=== PATIENT | female | born 1950 | race Caucasian/White ===

== ENCOUNTER 2022-10-27 16:28 | Inpatient (IN) | payer MEDICARE, MEDICAID, SELFPAY ==
[2022-10-27] VITALS (37 sets, daily range): BP systolic 78–135; BP diastolic 29–88; PULSE 53–163; RESP 13–22; TEMP 36–36.7; O2SAT 90–100; BMI 47.1; BMI 45.7
--- NOTE | ~2022-10-27 | CT_ITS ---
EXAMINATION: CT abdomen pelvis w con DATE: 10/27/2022 17:48 INDICATION: Generalized abdominal pain. TECHNIQUE: Computed tomography (CT) of the abdomen and pelvis was performed with 100 mL Omnipaque 350 intravenous contrast. Automated exposure control and iterative reconstruction technique were employe d. The dose-length product was 1770.87 mGy-cm. COMPARISON: None. FINDINGS: The visualized portions of the lung bases demonstrate mild atelectasis. There are small ple ural effusions. Cardiomegaly is noted. No pericardial effusion. There are coronary artery calcificati ons. The liver demonstrates focal steatosis adjacent to the falciform ligament. The gallbladder, sple en, pancreas, and right adrenal gland are normal. There is a 14 mm mass in left adrenal gland measuri ng soft tissue attenuation. There are cysts in the liver kidneys measuring up to 15 mm on the right. The bladder is distended. There are calcified fibroids in the uterus. Stool distends the rectosigmoid . There is wall thickening of the rectum with adjacent fat stranding, consistent with stercoral colit is. The appendix is normal. Aortic atherosclerosis is noted. There are no pathologically enlarged lym ph nodes. There is no free intraperitoneal fluid. There is moderate lumbar spondylosis. There are roselyn dging endplate osteophytes at multiple levels in the spine, consistent with diffuse idiopathic skelet al hyperostosis (DISH). IMPRESSION: 1. Stercoral colitis. 2. Small pleural effusions. 3. 14 mm left adrenal mass. In the absence of known malignancy, this finding is likely an adenoma. Reviewed, dictated and finalized at location E.
--- NOTE | ~2022-10-27 | XR_ITS ---
EXAMINATION: XR chest 1V portable INDICATION: Chest pain TECHNIQUE: Portable AP chest at 1658 hours COMPARISON: None available FINDINGS: There is elevation of the right hemidiaphragm. A mild diffuse interstitial pattern is prese nt. The heart size is normal for technique. No pleural effusion or pneumothorax. IMPRESSION: 1. Probable mild pulmonary edema. Reviewed, dictated and finalized at location L.
--- NOTE | ~2022-10-27 | CT_ITS ---
EXAMINATION: CT soft tissue neck wo con DATE: 11/03/2022 14:12 INDICATION: Right-sided sialadenitis. TECHNIQUE: Computed tomography (CT) of the neck was performed without intravenous contrast. Automated exposure control and iterative reconstruction technique were employed. The dose-length product was 7 03.48 mGy-cm. COMPARISON: None FINDINGS: There is mild dependent atelectasis. There are small pleural effusions. Right parotid gland is enlarged with surrounding fat stranding, consistent with parotiditis. No sialolith. There are no pathologically enlarged lymph nodes. 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 There is mild mucosal thickening in sphenoid sinus. There is moderate cervical spondylosis. IMPRESSION: 1. Right-sided parotiditis. No sialolith. Reviewed, dictated and finalized at location A.
--- NOTE | 2022-10-27 16:35 | ECG_ITS ---
Measurements Intervals [place] Rate: 149 P: IN: 0 QRS: 10 QRSD: 86 T: 49 QT: 301 QTc: 475 Interpretive Statements ATRIAL FIBRILLATION WITH RAPID VENTRICULAR RESPONSE LOW QRS VOLTAGE IN PRECORDIAL LEADS BORDERLINE ST-T WAVE ABNORMALITY- DIFFUSE LEADS BASELINE ARTIFACT- I, II, AVR ABNORMAL ECG NO PREVIOUS ECG AVAILABLE FOR COMPARISON Electronically Signed On 10-27-2022 20:20:09 CDT by Dale Yeager D.O.
[2022-10-27] MEDS: dilTIAZem 100 MG/100 ML 100 MG/100 ML BAG IV CONT (16:52)
[2022-10-27] MEDS: dilTIAZem HCl INJ 25 MG/5 ML VIAL 20 MG IV PUSH (16:52)
[2022-10-27] MEDS: SODIUM CHLORIDE 0.9% IV 1,000 ML 999 ML IV CONT ×2 (16:53→17:18)
[2022-10-27 17:06] LABS: Basophils Absolute Auto 0.1 K/mm3 (0.0-0.1); Basophils Percent Auto 0.5 % (0.2-1.2); Eosinophils Absolute Auto 0.8 K/mm3 (0-0.3); Eosinophils Percent Auto 7.6 % (0-4.4); Hematocrit 38.8 % (37.0-47.0); Hemoglobin 12.5 g/dL (12.0-15.0); Immature Granulocyte Absolute 0.06 K/mm3 (0.00-0.031); Immature Granulocyte Percent A 0.6 % (0-0.5); Lymphocytes Absolute Auto 3.98 K/mm3 (0.9-3.2); Lymphocytes Percent Auto 38.6 % (18.3-44.2); Mean Corpuscular HGB Conc 32.2 g/dl (32-36); Mean Corpuscular Hemoglobin 28.5 pg (26-34); Mean Corpuscular Volume 88.6 fl (80-100); Mean Platelet Volume 9.1 fl (7.4-10.4); Monocytes Absolute Auto 0.7 K/mm3 (0.1-0.6); Monocytes Percent Auto 7.2 % (2.6-8.5); Neutrophils Absolute Auto 4.7 K/mm3 (1.3-6.7); Neutrophils Percent Auto 45.5 % (45.5-73.1); Platelet Count Result 328 k/mm3 (150-375); Red Blood Count 4.38 M/mm3 (4.2-5.4); Red Cell Distribution Width 18.2 % (11.5-14.5); White Blood Count 10.3 K/mm3 (4.5-10.0)
[2022-10-27] MEDS: ASPIRIN 81 MG CHEWABLE TABLET 324 MG PO (17:10)
[2022-10-27 17:14] LABS: INR 1.2; Partial Thromboplastin Time 33.5 SECONDS (22.3-36.8); Prothrombin Time 15.3 Seconds (11.1-14.7)
[2022-10-27 17:17] LABS: Alanine Aminotransferase 23 U/L (6-35); Albumin Level 3.1 g/dL (3.5-5.1); Alkaline Phosphatase 106 U/L (38-126); Anion Gap 2 mmol/L (8-16); Aspartate Amino Transferase 24 U/L (14-36); Bilirubin,Total 0.4 mg/dL (0.2-1.3); Blood Urea Nitrogen 10 mg/dL (7-17); Calcium 9.1 mg/dL (8.4-10.2); Carbon Dioxide 32 mmol/L (22-30); Chloride 102 mmol/L (98-107); Estimated Glomerular Filt Rate > 60; Glucose 135 mg/dL (65-110); Lipase 50 U/L (23-300); Potassium 3.6 mmol/L (3.4-5.0); Sodium 136 mmol/L (137-145)
[2022-10-27 17:19] LABS: Magnesium 1.7 mg/dL (1.6-2.3)
[2022-10-27 17:28] LABS: Troponin I < 0.012 ng/mL (0.000-0.034)
[2022-10-27] MEDS: MAGNESIUM SULF 2 GM/WATER 50ML 2 GM/50 ML BAG IVPB (18:09)
[2022-10-27] MEDS: MORPHINE SULFATE (*CRX) 4 MG/ML INJ IV PUSH (18:09)
--- NOTE | 2022-10-27 18:13 | ED.ARRPALP ---
HPI - Arrhythmia/Palpitations General Chief Complaint: Arrhythmia/Palpitations Stated Complaint: a fib RVR Time Seen by Provider: 10/27/22 16:35 History of Present Illness HPI narrative: This is a 72-year-old female with past history of A-fib on Eliquis, brought in by EMS for palpitations and abdominal pain. The patient states she was in her usual state of health, when she developed a galloping sensation in the chest with intermittent abdominal pain. She denies any known sick contacts or changes in her medications or health. She has no other complaints at this time. Related Data Allergies Allergy/AdvReac Type Severity Reaction Status Date / Time Latex, Natural Rubber AdvReac Unknown Verified 10/27/22 16:55 Review of Systems Review of Systems: CONSTITUTIONAL: Denies fever, chills, or sweats. CARDIOVASCULAR: Palpitations denies chest pain, or edema. RESPIRATORY: Denies cough or dyspnea. GASTROINTESTINAL: Abdominal pain denies nausea, vomiting, or diarrhea. GENITOURINARY: Denies dysuria or hematuria. SKIN: Denies rash or itching. MUSCULOSKELETAL: Denies back pain, joint pain, or myalgia. NEUROLOGIC: Denies headache, numbness, dizziness, or weakness. PSYCHIATRIC: Denies anxiety or depression. Exam Narrative: GENERAL: Well-developed, well-nourished, in moderate distress HEAD: Normocephalic, atraumatic. EYES: PERRLA and EOMI. ENT: Nares clear, no rhinorrhea or epistaxis. Mucous membranes moist. Oropharynx without tonsillar hypertrophy exudate or other lesions. NECK: Supple. No adenopathy or masses. No JVD CHEST: Clear to auscultation. No respiratory distress. No wheezes rales or rhonchi HEART: Irregularly irregular rhythm. No murmur heard. Normal peripheral pulses. ABDOMEN: Soft, mild tenderness to palpation in the periumbilical region without rebound or guarding, nondistended, normal active bowel sounds. EXTREMITIES: Normal range of motion. 2+ bilateral lower extremity edema. SKIN: Warm, dry, no rash. NEURO: No focal deficits. Alert and oriented x3. PSYCH: Normal mood and affect. Course Course Emergency Course: 16:52 - Blood pressure improved with IV bolus ongoing. The patient was given 20 mg of diltiazem IV push with brief improvement of heart rate to the low 100s. Diltiazem drip started. 16:58 - Bedside evaluation of the patient's chest x-ray is not concerning for pneumothorax or focal consolidation. 17:51 - My review of the patient's CT abdomen is concerning for significantly enlarged bladder. Will place a Sullivan catheter. Blood pressure improved to the mid 100s systolic. Heart rate improved to the 130s with diltiazem drip at 10 mg/h. 18:45 - 2.3 L of urine were drained from the patient with Sullivan catheter placement. The patient states her abdominal pain is improved, however her heart rate remains in the 110s to 130s. Pressures remain in the mid to high 90s systolic. I discussed the patient with hospitalist COLE Pruett. We agreed to switch the patient to IV amiodarone and admit to IMU. UA pending. Vital Signs Vital signs: Vital Signs Temperature 98.0 F 10/27/22 16:27 Pulse Rate 153 H 10/27/22 16:27 Respiratory Rate 18 10/27/22 16:27 Pulse Oximetry 97 10/27/22 16:27 Oxygen Delivery Nasal Cannula 10/27/22 16:27 Oxygen Flow Rate 2 10/27/22 16:27 Temperature 98.0 F 10/27/22 16:27 Pulse Rate 132 H 10/27/22 18:10 Respiratory Rate 18 10/27/22 16:27 Blood Pressure 105/62 10/27/22 18:10 Pulse Oximetry 97 10/27/22 16:27 Oxygen Delivery Nasal Cannula 10/27/22 16:27 Oxygen Flow Rate 2 10/27/22 16:27 MDM - Arrhythmia/Palpitations MDM Narrative Medical decision making narrative: Plan: Labs, imaging, rate control, EKG, troponin, IV fluids, reassess Differential Diagnosis Differential diagnosis: Likely artial fibrillation, artial flutter, supraventricular tachycardia and other (Metabolic abnormality, UTI, and terminal hemorrhage, pneumothorax, other) Lab Data 10/17
[2022-10-27] MEDS: METOPROLOL TARTRATE INJ 5 MG/5 ML VIAL IV PUSH (18:47)
[2022-10-27 18:51] LABS: Appearance Urine Clear (Clear); Bilirubin Urine Negative (Negative); Blood Urine Negative (Negative); Color Urine Yellow (Yellow); Glucose Urine UA Negative (Negative); Ketones Urine Negative (Negative); Leukocyte Esterase Ur Negative LEU/UL (Negative); Nitrate Urine Negative (Negative); Protein Urine Negative (Negative); Specific Grav Ur 1.022 (1.001-1.035); Urobilinogen Urine 0.2 mg/dL (<2.0)
[2022-10-27 19:06] LABS: Amphetamine Screen Urine Negative (Negative); Barbiturate Screen Urine Negative (Negative); Benzodiazepines Screen Urine Negative (Negative); Cannabinoid Screen Urine Negative (Negative); Cocaine Screen Urine Negative (Negative); Methadone Screen Urine Negative (Negative); Opiate Screen Urine Positive (Negative); Phencyclidine Screen Urine Negative (Negative)
[2022-10-27] MEDS: AMIODARONE 150 MG/D5W 100 ML 150 MG/100 ML BAG 600 MG IV CONT (19:19)
[2022-10-27 19:23] LABS: Add Urine Microscopic? NO
--- NOTE | 2022-10-27 19:24 | PC.NURSE ---
Orders to change from Diltiazem to Amiodarone due to HR not decreasing.
[2022-10-27] MEDS: AMIODARONE 360 MG/D5W 200 ML 360 MG/200 ML BAG 33.33 MG IV CONT (19:35)
[2022-10-27 20:32] LABS: Troponin I < 0.012 ng/mL (0.000-0.034)
[2022-10-27] MEDS: CALCIUM GLUCONATE 1,000 MG/10 ML VIAL 1000 MG IV PUSH (20:39)
[2022-10-27 20:56] LABS: Glucose Point of Care 155 mg/dl (65-105)
--- NOTE | 2022-10-27 21:54 | ADMGEN ---
This patient, Lauren Lambert, was admitted to IMU Room 204-01. Patient/family oriented to hospital policies and general routines including ID bracelet, bed and alarms, visiting hours, pain management, procedures, bathroom and other care routines, personal items, smoking policy, room service/diet, and visiting hours. Information on how to activate the Rapid Response Team has been discussed. Patient/Family are encouraged to report perceived risks to care and to ask questions if they do not understand what they are told or what they should do.
[2022-10-27 23:13] LABS: Troponin I < 0.012 ng/mL (0.000-0.034)
--- NOTE | 2022-10-27 23:20 | PM.IMHP ---
H&P: HPI History of Present Illness Date/Time: 10/27/22 20:30 Chief Complaint: Racing heart. Narrative: This is a very pleasant 72-year-old female with history of atrial fibrillation status post cardiac ablation, coronary artery disease, congestive heart failure, hypertension, chronic respiratory failure on 2 L nasal cannula, and obstructive sleep apnea who presented to the emergency department via EMS from [facility] for evaluation of racing heart. The patient provides the following history. She usually goes to [facility] and in fact she was just discharged from [facility] yesterday afternoon after being admitted with urosepsis. She was previously living at a different nursing facility in [place], [place] but was discharged she [place]. In any event she reports that she felt okay when she got up this morning and around lunchtime she developed sensations of racing heart ?like my heart was galloping.? She has felt this before when she had issues with atrial fibrillation and she requested to go to the hospital. In fact she requested to go to [facility] as she sees a technical consultant affiliated with [facility] however her blood pressures were running soft and her heart rate was in the 130s and she was diverted to [place] ED. She indeed was found to be in atrial fibrillation with rapid ventricular response and she was given a dose of IV of diltiazem without much improvement. Her blood pressures have been in the 80s to 90s systolic since that time and she has since been started on an amiodarone drip after receiving a small bolus of IV fluid. She complains of feeling a bit dehydrated and reports a significant dry mouth. She was unable to produce a urine sample on arrival and a bladder scan showed that she was retaining than 1000 mL of urine. Sullivan catheter was inserted she has no other complaints at this time and denies syncope, near syncope, fever, chills, sweats, chest pain, vomiting, diarrhea, and dysuria. Review of Systems Review of Systems: Twelve systems were reviewed and are negative except for as per HPI. [facility] Past Medical History Medical History (Updated 10/27/22 @ 23:32 by Yelitza Buckley PA-C) Arthritis Atrial fibrillation Status post cardiac ablation. Chronic respiratory failure with hypoxia, on home oxygen therapy Coronary artery disease Deep venous thrombosis Diastolic congestive heart failure Hypertension Obstructive sleep apnea on CPAP Surgical History Surgical History (Updated 10/27/22 @ 23:24 by Yelitza Buckley PA-C) History of cardiac radiofrequency ablation History of tonsillectomy Family History Family History Father Malignant neoplasm of prostate Acute myocardial infarction Mother Uterine cancer Acute myocardial infarction Sibling Uterine cancer Social History Social History (Updated 10/27/22 @ 23:29 by Yelitza Buckley PA-C) Social History: Code status: Modified code, medications only. No CPR intubation. Okay with noninvasive ventilation. Smoking status: Never smoker Alcohol intake: never Substance use: never Lack of Transportation: No Lack of Food: Never True Current Housing: I Have Housing Concerned About Future Housing: No Difficulty Paying Gas/Electric Bills: No Difficulty Paying for Meds: No Currently Unemployed: No Education: Master's Degree or Higher Difficulty w/ Childcare or Family Care: No Additional living arrangements comments: [facility]. No children. 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 Spiritual care concerns: No Meds Home Medications and Allergies Home Medications Medication Instructions Recorded Confirmed Type acetaminophen 650 mg tablet 650 mg PO Q6H PRN Pain 10/27/22 10/27/22 History apixaban 5 mg tablet (Eliquis) 5 mg PO BID
[2022-10-27] MEDS: ACETAMINOPHEN 325 MG TABLET 650 MG PO (23:52)
[2022-10-27] MEDS: ONDANSETRON INJ 4 MG/2 ML VIAL IV PUSH (23:54)
[2022-10-27] MEDS: BISACODYL 10 MG SUPPOSITORY RECTAL (23:54)
[2022-10-28] VITALS (27 sets, daily range): BP systolic 96–138; BP diastolic 56–88; PULSE 80–144; RESP 19–22; TEMP 36.1–36.9; O2SAT 94–100; BMI 45.7
[2022-10-28] MEDS: CYCLOBENZAPRINE HCL 10 MG TABLET PO ×4 (00:01→18:46)
[2022-10-28] MEDS: polyethylene glycoL 3350 17 GM POWD.PACK PO (00:01)
[2022-10-28] MEDS: AMIODARONE 360 MG/D5W 200 ML 360 MG/200 ML BAG 16.67 MG IV CONT ×3 (01:00→23:24)
[2022-10-28 05:11] LABS: Basophils Absolute Auto 0.1 K/mm3 (0.0-0.1); Basophils Percent Auto 0.6 % (0.2-1.2); Eosinophils Absolute Auto 0.7 K/mm3 (0-0.3); Eosinophils Percent Auto 8.5 % (0-4.4); Hematocrit 36.7 % (37.0-47.0); Hemoglobin 11.6 g/dL (12.0-15.0); Immature Granulocyte Absolute 0.07 K/mm3 (0.00-0.031); Immature Granulocyte Percent A 0.8 % (0-0.5); Lymphocytes Absolute Auto 2.65 K/mm3 (0.9-3.2); Mean Corpuscular HGB Conc 31.6 g/dl (32-36); Mean Corpuscular Hemoglobin 28.3 pg (26-34); Mean Corpuscular Volume 89.5 fl (80-100); Mean Platelet Volume 9.1 fl (7.4-10.4); Monocytes Absolute Auto 0.8 K/mm3 (0.1-0.6); Monocytes Percent Auto 9.2 % (2.6-8.5); Neutrophils Absolute Auto 4.3 K/mm3 (1.3-6.7); Neutrophils Percent Auto 49.9 % (45.5-73.1); Platelet Count Result 312 k/mm3 (150-375); Red Cell Distribution Width 18.1 % (11.5-14.5); White Blood Count 8.6 K/mm3 (4.5-10.0)
[2022-10-28 05:28] LABS: Alanine Aminotransferase 21 U/L (6-35); Albumin Level 2.6 g/dL (3.5-5.1); Alkaline Phosphatase 80 U/L (38-126); Anion Gap 1 mmol/L (8-16); Aspartate Amino Transferase 19 U/L (14-36); Bilirubin,Total 0.3 mg/dL (0.2-1.3); Blood Urea Nitrogen 8 mg/dL (7-17); Calcium 8.6 mg/dL (8.4-10.2); Carbon Dioxide 32 mmol/L (22-30); Chloride 100 mmol/L (98-107); Estimated CRCL calculation 199 ml/min; Estimated Glomerular Filt Rate > 60; Glucose 141 mg/dL (65-110); Magnesium 1.7 mg/dL (1.6-2.3); Potassium 3.9 mmol/L (3.4-5.0); Sodium 133 mmol/L (137-145)
[2022-10-28 06:42] LABS: Free T4 Free Thyroxine Reflex 1.31 ng/dL (0.78-2.19)
[2022-10-28 07:34] LABS: Total Triiodothyronine (T3) 1.31 NG/ML (0.97-1.69)
[2022-10-28] MEDS: ATORVASTATIN 40 MG TABLET PO (08:52)
[2022-10-28] MEDS: CLOPIDOGREL BISULFATE 75 MG TABLET PO (08:52)
[2022-10-28] MEDS: MICONAZOLE NITRATE 2% CREAM 30 GM TUBE 1 APPLIC TOPICAL ×2 (08:52→18:46)
[2022-10-28] MEDS: FUROSEMIDE 40 MG TABLET PO (08:52)
[2022-10-28] MEDS: APIXABAN 5 MG TABLET PO ×2 (08:52→20:22)
[2022-10-28] MEDS: FAMOTIDINE 20 MG TABLET PO ×2 (08:52→18:46)
--- NOTE | 2022-10-28 09:33 | PM.CNCAR ---
Assessment and Plan Assessment and plan (1) Atrial fibrillation with rapid ventricular response: Code(s): I48.91 - Unspecified atrial fibrillation Status: Acute Assessment and Plan: Patient with a history of AFib, now with probably persistent AFib and difficult to control heart rate. Failed diltiazem and now on amiodarone. --give another bolus of amiodarone 150 mg over 10 minutes --continue amiodarone drip --start metoprolol 25 mg q.8 hours --continue Eliquis --try to find recent echo, or order echo. (2) Coronary artery disease: Code(s): I25.10 - Atherosclerotic heart disease of [place] coronary artery without angina pectoris Status: Acute Assessment and Plan: History of CAD, mi in the past, some chest hurting yesterday but negative troponins no ischemic changes. --continue Eliquis, clopidogrel, atorvastatin (3) Diastolic congestive heart failure: Code(s): I50.30 - Unspecified diastolic (congestive) heart failure Status: Acute Assessment and Plan: History of chronic diastolic heart failure. Does have some edema and questionable pulmonary vascular congestion consistent with mild volume overload. --continue furosemide 40 mg daily (4) Chronic respiratory failure with hypoxia, on home oxygen therapy: Code(s): J96.11 - Chronic respiratory failure with hypoxia; Z99.81 - Dependence on supplemental oxygen Status: Acute Assessment and Plan: Continue home O2 (5) Hypertension: Code(s): I10 - Essential (primary) hypertension Status: Acute Assessment and Plan: Running somewhat soft today --continue to hold the losartan in favor of anti rhythmic therapy (6) Obstructive sleep apnea on CPAP: Code(s): G47.33 - Obstructive sleep apnea (adult) (pediatric) Status: Acute Assessment and Plan: Finds CPAP helpful, continue same. 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 She has a history of paroxysmal AFib, hypertension, hyperlipidemia, CAD, BRINDA on CPAP, and diastolic CHF. The patient was hospitalized at [facility] 10/15/2022 to 10/24/2022 for acute cystitis. She had problems with AFib RVR during that hospital stay, treated with amiodarone, and was discharged taking metoprolol 50 mg b.i.d. and Eliquis.. However, her admitting meds here show diltiazem 30 mg q.6 hours and no beta-nolvia. (Discharge medications also include atorvastatin, Symbicort, clopidogrel, from mod a Rudy, furosemide 40 mg q.d., losartan 25 mg q.d., nitroglycerin and some PRNs. ) She lives at [facility]. Her usual radiology transporter is from [place], Dr. Davis. Patient reports she has had several cardioversions and ablation but does not know if she has persistent or paroxysmal atrial fibrillation. She felt her heart galloping yesterday as well as some soreness of her chest and was brought to our emergency room with AFib RVR. She was initially started on Cardizem but continued to have a rapid heart rate so switched to amiodarone. Heart rate still runs in the 140s. TSH 7.6. To Homans negative x3 10/27/2022 EKG at 2:36 p.m.: Atrial fibrillation rapid ventricular response rate 149, nonspecific ST changes CT reviewed, small pleural effusions, stercol Colitis. Check chest x-ray: Probable mild pulmonary edema. Personally reviewed, difficult study. Review of Systems Constitutional: Constitutional: Denies fever(s) Eyes: Eyes: Reports no additional eye complaints ENT: Denies epistaxis Cardiovascular: Cardiovascular: Reports chest pain (Chest felt sore yesterday), Denies pedal edema, Denies lightheadedness, Repor
[2022-10-28] MEDS: AMIODARONE 150 MG/D5W 100 ML 150 MG/100 ML BAG 600 MG IV CONT ×2 (10:18→18:46)
[2022-10-28] MEDS: AMIODARONE 360 MG/D5W 200 ML 360 MG/200 ML BAG 33.33 MG IV CONT ×2 (11:05→18:47)
--- NOTE | 2022-10-28 15:50 | WPDPN ---
Progress Note: A&P Assessment and Plan (1) Atrial fibrillation with rapid ventricular response: Code(s): I48.91 - Unspecified atrial fibrillation Status: Acute (2) Acute urinary retention: Code(s): R33.8 - Other retention of urine Status: Acute (3) Stercoral colitis: Code(s): K52.89 - Other specified noninfective gastroenteritis and colitis Status: Acute (4) Diastolic congestive heart failure: Code(s): I50.30 - Unspecified diastolic (congestive) heart failure Status: Acute (5) Chronic respiratory failure with hypoxia, on home oxygen therapy: Code(s): J96.11 - Chronic respiratory failure with hypoxia; Z99.81 - Dependence on supplemental oxygen Status: Acute (6) Hypertension: Code(s): I10 - Essential (primary) hypertension Status: Acute (7) Obstructive sleep apnea on CPAP: Code(s): G47.33 - Obstructive sleep apnea (adult) (pediatric) Status: Acute Plan The patient presented to the emergency department for evaluation of racing heart as per HPI. Labs, imaging, EKG, and all reports were personally reviewed. She was found to be in atrial fibrillation with rapid ventricular response and there was no significant improvement with IV Cardizem bolus and fact her blood pressures dropped a bit. She is now on an amiodarone drip with some improvement in her rate. She had a cardiac ablation done 6.5 years ago for atrial fibrillation and she has not had issues until now. Continue apixaban for stroke prophylaxis. Cardiology has been consulted and their input is appreciated. CPAP will be provided for the patient to use while hospitalized; she states compliance at home. She is at her baseline oxygen requirement at this time. Blood pressures were soft earlier this evening and have responded to fluids. Her mouth is quite dry though will encourage oral intake and hold further IV fluids as she has some mild edema on her chest x-ray and of her lower legs. Records requested from her civil drafter for review of most recent echocardiogram. She was retaining over 2 L of urine and she currently has a Sullivan catheter in place. She will need to follow-up with Urology as an outpatient. CT of the abdomen and pelvis shows evidence of stercoral colitis and she has been started on scheduled MiraLax. Dulcolax suppository also ordered. Antihypertensives are on hold given softer blood pressures. The rest of her home medications will be reviewed and resumed as appropriate. 10/28/2022 interval history: Patient with history of PAF presented with A. Fib RVR, was started on Diltiazem drip however she remained in RVR and seen by civil drafter, started patient to amiodarone drip and added metoprolol 25mg PO q8, will monitor, patient normally goes to other facility no records are available, patient stats she had cardioversion in the past and went back into A.Fib. will obtain records and further recommendation to follow. Subjective Date/time seen: 10/28/22 15:50 Interval history: Racing heart. HPI-Narrative: This is a very pleasant 72-year-old female with history of atrial fibrillation status post cardiac ablation, coronary artery disease, congestive heart failure, hypertension, chronic respiratory failure on 2 L nasal cannula, and obstructive sleep apnea who presented to the emergency department via EMS from [facility] for evaluation of racing heart. The patient provides the following history. She usually goes to [facility] and in fact she was just discharged from [facility] yesterday afternoon after being admitted with urosepsis. She was previously living at a different nursing facility in [place], [place] but was discharged she [place]. In any event she reports that she felt okay when she got up this morning and around lunchtime she developed sensations of racing heart ?like my heart was galloping.? She has felt this before when she had issues with atrial fibrillat
[2022-10-28] MEDS: METOPROLOL TARTRATE 25 MG TABLET PO ×2 (15:52→20:22)
[2022-10-28] MEDS: ACETAMINOPHEN 325 MG TABLET 650 MG PO ×2 (16:02→23:48)
[2022-10-29] VITALS (29 sets, daily range): BP systolic 104–158; BP diastolic 58–91; PULSE 111–143; RESP 12–20; TEMP 36.4–37.7; O2SAT 94–99
[2022-10-29] MEDS: METOPROLOL TARTRATE 25 MG TABLET PO (05:33)
[2022-10-29] MEDS: ACETAMINOPHEN 325 MG TABLET 650 MG PO ×3 (09:40→23:39)
[2022-10-29] MEDS: polyethylene glycoL 3350 17 GM POWD.PACK PO (09:40)
[2022-10-29] MEDS: FAMOTIDINE 20 MG TABLET PO ×2 (09:41→17:30)
[2022-10-29] MEDS: ATORVASTATIN 40 MG TABLET PO (09:41)
[2022-10-29] MEDS: APIXABAN 5 MG TABLET PO ×2 (09:41→20:54)
[2022-10-29] MEDS: MICONAZOLE NITRATE 2% CREAM 30 GM TUBE 1 APPLIC TOPICAL ×2 (09:41→17:29)
[2022-10-29] MEDS: CLOPIDOGREL BISULFATE 75 MG TABLET PO (09:41)
[2022-10-29] MEDS: FUROSEMIDE 40 MG TABLET PO (09:41)
[2022-10-29] MEDS: CYCLOBENZAPRINE HCL 10 MG TABLET PO ×3 (09:41→17:30)
--- NOTE | 2022-10-29 10:08 | PCPTNOTE ---
Attempted PT evaluation, but pt's HR in the 120's. Per Dr. Pruitt, hold therapy until HR is better controlled. RN aware. Will follow.
--- NOTE | 2022-10-29 11:26 | PCOTNOTE ---
Pt's currently has HR in the 120's. PT spoke with, Dr. Pruitt, who requested hold therapy until HR is better controlled. RN aware. Will follow.
[2022-10-29] MEDS: AMIODARONE 360 MG/D5W 200 ML 360 MG/200 ML BAG 16.67 MG IV CONT (12:39)
[2022-10-29] MEDS: METOPROLOL TARTRATE 12.5 MG TABLET 37.5 MG PO ×2 (13:39→20:54)
--- NOTE | 2022-10-29 14:30 | PM.PNCARD ---
Progress Note: A&P Assessment and Plan (1) Atrial fibrillation with rapid ventricular response: Code(s): I48.91 - Unspecified atrial fibrillation Status: Acute Assessment and Plan: Patient with a history of AFib, now with probably persistent AFib and difficult to control heart rate. Failed diltiazem and now on amiodarone. --continue amiodarone drip --increase metoprolol to 37.5 mg q.8 hours --continue Eliquis --Will check echo when heart rate is better controlled (2) Coronary artery disease: Code(s): I25.10 - Atherosclerotic heart disease of [place] coronary artery without angina pectoris Status: Acute Assessment and Plan: History of CAD, mi in the past, some chest hurting yesterday but negative troponins no ischemic changes. --continue Eliquis, clopidogrel, atorvastatin (3) Diastolic congestive heart failure: Code(s): I50.30 - Unspecified diastolic (congestive) heart failure Status: Acute Assessment and Plan: History of chronic diastolic heart failure. Does have some edema and questionable pulmonary vascular congestion consistent with mild volume overload. --continue furosemide 40 mg daily (4) Chronic respiratory failure with hypoxia, on home oxygen therapy: Code(s): J96.11 - Chronic respiratory failure with hypoxia; Z99.81 - Dependence on supplemental oxygen Status: Acute Assessment and Plan: Continue home O2 (5) Hypertension: Code(s): I10 - Essential (primary) hypertension Status: Acute Assessment and Plan: Running somewhat soft today --continue to hold the losartan in favor of anti rhythmic therapy (6) Obstructive sleep apnea on CPAP: Code(s): G47.33 - Obstructive sleep apnea (adult) (pediatric) Status: Acute Assessment and Plan: Finds CPAP helpful, continue same. Subjective Date/time seen: 10/29/22 14:30 Cardiology follow up for atrial fibrillation Interval history: Feels about the same today. Heart rate remains elevated on amiodarone, but she is asymptomatic. Review of Systems Constitutional: Constitutional: Denies fever(s) Eyes: Eyes: Reports no additional eye complaints ENT: Denies epistaxis Cardiovascular: Cardiovascular: Reports chest pain (Chest felt sore yesterday), Denies pedal edema, Denies lightheadedness, Reports palpitations and Denies dyspnea Respiratory: Respiratory: Denies chest congestion and Denies dyspnea Gastrointestinal: Gastrointestinal: Denies abdominal pain, Denies hematochezia and Reports constipation Genitourinary: Genitourinary: Denies dysuria Musculoskeletal: Musculoskeletal: Reports no additional musculoskeletal complaints, Reports back pain and Reports arthralgias Integumentary/Breasts: Skin/Breast: Reports system reviewed and no additional complaints, except as docu Neurologic: Reports system reviewed and no additional complaints, except as documented, Denies behavioral changes and Denies confusion Psychiatric: Psychiatric: Denies behavioral changes and Denies confusion Endocrine: Endocrine: Reports palpitations Exam Const: General: cooperative, healthy appearing and comfortable; No confusion Orientation/consciousness: oriented to person, patient oriented x3 (Oriented to Wednesday, October, Hospital, situation) and No confusion HENMT: Mouth: Yes moist mucous membranes Other: Hard of hearing Eyes: General: appearance normal, both eyes and all related structures EOM: EOMs intact bilaterally Neck: Neck: supple and no JVD Thyroid: thyroid normal Carotids: no bruits Resp: Effort & Inspection: normal respiratory effort Auscultation: clear to auscultation bilaterally Cardio: Rate: regular rate and tachycardic Rhythm: regular rhythm and abnormal rhythm irregularly irregular Heart sounds: no murmurs GI: Inspection: normal to inspection Skin: General skin exam: normal color and no rashes or lesions noted Neuro: General: oriente
[2022-10-29] MEDS: METOPROLOL TARTRATE INJ 5 MG/5 ML VIAL IV PUSH ×2 (14:35→15:50)
--- NOTE | 2022-10-29 16:39 | WPDPN ---
Progress Note: A&P Assessment and Plan (1) Atrial fibrillation with rapid ventricular response: Code(s): I48.91 - Unspecified atrial fibrillation Status: Acute (2) Acute urinary retention: Code(s): R33.8 - Other retention of urine Status: Acute (3) Stercoral colitis: Code(s): K52.89 - Other specified noninfective gastroenteritis and colitis Status: Acute (4) Diastolic congestive heart failure: Code(s): I50.30 - Unspecified diastolic (congestive) heart failure Status: Acute (5) Chronic respiratory failure with hypoxia, on home oxygen therapy: Code(s): J96.11 - Chronic respiratory failure with hypoxia; Z99.81 - Dependence on supplemental oxygen Status: Acute (6) Hypertension: Code(s): I10 - Essential (primary) hypertension Status: Acute (7) Obstructive sleep apnea on CPAP: Code(s): G47.33 - Obstructive sleep apnea (adult) (pediatric) Status: Acute Plan The patient presented to the emergency department for evaluation of racing heart as per HPI. Labs, imaging, EKG, and all reports were personally reviewed. She was found to be in atrial fibrillation with rapid ventricular response and there was no significant improvement with IV Cardizem bolus and fact her blood pressures dropped a bit. She is now on an amiodarone drip with some improvement in her rate. She had a cardiac ablation done 6.5 years ago for atrial fibrillation and she has not had issues until now. Continue apixaban for stroke prophylaxis. Cardiology has been consulted and their input is appreciated. CPAP will be provided for the patient to use while hospitalized; she states compliance at home. She is at her baseline oxygen requirement at this time. Blood pressures were soft earlier this evening and have responded to fluids. Her mouth is quite dry though will encourage oral intake and hold further IV fluids as she has some mild edema on her chest x-ray and of her lower legs. Records requested from her pearl glue drier for review of most recent echocardiogram. She was retaining over 2 L of urine and she currently has a Sullivan catheter in place. She will need to follow-up with Urology as an outpatient. CT of the abdomen and pelvis shows evidence of stercoral colitis and she has been started on scheduled MiraLax. Dulcolax suppository also ordered. Antihypertensives are on hold given softer blood pressures. The rest of her home medications will be reviewed and resumed as appropriate. 10/29/2022 interval history: Patient with history of PAF presented with A. Fib RVR, was started on Diltiazem drip however she remained in RVR and seen by pearl glue drier, started patient to amiodarone drip and added metoprolol 25mg PO q8, patient rate is still elevated pearl glue drier today increase metoprolol to 37.5 po q8 will continue amiodorane drip, will monitor, patient normally goes to other facility no records are available, patient stats she had cardioversion in the past and went back into A.Fib. will obtain records and further recommendation to follow. Subjective Date/time seen: 10/29/22 16:39 Interval history: The patient presented to the emergency department for evaluation of racing heart as per HPI. Labs, imaging, EKG, and all reports were personally reviewed. She was found to be in atrial fibrillation with rapid ventricular response and there was no significant improvement with IV Cardizem bolus and fact her blood pressures dropped a bit. She is now on an amiodarone drip with some improvement in her rate. She had a cardiac ablation done 6.5 years ago for atrial fibrillation and she has not had issues until now. Continue apixaban for stroke prophylaxis. Cardiology has been consulted and their input is appreciated. CPAP will be provided for the patient to use while hospitalized; she states compliance at home. She is at her baseline oxygen requirement at this time. Blood pressures were soft earlier this evening and have respond
--- NOTE | 2022-10-29 17:13 | PC.NURSE ---
HR 130s-140s despite prn metoprolol. Dr. Dubose made aware. New orders noted to stop Amiodarone gtt. Give Cardizem 10 mg IVP now. Start continuous Cardizem gtt at 5 mg 30 minutes afterwards if blood pressure will tolerate. If BP drops call back for further orders.
[2022-10-29] MEDS: dilTIAZem HCl INJ 25 MG/5 ML VIAL 10 MG IV PUSH (17:38)
[2022-10-29] MEDS: dilTIAZem 100 MG/100 ML 100 MG/100 ML BAG IV CONT (18:21)
[2022-10-30] VITALS (27 sets, daily range): BP systolic 92–118; BP diastolic 44–68; PULSE 120–127; RESP 15–22; TEMP 35.9–37.1; O2SAT 95–100
[2022-10-30] MEDS: METOPROLOL TARTRATE 12.5 MG TABLET 37.5 MG PO ×3 (06:09→20:12)
[2022-10-30] MEDS: ACETAMINOPHEN 325 MG TABLET 650 MG PO ×3 (06:09→20:12)
--- NOTE | 2022-10-30 08:32 | PCOTNOTE ---
Pt. continues to have HR 120 BPM <. Pt. not medically appropriate at this time.
[2022-10-30] MEDS: MICONAZOLE NITRATE 2% CREAM 30 GM TUBE 1 APPLIC TOPICAL ×2 (09:05→18:07)
[2022-10-30] MEDS: FAMOTIDINE 20 MG TABLET PO ×2 (09:05→18:07)
[2022-10-30] MEDS: FUROSEMIDE 40 MG TABLET PO (09:05)
[2022-10-30] MEDS: polyethylene glycoL 3350 17 GM POWD.PACK PO (09:05)
[2022-10-30] MEDS: CYCLOBENZAPRINE HCL 10 MG TABLET PO ×3 (09:06→18:07)
[2022-10-30] MEDS: ATORVASTATIN 40 MG TABLET PO (09:06)
[2022-10-30] MEDS: APIXABAN 5 MG TABLET PO ×2 (09:06→20:12)
[2022-10-30] MEDS: CLOPIDOGREL BISULFATE 75 MG TABLET PO (09:06)
--- NOTE | 2022-10-30 09:35 | PCPTNOTE ---
Pt's HR remains in the 120's at rest. Spoke with hospitalist who agreed to hold therapy until pt's HR is better controlled. Will Follow.
[2022-10-30] MEDS: dilTIAZem 100 MG/100 ML 100 MG/100 ML BAG 10 MG IV CONT ×2 (10:50→20:11)
[2022-10-30] MEDS: DOCUSATE SODIUM 100 MG CAPSULE PO (13:06)
--- NOTE | 2022-10-30 15:22 | WPDPN ---
Progress Note: A&P Assessment and Plan (1) Atrial fibrillation with rapid ventricular response: Code(s): I48.91 - Unspecified atrial fibrillation Status: Acute (2) Acute urinary retention: Code(s): R33.8 - Other retention of urine Status: Acute (3) Stercoral colitis: Code(s): K52.89 - Other specified noninfective gastroenteritis and colitis Status: Acute (4) Diastolic congestive heart failure: Code(s): I50.30 - Unspecified diastolic (congestive) heart failure Status: Acute (5) Chronic respiratory failure with hypoxia, on home oxygen therapy: Code(s): J96.11 - Chronic respiratory failure with hypoxia; Z99.81 - Dependence on supplemental oxygen Status: Acute (6) Hypertension: Code(s): I10 - Essential (primary) hypertension Status: Acute (7) Obstructive sleep apnea on CPAP: Code(s): G47.33 - Obstructive sleep apnea (adult) (pediatric) Status: Acute Plan The patient presented to the emergency department for evaluation of racing heart as per HPI. Labs, imaging, EKG, and all reports were personally reviewed. She was found to be in atrial fibrillation with rapid ventricular response and there was no significant improvement with IV Cardizem bolus and fact her blood pressures dropped a bit. She is now on an amiodarone drip with some improvement in her rate. She had a cardiac ablation done 6.5 years ago for atrial fibrillation and she has not had issues until now. Continue apixaban for stroke prophylaxis. Cardiology has been consulted and their input is appreciated. CPAP will be provided for the patient to use while hospitalized; she states compliance at home. She is at her baseline oxygen requirement at this time. Blood pressures were soft earlier this evening and have responded to fluids. Her mouth is quite dry though will encourage oral intake and hold further IV fluids as she has some mild edema on her chest x-ray and of her lower legs. Records requested from her water softener servicer for review of most recent echocardiogram. She was retaining over 2 L of urine and she currently has a Sullivan catheter in place. She will need to follow-up with Urology as an outpatient. CT of the abdomen and pelvis shows evidence of stercoral colitis and she has been started on scheduled MiraLax. Dulcolax suppository also ordered. Antihypertensives are on hold given softer blood pressures. The rest of her home medications will be reviewed and resumed as appropriate. 10/30/2022 interval history: Patient with history of PAF presented with A. Fib RVR, was started on Diltiazem drip however she remained in RVR and seen by water softener servicer, started patient to amiodarone drip and added metoprolol 25mg PO q8, patient rate is still elevated water softener servicer today increase metoprolol to 37.5 po q8 will continue amiodorane drip, patient HR is trending down, will monitor, patient normally goes to other facility no records are available, patient stats she had cardioversion in the past and went back into A.Fib. will obtain records and further recommendation to follow. Subjective Date/time seen: 10/30/22 15:22 Interval history: The patient presented to the emergency department for evaluation of racing heart as per HPI. Labs, imaging, EKG, and all reports were personally reviewed. She was found to be in atrial fibrillation with rapid ventricular response and there was no significant improvement with IV Cardizem bolus and fact her blood pressures dropped a bit. She is now on an amiodarone drip with some improvement in her rate. She had a cardiac ablation done 6.5 years ago for atrial fibrillation and she has not had issues until now. Continue apixaban for stroke prophylaxis. Cardiology has been consulted and their input is appreciated. CPAP will be provided for the patient to use while hospitalized; she states compliance at home. She is at her baseline oxygen requirement at this time. Blood pressures were soft earlier
[2022-10-30] MEDS: DIGOXIN INJ 250 MCG/ML 2 ML AMP (*BKC) 125 MCG IV PUSH (15:27)
--- NOTE | 2022-10-30 16:09 | ECG_ITS ---
Measurements Intervals [place] Rate: 126 P: [place]: 0 QRS: 11 QRSD: 90 T: -1 QT: 391 QTc: 567 Interpretive Statements ATRIAL FLUTTER/TACHYCARDIA WITH RAPID VENTRICULAR RESPONSE DELAYED PRECORDIAL R/S TRANSITION LOW QRS VOLTAGE IN PRECORDIAL LEADS BORDERLINE T WAVE ABNORMALITY- DIFFUSE LEADS BASELINE ARTIFACT- I, III, AVL ABNORMAL ECG COMPARED TO ECG 10/27/2022 16:36:13 ATRIAL FLUTTER NOW PRESENT Electronically Signed On 10-30-2022 16:33:11 CDT by Dale Yeager D.O.
--- NOTE | 2022-10-30 16:42 | PM.PNCARD ---
Progress Note: A&P Assessment and Plan (1) Atrial fibrillation with rapid ventricular response: Code(s): I48.91 - Unspecified atrial fibrillation Status: Acute Assessment and Plan: Patient with a history of AFib, now with probably persistent AFib and difficult to control heart rate. Failed diltiazem, shifted to amiodarone with no improvement, now back on diltiazem gtt. Difficult management. --continue diltiazem drip at 10mg/hr. Monitor BP closely --Continue metoprolol to 37.5 mg q.8 hours --Metoprolol 5mg IV push q1h p.r.n. --Give one dose of digoxin 125mcg IV now and observe response. --Mildly hypotensive on diltiazem and metoprolol, but since she is nonambulatory may be able to increase one of these agents as her mild hypotension has not caused any symptoms. Otherwise, could consider an anti-arrhythmic aside from amiodarone (has CAD so not a candidate for flecainide). --continue Eliquis --Will check echo (2) Coronary artery disease: Code(s): I25.10 - Atherosclerotic heart disease of [place] coronary artery without angina pectoris Status: Acute Assessment and Plan: History of CAD, mi in the past, some chest hurting yesterday but negative troponins no ischemic changes. --continue Eliquis, clopidogrel, atorvastatin (3) Diastolic congestive heart failure: Code(s): I50.30 - Unspecified diastolic (congestive) heart failure Status: Acute Assessment and Plan: History of chronic diastolic heart failure. Does have some edema and questionable pulmonary vascular congestion consistent with mild volume overload. --continue furosemide 40 mg daily (4) Chronic respiratory failure with hypoxia, on home oxygen therapy: Code(s): J96.11 - Chronic respiratory failure with hypoxia; Z99.81 - Dependence on supplemental oxygen Status: Acute Assessment and Plan: Continue home O2 (5) Hypertension: Code(s): I10 - Essential (primary) hypertension Status: Acute Assessment and Plan: Running somewhat soft today --continue to hold the losartan in favor of anti rhythmic therapy (6) Obstructive sleep apnea on CPAP: Code(s): G47.33 - Obstructive sleep apnea (adult) (pediatric) Status: Acute Assessment and Plan: Finds CPAP helpful, continue same. Subjective Date/time seen: 10/30/22 16:42 Interval history: Feels about the same today. Heart rate remains elevated on amiodarone, but she is asymptomatic. 10/30/2022: Amiodarone was discontinued last night and she was shifted to IV diltiazem. Heart rate remains elevated but she is asymptomatic. Review of Systems Constitutional: Constitutional: Denies fever(s) Eyes: Eyes: Reports no additional eye complaints ENT: Denies epistaxis Cardiovascular: Cardiovascular: Reports chest pain (Chest felt sore yesterday), Denies pedal edema, Denies lightheadedness, Reports palpitations and Denies dyspnea Respiratory: Respiratory: Denies chest congestion and Denies dyspnea Gastrointestinal: Gastrointestinal: Denies abdominal pain, Denies hematochezia and Reports constipation Genitourinary: Genitourinary: Denies dysuria Musculoskeletal: Musculoskeletal: Reports no additional musculoskeletal complaints, Reports back pain and Reports arthralgias Integumentary/Breasts: Skin/Breast: Reports system reviewed and no additional complaints, except as docu Neurologic: Reports system reviewed and no additional complaints, except as documented, Denies behavioral changes and Denies confusion Psychiatric: Psychiatric: Denies behavioral changes and Denies confusion Endocrine: Endocrine: Reports palpitations Exam Const: General: cooperative, healthy appearing and comfortable; No confusion Orientation/consciousness: oriented to person, patient oriented x3 (Oriented to Wednesday, October, Hospital, situation) and No confusion HENMT: Mouth: Yes moist mucous membranes Other: Hard of hearing
[2022-10-31] VITALS (24 sets, daily range): BP systolic 90–115; BP diastolic 42–63; PULSE 122–129; RESP 14–22; TEMP 35.8–36.8; O2SAT 95–99
--- NOTE | 2022-10-31 | ECHO_ITS ---
Patient Info Name: Lauren Lambert Age: 72 years : 1950 Gender: Female Ht: 68 in Wt: 294 lbs BSA: 2.60 m2 HR: 100 bpm BP: 111 / 63 mmHg Heart Rhythm: Atrial Flutter Technical Quality: Fair Exam Date: 10/31/2022 7:53 AM Exam Location: [facility] Pulmonary Exam Room: [facility] Patient Status: Inpatient Admit Date: 10/28/2022 Staff Ordering Physician: Jess Willson Forepart [place]: Corinne Hill RDCS Attending Provider: Ori Flores MD Referring Physician: Anamika ACUÑA; Exam Type: CA echo dop color flow w con Study Info Indications - CAD ATRIAL FIB Complete two-dimensional, color flow and Doppler transthoracic echocardiogram is performed with contrast to opacify the left ventricle and to improve the deliniation of the left ventricle endocardial borders. Contrast/Agitated Saline Contrast/Ag. Saline: Definity Amount: 2.00 ml Administered By: Corinne Hill [facility] Existing IV Access: Yes IV Access Condition: patent with no signs of infiltration Summary 1. Technically challenging exam because of obesity/definity contrast injected to improve exam. 2. Normal left ventricular size and systolic function. 3. Small amount of tricuspid valve insufficiency. 4. Mildly sclerotic but not stenotic aortic valve. 5. Atrial flutter with rapid ventricular response. Left Ventricle Left ventricular chamber dimension is normal. Left ventricular systolic function is normal, estimated at 60-65%. The left ventricular diastolic function is indeterminate. Right Ventricle Right ventricular chamber dimension is normal. Left Atria Left atrial chamber dimension is mildly enlarged. Right Atria Right atrial chamber dimension is normal. Aortic Valve The aortic valve is trileaflet. There is mild aortic valve sclerosis. Pulmonic Valve The pulmonic valve is not well visualized. Mitral Valve The mitral valve has normal leaflets. Tricuspid Valve The tricuspid valve leaflets are normal. There is mild tricuspid valve regurgitation. Pericardium/Pleural The pericardium appears normal. Aorta The aortic root size at the sinus of Valsalva is normal. Left Ventricular Outflow Tract Name Value Normal LVOT 2D LVOT Diameter 2.12 cm LVOT Doppler LVOT Peak Gradient 5 mmHg LVOT Mean Gradient 3 mmHg LVOT VTI 19.32 cm LVOT VTI/AV VTI Ratio 0.79 LVOT Stroke Volume 68.42 ml LVOT CO 18.76 l/min LVOT CI 7.22 L/min/m2 Pulmonic Valve Name Value Normal RVOT Doppler RVOT Peak Gradient 2 mmHg PV Doppler PV Peak Gradient 2 mmHg Mitral Valve
[2022-10-31] MEDS: METOPROLOL TARTRATE 12.5 MG TABLET 25 MG PO (06:21)
[2022-10-31] MEDS: ACETAMINOPHEN 325 MG TABLET 650 MG PO ×2 (06:22→18:02)
[2022-10-31] MEDS: METOPROLOL TARTRATE 12.5 MG TABLET PO (06:22)
[2022-10-31] MEDS: dilTIAZem 100 MG/100 ML 100 MG/100 ML BAG 10 MG IV CONT (06:23)
[2022-10-31] MEDS: PERFLUTREN LIPID MICROSPHERES 1.5 ML VIAL DILUTED TO 10 ML TOTAL VOLUME IV PUSH (08:16)
--- NOTE | 2022-10-31 08:28 | PM.PNCARD ---
Progress Note: A&P Assessment and Plan (1) Atrial flutter: Code(s): I48.92 - Unspecified atrial flutter Status: Acute Plan 72-year-old woman with persistent atrial flutter we are try to establish some better heart rate control which is difficult as it many times is with underlying atrial flutter. She has previously received care from her established council member for these atrial arrhythmias and probably would have been more appropriately taken to that Hospital for higher level of care of this situation. In any event it does not appear that intravenous diltiazem is having any perceptible affect on the heart rate [place] to stop that today. I will advance her metoprolol dosage to 100 mg daily of long-acting metoprolol and start her regular dose of digoxin. Anticipate heart rate control to be suboptimal in this situation. Depending on her clinical response she may ultimately require AV node ablation and pacing for rate control if rhythm control is not an option. Obviously her established council member would be in a better position to provide this treatment which is of course not available at this hospital Miguel Angel Phillips MD [facility] Subjective Date/time seen: Date of service: 10/31/22 08:28 Interval history: Follow-up visit in this 72-year-old patient with: Persistent atrial flutter with rapid ventricular response with which she is really not very symptomatic. [facility] and evaluation rather than to her established footwear sales coordinator to I believe is an council member. In any event rate control is being pursued. This is been challenging because of the underlying atrial flutter. Systemic anticoagulation with apixaban is also being provided. Patient is wearing a CPAP mask this morning is responsive but does not wish to say much. Intravenous diltiazem is running at 10 mg and p.o. metoprolol also being given patient received 1 dose of digoxin yesterday. Exam Const: Other: Morbidly obese nonambulatory white female with CPAP device in place otherwise appears to be in no distress HENMT: Mouth: Yes moist mucous membranes Eyes: Sclera: sclerae normal Neck: Neck: supple Other: Impossible to assess JVD given her body habitus Resp: Effort & Inspection: normal respiratory effort Other: Some large airway rhonchi are noted Cardio: Rate: regular rate and tachycardic GI: GI Palp: Yes Soft to palpation Auscultation: normal bowel sounds Urinary Catheter: Urinary Catheter: patent and draining Skin: General skin exam: normal color Neuro: Other: Responsive to verbal stimuli Extrem: Other: No significant edema good distal pulses Objective Data Vital Signs Vital Signs: Vital Signs - 24 hr 10/30/22 08:37 10/30/22 10:26 10/30/22 10:50 Temperature 36.9 C Pulse Rate 122 H 125 H 123 H Respiratory Rate 22 H Blood Pressure 116/55 L Pulse Oximetry 95 Oxygen Delivery Oxygen Flow Rate 10/30/22 12:56 10/30/22 13:07 10/30/22 15:27 Temperature 36.2 C L Pulse Rate 125 H 126 H 126 H Respiratory Rate 20 Blood Pressure 93/57 L Pulse Oximetry 97 Oxygen Delivery Oxygen Flow Rate 10/30/22 10:00 10/30/22 12:00 10/30/22 14:00 Temperature Pulse Rate 125 H 123 H 127 H Respiratory Rate Blood Pressure Pulse Oximetry Oxygen Delivery Oxygen Flow Rate 10/30/22 12:00 10/30/22 16:39 10/30/22 16:00 Temperature 35.9 C L Pulse Rate 127 H 127 H Respiratory Rate 20 Blood Pressure 98/53 L Pulse Oximetry 97 100 Oxygen Delivery Room Air Oxygen Flow Rate 10/30/22 18:00 10/30/22 16:00 10/30/22 19:41 Temperature 37.1 C Pulse Rate 127 H 126 H Respiratory Rate 22 H Blood Pressure 118/68 Pulse Oximetry 95 97 Oxygen Delivery Room Air Oxygen Flow Rate 10/30/22 20:11 10/30/22 20:34 10/30/22 20:36 Temperature Pulse Rate 124 H 127 H
[2022-10-31] MEDS: ATORVASTATIN 40 MG TABLET PO (09:08)
[2022-10-31] MEDS: FAMOTIDINE 20 MG TABLET PO ×2 (09:08→18:02)
[2022-10-31] MEDS: FUROSEMIDE 40 MG TABLET PO (09:09)
[2022-10-31] MEDS: DOCUSATE SODIUM 100 MG CAPSULE PO ×2 (09:09→20:35)
[2022-10-31] MEDS: MICONAZOLE NITRATE 2% CREAM 30 GM TUBE 1 APPLIC TOPICAL ×2 (09:09→18:02)
[2022-10-31] MEDS: CLOPIDOGREL BISULFATE 75 MG TABLET PO (09:09)
[2022-10-31] MEDS: CYCLOBENZAPRINE HCL 10 MG TABLET PO ×3 (09:09→18:02)
[2022-10-31] MEDS: APIXABAN 5 MG TABLET PO ×2 (09:09→20:35)
[2022-10-31] MEDS: DIGOXIN 250 MCG TABLET PO (09:09)
--- NOTE | 2022-10-31 09:58 | PM.IMPN ---
Progress Note: A&P Assessment and Plan (1) Atrial fibrillation with rapid ventricular response: Code(s): I48.91 - Unspecified atrial fibrillation Status: Acute (2) Acute urinary retention: Code(s): R33.8 - Other retention of urine Status: Acute (3) Stercoral colitis: Code(s): K52.89 - Other specified noninfective gastroenteritis and colitis Status: Acute (4) Diastolic congestive heart failure: Code(s): I50.30 - Unspecified diastolic (congestive) heart failure Status: Acute (5) Chronic respiratory failure with hypoxia, on home oxygen therapy: Code(s): J96.11 - Chronic respiratory failure with hypoxia; Z99.81 - Dependence on supplemental oxygen Status: Acute (6) Hypertension: Code(s): I10 - Essential (primary) hypertension Status: Acute (7) Obstructive sleep apnea on CPAP: Code(s): G47.33 - Obstructive sleep apnea (adult) (pediatric) Status: Acute Plan The patient presented to the emergency department for evaluation of racing heart as per HPI. Labs, imaging, EKG, and all reports were personally reviewed. She was found to be in atrial fibrillation with rapid ventricular response and there was no significant improvement with IV Cardizem bolus and fact her blood pressures dropped a bit. She is now on an amiodarone drip with some improvement in her rate. She had a cardiac ablation done 6.5 years ago for atrial fibrillation and she has not had issues until now. Continue apixaban for stroke prophylaxis. Cardiology has been consulted and their input is appreciated. CPAP will be provided for the patient to use while hospitalized; she states compliance at home. She is at her baseline oxygen requirement at this time. Blood pressures were soft earlier this evening and have responded to fluids. Her mouth is quite dry though will encourage oral intake and hold further IV fluids as she has some mild edema on her chest x-ray and of her lower legs. Records requested from her tug hand for review of most recent echocardiogram. She was retaining over 2 L of urine and she currently has a Sullivan catheter in place. She will need to follow-up with Urology as an outpatient. CT of the abdomen and pelvis shows evidence of stercoral colitis and she has been started on scheduled MiraLax. Dulcolax suppository also ordered. Antihypertensives are on hold given softer blood pressures. The rest of her home medications will be reviewed and resumed as appropriate. 10/30/2022 interval history: Patient with history of PAF presented with A. Fib RVR, was started on Diltiazem drip however she remained in RVR and seen by tug hand, started patient to amiodarone drip and added metoprolol 25mg PO q8, patient rate is still elevated tug hand today increase metoprolol to 37.5 po q8 will continue amiodorane drip, patient HR is trending down, will monitor, patient normally goes to other facility no records are available, patient stats she had cardioversion in the past and went back into A.Fib. will obtain records and further recommendation to follow. 10/31/2022: Patient with history of PAF presented with AFib with RVR. Started on diltiazem drip remain on RVR and hence been stopped. Switched to amiodarone with no improvement no back on diltiazem drip. Metoprolol and digoxin given. Echo pending history of cardioversion and cardiac ablation in the past. Follows with physician liaison elsewhere. CT abdomen pelvis showed evidence of stercoral colitis and was started on scheduled MiraLax and Dulcolax suppository. TSH 7.6 with normal free T3-T4. On apixaban anticoagulation. Chest x-ray with probable mild pulmonary edema. Chronic respiratory failure with hypoxia on home oxygen 2 L via nasal cannula hypertension obstructive sleep apnea on CPAP/congestive heart failure/coronary artery disease/Intermediate Resident. Borderline blood pressure. Was recently admitted at [facility] with UTI an
--- NOTE | 2022-10-31 10:05 | PCPTNOTE ---
The patient treatment was not able to be completed on 10/31/22 due to HR in 120's. Per Md Richard Dickson, hold on therapy until heart rate is better controlled. Will plan to reattempt evaluation at a later time.
--- NOTE | 2022-10-31 10:05 | PCOTNOTE ---
Attempted occupational therapy evaluation. Spoke with hospitalist and stated to hold until HR is better controlled.
[2022-10-31] MEDS: METOPROLOL SUCCINATE EXT REL 100 MG TABCR PO (12:25)
[2022-10-31] MEDS: METOPROLOL TARTRATE INJ 5 MG/5 ML VIAL IV PUSH (18:02)
[2022-11-01] VITALS (18 sets, daily range): BP systolic 102–120; BP diastolic 51–73; PULSE 71–129; RESP 14–24; TEMP 36.1–36.7; O2SAT 95–98
[2022-11-01] MEDS: ACETAMINOPHEN 325 MG TABLET 650 MG PO ×2 (04:05→16:53)
--- NOTE | 2022-11-01 08:27 | ECG_ITS ---
Measurements Intervals [place] Rate: 127 P: [place]: 0 QRS: 20 QRSD: 83 T: 22 QT: 294 QTc: 427 Interpretive Statements ATRIAL FLUTTER/TACHYCARDIA WITH RAPID VENTRICULAR RESPONSE DELAYED PRECORDIAL R/S TRANSITION LOW QRS VOLTAGE IN PRECORDIAL LEADS BORDERLINE T WAVE ABNORMALITY- ANT/INF LEADS BASELINE ARTIFACT- II, III, AVF, V1-V2 ABNORMAL ECG COMPARED TO ECG 10/30/2022 16:27:35 NO SIGNIFICANT CHANGES Electronically Signed On 11-01-2022 16:18:11 CDT by Dale Yeager D.O.
[2022-11-01 08:31] LABS: Basophils Absolute Auto 0.1 K/mm3 (0.0-0.1); Basophils Percent Auto 0.6 % (0.2-1.2); Eosinophils Absolute Auto 0.9 K/mm3 (0-0.3); Eosinophils Percent Auto 10.6 % (0-4.4); Hemoglobin 11.3 g/dL (12.0-15.0); Immature Granulocyte Absolute 0.06 K/mm3 (0.00-0.031); Immature Granulocyte Percent A 0.7 % (0-0.5); Lymphocytes Absolute Auto 2.87 K/mm3 (0.9-3.2); Lymphocytes Percent Auto 32.4 % (18.3-44.2); Mean Corpuscular HGB Conc 32.3 g/dl (32-36); Mean Corpuscular Hemoglobin 28.8 pg (26-34); Mean Corpuscular Volume 89.3 fl (80-100); Mean Platelet Volume 8.7 fl (7.4-10.4); Monocytes Absolute Auto 0.8 K/mm3 (0.1-0.6); Neutrophils Absolute Auto 4.1 K/mm3 (1.3-6.7); Neutrophils Percent Auto 46.7 % (45.5-73.1); Platelet Count Result 305 k/mm3 (150-375); Red Blood Count 3.92 M/mm3 (4.2-5.4); Red Cell Distribution Width 17.8 % (11.5-14.5); White Blood Count 8.9 K/mm3 (4.5-10.0)
--- NOTE | 2022-11-01 08:35 | PCPTNOTE ---
Pt heart rate remains elevated. Will check back as able to initiate therapy evaluation
--- NOTE | 2022-11-01 08:40 | PCOTNOTE ---
Per chart review, patient's HR is still elevated and not appropriate at this time. Will continue to follow.
[2022-11-01 08:45] LABS: Alanine Aminotransferase 19 U/L (6-35); Albumin Level 2.7 g/dL (3.5-5.1); Alkaline Phosphatase 91 U/L (38-126); Anion Gap 1 mmol/L (8-16); Aspartate Amino Transferase 18 U/L (14-36); Bilirubin,Total 0.4 mg/dL (0.2-1.3); Blood Urea Nitrogen 7 mg/dL (7-17); Calcium 8.7 mg/dL (8.4-10.2); Carbon Dioxide 34 mmol/L (22-30); Chloride 100 mmol/L (98-107); Estimated CRCL calculation 154 ml/min; Estimated Glomerular Filt Rate > 60; Glucose 106 mg/dL (65-110); Magnesium 1.7 mg/dL (1.6-2.3); Potassium 3.5 mmol/L (3.4-5.0); Sodium 135 mmol/L (137-145)
--- NOTE | 2022-11-01 09:06 | PM.PNCARD ---
Progress Note: A&P Assessment and Plan (1) Atrial flutter: Code(s): I48.92 - Unspecified atrial flutter Status: Acute Plan 72-year-old woman with: History of problematic atrial arrhythmias currently in persistent atrial flutter which has responded poorly to medical therapy. Amiodarone and diltiazem intravenously had no real effect on her arrhythmia. I will continue to uptitrate her metoprolol and continue apixaban for anticoagulation. If her heart rate/rhythm do not improve we may be forced to perform cardioversion during this hospitalization and then afterwards she should follow-up with her machine rebuilder as she may require AV junction ablation if sinus rhythm cannot be maintained. Miguel Angel Phillips MD [facility] Subjective Date/time seen: Date of service: 11/01/22 09:06 Interval history: Follow-up visit in this 72-year-old patient with: Persistent atrial flutter with rapid ventricular response with which she is really not very symptomatic. She was sent here from the [place] [facility] where she resides for treatment and evaluation rather than to her established inventory control supervisor to I believe is an machine rebuilder. In any event rate control is being pursued. This is been challenging because of the underlying atrial flutter. Systemic anticoagulation with apixaban is also being provided. Patient is wearing a CPAP mask this morning is responsive but does not wish to say much. Intravenous diltiazem is running at 10 mg and p.o. metoprolol also being given patient received 1 dose of digoxin yesterday. Date of service 11/01/2022: Patient is hemodynamically stable and does not offer any specific cardiac complaints she still is in persistent atrial flutter with heart rate on range of about 120 most of the time. Not hypotensive. Patient is asking if we are planning to perform a cardioversion during this hospitalization. We did discuss this in some detail. Exam Const: General: cooperative, healthy appearing and comfortable; No confusion Orientation/consciousness: oriented to person, patient oriented x3 (Oriented to Wednesday, October, Hospital, situation) and No confusion Other: Morbidly obese nonambulatory white female with CPAP device in place otherwise appears to be in no distress HENMT: Mouth: Yes moist mucous membranes Other: Hard of hearing Eyes: General: appearance normal, both eyes and all related structures Sclera: sclerae normal EOM: EOMs intact bilaterally Neck: Neck: supple and no JVD Thyroid: thyroid normal Carotids: no bruits Other: Impossible to assess JVD given her body habitus Resp: Effort & Inspection: normal respiratory effort Auscultation: clear to auscultation bilaterally Other: Some large airway rhonchi are noted Cardio: Rate: regular rate and tachycardic Rhythm: regular rhythm and abnormal rhythm irregularly irregular Heart sounds: no murmurs GI: Inspection: normal to inspection Auscultation: normal bowel sounds Urinary Catheter: Urinary Catheter: patent and draining Skin: General skin exam: normal color and no rashes or lesions noted Neuro: General: oriented to person, patient oriented x3 (Oriented to Wednesday, October, Hospital, situation) and No confusion Other: Responsive to verbal stimuli Extrem: Right lower extremity: edema Left lower extremity: edema Other: No significant edema good distal pulses Psych: Appearance: grossly normal Mental Status: mental status grossly normal Objective Data Vital Signs Vital Signs: Vital Signs - 24 hr 10/31/22 09:09 10/31/22 10:00 10/31/22 12:00 Temperature Pulse Rate 124 H 127 H 127 H Respiratory Rate Blood Pressure Pulse Oximetry Oxygen Delivery Oxygen Flow Rate 10/31/22 12:00 10/31/22 12:37 10/31/22 16:36 Temperature 35.8 C L 35.9 C L Pulse Rate 127 H 126 H Respiratory Rate 20 20 Blood Pressure 91/57 L 90/56 L Pulse Oximetry 98 95 Oxygen Delivery Room Air Oxy
[2022-11-01] MEDS: APIXABAN 5 MG TABLET PO ×2 (09:46→21:12)
[2022-11-01] MEDS: ATORVASTATIN 40 MG TABLET PO (09:46)
[2022-11-01] MEDS: METOPROLOL SUCCINATE EXT REL 100 MG TABCR 200 MG PO (09:47)
[2022-11-01] MEDS: FAMOTIDINE 20 MG TABLET PO ×2 (09:49→16:53)
[2022-11-01] MEDS: FUROSEMIDE 40 MG TABLET PO (09:49)
[2022-11-01] MEDS: CLOPIDOGREL BISULFATE 75 MG TABLET PO (09:49)
[2022-11-01] MEDS: DOCUSATE SODIUM 100 MG CAPSULE PO ×2 (09:49→21:12)
[2022-11-01] MEDS: DIGOXIN 250 MCG TABLET PO (09:49)
[2022-11-01] MEDS: CYCLOBENZAPRINE HCL 10 MG TABLET PO ×3 (09:49→16:53)
--- NOTE | 2022-11-01 12:09 | PM.IMPN ---
Progress Note: A&P Assessment and Plan (1) Atrial fibrillation with rapid ventricular response: Code(s): I48.91 - Unspecified atrial fibrillation Status: Acute (2) Acute urinary retention: Code(s): R33.8 - Other retention of urine Status: Acute (3) Stercoral colitis: Code(s): K52.89 - Other specified noninfective gastroenteritis and colitis Status: Acute (4) Diastolic congestive heart failure: Code(s): I50.30 - Unspecified diastolic (congestive) heart failure Status: Acute (5) Chronic respiratory failure with hypoxia, on home oxygen therapy: Code(s): J96.11 - Chronic respiratory failure with hypoxia; Z99.81 - Dependence on supplemental oxygen Status: Acute (6) Hypertension: Code(s): I10 - Essential (primary) hypertension Status: Acute (7) Obstructive sleep apnea on CPAP: Code(s): G47.33 - Obstructive sleep apnea (adult) (pediatric) Status: Acute Plan The patient presented to the emergency department for evaluation of racing heart as per HPI. Labs, imaging, EKG, and all reports were personally reviewed. She was found to be in atrial fibrillation with rapid ventricular response and there was no significant improvement with IV Cardizem bolus and fact her blood pressures dropped a bit. She is now on an amiodarone drip with some improvement in her rate. She had a cardiac ablation done 6.5 years ago for atrial fibrillation and she has not had issues until now. Continue apixaban for stroke prophylaxis. Cardiology has been consulted and their input is appreciated. CPAP will be provided for the patient to use while hospitalized; she states compliance at home. She is at her baseline oxygen requirement at this time. Blood pressures were soft earlier this evening and have responded to fluids. Her mouth is quite dry though will encourage oral intake and hold further IV fluids as she has some mild edema on her chest x-ray and of her lower legs. Records requested from her grease maker head for review of most recent echocardiogram. She was retaining over 2 L of urine and she currently has a Sullivan catheter in place. She will need to follow-up with Urology as an outpatient. CT of the abdomen and pelvis shows evidence of stercoral colitis and she has been started on scheduled MiraLax. Dulcolax suppository also ordered. Antihypertensives are on hold given softer blood pressures. The rest of her home medications will be reviewed and resumed as appropriate. 10/30/2022 interval history: Patient with history of PAF presented with A. Fib RVR, was started on Diltiazem drip however she remained in RVR and seen by grease maker head, started patient to amiodarone drip and added metoprolol 25mg PO q8, patient rate is still elevated grease maker head today increase metoprolol to 37.5 po q8 will continue amiodorane drip, patient HR is trending down, will monitor, patient normally goes to other facility no records are available, patient stats she had cardioversion in the past and went back into A.Fib. will obtain records and further recommendation to follow. 10/31/2022: Patient with history of PAF presented with AFib with RVR. Started on diltiazem drip remain on RVR and hence been stopped. Switched to amiodarone with no improvement no back on diltiazem drip. Metoprolol and digoxin given. Echo pending history of cardioversion and cardiac ablation in the past. Follows with block chopper hand elsewhere. CT abdomen pelvis showed evidence of stercoral colitis and was started on scheduled MiraLax and Dulcolax suppository. TSH 7.6 with normal free T3-T4. On apixaban anticoagulation. Chest x-ray with probable mild pulmonary edema. Chronic respiratory failure with hypoxia on home oxygen 2 L via nasal cannula hypertension obstructive sleep apnea on CPAP/congestive heart failure/coronary artery disease/Usp Resident. Borderline blood pressure. Was recently admitted at [facility] with UTI an
[2022-11-01] MEDS: MICONAZOLE NITRATE 2% CREAM 30 GM TUBE 1 APPLIC TOPICAL ×2 (12:10→16:53)
[2022-11-02] VITALS (23 sets, daily range): BP systolic 91–110; BP diastolic 43–67; PULSE 69–126; RESP 15–20; TEMP 36.2–37.1; O2SAT 93–100
--- NOTE | 2022-11-02 | ECG_ITS ---
Measurements Intervals [place] Rate: 69 P: -9 ME: 236 QRS: 11 QRSD: 88 T: 10 QT: 394 QTc: 423 Interpretive Statements SINUS RHYTHM WITH FIRST DEGREE AV BLOCK LOW QRS VOLTAGE IN PRECORDIAL LEADS BORDERLINE T WAVE ABNORMALITY- ANTERIOR LEADS BASELINE ARTIFACT- V1-V2 BORDERLINE ECG COMPARED TO ECG 11/02/2022 11:33:11 SINUS RHYTHM NOW PRESENT FIRST DEGREE AV BLOCK NOW PRESENT Electronically Signed On 11-02-2022 11:55:44 CDT by Dale Yeager D.O.
--- NOTE | 2022-11-02 | ECG_ITS ---
Measurements Intervals [place] Rate: 124 P: CT: 0 QRS: 16 QRSD: 89 T: 21 QT: 281 QTc: 404 Interpretive Statements ATRIAL FLUTTER/TACHYCARDIA WITH RAPID VENTRICULAR RESPONSE DELAYED PRECORDIAL R/S TRANSITION LOW QRS VOLTAGE IN PRECORDIAL LEADS BORDERLINE T WAVE ABNORMALITY- ANT/INF LEADS BASELINE ARTIFACT- I, II, III, V1-V2 ABNORMAL ECG COMPARED TO ECG 11/01/2022 09:43:33 NO SIGNIFICANT CHANGES Electronically Signed On 11-02-2022 11:56:33 CDT by Dale Yeager D.O.
[2022-11-02 04:55] LABS: Basophils Absolute Auto 0.1 K/mm3 (0.0-0.1); Basophils Percent Auto 0.6 % (0.2-1.2); Eosinophils Percent Auto 11.8 % (0-4.4); Hematocrit 35.3 % (37.0-47.0); Hemoglobin 11.2 g/dL (12.0-15.0); Immature Granulocyte Absolute 0.07 K/mm3 (0.00-0.031); Immature Granulocyte Percent A 0.8 % (0-0.5); Lymphocytes Absolute Auto 2.96 K/mm3 (0.9-3.2); Lymphocytes Percent Auto 35.2 % (18.3-44.2); Mean Corpuscular HGB Conc 31.7 g/dl (32-36); Mean Corpuscular Hemoglobin 28.2 pg (26-34); Mean Corpuscular Volume 88.9 fl (80-100); Monocytes Absolute Auto 0.8 K/mm3 (0.1-0.6); Monocytes Percent Auto 9.8 % (2.6-8.5); Neutrophils Absolute Auto 3.5 K/mm3 (1.3-6.7); Neutrophils Percent Auto 41.8 % (45.5-73.1); Platelet Count Result 334 k/mm3 (150-375); Red Blood Count 3.97 M/mm3 (4.2-5.4); Red Cell Distribution Width 17.7 % (11.5-14.5); White Blood Count 8.4 K/mm3 (4.5-10.0)
[2022-11-02 05:08] LABS: Alanine Aminotransferase 18 U/L (6-35); Albumin Level 2.7 g/dL (3.5-5.1); Alkaline Phosphatase 88 U/L (38-126); Anion Gap 4 mmol/L (8-16); Aspartate Amino Transferase 18 U/L (14-36); Bilirubin,Total 0.4 mg/dL (0.2-1.3); Blood Urea Nitrogen 8 mg/dL (7-17); Calcium 8.6 mg/dL (8.4-10.2); Carbon Dioxide 32 mmol/L (22-30); Chloride 101 mmol/L (98-107); Estimated CRCL calculation 154 ml/min; Estimated Glomerular Filt Rate > 60; Glucose 116 mg/dL (65-110); Magnesium 1.8 mg/dL (1.6-2.3); Potassium 3.6 mmol/L (3.4-5.0); Sodium 137 mmol/L (137-145)
--- NOTE | 2022-11-02 08:45 | PCOTNOTE ---
Per MD, pt's HR still high so will continue to hold on therapy at this time. Will continue to follow pt for appropriateness.
[2022-11-02] MEDS: DIGOXIN 250 MCG TABLET PO (09:06)
[2022-11-02] MEDS: FUROSEMIDE 40 MG TABLET PO (09:06)
[2022-11-02] MEDS: DOCUSATE SODIUM 100 MG CAPSULE PO ×2 (09:06→19:25)
[2022-11-02] MEDS: APIXABAN 5 MG TABLET PO ×2 (09:06→19:25)
[2022-11-02] MEDS: CYCLOBENZAPRINE HCL 10 MG TABLET PO ×2 (09:07→17:37)
[2022-11-02] MEDS: METOPROLOL SUCCINATE EXT REL 100 MG TABCR 200 MG PO (09:07)
[2022-11-02] MEDS: FAMOTIDINE 20 MG TABLET PO ×2 (09:07→17:37)
[2022-11-02] MEDS: MICONAZOLE NITRATE 2% CREAM 30 GM TUBE 1 APPLIC TOPICAL ×2 (09:07→17:37)
[2022-11-02] MEDS: CLOPIDOGREL BISULFATE 75 MG TABLET PO (09:07)
[2022-11-02] MEDS: ATORVASTATIN 40 MG TABLET PO (09:07)
--- NOTE | 2022-11-02 09:12 | PCPTNOTE ---
Spoke with hospitalist, Dr. Ramos, who wants the pt to be held today for therapy due to high HR. Will follow.
[2022-11-02] MEDS: ACETAMINOPHEN 325 MG TABLET 650 MG PO ×2 (10:08→19:25)
--- NOTE | 2022-11-02 11:39 | WPDMODSED ---
Moderate Sedation Note-Pt Data Patient Data Diagnosis: Atrial flutter Present Complaint: atrial flutter Procedure to be performed/Plan: electrical cardioversion Moderate sedation Allergies Allergy/AdvReac Type Severity Reaction Status Date / Time Latex, Natural Rubber AdvReac Unknown Verified 10/27/22 16:55 Home Medications Medication Instructions Recorded Confirmed Type acetaminophen 650 mg tablet 650 mg PO Q6H PRN Pain 10/27/22 10/27/22 History apixaban 5 mg tablet (Eliquis) 5 mg PO BID 10/27/22 10/27/22 History atorvastatin 40 mg tablet 40 mg PO DAILY 10/27/22 10/27/22 History bisacodyl 5 mg tablet,delayed 5 mg PO HS PRN Constipation 10/27/22 10/27/22 History release clopidogrel 75 mg tablet 75 mg PO DAILY 10/27/22 10/27/22 History cyclobenzaprine 10 mg tablet 10 mg PO TID 10/27/22 10/27/22 History diltiazem HCl 30 mg tablet 30 mg PO Q6H 10/27/22 10/27/22 History famotidine 20 mg tablet 20 mg PO BID 10/27/22 10/27/22 History furosemide 40 mg tablet 40 mg PO DAILY 10/27/22 10/27/22 History losartan 25 mg tablet 25 mg PO DAILY 10/27/22 10/27/22 History miconazole nitrate 2 % topical 1 applic topical BID 10/27/22 10/27/22 History cream nitroglycerin 0.4 mg sublingual 0.4 mg sublingual Q5M 10/27/22 10/27/22 History tablet prochlorperazine maleate 5 mg 5 mg PO Q6H PRN Nausea 10/27/22 10/27/22 History tablet Current Medications: Active Medications Acetaminophen (Acetaminophen 325 Mg Tablet) 650 mg PO Q6H PRN PRN Reason: Mild Pain (1-3) or Fever Last Admin: 11/02/22 10:08 Dose: 650 mg Apixaban (Apixaban 5 Mg Tablet) 5 mg PO Q12HR [facility] Last Admin: 11/02/22 09:06 Dose: 5 mg Atorvastatin Calcium (Atorvastatin 40 Mg Tablet) 40 mg PO DAILY DANIELLE Last Admin: 11/02/22 09:07 Dose: 40 mg Clopidogrel Bisulfate (Clopidogrel Bisulfate 75 Mg Tablet) 75 mg PO DAILY [facility] Last Admin: 11/02/22 09:07 Dose: 75 mg Cyclobenzaprine HCl (Cyclobenzaprine Hcl 10 Mg Tablet) 10 mg PO TID [facility] Last Admin: 11/02/22 09:07 Dose: 10 mg Digoxin (Digoxin 250 Mcg Tablet) 250 mcg PO QAM [facility] Last Admin: 11/02/22 09:06 Dose: 250 mcg Docusate Sodium (Docusate Sodium 100 Mg Capsule) 100 mg PO Q12H [facility] Last Admin: 11/02/22 09:06 Dose: 100 mg Famotidine (Famotidine 20 Mg Tablet) 20 mg PO BID [facility] Last Admin: 11/02/22 09:07 Dose: 20 mg Furosemide (Furosemide 40 Mg Tablet) 40 mg PO DAILY [facility] Last Admin: 11/02/22 09:06 Dose: 40 mg Metoprolol Succinate (Metoprolol Succinate Ext Rel 100 Mg Tabcr) 200 mg PO QAM [facility] Last Admin: 11/02/22 09:07 Dose: 200 mg Metoprolol Tartrate (Metoprolol Tartrate Inj 5 Mg/5 Ml Vial) 5 mg IV PUSH Q1H PRN PRN Reason: for HR > 120 Last Admin: 10/31/22 18:02 Dose: 5 mg Miconazole Nitrate (Miconazole Nitrate 2% Cream 30 Gm Tube) 1 applic TOPICAL BID [facility] Last Admin: 11/02/22 09:07 Dose: 1 applic Ondansetron HCl (Ondansetron Inj 4 Mg/2 Ml Vial) 4 mg IV PUSH Q6H PRN PRN Reason: Nausea And Vomiting Last Admin: 10/27/22 23:54 Dose: 4 mg Polyethylene Glycol (Polyethylene Glycol 3350 17 Gm Powd.Pack) [facility] [place] Last Admin: 11/02/22 09:07 Dose: Not Given Sedation/Anesthesia: No previous sedation/anesthesia problems (including family history). [facility] Past Medical History Medical History Arthritis Atrial fibrillation Status post cardiac ablation. Chronic respiratory failure with hypoxia, on home oxygen therapy Coronary artery disease Deep venous thrombosis Diastolic congestive heart failure Hypertension Myocardial infarction Patient reports history of LA, no stents Obstructive sleep apnea on CPAP Surgical History Surgical History History of cardiac radiofrequency ablation History of tonsillectomy Family History Family History Father Malignant neoplasm of prostate A
--- NOTE | 2022-11-02 11:53 | WPDCARDVER ---
Cardioversion Cardioversion Date of procedure: 11/02/22 Procedure: 1. Electrical cardioversion 2. Moderate sedation Pre-op diagnosis: atrial flutter Post-op diagnosis: Same Indications: atrial flutter Description of procedure: after discussing the risks, benefits alternatives of the procedure patient agreeable via verbal and written informed consent. Risks discussed included shocking into more problematic heart rhythm, adverse reaction to anesthesia, skin irritation or burn, stroke. After establishing continuous telemetry monitoring, serial blood pressure assessments and pulse oxygenation, time-out was taken and procedure was started Procedure start time 11:46 a.m. Procedure stop time 11:52 a.m. Medications: A total of 2 mg of Versed and 25 mcg of fentanyl Patient was monitored and medications were administered by Ginny Butcher Complications: None Blood loss: None Sedation: as above Findings: after adequate sedation, 150 joules of synchronized biphasic energy was used to restore sinus rhythm from atrial flutter Conclusion: 1. Successful islam of sinus rhythm from atrial flutter using 150 joules of biphasic synchronized energy 2. Moderate sedation
--- NOTE | 2022-11-02 11:55 | PCNFU ---
Nutrition Follow-Up Complete: Inadequate oral intake related to loss of appetite, as evidenced by poor intakes and report of weight loss Goal:Improve PO intake to 50% meals and supplements Maintain weight during admission Pt current nutrition is NPO for cardiology test today. Nutrition recommendation: resume diet and supplements post procedure Last recorded weight is 133.2 kg - stable. Bowel Motility: +BM 10/30 Labs Reviewed: Hgb:11.2, HCT:35.3, Alb:2.7, Cr:0.4, Glu:116 Meds Noted: eliquis, lasix, zofran Skin: no skin issues noted Additional Notes: Pt is currently NPO for a procedure but was on a heart healthy diet with 75% intake and meeting nutrition goal. Recommend to resume diet and Ensure compact BID post procedure. Monitoring intakes, weights, labs, plan of care, supplement tolerance Follow up in 5 days
--- NOTE | 2022-11-02 15:24 | PM.IMPN ---
Progress Note: A&P Assessment and Plan (1) Atrial fibrillation with rapid ventricular response: Code(s): I48.91 - Unspecified atrial fibrillation Status: Acute (2) Acute urinary retention: Code(s): R33.8 - Other retention of urine Status: Acute (3) Stercoral colitis: Code(s): K52.89 - Other specified noninfective gastroenteritis and colitis Status: Acute (4) Diastolic congestive heart failure: Code(s): I50.30 - Unspecified diastolic (congestive) heart failure Status: Acute (5) Chronic respiratory failure with hypoxia, on home oxygen therapy: Code(s): J96.11 - Chronic respiratory failure with hypoxia; Z99.81 - Dependence on supplemental oxygen Status: Acute (6) Hypertension: Code(s): I10 - Essential (primary) hypertension Status: Acute (7) Obstructive sleep apnea on CPAP: Code(s): G47.33 - Obstructive sleep apnea (adult) (pediatric) Status: Acute Plan The patient presented to the emergency department for evaluation of racing heart as per HPI. Labs, imaging, EKG, and all reports were personally reviewed. She was found to be in atrial fibrillation with rapid ventricular response and there was no significant improvement with IV Cardizem bolus and fact her blood pressures dropped a bit. She is now on an amiodarone drip with some improvement in her rate. She had a cardiac ablation done 6.5 years ago for atrial fibrillation and she has not had issues until now. Continue apixaban for stroke prophylaxis. Cardiology has been consulted and their input is appreciated. CPAP will be provided for the patient to use while hospitalized; she states compliance at home. She is at her baseline oxygen requirement at this time. Blood pressures were soft earlier this evening and have responded to fluids. Her mouth is quite dry though will encourage oral intake and hold further IV fluids as she has some mild edema on her chest x-ray and of her lower legs. Records requested from her sulfur chloride operator for review of most recent echocardiogram. She was retaining over 2 L of urine and she currently has a Sullivan catheter in place. She will need to follow-up with Urology as an outpatient. CT of the abdomen and pelvis shows evidence of stercoral colitis and she has been started on scheduled MiraLax. Dulcolax suppository also ordered. Antihypertensives are on hold given softer blood pressures. The rest of her home medications will be reviewed and resumed as appropriate. 10/30/2022 interval history: Patient with history of PAF presented with A. Fib RVR, was started on Diltiazem drip however she remained in RVR and seen by sulfur chloride operator, started patient to amiodarone drip and added metoprolol 25mg PO q8, patient rate is still elevated sulfur chloride operator today increase metoprolol to 37.5 po q8 will continue amiodorane drip, patient HR is trending down, will monitor, patient normally goes to other facility no records are available, patient stats she had cardioversion in the past and went back into A.Fib. will obtain records and further recommendation to follow. 10/31/2022: Patient with history of PAF presented with AFib with RVR. Started on diltiazem drip remain on RVR and hence been stopped. Switched to amiodarone with no improvement no back on diltiazem drip. Metoprolol and digoxin given. Echo pending history of cardioversion and cardiac ablation in the past. Follows with doormaker elsewhere. CT abdomen pelvis showed evidence of stercoral colitis and was started on scheduled MiraLax and Dulcolax suppository. TSH 7.6 with normal free T3-T4. On apixaban anticoagulation. Chest x-ray with probable mild pulmonary edema. Chronic respiratory failure with hypoxia on home oxygen 2 L via nasal cannula hypertension obstructive sleep apnea on CPAP/congestive heart failure/coronary artery disease/Assisted Resident. Borderline blood pressure. Was recently admitted at [facility] with UTI an
[2022-11-03] VITALS (14 sets, daily range): BP systolic 98–141; BP diastolic 49–80; PULSE 69–75; RESP 14–20; TEMP 36.4–37; O2SAT 96–100; BMI 10.0
[2022-11-03] MEDS: ACETAMINOPHEN 325 MG TABLET 650 MG PO ×3 (02:20→20:39)
[2022-11-03 05:16] LABS: Basophils Absolute Auto 0.1 K/mm3 (0.0-0.1); Basophils Percent Auto 0.7 % (0.2-1.2); Eosinophils Absolute Auto 0.8 K/mm3 (0-0.3); Eosinophils Percent Auto 9.5 % (0-4.4); Hematocrit 35.8 % (37.0-47.0); Hemoglobin 11.4 g/dL (12.0-15.0); Immature Granulocyte Absolute 0.09 K/mm3 (0.00-0.031); Lymphocytes Absolute Auto 2.41 K/mm3 (0.9-3.2); Lymphocytes Percent Auto 27.6 % (18.3-44.2); Mean Corpuscular HGB Conc 31.8 g/dl (32-36); Mean Corpuscular Hemoglobin 28.8 pg (26-34); Mean Corpuscular Volume 90.4 fl (80-100); Mean Platelet Volume 8.9 fl (7.4-10.4); Monocytes Absolute Auto 0.8 K/mm3 (0.1-0.6); Monocytes Percent Auto 9.2 % (2.6-8.5); Neutrophils Absolute Auto 4.5 K/mm3 (1.3-6.7); Platelet Count Result 335 k/mm3 (150-375); Red Blood Count 3.96 M/mm3 (4.2-5.4); Red Cell Distribution Width 17.8 % (11.5-14.5); White Blood Count 8.7 K/mm3 (4.5-10.0)
[2022-11-03 05:27] LABS: Alanine Aminotransferase 18 U/L (6-35); Albumin Level 2.9 g/dL (3.5-5.1); Alkaline Phosphatase 95 U/L (38-126); Anion Gap 1 mmol/L (8-16); Aspartate Amino Transferase 22 U/L (14-36); Bilirubin,Total 0.5 mg/dL (0.2-1.3); Blood Urea Nitrogen 11 mg/dL (7-17); Calcium 8.8 mg/dL (8.4-10.2); Carbon Dioxide 34 mmol/L (22-30); Chloride 100 mmol/L (98-107); Estimated CRCL calculation 154 ml/min; Estimated Glomerular Filt Rate > 60; Glucose 107 mg/dL (65-110); Magnesium 1.8 mg/dL (1.6-2.3); Potassium 3.5 mmol/L (3.4-5.0); Sodium 135 mmol/L (137-145)
[2022-11-03] MEDS: DOCUSATE SODIUM 100 MG CAPSULE PO ×2 (09:19→20:42)
[2022-11-03] MEDS: CYCLOBENZAPRINE HCL 10 MG TABLET PO ×3 (09:19→16:36)
[2022-11-03] MEDS: ATORVASTATIN 40 MG TABLET PO (09:19)
[2022-11-03] MEDS: DIGOXIN 250 MCG TABLET PO (09:19)
[2022-11-03] MEDS: METOPROLOL SUCCINATE EXT REL 100 MG TABCR 200 MG PO (09:19)
[2022-11-03] MEDS: polyethylene glycoL 3350 17 GM POWD.PACK PO (09:19)
[2022-11-03] MEDS: CLOPIDOGREL BISULFATE 75 MG TABLET PO (09:20)
[2022-11-03] MEDS: APIXABAN 5 MG TABLET PO ×2 (09:20→20:42)
[2022-11-03] MEDS: FAMOTIDINE 20 MG TABLET PO ×2 (09:20→16:36)
[2022-11-03] MEDS: FUROSEMIDE 40 MG TABLET PO (09:20)
[2022-11-03] MEDS: MICONAZOLE NITRATE 2% CREAM 30 GM TUBE 1 APPLIC TOPICAL (09:21)
--- NOTE | 2022-11-03 13:26 | PM.IMPN ---
Progress Note: A&P Assessment and Plan (1) Atrial fibrillation with rapid ventricular response: Code(s): I48.91 - Unspecified atrial fibrillation Status: Acute (2) Acute urinary retention: Code(s): R33.8 - Other retention of urine Status: Acute (3) Stercoral colitis: Code(s): K52.89 - Other specified noninfective gastroenteritis and colitis Status: Acute (4) Diastolic congestive heart failure: Code(s): I50.30 - Unspecified diastolic (congestive) heart failure Status: Acute (5) Chronic respiratory failure with hypoxia, on home oxygen therapy: Code(s): J96.11 - Chronic respiratory failure with hypoxia; Z99.81 - Dependence on supplemental oxygen Status: Acute (6) Hypertension: Code(s): I10 - Essential (primary) hypertension Status: Acute (7) Obstructive sleep apnea on CPAP: Code(s): G47.33 - Obstructive sleep apnea (adult) (pediatric) Status: Acute Plan The patient presented to the emergency department for evaluation of racing heart as per HPI. Labs, imaging, EKG, and all reports were personally reviewed. She was found to be in atrial fibrillation with rapid ventricular response and there was no significant improvement with IV Cardizem bolus and fact her blood pressures dropped a bit. She is now on an amiodarone drip with some improvement in her rate. She had a cardiac ablation done 6.5 years ago for atrial fibrillation and she has not had issues until now. Continue apixaban for stroke prophylaxis. Cardiology has been consulted and their input is appreciated. CPAP will be provided for the patient to use while hospitalized; she states compliance at home. She is at her baseline oxygen requirement at this time. Blood pressures were soft earlier this evening and have responded to fluids. Her mouth is quite dry though will encourage oral intake and hold further IV fluids as she has some mild edema on her chest x-ray and of her lower legs. Records requested from her filler shredding machine loader for review of most recent echocardiogram. She was retaining over 2 L of urine and she currently has a Sullivan catheter in place. She will need to follow-up with Urology as an outpatient. CT of the abdomen and pelvis shows evidence of stercoral colitis and she has been started on scheduled MiraLax. Dulcolax suppository also ordered. Antihypertensives are on hold given softer blood pressures. The rest of her home medications will be reviewed and resumed as appropriate. 10/30/2022 interval history: Patient with history of PAF presented with A. Fib RVR, was started on Diltiazem drip however she remained in RVR and seen by filler shredding machine loader, started patient to amiodarone drip and added metoprolol 25mg PO q8, patient rate is still elevated filler shredding machine loader today increase metoprolol to 37.5 po q8 will continue amiodorane drip, patient HR is trending down, will monitor, patient normally goes to other facility no records are available, patient stats she had cardioversion in the past and went back into A.Fib. will obtain records and further recommendation to follow. 10/31/2022: Patient with history of PAF presented with AFib with RVR. Started on diltiazem drip remain on RVR and hence been stopped. Switched to amiodarone with no improvement no back on diltiazem drip. Metoprolol and digoxin given. Echo pending history of cardioversion and cardiac ablation in the past. Follows with grease man elsewhere. CT abdomen pelvis showed evidence of stercoral colitis and was started on scheduled MiraLax and Dulcolax suppository. TSH 7.6 with normal free T3-T4. On apixaban anticoagulation. Chest x-ray with probable mild pulmonary edema. Chronic respiratory failure with hypoxia on home oxygen 2 L via nasal cannula hypertension obstructive sleep apnea on CPAP/congestive heart failure/coronary artery disease/Care Home Resident. Borderline blood pressure. Was recently admitted at [facility] with UTI an
[2022-11-03] MEDS: AMPICILLIN SULB 1.5 GM/NS 50ML 1.5 GM/50 ML VIAL IVPB ×3 (14:26→23:23)
[2022-11-03] MEDS: POTASSIUM CHLORIDE 20 MEQ ER TABLET 40 MEQ PO (14:29)
[2022-11-03] MEDS: FUROSEMIDE INJ 40 MG/4 ML VIAL IV PUSH (14:29)
--- NOTE | 2022-11-03 17:26 | PC.NURSE ---
This patient, Lauren Lambert, was transferred to [facility] on 11/03/22 at 1728. Personal belongings sent with patient. Report given to Nurse on 2 med . Appropriate documentation sent with patient.
[2022-11-04] VITALS (12 sets, daily range): BP systolic 102–131; BP diastolic 63–70; PULSE 55–63; RESP 16–18; TEMP 36.1–36.9; O2SAT 94–100
[2022-11-04 05:17] LABS: Basophils Absolute Auto 0.1 K/mm3 (0.0-0.1); Basophils Percent Auto 0.6 % (0.2-1.2); Eosinophils Absolute Auto 0.8 K/mm3 (0-0.3); Eosinophils Percent Auto 6.7 % (0-4.4); Hematocrit 36.7 % (37.0-47.0); Hemoglobin 11.6 g/dL (12.0-15.0); Immature Granulocyte Absolute 0.08 K/mm3 (0.00-0.031); Immature Granulocyte Percent A 0.7 % (0-0.5); Lymphocytes Absolute Auto 2.85 K/mm3 (0.9-3.2); Lymphocytes Percent Auto 23.9 % (18.3-44.2); Mean Corpuscular HGB Conc 31.6 g/dl (32-36); Mean Corpuscular Hemoglobin 28.9 pg (26-34); Mean Corpuscular Volume 91.3 fl (80-100); Mean Platelet Volume 9.3 fl (7.4-10.4); Monocytes Absolute Auto 1.3 K/mm3 (0.1-0.6); Monocytes Percent Auto 10.5 % (2.6-8.5); Neutrophils Absolute Auto 6.9 K/mm3 (1.3-6.7); Neutrophils Percent Auto 57.6 % (45.5-73.1); Platelet Count Result 376 k/mm3 (150-375); Red Blood Count 4.02 M/mm3 (4.2-5.4); Red Cell Distribution Width 17.7 % (11.5-14.5); White Blood Count 11.9 K/mm3 (4.5-10.0)
[2022-11-04] MEDS: AMPICILLIN SULB 1.5 GM/NS 50ML 1.5 GM/50 ML VIAL IVPB ×4 (05:38→23:49)
[2022-11-04 05:43] LABS: Alanine Aminotransferase 20 U/L (6-35); Alkaline Phosphatase 103 U/L (38-126); Anion Gap 2 mmol/L (8-16); Aspartate Amino Transferase 24 U/L (14-36); Bilirubin,Total 0.4 mg/dL (0.2-1.3); Blood Urea Nitrogen 6 mg/dL (7-17); Calcium 8.5 mg/dL (8.4-10.2); Carbon Dioxide 34 mmol/L (22-30); Chloride 98 mmol/L (98-107); Estimated CRCL calculation 154 ml/min; Estimated Glomerular Filt Rate > 60; Glucose 129 mg/dL (65-110); Magnesium 1.6 mg/dL (1.6-2.3); Potassium 3.5 mmol/L (3.4-5.0); Sodium 134 mmol/L (137-145)
[2022-11-04] MEDS: ACETAMINOPHEN 325 MG TABLET 650 MG PO ×2 (08:33→22:09)
[2022-11-04] MEDS: DOCUSATE SODIUM 100 MG CAPSULE PO ×2 (08:35→22:10)
[2022-11-04] MEDS: CLOPIDOGREL BISULFATE 75 MG TABLET PO (08:36)
[2022-11-04] MEDS: CYCLOBENZAPRINE HCL 10 MG TABLET PO ×3 (08:36→17:10)
[2022-11-04] MEDS: FAMOTIDINE 20 MG TABLET PO ×2 (08:36→17:10)
[2022-11-04] MEDS: APIXABAN 5 MG TABLET PO ×2 (08:36→22:10)
[2022-11-04] MEDS: ATORVASTATIN 40 MG TABLET PO (08:37)
[2022-11-04] MEDS: METOPROLOL SUCCINATE EXT REL 100 MG TABCR 200 MG PO (08:41)
[2022-11-04] MEDS: FUROSEMIDE INJ 40 MG/4 ML VIAL IV PUSH (08:42)
[2022-11-04] MEDS: polyethylene glycoL 3350 17 GM POWD.PACK PO (08:43)
[2022-11-04] MEDS: MICONAZOLE NITRATE 2% CREAM 30 GM TUBE 1 APPLIC TOPICAL ×2 (08:44→17:10)
--- NOTE | 2022-11-04 11:08 | PM.PNCARD ---
Progress Note: A&P Assessment and Plan (1) Atrial flutter: Code(s): I48.92 - Unspecified atrial flutter Status: Acute Assessment and Plan: Status post cardioversion. Remains in sinus rhythm but will has low voltage P waves on telemetry. Will check an EKG to confirm sinus rhythm junctional rhythm. Continue Eliquis for anticoagulation. Will reduce her long-acting metoprolol 100 mg p.o. daily (2) Coronary artery disease: Code(s): I25.10 - Atherosclerotic heart disease of [place] coronary artery without angina pectoris Status: Acute Assessment and Plan: Continue statin, anti-platelet medication, beta-nolvia (3) Diastolic congestive heart failure: Code(s): I50.30 - Unspecified diastolic (congestive) heart failure Status: Acute Assessment and Plan: Agree with diuresis. Legs are edematous and progressively worsening. Subjective Date/time seen: 11/04/22 11:08 Interval history: Follow-up visit in this 72-year-old patient with: Persistent atrial flutter with rapid ventricular response with which she is really not very symptomatic. 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 In any event rate control is being pursued. This is been challenging because of the underlying atrial flutter. Systemic anticoagulation with apixaban is also being provided. Patient is wearing a CPAP mask this morning is responsive but does not wish to say much. Intravenous diltiazem is running at 10 mg and p.o. metoprolol also being given patient received 1 dose of digoxin yesterday. Date of service 11/01/2022: Patient is hemodynamically stable and does not offer any specific cardiac complaints she still is in persistent atrial flutter with heart rate on range of about 120 most of the time. Not hypotensive. Patient is asking if we are planning to perform a cardioversion during this hospitalization. We did discuss this in some detail. Date of service 11/04/2022: She did undergo cardioversion on Wednesday complication. She remains in sinus rhythm. She has swelling chest pain or shortness of breath Review of Systems Constitutional: Constitutional: Denies fever(s) Eyes: Eyes: Reports no additional eye complaints ENT: Denies epistaxis Cardiovascular: Cardiovascular: Reports chest pain (Chest felt sore yesterday), Denies pedal edema, Denies lightheadedness, Reports palpitations and Denies dyspnea Respiratory: Respiratory: Denies chest congestion and Denies dyspnea Gastrointestinal: Gastrointestinal: Denies abdominal pain, Denies hematochezia and Reports constipation Genitourinary: Genitourinary: Denies dysuria Musculoskeletal: Musculoskeletal: Reports no additional musculoskeletal complaints, Reports back pain and Reports arthralgias Integumentary/Breasts: Skin/Breast: Reports system reviewed and no additional complaints, except as docu Neurologic: Reports system reviewed and no additional complaints, except as documented, Denies behavioral changes and Denies confusion Psychiatric: Psychiatric: Denies behavioral changes and Denies confusion Endocrine: Endocrine: Reports palpitations Exam Const: General: cooperative, healthy appearing and comfortable; No confusion Orientation/consciousness: oriented to person, patient oriented x3 (Oriented to Wednesday, October, Hospital, situation) and No confusion Other: Morbidly obese nonambulatory white female with CPAP device in place otherwise appears to be in no distress HENMT: Mouth: Yes moist mucous membranes Other: Hard of hearing Eyes: General: appearance normal, both eyes and all related structures Sclera: sclerae normal EOM: EOMs intact bilaterally Neck: Neck: supple and no JVD Thyroid: thyroid normal Carotids: no bruits Other: Impossible to assess JVD given her body habitus Resp: [employer] Inspection
--- NOTE | 2022-11-04 11:12 | ECG_ITS ---
Measurements Intervals [place] Rate: 55 P: [place]: 0 QRS: 13 QRSD: 105 T: 10 QT: 427 QTc: 409 Interpretive Statements JUNCTIONAL RHYTHM LOW QRS VOLTAGE IN PRECORDIAL LEADS BORDERLINE ST-T WAVE ABNORMALITY- INFERIOR LEADS ABNORMAL ECG COMPARED TO ECG 11/02/2022 11:54:56 JUNCTIONAL RHYTHM NO PRESENT Electronically Signed On 11-04-2022 14:47:07 CDT by Dale Yeager D.O.
--- NOTE | 2022-11-04 13:13 | PM.IMPN ---
Progress Note: A&P Assessment and Plan (1) Atrial fibrillation with rapid ventricular response: Code(s): I48.91 - Unspecified atrial fibrillation Status: Acute Assessment and Plan: Patient presented to ED for evaluation of recent heart rate was found to be in AFib RVR. Patient initially started on IV Cardizem although this did not correct patient's heart rate and she was transitioned to IV amiodarone. The amiodarone did not work and she was then transitioned back to IV Cardizem. Patient with history of cardiac ablation 6 and half years ago for AFib. Patient on Eliquis for chronic AFib. Cardiology consulted. Metoprolol 100 mg PO daily Digoxin 250 mcg q.a.m. initiated Patient continued to struggle with rate control and underwent cardioversion on 11/02/2022. (2) Acute urinary retention: Code(s): R33.8 - Other retention of urine Status: Acute Assessment and Plan: She was retaining over 2 L of urine and she currently has a Sullivan catheter in place. She will need to follow-up with Urology as an outpatient. (3) Sialadenitis: Code(s): K11.20 - Sialoadenitis, unspecified Status: Acute Assessment and Plan: She also has what seems to be right sialoadenitis. Unasyn Initiated. Check CT soft tissue revealed for parotitis. ENT consulted (4) Stercoral colitis: Code(s): K52.89 - Other specified noninfective gastroenteritis and colitis Status: Acute Assessment and Plan: CT of the abdomen and pelvis shows evidence of stercoral colitis and she has been started on scheduled MiraLax. Dulcolax suppository also ordered. UA negative for acute infection. (5) Diastolic congestive heart failure: Code(s): I50.30 - Unspecified diastolic (congestive) heart failure Status: Acute Assessment and Plan: Patient with echocardiogram performed on 10/31/2022 revealing EF of 60 65%, indeterminate diastolic dysfunction. Continue furosemide daily. (6) Chronic respiratory failure with hypoxia, on home oxygen therapy: Code(s): J96.11 - Chronic respiratory failure with hypoxia; Z99.81 - Dependence on supplemental oxygen Status: Acute Assessment and Plan: patient was requiring 2 L nasal cannula but has been weaned down to room air. (7) Hypertension: Code(s): I10 - Essential (primary) hypertension Status: Acute Assessment and Plan: Monitor pressures. (8) Obstructive sleep apnea on CPAP: Code(s): G47.33 - Obstructive sleep apnea (adult) (pediatric) Status: Acute Assessment and Plan: CPAP provided. Subjective Date/time seen: 11/04/22 13:13 Interval history: Patient resting in bed upon in the room. She states that she is very tired today. She does state that the right side of her face since significant amount of pain. ENT consulted on this. There than that patient is feeling fairly well. She denies any chest pain shortness a breath. She denies any heart palpitations. I do notice that she has some lower extremity swelling which he says is chronic and she is on diuretics for this. Cardiology continuing to follow and appreciate their recommendations. Exam Narrative: GENERAL: Comfortable, no acute distress HENMT: moist mucous membranes; no abscess, redness or trismus in oral cavity EYES: EOM intact b/l NECK: right parotid gland edema. No skin erythema noted. Tender to palpation. RESPIRATORY: clear to auscultation CARDIO: RRR GI: soft, nontender, bowel sounds present SKIN: no rashes EXTREMITIES: 3+ edema, no redness or tenderness Objective Data Vital Signs Vital Signs: Vital Signs - 24 hr 11/03/22 14:00 11/03/22 16:00 11/03/22 16:00 Temperature 98 F Pulse Rate 71 74 Respiratory Rate 20 Blood Pressure 107/49 L Pulse Oximetry 96 98 Oxygen Delivery Room Air 11/03/22 16:00 11/03/22 16:35 11/03/22 20:24 Te
[2022-11-04] MEDS: DIGOXIN 250 MCG TABLET PO (13:15)
--- NOTE | 2022-11-04 13:36 | PCCCNOTE ---
On 11/04/22, the student, [Joelle Cleveland], provided care and completed [facility] documentation on this patient. I have reviewed the student's documentation and agree with the findings.
--- NOTE | 2022-11-04 18:02 | WPDCN ---
Assessment and Plan Assessment and plan (1) Parotid swelling: Code(s): R60.9 - Edema, unspecified Status: Acute Assessment and Plan: Would recommend nursing milk the gland every several hours warm compress patient can not put pressure on it herself. Increased hydration. Sour candies and citrus fruits help as well. Recommend anti MRSA IV antibiotics while inpatient. Those resided nursing homes and open recently hospitalized have a much higher chance of having MRSA as the infectious organism. Can trend a white count as well. Imaging personally reviewed no evidence of abscess, no acute surgical intervention. HPI Data of Consult Date/Time: 11/04/22 18:02 Requesting Physician: Ori Flores MD Primary Care Provider: Remy Chappell MD Consult Narrative Narrative: Lauren Lambert is a 72 year old female right-sided parotitis white count elevated Review of Systems Review of Systems: All systems reviewed & are unremarkable except as noted in HPI and below PMFSH Past Medical History Medical History Arthritis Atrial fibrillation Status post cardiac ablation. Chronic respiratory failure with hypoxia, on home oxygen therapy Coronary artery disease Deep venous thrombosis Diastolic congestive heart failure Hypertension Myocardial infarction Patient reports history of PA, no stents Obstructive sleep apnea on CPAP Surgical History Surgical History History of cardiac radiofrequency ablation History of tonsillectomy Family History Family History Father Malignant neoplasm of prostate Acute myocardial infarction Mother Uterine cancer Acute myocardial infarction Sibling Uterine cancer Social History Social History Social History: Patient reports she has a master's degree in psychiatric nursing. Code status: Modified code, medications only. No CPR intubation. Okay with noninvasive ventilation. Smoking status: Never smoker Alcohol intake: never Substance use: never Lack of Transportation: No Lack of Food: Never True Current Housing: I Have Housing Concerned About Future Housing: No Difficulty Paying Gas/Electric Bills: No Difficulty Paying for Meds: No Currently Unemployed: No Education: Master's Degree or Higher Difficulty w/ Childcare or Family Care: No Additional living arrangements comments: [facility]. No children. 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 Spiritual care concerns: No Meds Home Medications and Allergies Home Medications Medication Instructions Recorded Confirmed Type acetaminophen 650 mg tablet 650 mg PO Q6H PRN Pain 10/27/22 10/27/22 History apixaban 5 mg tablet (Eliquis) 5 mg PO BID 10/27/22 10/27/22 History atorvastatin 40 mg tablet 40 mg PO DAILY 10/27/22 10/27/22 History bisacodyl 5 mg tablet,delayed 5 mg PO HS PRN Constipation 10/27/22 10/27/22 History release clopidogrel 75 mg tablet 75 mg PO DAILY 10/27/22 10/27/22 History cyclobenzaprine 10 mg tablet 10 mg PO TID 10/27/22 10/27/22 History diltiazem HCl 30 mg tablet 30 mg PO Q6H 10/27/22 10/27/22 History famotidine 20 mg tablet 20 mg PO BID 10/27/22 10/27/22 History furosemide 40 mg tablet 40 mg PO DAILY 10/27/22 10/27/22 History losartan 25 mg tablet 25 mg PO DAILY 10/27/22 10/27/22 History miconazole nitrate 2 % topical 1 applic topical BID 10/27/22 10/27/22 History cream nitroglycerin 0.4 mg sublingual 0.4 mg sublingual Q5M 10/27/22 10/27/22 History tablet prochlorperazine maleate 5 mg 5 mg PO Q6H PRN Nausea 10/27/22 10/27/22 History tablet Allergies Allergy/AdvReac Type Severity Reaction Status Date / Time Latex, Natural Rubber AdvReac Unknown Verified 10/27
[2022-11-05] VITALS (12 sets, daily range): BP systolic 93–129; BP diastolic 41–55; PULSE 57–68; RESP 16–17; TEMP 36.7–37.3; O2SAT 95–99
[2022-11-05] MEDS: ACETAMINOPHEN 325 MG TABLET 650 MG PO ×3 (05:11→20:06)
[2022-11-05] MEDS: AMPICILLIN SULB 1.5 GM/NS 50ML 1.5 GM/50 ML VIAL IVPB ×2 (05:13→15:50)
[2022-11-05 05:36] LABS: Basophils Absolute Auto 0.1 K/mm3 (0.0-0.1); Basophils Percent Auto 0.8 % (0.2-1.2); Eosinophils Absolute Auto 0.7 K/mm3 (0-0.3); Eosinophils Percent Auto 8.4 % (0-4.4); Hematocrit 34.4 % (37.0-47.0); Hemoglobin 10.8 g/dL (12.0-15.0); Immature Granulocyte Percent A 1.2 % (0-0.5); Lymphocytes Absolute Auto 3.24 K/mm3 (0.9-3.2); Mean Corpuscular HGB Conc 31.4 g/dl (32-36); Mean Corpuscular Hemoglobin 28.6 pg (26-34); Mean Corpuscular Volume 91.2 fl (80-100); Monocytes Percent Auto 11.6 % (2.6-8.5); Neutrophils Absolute Auto 3.4 K/mm3 (1.3-6.7); Platelet Count Result 382 k/mm3 (150-375); Red Blood Count 3.77 M/mm3 (4.2-5.4); Red Cell Distribution Width 17.6 % (11.5-14.5); White Blood Count 8.5 K/mm3 (4.5-10.0)
[2022-11-05 05:50] LABS: Alanine Aminotransferase 15 U/L (6-35); Albumin Level 2.6 g/dL (3.5-5.1); Alkaline Phosphatase 89 U/L (38-126); Anion Gap 1 mmol/L (8-16); Aspartate Amino Transferase 19 U/L (14-36); Bilirubin,Total 0.5 mg/dL (0.2-1.3); Blood Urea Nitrogen 7 mg/dL (7-17); Calcium 8.5 mg/dL (8.4-10.2); Carbon Dioxide 35 mmol/L (22-30); Chloride 100 mmol/L (98-107); Estimated CRCL calculation 195 ml/min; Estimated Glomerular Filt Rate > 60; Glucose 101 mg/dL (65-110); Magnesium 1.7 mg/dL (1.6-2.3); Potassium 3.4 mmol/L (3.4-5.0); Sodium 136 mmol/L (137-145)
--- NOTE | 2022-11-05 08:48 | PM.PNCARD ---
Progress Note: A&P Assessment and Plan (1) Atrial flutter: Code(s): I48.92 - Unspecified atrial flutter Status: Acute Assessment and Plan: Status post cardioversion. Remains in sinus rhythm but will has low voltage P waves on telemetry. Continue Eliquis for anticoagulation. Continue low-dose metoprolol. EKG yesterday did confirm junctional rhythm. Will repeat an EKG today. She is also hypokalemic and will give her 40 mEq p.o. potassium x1 (2) Coronary artery disease: Code(s): I25.10 - Atherosclerotic heart disease of [place] coronary artery without angina pectoris Status: Acute Assessment and Plan: Continue statin, anti-platelet medication, beta-nolvia (3) Diastolic congestive heart failure: Code(s): I50.30 - Unspecified diastolic (congestive) heart failure Status: Acute Assessment and Plan: Agree with diuresis. Legs are edematous and progressively worsening. Subjective Date/time seen: 11/05/22 08:48 Interval history: Follow-up visit in this 72-year-old patient with: Persistent atrial flutter with rapid ventricular response with which she is really not very symptomatic. 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 In any event rate control is being pursued. This is been challenging because of the underlying atrial flutter. Systemic anticoagulation with apixaban is also being provided. Patient is wearing a CPAP mask this morning is responsive but does not wish to say much. Intravenous diltiazem is running at 10 mg and p.o. metoprolol also being given patient received 1 dose of digoxin yesterday. Date of service 11/01/2022: Patient is hemodynamically stable and does not offer any specific cardiac complaints she still is in persistent atrial flutter with heart rate on range of about 120 most of the time. Not hypotensive. Patient is asking if we are planning to perform a cardioversion during this hospitalization. We did discuss this in some detail. Date of service 11/04/2022: She did undergo cardioversion on Wednesday complication. She remains in sinus rhythm. She has swelling. No chest pain or shortness of breath Date of service 11/05/2022: Junctional rhythm noted yesterday. Metoprolol was reduced. Sinus rhythm at present. Resting comfortably but does have swelling. No chest pain or shortness of breath Review of Systems Constitutional: Constitutional: Denies fever(s) Eyes: Eyes: Reports no additional eye complaints ENT: Denies epistaxis Cardiovascular: Cardiovascular: Reports chest pain (Chest felt sore yesterday), Denies pedal edema, Denies lightheadedness, Reports palpitations and Denies dyspnea Respiratory: Respiratory: Denies chest congestion and Denies dyspnea Gastrointestinal: Gastrointestinal: Denies abdominal pain, Denies hematochezia and Reports constipation Genitourinary: Genitourinary: Denies dysuria Musculoskeletal: Musculoskeletal: Reports no additional musculoskeletal complaints, Reports back pain and Reports arthralgias Integumentary/Breasts: Skin/Breast: Reports system reviewed and no additional complaints, except as docu Neurologic: Reports system reviewed and no additional complaints, except as documented, Denies behavioral changes and Denies confusion Psychiatric: Psychiatric: Denies behavioral changes and Denies confusion Endocrine: Endocrine: Reports palpitations Exam Const: General: cooperative, healthy appearing and comfortable; No confusion Orientation/consciousness: oriented to person, patient oriented x3 (Oriented to Wednesday, October, Hospital, situation) and No confusion Other: Morbidly obese nonambulatory white female with CPAP device in place otherwise appears to be in no distress HENMT: Mouth: Yes moist mucous membranes Other: Hard of hearing Eyes: General: appearance normal, [place]
--- NOTE | 2022-11-05 08:51 | ECG_ITS ---
Measurements Intervals [place] Rate: 64 P: 14 ME: 251 QRS: 10 QRSD: 110 T: 22 QT: 418 QTc: 432 Interpretive Statements SINUS RHYTHM WITH FIRST DEGREE AV BLOCK LOW QRS VOLTAGE IN PRECORDIAL LEADS BORDERLINE T WAVE ABNORMALITY- ANT/INF LEADS BASELINE WANDER- I, II BORDERLINE ECG COMPARED TO ECG 11/04/2022 12:55:08 SINUS RHYTHM NOW PRESENT FIRST DEGREE AV BLOCK NOW PRESENT Electronically Signed On 11-05-2022 12:01:38 CDT by Dale Yeager D.O.
[2022-11-05] MEDS: POTASSIUM CHLORIDE 20 MEQ ER TABLET 40 MEQ PO (09:28)
[2022-11-05] MEDS: DIGOXIN 250 MCG TABLET PO (09:29)
[2022-11-05] MEDS: METOPROLOL SUCCINATE EXT REL 100 MG TABCR PO (09:29)
[2022-11-05] MEDS: ATORVASTATIN 40 MG TABLET PO (09:29)
[2022-11-05] MEDS: FAMOTIDINE 20 MG TABLET PO ×2 (09:29→17:54)
[2022-11-05] MEDS: DOCUSATE SODIUM 100 MG CAPSULE PO ×2 (09:29→20:06)
[2022-11-05] MEDS: CLOPIDOGREL BISULFATE 75 MG TABLET PO (09:30)
[2022-11-05] MEDS: FUROSEMIDE INJ 40 MG/4 ML VIAL IV PUSH ×2 (09:30→17:54)
[2022-11-05] MEDS: CYCLOBENZAPRINE HCL 10 MG TABLET PO ×3 (09:30→17:54)
[2022-11-05] MEDS: APIXABAN 5 MG TABLET PO ×2 (09:30→20:06)
[2022-11-05] MEDS: polyethylene glycoL 3350 17 GM POWD.PACK PO (09:31)
[2022-11-05] MEDS: MICONAZOLE NITRATE 2% CREAM 30 GM TUBE 1 APPLIC TOPICAL ×2 (09:35→17:55)
--- NOTE | 2022-11-05 14:28 | PM.IMPN ---
Progress Note: A&P Assessment and Plan (1) Atrial fibrillation with rapid ventricular response: Code(s): I48.91 - Unspecified atrial fibrillation Status: Acute Assessment and Plan: Patient presented to ED for evaluation of recent heart rate was found to be in AFib RVR. Patient initially started on IV Cardizem although this did not correct patient's heart rate and she was transitioned to IV amiodarone. The amiodarone did not work and she was then transitioned back to IV Cardizem. Patient with history of cardiac ablation 6 and half years ago for AFib. Patient on Eliquis for chronic AFib. Cardiology consulted. Metoprolol 100 mg PO daily Digoxin 250 mcg q.a.m. initiated Patient continued to struggle with rate control and underwent cardioversion on 11/02/2022. post cardioversion she remains in sinus rhythm but has low-voltage P-waves on telemetry. Serial EKGs daily (2) Acute urinary retention: Code(s): R33.8 - Other retention of urine Status: Acute Assessment and Plan: She was retaining over 2 L of urine and she currently has a Sullivan catheter in place. She will need to follow-up with Urology as an outpatient. (3) Sialadenitis: Code(s): K11.20 - Sialoadenitis, unspecified Status: Acute Assessment and Plan: She also has what seems to be right sialoadenitis. Unasyn Initiated. Check CT soft tissue revealed for parotitis. ENT consulted warm compresses and parotid gland massage recommended Hard sour candies recommended to stimulate salivary gland. (4) Stercoral colitis: Code(s): K52.89 - Other specified noninfective gastroenteritis and colitis Status: Acute Assessment and Plan: CT of the abdomen and pelvis shows evidence of stercoral colitis and she has been started on scheduled MiraLax. Dulcolax suppository also ordered. UA negative for acute infection. (5) Diastolic congestive heart failure: Code(s): I50.30 - Unspecified diastolic (congestive) heart failure Status: Acute Assessment and Plan: Patient with echocardiogram performed on 10/31/2022 revealing EF of 60 65%, indeterminate diastolic dysfunction. Continue furosemide daily. (6) Chronic respiratory failure with hypoxia, on home oxygen therapy: Code(s): J96.11 - Chronic respiratory failure with hypoxia; Z99.81 - Dependence on supplemental oxygen Status: Acute Assessment and Plan: patient was requiring 2 L nasal cannula but has been weaned down to room air. (7) Hypertension: Code(s): I10 - Essential (primary) hypertension Status: Acute Assessment and Plan: Monitor pressures. (8) Obstructive sleep apnea on CPAP: Code(s): G47.33 - Obstructive sleep apnea (adult) (pediatric) Status: Acute Assessment and Plan: CPAP provided. Subjective Date/time seen: 11/05/22 14:28 Interval history: Patient resting in bed comfortably. She states that her right side jaw pain is mildly improved. She is able the eat drink with minimal difficulty. Discussed with her the course of treatment for this and she verbalized understanding. She stated that last night she did feel like her heart was galloping but no longer feels this any longer. Patient has worsening lower extremity edema and Lasix was increased. Unsure if this lower extremity edema is chronic or not due to the patient not knowing. I suspect that is chronic. She will likely be able to discharge tomorrow if Cardiology is also okay with discharge. Review of Systems Review of Systems: All systems reviewed & are unremarkable except as noted in HPI and below Exam Narrative: GENERAL: Comfortable, no acute distress HENMT: moist mucous membranes; no abscess, redness or trismus in oral cavity EYES: EOM intact b/l NECK: right parotid gland edema. No skin erythema noted. Tender to palpation. RESPIRATORY:
[2022-11-06] VITALS (9 sets, daily range): BP systolic 110; BP diastolic 64; PULSE 61–68; RESP 10–20; TEMP 37.1; O2SAT 96–99
[2022-11-06] MEDS: AMPICILLIN SULB 1.5 GM/NS 50ML 1.5 GM/50 ML VIAL IVPB (00:35)
[2022-11-06 07:46] LABS: Alanine Aminotransferase 17 U/L (6-35); Albumin Level 2.8 g/dL (3.5-5.1); Alkaline Phosphatase 96 U/L (38-126); Anion Gap 5 mmol/L (8-16); Aspartate Amino Transferase 22 U/L (14-36); Bilirubin,Total 0.3 mg/dL (0.2-1.3); Blood Urea Nitrogen 6 mg/dL (7-17); Calcium 8.6 mg/dL (8.4-10.2); Carbon Dioxide 33 mmol/L (22-30); Chloride 98 mmol/L (98-107); Estimated CRCL calculation 153 ml/min; Estimated Glomerular Filt Rate > 60; Glucose 105 mg/dL (65-110); Potassium 3.4 mmol/L (3.4-5.0); Sodium 136 mmol/L (137-145)
[2022-11-06 09:39] LABS: Basophils Absolute Auto 0.1 K/mm3 (0.0-0.1); Eosinophils Absolute Auto 0.8 K/mm3 (0-0.3); Eosinophils Percent Auto 10.3 % (0-4.4); Hemoglobin 11.9 g/dL (12.0-15.0); Immature Granulocyte Absolute 0.11 K/mm3 (0.00-0.031); Immature Granulocyte Percent A 1.5 % (0-0.5); Lymphocytes Absolute Auto 2.48 K/mm3 (0.9-3.2); Lymphocytes Percent Auto 33.7 % (18.3-44.2); Mean Corpuscular HGB Conc 31.3 g/dl (32-36); Mean Corpuscular Hemoglobin 28.5 pg (26-34); Mean Corpuscular Volume 91.1 fl (80-100); Mean Platelet Volume 8.9 fl (7.4-10.4); Monocytes Absolute Auto 0.8 K/mm3 (0.1-0.6); Monocytes Percent Auto 11.4 % (2.6-8.5); Neutrophils Absolute Auto 3.1 K/mm3 (1.3-6.7); Neutrophils Percent Auto 42.1 % (45.5-73.1); Platelet Count Result 426 k/mm3 (150-375); Red Blood Count 4.17 M/mm3 (4.2-5.4); Red Cell Distribution Width 17.5 % (11.5-14.5); White Blood Count 7.4 K/mm3 (4.5-10.0)
[2022-11-06] MEDS: CLOPIDOGREL BISULFATE 75 MG TABLET PO (09:50)
[2022-11-06] MEDS: APIXABAN 5 MG TABLET PO (09:50)
[2022-11-06] MEDS: ATORVASTATIN 40 MG TABLET PO (09:50)
[2022-11-06] MEDS: CYCLOBENZAPRINE HCL 10 MG TABLET PO ×2 (09:50→14:11)
[2022-11-06] MEDS: DIGOXIN 250 MCG TABLET PO (09:50)
[2022-11-06] MEDS: DOCUSATE SODIUM 100 MG CAPSULE PO (09:52)
[2022-11-06] MEDS: FUROSEMIDE INJ 40 MG/4 ML VIAL IV PUSH (09:53)
[2022-11-06] MEDS: FAMOTIDINE 20 MG TABLET PO (09:53)
[2022-11-06] MEDS: METOPROLOL SUCCINATE EXT REL 100 MG TABCR PO (09:53)
[2022-11-06] MEDS: polyethylene glycoL 3350 17 GM POWD.PACK PO (09:53)
[2022-11-06] MEDS: MICONAZOLE NITRATE 2% CREAM 30 GM TUBE 1 APPLIC TOPICAL (09:54)
--- NOTE | 2022-11-06 11:46 | PM.DS ---
DS: Admitting Diagnosis Discharge Date 11/06/22 Admitting Diagnosis A Fib RVR DS: Discharge Diagnosis Discharge Diagnosis (1) Atrial fibrillation with rapid ventricular response: Code(s): I48.91 - Unspecified atrial fibrillation Status: Acute Assessment and Plan: Patient presented to ED for evaluation of recent heart rate was found to be in AFib RVR. Patient initially started on IV Cardizem although this did not correct patient's heart rate and she was transitioned to IV amiodarone. The amiodarone did not work and she was then transitioned back to IV Cardizem. Patient with history of cardiac ablation 6 and half years ago for AFib. Patient on Eliquis for chronic AFib. Cardiology consulted. Metoprolol 100 mg PO daily Digoxin 250 mcg q.a.m. initiated Patient continued to struggle with rate control and underwent cardioversion on 11/02/2022. post cardioversion she remains in sinus rhythm but has low-voltage P-waves on telemetry. Serial EKGs daily follow-up with cardiology as an outpatient (2) Acute urinary retention: Code(s): R33.8 - Other retention of urine Status: Acute Assessment and Plan: She was retaining over 2 L of urine and she currently has a Sullivan catheter in place. She will need to follow-up with Urology as an outpatient. (3) Sialadenitis: Code(s): K11.20 - Sialoadenitis, unspecified Status: Acute Assessment and Plan: She also has what seems to be right sialoadenitis. Unasyn Initiated. Check CT soft tissue revealed for parotitis. ENT consulted warm compresses and parotid gland massage recommended Hard sour candies recommended to stimulate salivary gland. (4) Stercoral colitis: Code(s): K52.89 - Other specified noninfective gastroenteritis and colitis Status: Acute Assessment and Plan: CT of the abdomen and pelvis shows evidence of stercoral colitis and she has been started on scheduled MiraLax. Dulcolax suppository also ordered. UA negative for acute infection. (5) Diastolic congestive heart failure: Code(s): I50.30 - Unspecified diastolic (congestive) heart failure Status: Acute Assessment and Plan: Patient with echocardiogram performed on 10/31/2022 revealing EF of 60 65%, indeterminate diastolic dysfunction. Continue furosemide daily. (6) Chronic respiratory failure with hypoxia, on home oxygen therapy: Code(s): J96.11 - Chronic respiratory failure with hypoxia; Z99.81 - Dependence on supplemental oxygen Status: Acute Assessment and Plan: patient was requiring 2 L nasal cannula but has been weaned down to room air. (7) Hypertension: Code(s): I10 - Essential (primary) hypertension Status: Acute Assessment and Plan: Monitor pressures. (8) Obstructive sleep apnea on CPAP: Code(s): G47.33 - Obstructive sleep apnea (adult) (pediatric) Status: Acute Assessment and Plan: CPAP provided. DS: Summary Hospital Course Hospital Course: 72-year-old female with a past medical history of AFib status post cardiac ablation In 2017, CAD, CHF, hypertension, chronic respiratory failure on 2 L nasal cannula and obstructive sleep apnea [facility] of a racing heart. She was found to have AFib RVR With underlying a flutter. cardiology consulted. She was recently started on a Cardizem drip although this did not correct patient's heart rate and she was then transition to IV amiodarone. She was on IV amiodarone for couple days and this did not help correct her tachycardia and she was eventually transitioned back to IV Cardizem. It was difficulty controlling patient's rate due to her underlying a flutter. After several days of unsuccessful therapy cardiology decided to proceed with cardioversion on 11/02/2022. Patient's diltiazem and losa
[2022-11-06 13:46] LABS: SARS-CoV-2 RNA PCR Negative (Negative)
== END 2022-11-06 16:36 | DRG 309 ==
LOC: ANHED 19:52 → ANHIMU 21:11 → ANH2MED 11-03 17:58
PROVIDERS: Internal Medicine; Internal Medicine Cardiovascular Disease; Physician Assistant; Admitting Provider Internal Medicine; Emergency Provider Preventive Medicine Aerospace Medicine; PCP Hospitalist; Visit Provider Internal Medicine Critical Care Medicine
PROC: 5A2204Z Restoration of Cardiac Rhythm, Single (ICD-10-PCS; principal; 2022-11-02 11:30)
DX: I48.19 Other persistent atrial fibrillation (principal); I50.32 Chronic diastolic (congestive) heart failure; J96.11 Chronic respiratory failure with hypoxia; I48.92 Unspecified atrial flutter; G47.33 Obstructive sleep apnea (adult) (pediatric); I25.2 Old myocardial infarction; I11.0 Hypertensive heart disease with heart failure; I25.10 Atherosclerotic heart disease of native coronary artery without angina pectoris; K11.20 Sialoadenitis, unspecified; K52.89 Other specified noninfective gastroenteritis and colitis; R33.8 Other retention of urine; Z20.822 Contact with and (suspected) exposure to COVID-19; Z79.01 Long term (current) use of anticoagulants; Z99.81 Dependence on supplemental oxygen; Z86.718 Personal history of other venous thrombosis and embolism
CPT/HCPCS: 36415; 70490; 71045; 74177; 80048; 80053; 80076; 80307; 81003; 82948; 83690; 83735; 84439; 84443; 84480; 84484; 85025; 85610; 85730; 87635; 92960; 93005; 96361; 96365; 96366; 96368; 96375; 96376; 97161; 97165; 99285; A9270; C8929; G0378; J0282; J0295; J0612; J1160; J1940; J2250; J2270; J2405; J3010; J3370; J3475; J7030; J7040; Q9957; Q9967

== ENCOUNTER 2022-11-08 17:20 | Inpatient (IN) | payer MEDICARE, MEDICAID, SELFPAY ==
[2022-11-08] VITALS (14 sets, daily range): BP systolic 92–141; BP diastolic 48–73; PULSE 78–145; RESP 12–23; TEMP 36.7–36.8; O2SAT 94–99; BMI 42.3
--- NOTE | ~2022-11-08 | CT_ITS ---
EXAMINATION: CT foot RT wo con DATE: 11/16/2022 08:29 INDICATION: Right foot swelling and pain TECHNIQUE: High resolution computed tomography (CT) of the right foot was performed without intraveno us contrast. Additional sagittal and coronal reconstructions were performed. Automated exposure contr ol and iterative reconstruction technique were employed. The dose-length product was 544.93 mGy-cm. COMPARISON: None FINDINGS: Bone alignment is normal. No displaced fractures identified. There is marked diffuse osteopenia which decreases sensitivity and specificity for nondisplaced fractures. Mild polyarticular osteoarthritis in the mid and forefoot. There is marked fatty atrophy of the intrinsic musculature of the foot. There is prominent soft tissue swelling with subcutaneous edema overlying the dorsum of the foot. Th e stranding appears to relatively spare the deeper fat surrounding the bones. IMPRESSION: 1. Prominent soft tissue swelling with subcutaneous skin over the dorsum of the foot. No definitive u nderlying fracture although sensitivity and specificity for nondisplaced fracture are significantly d ecreased by the marked diffuse osteopenia. If there is continued clinical concern for occult fracture would consider MRI for further evaluation. 2. Mild polyarticular osteoarthritis in the mid and forefoot. 3. Diffuse fatty atrophy of the intrinsic musculature of the foot. Reviewed, dictated and finalized at location B. IMPRESSION: 1. Prominent soft tissue swelling with subcutaneous skin over the dorsum of the foot. No definitive underlying fracture although sensitivity and specificity f or nondisplaced fracture are significantly decreased by the marked diffuse oste openia. If there is continued clinical concern for occult fracture would consid er MRI for further evaluation. 2. Mild polyarticular osteoarthritis in the mid and forefoot. 3. Diffuse fatty atrophy of the intrinsic musculature of the foot.
--- NOTE | ~2022-11-08 | XR_ITS ---
XR chest 1V portable DATE: 11/08/2022 18:02 INDICATION: Atrial fibrillation with rapid ventricular response TECHNIQUE: Portable AP chest on 11/08/2022 at 1752 hours COMPARISON: 10/27/2022 portable AP chest FINDINGS: Borderline heart size. Left lower lobe and right basilar infiltrate or atelectasis are suggested. There is pulmonary vascular redistribution which may indicate pulmonary venous hypertension. There is minimal if any pleural effusion. No pneumothorax. Mild bilateral apical capping. Degenerative spurring and dextroscoliosis of the thoracic spine. Osteopenia. IMPRESSION: Limited portable study suggesting mild infiltrate or atelectasis in the lower lung zones, left greater than right Cardiomegaly, pulmonary vascular redistribution which may indicate mild congestive change Reviewed, dictated and finalized at location A. IMPRESSION: Limited portable study suggesting mild infiltrate or atelectasis in the lower lung zones, left greater than right Cardiomegaly, pulmonary vascular redistribution which may indicate mild congest ai change
--- NOTE | 2022-11-08 17:27 | ECG_ITS ---
Measurements Intervals [place] Rate: 135 P: TX: 0 QRS: 3 QRSD: 90 T: 37 QT: 254 QTc: 382 Interpretive Statements ATRIAL FIBRILLATION WITH RAPID VENTRICULAR RESPONSE NONSPECIFIC ST & T-WAVE ABNORMALITY- DIFFUSE LEADS ABNORMAL ECG COMPARED TO ECG 11/05/2022 11:03:43 ATRIAL FIBRILLATION NOW PRESENT ST-T WAVE ABNORMALITY NOW PRESENT Electronically Signed On 11-09-2022 7:45:52 CDT by Dale Yeager D.O.
[2022-11-08] MEDS: SODIUM CHLORIDE 0.9% IV 1,000 ML 999 ML IV CONT (17:37)
--- NOTE | 2022-11-08 17:38 | ED.GENADULT ---
HPI - General Adult General Chief complaint: Arrhythmia/Palpitations Stated complaint: abnormal VS Time Seen by Provider: 11/08/22 17:27 History of Present Illness HPI narrative: 72-year-old female presented emergency department for evaluation of A-fib with RVR. Patient had a recent hospital admission during which she was having issues getting her A-fib with RVR control. Patient was cardioverted and discharged back to her care facility. Today at her shelter patient once again developed A-fib with RVR. Upon arrival to the ED patient had a heart rate in the 150s and was mildly hypotensive. Related Data Home Medications Medication Instructions Recorded Confirmed acetaminophen 650 mg tablet 650 mg PO Q6H PRN Pain 10/27/22 10/27/22 apixaban 5 mg tablet (Eliquis) 5 mg PO BID 10/27/22 10/27/22 atorvastatin 40 mg tablet 40 mg PO DAILY 10/27/22 10/27/22 bisacodyl 5 mg tablet,delayed 5 mg PO HS PRN Constipation 10/27/22 10/27/22 release clopidogrel 75 mg tablet 75 mg PO DAILY 10/27/22 10/27/22 cyclobenzaprine 10 mg tablet 10 mg PO TID 10/27/22 10/27/22 famotidine 20 mg tablet 20 mg PO BID 10/27/22 10/27/22 furosemide 40 mg tablet 40 mg PO DAILY 10/27/22 10/27/22 miconazole nitrate 2 % topical 1 applic topical BID 10/27/22 10/27/22 cream Allergies Allergy/AdvReac Type Severity Reaction Status Date / Time Latex, Natural Rubber AdvReac Unknown Verified 11/08/22 17:39 Review of Systems Review of Systems: All systems reviewed & are unremarkable except as noted in HPI and below PMFSH Past Medical History Medical History Arthritis Atrial fibrillation Status post cardiac ablation. Chronic respiratory failure with hypoxia, on home oxygen therapy Coronary artery disease Deep venous thrombosis Diastolic congestive heart failure Hypertension Myocardial infarction Patient reports history of [place], no stents Obstructive sleep apnea on CPAP Surgical History Surgical History History of cardiac radiofrequency ablation History of tonsillectomy Family History Family History Father Malignant neoplasm of prostate Acute myocardial infarction Mother Uterine cancer Acute myocardial infarction Sibling Uterine cancer Social History Social History Social History: Patient reports she has a master's degree in psychiatric nursing. Code status: Modified code, medications only. No CPR intubation. Okay with noninvasive ventilation. Smoking status: Never smoker Alcohol intake: never Substance use: never Lack of Transportation: No Lack of Food: Never True Current Housing: I Have Housing Concerned About Future Housing: No Difficulty Paying Gas/Electric Bills: No Difficulty Paying for Meds: No Currently Unemployed: No Education: Master's Degree or Higher Difficulty w/ Childcare or Family Care: No Additional living arrangements comments: [facility]. No children. 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 Spiritual care concerns: No Exam Narrative: APPEARANCE: Well-appearing HEAD: normocephalic, atraumatic. EYES: PERRLA/EOMI, conjunctivae clear. NOSE: Normal no drainage NECK: Supple. No adenopathy, no masses. RESPIRATORY: Airway patent, respirations nonlabored. Clear to auscultation bilaterally, no rales, rhonchi, wheezing. CARDIOVASCULAR: A-fib with RVR ABDOMINAL: Soft, nontender, nondistended, normal bowel sounds MUSCULOSKELETAL: Lower extremity edema NEURO: Alert. Cranial nerves II through XII intact. Good gait. Good coordination SKIN: Warm, dry. Normal Color Course Course Emergency Course: 72-year-old female presented the ED for evaluation of A-fib RVR. Patient was treated with IV fluids and also
[2022-11-08 17:41] LABS: Basophils Absolute Auto 0.1 K/mm3 (0.0-0.1); Basophils Percent Auto 0.6 % (0.2-1.2); Eosinophils Absolute Auto 0.6 K/mm3 (0-0.3); Eosinophils Percent Auto 6.4 % (0-4.4); Immature Granulocyte Absolute 0.15 K/mm3 (0.00-0.031); Immature Granulocyte Percent A 1.5 % (0-0.5); Lymphocytes Absolute Auto 3.94 K/mm3 (0.9-3.2); Lymphocytes Percent Auto 39.3 % (18.3-44.2); Mean Corpuscular HGB Conc 32.6 g/dl (32-36); Mean Corpuscular Hemoglobin 28.9 pg (26-34); Mean Corpuscular Volume 88.8 fl (80-100); Monocytes Percent Auto 9.7 % (2.6-8.5); Neutrophils Absolute Auto 4.3 K/mm3 (1.3-6.7); Neutrophils Percent Auto 42.5 % (45.5-73.1); Platelet Count Result 572 k/mm3 (150-375); Red Blood Count 4.84 M/mm3 (4.2-5.4)
[2022-11-08] MEDS: METOPROLOL TARTRATE INJ 5 MG/5 ML VIAL IV PUSH (17:50)
[2022-11-08 17:51] LABS: Appearance Urine Cloudy (Clear); Bacteria Urine 4+ /hpf; Bilirubin Urine Negative (Negative); Blood Urine 3+ (Negative); Color Urine Yellow (Yellow); Glucose Urine UA Negative (Negative); Ketones Urine Negative (Negative); Leukocyte Esterase Ur 3+ LEU/UL (Negative); Nitrate Urine Negative (Negative); Non Pathogenic Casts 0-2; Protein Urine 1+ mg/dL (Negative); RBC Urine >100 /hpf (0-2); Specific Grav Ur 1.006 (1.001-1.035); Squamous Epithelial Cell Urine Occasional /hpf (Few); WBC Urine 51-100 /hpf; pH Urine 7.5 (5.0-9.0)
[2022-11-08 17:53] LABS: INR 1.5; Prothrombin Time 19.1 Seconds (11.1-14.7)
[2022-11-08 17:54] LABS: Partial Thromboplastin Time 38.2 SECONDS (22.3-36.8)
[2022-11-08 17:56] LABS: Add Urine Microscopic? YES
--- NOTE | 2022-11-08 18:12 | ECG_ITS ---
Measurements Intervals [place] Rate: 76 P: -8 VT: 240 QRS: 7 QRSD: 94 T: 49 QT: 357 QTc: 403 Interpretive Statements SINUS RHYTHM WITH FIRST DEGREE AV BLOCK BORDERLINE ST-T WAVE ABNORMALITY- DIFFUSE LEADS BORDERLINE ECG COMPARED TO ECG 11/08/2022 18:19:36 NO SIGNIFICANT CHANGES Electronically Signed On 11-08-2022 21:19:29 CDT by Dale Yeager D.O.
[2022-11-08 18:22] LABS: Alanine Aminotransferase 16 U/L (6-35); Albumin Level 2.8 g/dL (3.5-5.1); Alkaline Phosphatase 114 U/L (38-126); Anion Gap 0 mmol/L (8-16); Aspartate Amino Transferase 24 U/L (14-36); Bilirubin,Total 0.4 mg/dL (0.2-1.3); Blood Urea Nitrogen 6 mg/dL (7-17); Calcium 8.1 mg/dL (8.4-10.2); Carbon Dioxide 35 mmol/L (22-30); Chloride 99 mmol/L (98-107); Estimated CRCL calculation 155 ml/min; Estimated Glomerular Filt Rate > 60; Glucose 116 mg/dL (65-110); Potassium 3.6 mmol/L (3.4-5.0); Sodium 134 mmol/L (137-145)
--- NOTE | 2022-11-08 19:55 | ADMGEN ---
This patient, Lauren Lambert, was admitted to IMU Room 200-01. Patient/family oriented to hospital policies and general routines including ID bracelet, bed and alarms, visiting hours, pain management, procedures, bathroom and other care routines, personal items, smoking policy, room service/diet, and visiting hours. Information on how to activate the Rapid Response Team has been discussed. Patient/Family are encouraged to report perceived risks to care and to ask questions if they do not understand what they are told or what they should do.
--- NOTE | 2022-11-08 19:56 | ECG_ITS ---
Rate NC QRSd QT QTc P QRS T Severity 77 243 92 357 406 0 -2 7 Abnormal ECG SINUS RHYTHM WITH FIRST DEGREE AV BLOCK BORDERLINE R WAVE PROGRESSION, ANTERIOR LEADS BORDERLINE T WAVE ABNORMALITY- ANT/INF LEADS BASELINE WANDER- V4-V6 BORDERLINE ECG Electronically Signed On 11-08-2022 21:18:48 CDT by Dale Yeager D.O. COMPARED TO ECG 11/08/2022 17:28:19 SINUS RHYTHM NOW PRESENT FIRST DEGREE AV BLOCK NOW PRESENT MTDD
--- NOTE | 2022-11-08 20:14 | PM.IMHP ---
H&P: HPI History of Present Illness Date/Time: 11/08/22 20:14 Chief Complaint: Arrhythmia/palpitations Narrative: This is a 72-year-old female patient has extremely difficult AFib to controlled. The patient was just discharged from here on 11/06/2022. During that admission she was on a Cardizem drip and was transitioned to amiodarone and when the amiodarone that work then she was transitioned back to Cardizem. Cardiology saw the patient she was started on digoxin and metoprolol. It was difficult to control her rate and she underwent a cardioversion on 11/02/2022. After cardioversion she was in normal sinus rhythm. However today she came back in with AFib with RVR. The patient was mildly hypotensive when she came to the emergency room. Cardiology has been consulted. Prior to arriving to the IMU the patient cardioverted back to sinus rhythm. Patient was found to have a UTI today. She was started on Rocephin. Urine culture was sent. Chest x-ray was read as the following?Limited portable study suggesting mild infiltrate or atelectasis in the lower lung zones, left greater than right Cardiomegaly, pulmonary vascular redistribution which may indicate mild congestive change? The patient was started on Rocephin, IV fluids and metoprolol in the emergency room. The patient is being admitted to observation in IMU on the date of service 11/08/2022 Review of Systems Review of Systems: All systems reviewed & are unremarkable except as noted in HPI and below Constitutional: Constitutional: Reports as per HPI and Reports no additional constitutional complaints Eyes: Eyes: Reports as per HPI and Reports no additional eye complaints ENT: Reports system reviewed and no additional complaints, except as documented and Reports Normal hearing present Cardiovascular: Cardiovascular: Reports no additional cardiovascular complaints Respiratory: Respiratory: Reports no additional respiratory complaints and Reports no additional respiratory complaints Gastrointestinal: Gastrointestinal: Reports as per HPI and Reports no additional gastrointestinal complaints Musculoskeletal: Musculoskeletal: Reports no additional musculoskeletal complaints Integumentary/Breasts: Skin/Breast: Reports system reviewed and no additional complaints, except as docu and Reports as per HPI Neurologic: Reports system reviewed and no additional complaints, except as documented, Reports as per HPI and Reports Normal hearing present Psychiatric: Psychiatric: Reports no additional psychiatric complaints and Reports as per HPI Endocrine: Endocrine: Reports no additional endocrine complaints Hematologic/Lymphatic: Hematologic/Lymphatic: Reports no additional hematologic/lymphatic complaints Allergic/Immunologic: Allergic/Immunologic: Reports no additional allergic/immunologic complaints [facility] Past Medical History Medical History (Updated 11/08/22 @ 21:50 by Bibiana Garcia NP) Arthritis Atrial fibrillation Status post cardiac ablation. 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 Code status: Modified code, medications only. No CPR intubation. Okay with noninvasive ventilation. Smoking stat
[2022-11-08] MEDS: MELATONIN 5 MG TABLET PO (22:29)
[2022-11-08] MEDS: dilTIAZem HCL 30 MG TABLET PO (22:29)
[2022-11-08] MEDS: METOPROLOL TARTRATE 50 MG TAB PO (22:29)
[2022-11-08] MEDS: APIXABAN 5 MG TABLET PO (22:30)
[2022-11-08] MEDS: CYCLOBENZAPRINE HCL 10 MG TABLET PO (22:30)
[2022-11-09] VITALS (19 sets, daily range): BP systolic 99–144; BP diastolic 57–86; PULSE 51–85; RESP 14–24; TEMP 36–37.1; O2SAT 94–100
[2022-11-09 04:55] LABS: Basophils Absolute Auto 0.1 K/mm3 (0.0-0.1); Basophils Percent Auto 0.8 % (0.2-1.2); Eosinophils Absolute Auto 0.6 K/mm3 (0-0.3); Eosinophils Percent Auto 7.1 % (0-4.4); Hematocrit 38.3 % (37.0-47.0); Hemoglobin 12.2 g/dL (12.0-15.0); Immature Granulocyte Absolute 0.18 K/mm3 (0.00-0.031); Immature Granulocyte Percent A 2.3 % (0-0.5); Lymphocytes Percent Auto 36.3 % (18.3-44.2); Mean Corpuscular HGB Conc 31.9 g/dl (32-36); Mean Corpuscular Hemoglobin 28.6 pg (26-34); Mean Corpuscular Volume 89.9 fl (80-100); Mean Platelet Volume 8.7 fl (7.4-10.4); Monocytes Percent Auto 12.5 % (2.6-8.5); Neutrophils Absolute Auto 3.3 K/mm3 (1.3-6.7); Platelet Count Result 475 k/mm3 (150-375); Red Blood Count 4.26 M/mm3 (4.2-5.4); Red Cell Distribution Width 17.6 % (11.5-14.5)
[2022-11-09 05:01] LABS: Lactic Acid Reflex 1.5 mmol/L (0.7-2.0)
[2022-11-09 05:06] LABS: Alanine Aminotransferase 16 U/L (6-35); Albumin Level 2.7 g/dL (3.5-5.1); Alkaline Phosphatase 96 U/L (38-126); Anion Gap 5 mmol/L (8-16); Aspartate Amino Transferase 24 U/L (14-36); Bilirubin,Total 0.5 mg/dL (0.2-1.3); Blood Urea Nitrogen 7 mg/dL (7-17); Calcium 8.2 mg/dL (8.4-10.2); Carbon Dioxide 32 mmol/L (22-30); Chloride 97 mmol/L (98-107); Estimated CRCL calculation 154 ml/min; Estimated Glomerular Filt Rate > 60; Glucose 114 mg/dL (65-110); Magnesium 1.7 mg/dL (1.6-2.3); Potassium 3.3 mmol/L (3.4-5.0); Sodium 134 mmol/L (137-145)
[2022-11-09 08:14] LABS: Free T4 Free Thyroxine Reflex 1.76 ng/dL (0.78-2.19)
[2022-11-09] MEDS: FUROSEMIDE 40 MG TABLET PO (08:35)
[2022-11-09] MEDS: POTASSIUM CHLORIDE 20 MEQ PACKET (FOR LIQUID) 40 MEQ PO (08:35)
[2022-11-09] MEDS: ATORVASTATIN 40 MG TABLET PO (08:36)
[2022-11-09] MEDS: METOPROLOL TARTRATE 50 MG TAB PO (08:36)
[2022-11-09] MEDS: dilTIAZem HCL 30 MG TABLET PO (08:36)
[2022-11-09] MEDS: CYCLOBENZAPRINE HCL 10 MG TABLET PO ×2 (08:36→17:39)
[2022-11-09] MEDS: FAMOTIDINE 20 MG TABLET PO ×2 (08:36→17:39)
[2022-11-09] MEDS: LOSARTAN POTASSIUM 25 MG TABLET PO (08:36)
[2022-11-09] MEDS: polyethylene glycoL 3350 17 GM POWD.PACK PO (08:36)
[2022-11-09] MEDS: APIXABAN 5 MG TABLET PO ×2 (08:36→17:39)
[2022-11-09] MEDS: DIGOXIN 250 MCG TABLET PO (08:36)
[2022-11-09] MEDS: CLOPIDOGREL BISULFATE 75 MG TABLET PO (08:36)
[2022-11-09] MEDS: ACETAMINOPHEN 325 MG TABLET 650 MG BY MOUTH ×2 (08:37→15:01)
[2022-11-09] MEDS: MICONAZOLE NITRATE 2% CREAM 30 GM TUBE 1 APPLIC TOPICAL ×2 (08:37→17:39)
--- NOTE | 2022-11-09 09:19 | PM.CNCAR ---
Assessment and Plan Assessment and plan (1) Atrial fibrillation with rapid ventricular response: Code(s): I48.91 - Unspecified atrial fibrillation Status: Acute Plan 72-year-old woman with a history of atrial fib and flutter being treated medically with a combination of beta-nolvia diltiazem and digoxin after cardioversion last week. She remains systemically anticoagulated with apixaban. She has had a recurrence of AF within just a couple of days after discharge prompting readmission to this hospital. At this point I would advance her antiarrhythmic therapy to sotalol. I am going to stop the metoprolol, diltiazem and digoxin and replace this with sotalol which will hopefully more effectively maintain sinus rhythm. She needs to remain hospitalized for a couple of days as we initiate this medication. Ideally she would follow up with her sponge buffer who has been managing this but that physician is not available here at [facility]. Miguel Angel Phillips MD [facility] History of Present Illness History of Present Illness Consult date/time: 11/09/22 09:19 Reason For Visit: Paroxysmal A-fib with RVR, UTI Narrative: This is a 72-year-old woman who is known to us from recent hospitalization readmitted to the hospital yesterday with atrial fibrillation with RVR. She lives in a skilled care facility of some sort and was discharged from this hospital just 3 days ago after being hospitalized with atrial flutter. She has a history of atrial arrhythmias and has received care with the Cardiology/electrophysiology at another hospital. She was anticoagulated with apixaban and treated with combination of diltiazem, digoxin and metoprolol. Because atrial flutter persisted she was electrically cardioverted to sinus rhythm last week and was discharged back to her are living facility. She was noted to be back in atrial fib I yesterday and was sent back to the hospital. It looks like spontaneously she is already back in sinus rhythm with first-degree AV block at this time. Upon entering the room to see her she is sleeping flat in bed and upon awakening has no complaints currently. She is not known to have coronary artery disease and her renal function is normal according to her lab data. A echocardiogram done with contrast the last time she was here demonstrated normal appearing left ventricular systolic function and ejection fraction. Review of Systems Constitutional: Constitutional: Reports lethargy Eyes: Eyes: Reports no additional eye complaints ENT: Reports system reviewed and no additional complaints, except as documented Cardiovascular: Cardiovascular: Reports no additional cardiovascular complaints Respiratory: Respiratory: Reports no additional respiratory complaints Gastrointestinal: Gastrointestinal: Reports no additional gastrointestinal complaints Musculoskeletal: Musculoskeletal: Reports no additional musculoskeletal complaints Integumentary/Breasts: Skin/Breast: Reports system reviewed and no additional complaints, except as docu Neurologic: Comments: Arousable and oriented Endocrine: Endocrine: Reports no additional endocrine complaints Hematologic/Lymphatic: Hematologic/Lymphatic: Reports no additional hematologic/lymphatic complaints Allergic/Immunologic: Allergic/Immunologic: Reports no additional allergic/immunologic complaints [facility] Past Medical History Medical History (Updated 11/08/22 @ 21:50 by Bibiana Garcia NP) Arthritis Atrial fibrillation Status post cardiac ablation. Chronic respiratory failure with hypoxia, on home oxygen therapy Coronary artery disease Deep venous thrombosis Diastolic congestive heart failure Hyperlipidemia Hypertension Myocardial infarction Patient reports history of [place], no stents Obstructive sleep apnea on CPAP Surgical History Surgical History History of cardiac radiofrequency ablation Hist
[2022-11-09 09:24] LABS: Total Triiodothyronine (T3) 1.16 NG/ML (0.97-1.69)
--- NOTE | 2022-11-09 13:10 | PM.IMPN ---
Progress Note: A&P Assessment and Plan (1) Atrial fibrillation with rapid ventricular response: Code(s): I48.91 - Unspecified atrial fibrillation Status: Acute Assessment and Plan: The patient was admitted from 10/27-11/06 for racing heart rate and found to have AFib. She was trialed on Amiodarone and diltiazem but ultimately underwent cardioversion. She was discharged on Digoxin, metoprolol and Eliquis. She returns for palpitations and found to be in AFib again. She has since converted to sinus rhythm. TSH 5.9. Cardiology consulted. Digoxin and metoprolol stopped and sotalol started. Continue Eliquis. Monitor on tele and serial EKGs (2) Acute UTI: Code(s): N39.0 - Urinary tract infection, site not specified Status: Acute Assessment and Plan: UA noted and concerning for UTI. BCx pending. UCx pending. Continue with Rocephin (3) Hyperlipidemia: Code(s): E78.5 - Hyperlipidemia, unspecified Status: Acute Assessment and Plan: LFTs okay. Continue with atorvastatin (4) Diastolic congestive heart failure: Code(s): I50.30 - Unspecified diastolic (congestive) heart failure Status: Acute Assessment and Plan: Echo (10/31) showing nml LV size and function with EF 60-65%. Diastolic function indeterminate. Marked LE edema but suspect this is dependent edema. CXR does show mild infiltrates or atelecatasis in the lower lung eli, CMG and possibly pulm vascular redistribution. Check BNP. Continue Lasix. (5) Hypertension: Code(s): I10 - Essential (primary) hypertension Status: Acute Assessment and Plan: Patient's blood pressure was reviewed on 11/09 Blood pressure remains well controlled. Will continue to monitor (6) Obstructive sleep apnea on CPAP: Code(s): G47.33 - Obstructive sleep apnea (adult) (pediatric) Status: Acute Assessment and Plan: Stable. Patient is compliant with NIV. Continue with CPAP as per home settings. Subjective Date/time seen: 11/09/22 13:10 Interval history: 72yo female with AFib, CHF, BRINDA, CAD and HTN here for recurrent AFib. Has a chronic [place]. Patient is sleepy but oriented. She denies SOB or CP. Did have chest pain and nausea on presentation but this has resolved. She has mild cough but this is more chronic. No current nasuea. Exam Narrative: AF 96.8 133/57 65 22 98% ra Gen - NARD lying almost flat in bed with bipap in place. Chest - lungs clear anteriorly and in the flanks, nml RR CV - RRR S1/S2, Tele showing no alarms. Abd - Soft, obese, NT - Sullivan secured draining clear yellow urine. Ext - 2+ pitting pedal edema worse to the right foot. Neuro - sleepy but arouses and is oriented x4. Psych - Nml mood and affect Skin - Warm and dry Objective Data Vital Signs Vital Signs: Vital Signs - 24 hr 11/08/22 17:07 11/08/22 17:50 11/08/22 17:30 Temperature 98.2 F Pulse Rate 145 H 132 H 134 H Respiratory Rate 23 H 22 H Blood Pressure 107/73 92/61 L Pulse Oximetry 95 99 Oxygen Delivery Room Air Fraction of Inspired Oxygen 11/08/22 17:45 11/08/22 18:00 11/08/22 18:15 Temperature Pulse Rate 128 H 117 H 79 Respiratory Rate 21 H 20 22 H Blood Pressure 105/54 L 103/58 L 119/65 Pulse Oximetry 95 94 97 Oxygen Delivery Fraction of Inspired Oxygen 11/08/22 18:30 11/08/22 19:26 11/08/22 20:00 Temperature 98.2 F Pulse Rate 79 78 78 Respiratory Rate 18 17 12 Blood Pressure 92/57 L 106/48 L Pulse Oximetry 97 98 97 Oxygen Delivery Fraction of Inspired Oxygen 11/08/22 20:00 11/08/22 20:00 11/08/22 22:00 Temperature Pulse Rate 78 82 Respiratory Rate Blood Pressure Pulse Oximetry Oxygen Delivery Room Air Fraction of Inspired Oxygen 11/08/22 22:23 11/08/22 22:27 11/08/22 22:29 Temperature 98.1 F Pulse Rate 81 81 81 Respiratory Rate 19 18 Blood Pressure 141/54 H Pulse Oximetry 96 98 Ox
[2022-11-09] MEDS: SOTALOL HCL 80 MG TABLET PO (20:29)
--- NOTE | 2022-11-09 22:30 | ECG_ITS ---
Measurements Intervals [place] Rate: 51 P: 25 MO: 339 QRS: 23 QRSD: 120 T: -7 QT: 477 QTc: 440 Interpretive Statements JUNCTIONAL RHYTHM ST-T WAVE ABNORMALITY IN ANTERIOR LEADS- CONSIDER ISCHEMIA BASELINE ARTIFACT- I, II, AVR, V1 ABNORMAL ECG COMPARED TO ECG 11/08/2022 20:03:23 JUN[address] RHYTHM NOW PRESENT ST-T WAVE ABNORMALITY IS MORE PRONOUNCED Electronically Signed On 11-10-2022 6:43:40 CDT by Dale Yeager D.O.
[2022-11-10] VITALS (17 sets, daily range): BP systolic 102–142; BP diastolic 47–68; PULSE 52–80; RESP 18–22; TEMP 36.2–37; O2SAT 95–100
[2022-11-10] MEDS: ACETAMINOPHEN 325 MG TABLET 650 MG BY MOUTH ×3 (01:54→17:34)
[2022-11-10 04:49] LABS: Basophils Absolute Auto 0.1 K/mm3 (0.0-0.1); Eosinophils Absolute Auto 0.6 K/mm3 (0-0.3); Eosinophils Percent Auto 7.6 % (0-4.4); Hematocrit 39.4 % (37.0-47.0); Immature Granulocyte Absolute 0.21 K/mm3 (0.00-0.031); Immature Granulocyte Percent A 2.7 % (0-0.5); Lymphocytes Percent Auto 39.4 % (18.3-44.2); Mean Corpuscular HGB Conc 30.5 g/dl (32-36); Mean Corpuscular Hemoglobin 27.8 pg (26-34); Mean Corpuscular Volume 91.2 fl (80-100); Mean Platelet Volume 8.6 fl (7.4-10.4); Monocytes Absolute Auto 0.9 K/mm3 (0.1-0.6); Monocytes Percent Auto 11.4 % (2.6-8.5); Neutrophils Percent Auto 37.9 % (45.5-73.1); Platelet Count Result 515 k/mm3 (150-375); Red Blood Count 4.32 M/mm3 (4.2-5.4); Red Cell Distribution Width 17.4 % (11.5-14.5); White Blood Count 7.9 K/mm3 (4.5-10.0)
[2022-11-10 05:00] LABS: Anion Gap 5 mmol/L (8-16); Blood Urea Nitrogen 10 mg/dL (7-17); Calcium 8.7 mg/dL (8.4-10.2); Carbon Dioxide 31 mmol/L (22-30); Chloride 96 mmol/L (98-107); Estimated CRCL calculation 154 ml/min; Estimated Glomerular Filt Rate > 60; Glucose 111 mg/dL (65-110); Magnesium 1.8 mg/dL (1.6-2.3); Phosphorus 4.3 mg/dL (2.5-4.5); Potassium 3.8 mmol/L (3.4-5.0); Sodium 132 mmol/L (137-145)
[2022-11-10 05:07] LABS: NT Pro B Type Natriuretic Pept 1150 pg/mL (19.9-100)
[2022-11-10] MEDS: polyethylene glycoL 3350 17 GM POWD.PACK PO (08:35)
[2022-11-10] MEDS: FAMOTIDINE 20 MG TABLET PO ×2 (08:36→17:35)
[2022-11-10] MEDS: CLOPIDOGREL BISULFATE 75 MG TABLET PO (08:36)
[2022-11-10] MEDS: ATORVASTATIN 40 MG TABLET PO (08:37)
[2022-11-10] MEDS: LOSARTAN POTASSIUM 25 MG TABLET PO (08:37)
[2022-11-10] MEDS: APIXABAN 5 MG TABLET PO ×2 (08:37→17:35)
[2022-11-10] MEDS: CYCLOBENZAPRINE HCL 10 MG TABLET PO ×3 (08:37→17:35)
[2022-11-10] MEDS: MICONAZOLE NITRATE 2% CREAM 30 GM TUBE 1 APPLIC TOPICAL ×2 (08:40→17:36)
[2022-11-10] MEDS: FUROSEMIDE 40 MG TABLET PO (09:33)
--- NOTE | 2022-11-10 09:48 | PM.IMPN ---
Progress Note: A&P Assessment and Plan (1) Atrial fibrillation with rapid ventricular response: Code(s): I48.91 - Unspecified atrial fibrillation Status: Acute Assessment and Plan: The patient was admitted from 10/27-11/06 for racing heart rate and found to have AFib. She was trialed on Amiodarone and diltiazem but ultimately underwent cardioversion. She was discharged on Digoxin, metoprolol and Eliquis. She returns for palpitations and found to be in AFib again. She has since converted to sinus rhythm. TSH 5.9. Cardiology consulted. Digoxin and metoprolol stopped and sotalol started. EKG today showing junctional rhythm with rate of [address]-T wave changes. Continue Eliquis. Sotalol stopped. Monitor on tele. Appreciate Cardiology input. Replace mag and potassium. (2) Acute UTI: Code(s): N39.0 - Urinary tract infection, site not specified Status: Acute Assessment and Plan: UA noted and concerning for UTI. BCx NGTD. UCx pending. Continue with Rocephin (3) Hyperlipidemia: Code(s): E78.5 - Hyperlipidemia, unspecified Status: Acute Assessment and Plan: LFTs okay. Continue with atorvastatin (4) Diastolic congestive heart failure: Code(s): I50.30 - Unspecified diastolic (congestive) heart failure Status: Acute Assessment and Plan: Echo (10/31) showing nml LV size and function with EF 60-65%. Diastolic function indeterminate. Marked LE edema but suspect this is dependent edema. CXR does show mild infiltrates or atelecatasis in the lower lung eli, CMG and possibly pulm vascular redistribution. BNP 1150. Change to IV Lasix. (5) Hypertension: Code(s): I10 - Essential (primary) hypertension Status: Acute Assessment and Plan: Patient's blood pressure was reviewed on 11/10 Blood pressure remains well controlled. Will continue to monitor (6) Obstructive sleep apnea on CPAP: Code(s): G47.33 - Obstructive sleep apnea (adult) (pediatric) Status: Acute Assessment and Plan: Stable. Patient is compliant with NIV. Continue with CPAP as per home settings. Subjective Date/time seen: 11/10/22 09:48 Interval history: 72yo female with AFib, CHF, BRINDA, CAD and HTN here for recurrent AFib. Has a chronic Sullivan. Patient slept well. She tolerated wearing noninvasive ventilation last night. No palpitations. No chest pain. Exam Narrative: AF 97.5 137/68 53 18 96% ra Gen - NARD Chest -decreased breath sounds in the right flank otherwise clear CV - RRR S1/S2, Tele showing no alarms. Short MT interval but loss of P waves around 0432 this morning Abd - Soft, obese, NT - Sullivan secured draining clear yellow urine. Ext - 2+ pitting pedal edema worse to the right foot. Neuro - awake, alert and appropriate. Psych - Nml mood and affect Skin - Warm and dry. purple striae abdomen and chest. bruising noted bilateral forearms. Objective Data Vital Signs Vital Signs: Vital Signs - 24 hr 11/09/22 10:00 11/09/22 12:00 11/09/22 12:00 Temperature Pulse Rate 67 63 Respiratory Rate Blood Pressure Pulse Oximetry Oxygen Delivery Room Air 11/09/22 12:00 11/09/22 16:00 11/09/22 14:00 Temperature 96.8 F L 97.9 F Pulse Rate 65 56 L 56 L Respiratory Rate 22 H 24 H Blood Pressure 133/57 L 103/60 Pulse Oximetry 98 96 Oxygen Delivery 11/09/22 16:00 11/09/22 16:00 11/09/22 17:51 Temperature Pulse Rate 55 L 61 Respiratory Rate Blood Pressure Pulse Oximetry Oxygen Delivery Room Air 11/09/22 20:00 11/09/22 20:29 11/09/22 20:35 Temperature 98.7 F Pulse Rate 57 L 58 L 80 Respiratory Rate 14 19 Blood Pressure 128/61 Pulse Oximetry 94 96 Oxygen Delivery Autopap 11/09/22 20:00 11/09/22 20:00 11/09/22 22:00 Temperature Pulse Rate 58 L 51 L Respiratory Rate Blood Pressure Pulse Oximetry Oxygen Delivery Room Air
--- NOTE | 2022-11-10 11:12 | PM.PNCARD ---
Progress Note: A&P Assessment and Plan (1) Atrial fibrillation with rapid ventricular response: Code(s): I48.91 - Unspecified atrial fibrillation Status: Acute Assessment and Plan: Paroxysmal atrial fibrillation s/p DCCV last week being maintained on a combination of beta-nolvia diltiazem and digoxin. Unfortunately had a recurrence of atrial fibrillation within days of being discharged from the hospital last week. She spontaneously converted back to sinus rhythm yesterday and was placed on sotalol in hopes of maintaining sinus rhythm. She is now in a junctional rhythm with a rate in the 50's. Since she is in a junctional rhythm I am going to stop the sotalol and observe her rhythm on telemetry. If she remains in sinus rhythm tomorrow and is not bradycardic, consider adding dronedarone to her regimen. Subjective Date/time seen: 11/10/22 11:12 Cardiology follow up for atrial fibrillation Interval history: Complaining of fatigue this morning. Denies any chest pain or shortness of breath. Still has lower extremity swelling Review of Systems Constitutional: Constitutional: Reports lethargy Eyes: Eyes: Reports no additional eye complaints ENT: Reports system reviewed and no additional complaints, except as documented Cardiovascular: Cardiovascular: Reports no additional cardiovascular complaints Respiratory: Respiratory: Reports no additional respiratory complaints Gastrointestinal: Gastrointestinal: Reports no additional gastrointestinal complaints Musculoskeletal: Musculoskeletal: Reports no additional musculoskeletal complaints Integumentary/Breasts: Skin/Breast: Reports system reviewed and no additional complaints, except as docu Endocrine: Endocrine: Reports no additional endocrine complaints Hematologic/Lymphatic: Hematologic/Lymphatic: Reports no additional hematologic/lymphatic complaints Allergic/Immunologic: Allergic/Immunologic: Reports no additional allergic/immunologic complaints Exam Const: General: comfortable, no acute distress and obese HENMT: Mouth: Yes moist mucous membranes Eyes: Sclera: sclerae normal Neck: Neck: supple Resp: Effort & Inspection: normal respiratory effort Auscultation: clear to auscultation bilaterally Other: Breath sounds distant but clear Cardio: Rate: regular rate and bradycardic Rhythm: regular rhythm Heart sounds: S1 normal heart sound present, S2 normal heart sound present and no murmurs GI: Auscultation: normal bowel sounds Skin: General skin exam: normal color Neuro: Other: Alert and oriented Extrem: Right lower extremity: edema Left lower extremity: edema Objective Data Vital Signs Vital Signs: Vital Signs - 24 hr 11/09/22 12:00 11/09/22 12:00 11/09/22 12:00 Temperature 36.0 C L Pulse Rate 63 65 Respiratory Rate 22 H Blood Pressure 133/57 L Pulse Oximetry 98 Oxygen Delivery Room Air 11/09/22 16:00 11/09/22 14:00 11/09/22 16:00 Temperature 36.6 C Pulse Rate 56 L 56 L Respiratory Rate 24 H Blood Pressure 103/60 Pulse Oximetry 96 Oxygen Delivery Room Air 11/09/22 16:00 11/09/22 17:51 11/09/22 20:00 Temperature 37.1 C Pulse Rate 55 L 61 57 L Respiratory Rate 14 Blood Pressure 128/61 Pulse Oximetry 94 Oxygen Delivery 11/09/22 20:29 11/09/22 20:35 11/09/22 20:00 Temperature Pulse Rate 58 L 80 Respiratory Rate 19 Blood Pressure Pulse Oximetry 96 Oxygen Delivery Autopap Room Air 11/09/22 20:00 11/09/22 22:00 11/09/22 23:35 Temperature Pulse Rate 58 L 51 L Respiratory Rate Blood Pressure Pulse Oximetry Oxygen Delivery Autopap 11/09/22 23:35 11/10/22 00:00 11/10/22 02:00 Temperature 37.1 C Pulse Rate 53 L 55 L 60 Respiratory Rate 20 Blood Pressure 99/74 L Pulse Oximetry 100 Oxygen Delivery 11/10/22 02:52 11/10/22 04:00 11/10/22 04:00 Temperature 37.0 C Pulse Rate 78 53 L Respiratory Rate 20 2
[2022-11-10] MEDS: MAGNESIUM SULF 2 GM/WATER 50ML 2 GM/50 ML BAG IVPB (12:34)
[2022-11-10] MEDS: POTASSIUM CHLORIDE 20 MEQ ER TABLET 40 MEQ PO (12:34)
[2022-11-10] MEDS: FUROSEMIDE INJ 40 MG/4 ML VIAL IV PUSH (17:35)
[2022-11-10] MEDS: MELATONIN 5 MG TABLET PO (21:56)
[2022-11-11] VITALS (22 sets, daily range): BP systolic 100–149; BP diastolic 51–73; PULSE 79–156; RESP 12–20; TEMP 36.2–36.6; O2SAT 90–99
[2022-11-11 05:06] LABS: Anion Gap 4 mmol/L (8-16); Blood Urea Nitrogen 8 mg/dL (7-17); Calcium 8.5 mg/dL (8.4-10.2); Carbon Dioxide 32 mmol/L (22-30); Chloride 99 mmol/L (98-107); Estimated CRCL calculation 155 ml/min; Estimated Glomerular Filt Rate > 60; Glucose 114 mg/dL (65-110); Magnesium 1.9 mg/dL (1.6-2.3); Potassium 3.7 mmol/L (3.4-5.0); Sodium 135 mmol/L (137-145)
--- NOTE | 2022-11-11 08:35 | ECG_ITS ---
Measurements Intervals [place] Rate: 84 P: 4 NE: 224 QRS: 1 QRSD: 101 T: 2 QT: 413 QTc: 491 Interpretive Statements SINUS RHYTHM WITH FIRST DEGREE AV BLOCK LOW QRS VOLTAGE IN PRECORDIAL LEADS BORDERLINE ST-T WAVE ABNORMALITY- DIFFUSE LEADS BASELINE WANDER- I, V6 BORDERLINE ECG COMPARED TO ECG 11/09/2022 23:08:56 SINUS RHYTHM NOW PRESENT FIRST DEGREE AV BLOCK NOW PRESENT Electronically Signed On 11-11-2022 11:57:22 CDT by Dale Yeager D.O.
[2022-11-11] MEDS: CLOPIDOGREL BISULFATE 75 MG TABLET PO (08:51)
[2022-11-11] MEDS: LOSARTAN POTASSIUM 25 MG TABLET PO (08:51)
[2022-11-11] MEDS: polyethylene glycoL 3350 17 GM POWD.PACK PO (08:51)
[2022-11-11] MEDS: FUROSEMIDE INJ 40 MG/4 ML VIAL IV PUSH ×2 (08:52→16:12)
[2022-11-11] MEDS: FAMOTIDINE 20 MG TABLET PO ×2 (08:52→16:12)
[2022-11-11] MEDS: ATORVASTATIN 40 MG TABLET PO (08:52)
[2022-11-11] MEDS: CYCLOBENZAPRINE HCL 10 MG TABLET PO ×3 (08:52→16:12)
[2022-11-11] MEDS: APIXABAN 5 MG TABLET PO ×2 (08:52→16:12)
[2022-11-11] MEDS: MICONAZOLE NITRATE 2% CREAM 30 GM TUBE 1 APPLIC TOPICAL ×2 (08:52→17:10)
[2022-11-11] MEDS: ACETAMINOPHEN 325 MG TABLET 650 MG BY MOUTH ×3 (08:57→21:28)
--- NOTE | 2022-11-11 09:35 | PM.IMPN ---
Progress Note: A&P Assessment and Plan (1) Atrial fibrillation with rapid ventricular response: Code(s): I48.91 - Unspecified atrial fibrillation Status: Acute Assessment and Plan: The patient was admitted from 10/27-11/06 for racing heart rate and found to have AFib. She was trialed on Amiodarone and diltiazem but ultimately underwent cardioversion. She was discharged on Digoxin, metoprolol and Eliquis. She returns for palpitations and found to be in AFib again. She has since converted to sinus rhythm. TSH 5.9. Cardiology consulted. Digoxin and metoprolol stopped and sotalol started. EKG today showing junctional rhythm with rate of [address]-T wave changes. Continue Eliquis. Sotalol stopped. Monitor on tele. Appreciate Cardiology input. Replace mag and potassium. (2) Acute UTI: Code(s): N39.0 - Urinary tract infection, site not specified Status: Acute Assessment and Plan: UA noted and concerning for UTI. BCx NGTD. UCx pending. Continue with Rocephin (3) Hyperlipidemia: Code(s): E78.5 - Hyperlipidemia, unspecified Status: Acute Assessment and Plan: LFTs okay. Continue with atorvastatin (4) Diastolic congestive heart failure: Code(s): I50.30 - Unspecified diastolic (congestive) heart failure Status: Acute Assessment and Plan: Echo (10/31) showing nml LV size and function with EF 60-65%. Diastolic function indeterminate. Marked LE edema but suspect this is dependent edema. CXR does show mild infiltrates or atelecatasis in the lower lung eli, CMG and possibly pulm vascular redistribution. BNP 1150. Change to IV Lasix. (5) Hypertension: Code(s): I10 - Essential (primary) hypertension Status: Acute Assessment and Plan: Patient's blood pressure was reviewed on 11/11 Blood pressure remains well controlled. Will continue to monitor (6) Obstructive sleep apnea on CPAP: Code(s): G47.33 - Obstructive sleep apnea (adult) (pediatric) Status: Acute Assessment and Plan: Stable. Patient is compliant with NIV. Continue with CPAP as per home settings. Plan DVT prophylaxis with SCDs GI prophylaxis not indicated Code status meds only, DNI/DNR Subjective Date/time seen: 11/11/22 09:35 Interval history: 72yo female with AFib, CHF, BRINDA, CAD and HTN here for recurrent AFib. Has a chronic Sullivan. No overnight events noted. No chest pain or shortness of breath. No nausea, vomiting or diarrhea. No fevers or chills. Positive constipation. No BM. LE edema is slightly worse per the patient. Review of Systems Review of Systems: 12 point review of systems was assessed and was negative except as noted in the HPI Exam Narrative: General: No acute distress, alert and oriented per baseline HEENT: Atraumatic, normocephalic, mucous membranes moist CV: Regular rate and rhythm, S1, S2 Lungs: Clear to auscultation bilaterally, no rales or crackles noted, no wheezes, good air entry Abdomen: Soft, nontender, nondistended Extremities: Normal to inspection, 2+ pitting edema Skin: No rashes noted, no lesions or wounds seen Psych: Euthymic, normal affect Objective Data Vital Signs Vital Signs: Vital Signs - 24 hr 11/10/22 09:50 11/10/22 10:00 11/10/22 12:00 Temperature 97.7 F Pulse Rate 53 L 59 L 62 Respiratory Rate 18 Blood Pressure 120/47 L Pulse Oximetry 97 Oxygen Delivery Fraction of Inspired Oxygen 11/10/22 12:00 11/10/22 14:00 11/10/22 16:00 Temperature 97.4 F L Pulse Rate 64 74 73 Respiratory Rate 18 Blood Pressure 137/49 L Pulse Oximetry 98 Oxygen Delivery Fraction of Inspired Oxygen 11/10/22 16:00 11/10/22 18:00 11/10/22 20:37 Temperature Pulse Rate 73 78 79 Respiratory Rate 22 H Blood Pressure Pulse Oximetry 95 Oxygen Delivery Autopap Fraction of Inspired Oxygen 11/10/22 20:00 11/10/22 2
--- NOTE | 2022-11-11 11:57 | PM.PNCARD ---
Progress Note: A&P Assessment and Plan (1) Atrial fibrillation with rapid ventricular response: Code(s): I48.91 - Unspecified atrial fibrillation Status: Acute Assessment and Plan: Paroxysmal atrial fibrillation s/p DCCV last week being maintained on a combination of beta-nolvia diltiazem and digoxin. Unfortunately had a recurrence of atrial fibrillation within days of being discharged from the hospital last week. She spontaneously converted back to sinus rhythm yesterday and was placed on sotalol in hopes of maintaining sinus rhythm. She then developed a junctional rhythm with heart rates in the 40s and 50s prompting discontinuation of sotalol due to risk of progressive heart block and/or symptomatic bradycardia and worsening toxicity. She is currently in sinus rhythm but without any AV gabriella blocking agents and or antiarrhythmic therapy. Patient will inevitably revert to atrial fibrillation and/or atrial flutter without medical therapy and very likely with admit to medical therapy in any event. She will require electrophysiology evaluation for more definitive management as she has failed multiple medications including diltiazem, metoprolol, amiodarone, digoxin, and unable to tolerate sotalol due to junctional bradycardia. As such, options are quite limited and given history of CAD class 1 C agents are contraindicated. Will cautiously resume metoprolol to monitor telemetry. Monitor electrolytes namely potassium, renal function closely. Continue systemic anticoagulation with Eliquis 5 mg twice daily to reduce embolic stroke risk. Monitor for bleeding. Follow H&H. -Plan at this time will be following: -resume metoprolol tartrate 25 mg twice daily. Continue telemetry to monitor for symptomatic bradycardia and no recurrence of atrial fibrillation/flutter. -if recurrence of AFib and or flutter with RVR most likely the safest option would be amiodarone although this was not seemingly all that effective in the past I would avoid sotalol, digoxin and multiple AV gabriella blocking agents in addition to antiarrhythmic therapy if possible. Concern with regards to symptomatic bradycardia, high-grade AV block requiring pacemaker implantation although things are improved at this time. If any the latter issues occur she clearly will need electrophysiology consultation and management and may require transfer to outside facility to higher level of care. While certainly this should be avoided if possible AV gabriella ablation and permanent pacemaker implantation may be required unable to adequately control heart rate with medical therapy or if she is unable to tolerate effective therapy to prevent symptomatic tachyarrhythmia. -should she revert to AFib/flutter with RVR there really is no role for repeat cardioversion unless she is hemodynamically unstable as she has failed cardioversion recently. This is a very complicated situation with limited options. This was discussed with the patient in detail. Patient verbalized understanding and agreed with plan of care. I spent 41 minutes in the care of this patient at bedside including before and after examination obtained electronic medical record, discussion with patient including examination, discussion with colleagues, chart review, medical decision-making, and documentation. (2) Tachycardia-bradycardia syndrome: Code(s): I49.5 - Sick sinus syndrome Status: Acute Assessment and Plan: As above, patient has demonstrated tachycardia bradycardia due to in ability to tolerate sotalol a as well as AV gbariella blocking agents and antiarrhythmic therapy. While this may be overlap due to the multitude of medications she has received due to her refractory AFib with RVR which has proved very difficult to manage I would not feel comfortable re-attempting sotalol. My plan would be to avoid antiarrhythmic therapy if possible although given her history AV gabriella blocking agents will be inadequate for control. Nasir
[2022-11-11] MEDS: METOPROLOL TARTRATE INJ 5 MG/5 ML VIAL IV PUSH (15:14)
[2022-11-11] MEDS: dilTIAZem 100 MG/100 ML 100 MG/100 ML BAG IV CONT (16:11)
[2022-11-11] MEDS: MELATONIN 5 MG TABLET PO (21:28)
[2022-11-11] MEDS: METOPROLOL TARTRATE 25 MG TABLET PO (21:28)
[2022-11-11] MEDS: dilTIAZem 100 MG/100 ML 100 MG/100 ML BAG 15 MG IV CONT (23:59)
[2022-11-12] VITALS (17 sets, daily range): BP systolic 96–115; BP diastolic 49–75; PULSE 56–135; RESP 14–23; TEMP 36.2–36.4; O2SAT 94–100
[2022-11-12 05:18] LABS: Basophils Absolute Auto 0.1 K/mm3 (0.0-0.1); Basophils Percent Auto 0.8 % (0.2-1.2); Eosinophils Absolute Auto 0.6 K/mm3 (0-0.3); Eosinophils Percent Auto 5.5 % (0-4.4); Hematocrit 40.8 % (37.0-47.0); Hemoglobin 12.7 g/dL (12.0-15.0); Immature Granulocyte Percent A 1.8 % (0-0.5); Lymphocytes Absolute Auto 3.35 K/mm3 (0.9-3.2); Lymphocytes Percent Auto 29.7 % (18.3-44.2); Mean Corpuscular HGB Conc 31.1 g/dl (32-36); Mean Corpuscular Hemoglobin 27.9 pg (26-34); Mean Corpuscular Volume 89.7 fl (80-100); Mean Platelet Volume 8.6 fl (7.4-10.4); Monocytes Absolute Auto 1.3 K/mm3 (0.1-0.6); Monocytes Percent Auto 11.1 % (2.6-8.5); Neutrophils Absolute Auto 5.8 K/mm3 (1.3-6.7); Neutrophils Percent Auto 51.1 % (45.5-73.1); Platelet Count Result 516 k/mm3 (150-375); Red Blood Count 4.55 M/mm3 (4.2-5.4); Red Cell Distribution Width 17.6 % (11.5-14.5); White Blood Count 11.3 K/mm3 (4.5-10.0)
[2022-11-12 05:35] LABS: Alanine Aminotransferase 16 U/L (6-35); Albumin Level 2.7 g/dL (3.5-5.1); Alkaline Phosphatase 107 U/L (38-126); Anion Gap 6 mmol/L (8-16); Aspartate Amino Transferase 24 U/L (14-36); Bilirubin,Total 0.5 mg/dL (0.2-1.3); Blood Urea Nitrogen 6 mg/dL (7-17); Calcium 8.3 mg/dL (8.4-10.2); Carbon Dioxide 29 mmol/L (22-30); Chloride 99 mmol/L (98-107); Estimated CRCL calculation 198 ml/min; Estimated Glomerular Filt Rate > 60; Glucose 104 mg/dL (65-110); Potassium 3.2 mmol/L (3.4-5.0); Sodium 134 mmol/L (137-145)
[2022-11-12] MEDS: dilTIAZem 100 MG/100 ML 100 MG/100 ML BAG 15 MG IV CONT ×2 (07:32→15:03)
--- NOTE | 2022-11-12 08:00 | ECG_ITS ---
Measurements Intervals [place] Rate: 112 P: MO: 0 QRS: 1 QRSD: 101 T: 5 QT: 295 QTc: 404 Interpretive Statements ATRIAL FIBRILLATION WITH RAPID VENTRICULAR RESPONSE DELAYED PRECORDIAL R/S TRANSITION BORDERLINE ST-T WAVE ABNORMALITY- DIFFUSE LEADS ABNORMAL ECG COMPARED TO ECG 11/11/2022 10:06:18 ATRIAL FIBRILLATION NOW PRESENT Electronically Signed On 11-12-2022 12:14:27 CDT by Dale Yeager D.O.
--- NOTE | 2022-11-12 10:29 | PM.PNCARD ---
Progress Note: A&P Assessment and Plan (1) Atrial fibrillation with rapid ventricular response: Code(s): I48.91 - Unspecified atrial fibrillation Status: Acute Assessment and Plan: Paroxysmal atrial fibrillation s/p DCCV last week being maintained on a combination of beta-nolvia diltiazem and digoxin. Unfortunately had a recurrence of atrial fibrillation within days of being discharged from the hospital last week. She spontaneously converted back to sinus rhythm yesterday and was placed on sotalol in hopes of maintaining sinus rhythm. She then developed a junctional rhythm with heart rates in the 40s and 50s prompting discontinuation of sotalol due to risk of progressive heart block and/or symptomatic bradycardia and worsening toxicity. (2) Tachycardia-bradycardia syndrome: Code(s): I49.5 - Sick sinus syndrome Status: Acute Assessment and Plan: As above, patient has demonstrated tachycardia bradycardia due to in ability to tolerate sotalol a as well as AV gabriella blocking agents and antiarrhythmic therapy. (3) Junctional bradycardia: Code(s): R00.1 - Bradycardia, unspecified Status: Acute Assessment and Plan: Resolved thus far on telemetry. Now back in Afib with RVR. Difficult management as she was not responsive to amiodarone during her recent hospitalization and required rate control with diltiazem, metoprolol, and digoxin. She remains not adequately rate controlled on current regimen. Will increase metoprolol to 25mg q 6h and observe her response. If she remains tachycardic tomorrow, will make another attempt to control her rhythm with amiodarone. (4) Diastolic congestive heart failure: Qualifiers: Heart failure chronicity: acute on chronic Qualified Code(s): I50.33 - Acute on chronic diastolic (congestive) heart failure Code(s): I50.30 - Unspecified diastolic (congestive) heart failure Status: Acute Assessment and Plan: Suspect combination of chronic lower extremity edema possible lymphedema in addition to recent exacerbation. Continue IV diuresis. Follow input and output, daily weight, renal function electrolytes closely. Avoid hypokalemia, acute kidney injury and or hypotension. BP stable thus far. Accurate input and output and daily weights. She has a history of preserved LV systolic function. Continue losartan 25 mg daily. (5) Coronary artery disease: Qualifiers: Associated angina: without angina Coronary Disease-Associated Artery/Lesion type: [place] artery [place] vs. transplanted heart: galena heart Qualified Code(s): I25.10 - Atherosclerotic heart disease of [place] coronary artery without angina pectoris Code(s): I25.10 - Atherosclerotic heart disease of [place] coronary artery without angina pectoris Status: Acute Assessment and Plan: Continue clopidogrel 75 mg daily for anti-platelet therapy. Continue atorvastatin 40 mg bedtime. No anginal symptoms at this time. (6) Hypertension: Qualifiers: Hypertension type: primary hypertension Qualified Code(s): I10 - Essential (primary) hypertension Code(s): I10 - Essential (primary) hypertension Status: Acute Assessment and Plan: Somewhat labile overall stable. She had intermittent hypotension within the past 48 hours no acute issues past 24 hours. Continue losartan 25 mg daily. Monitor BP closely (7) Acute UTI: Code(s): N39.0 - Urinary tract infection, site not specified Status: Acute Assessment and Plan: Per hospitalist service. Continue IV ceftriaxone, transition oral antibiotic as appropriate. Removal Sullivan catheter per primary service when appropriate. (8) Obstructive sleep apnea on CPAP: Code(s): G47.33 - Obstructive sleep apnea (adult) (pediatric) Status: Acute Assessment and Plan: Continue CPAP for treatment of BRINDA. This is beneficial with regards to heart failure, hyperte
[2022-11-12] MEDS: POTASSIUM CHLORIDE 20 MEQ ER TABLET 40 MEQ PO (10:30)
[2022-11-12] MEDS: polyethylene glycoL 3350 17 GM POWD.PACK PO (10:30)
[2022-11-12] MEDS: MICONAZOLE NITRATE 2% CREAM 30 GM TUBE 1 APPLIC TOPICAL ×2 (10:31→18:28)
[2022-11-12] MEDS: FUROSEMIDE INJ 40 MG/4 ML VIAL IV PUSH ×2 (10:32→18:28)
[2022-11-12] MEDS: FAMOTIDINE 20 MG TABLET PO ×2 (10:32→18:28)
[2022-11-12] MEDS: CLOPIDOGREL BISULFATE 75 MG TABLET PO (10:32)
[2022-11-12] MEDS: CYCLOBENZAPRINE HCL 10 MG TABLET PO ×3 (10:32→18:28)
[2022-11-12] MEDS: METOPROLOL TARTRATE 25 MG TABLET PO (10:32)
[2022-11-12] MEDS: LOSARTAN POTASSIUM 25 MG TABLET PO (10:32)
[2022-11-12] MEDS: APIXABAN 5 MG TABLET PO ×2 (10:33→18:28)
[2022-11-12] MEDS: ATORVASTATIN 40 MG TABLET PO (10:33)
[2022-11-12] MEDS: ACETAMINOPHEN 325 MG TABLET 650 MG BY MOUTH ×2 (10:35→22:33)
[2022-11-12] MEDS: GENTAMICIN SULFATE INJ 460 MG in DEXTROSE 5% 100 ML 100 MG IVPB (15:03)
--- NOTE | 2022-11-12 16:34 | PM.IMPN ---
Progress Note: A&P Assessment and Plan (1) Atrial fibrillation with rapid ventricular response: Code(s): I48.91 - Unspecified atrial fibrillation Status: Acute Assessment and Plan: The patient was admitted from 10/27-11/06 for racing heart rate and found to have AFib. She was trialed on Amiodarone and diltiazem but ultimately underwent cardioversion. She was discharged on Digoxin, metoprolol and Eliquis. She returns for palpitations and found to be in AFib again. She has since converted to sinus rhythm. TSH 5.9. Cardiology consulted. Digoxin and metoprolol stopped and sotalol started. EKG today showing junctional rhythm with rate of [address]-T wave changes. Continue Eliquis. Sotalol stopped. Monitor on tele. Appreciate Cardiology input. Replace mag and potassium. 11/12: Appreciate cardiology consultation, metoprolol increased, considering adding amiodarone (2) Acute UTI: Code(s): N39.0 - Urinary tract infection, site not specified Status: Acute Assessment and Plan: UA noted and concerning for UTI. BCx NGTD. UCx pending. Continue with Rocephin 11/12: Urine culture came back Klebsiella, will give gentamicin x1 dose (3) Hyperlipidemia: Code(s): E78.5 - Hyperlipidemia, unspecified Status: Acute Assessment and Plan: LFTs okay. Continue with atorvastatin (4) Diastolic congestive heart failure: Qualifiers: Heart failure chronicity: acute on chronic Qualified Code(s): I50.33 - Acute on chronic diastolic (congestive) heart failure Code(s): I50.30 - Unspecified diastolic (congestive) heart failure Status: Acute Assessment and Plan: Echo (10/31) showing nml LV size and function with EF 60-65%. Diastolic function indeterminate. Marked LE edema but suspect this is dependent edema. CXR does show mild infiltrates or atelecatasis in the lower lung eli, CMG and possibly pulm vascular redistribution. BNP 1150. Change to IV Lasix. (5) Hypertension: Qualifiers: Hypertension type: primary hypertension Qualified Code(s): I10 - Essential (primary) hypertension Code(s): I10 - Essential (primary) hypertension Status: Acute Assessment and Plan: Patient's blood pressure was reviewed on 11/12 Blood pressure remains well controlled. Will continue to monitor (6) Obstructive sleep apnea on CPAP: Code(s): G47.33 - Obstructive sleep apnea (adult) (pediatric) Status: Acute Assessment and Plan: Stable. Patient is compliant with NIV. Continue with CPAP as per home settings. Plan DVT prophylaxis with SCDs GI prophylaxis not indicated Code status meds only, DNI/DNR Subjective Date/time seen: 11/12/22 16:34 Interval history: 72yo female with AFib, CHF, BRINDA, CAD and HTN here for recurrent AFib. Has a chronic Sullivan. No overnight events noted. No chest pain or shortness of breath. No nausea, vomiting or diarrhea. No fevers or chills. Patient states her edema is improved from yesterday. She had a bowel movement. Review of Systems Review of Systems: 12 point review of systems was assessed and was negative except as noted in the HPI Exam Narrative: General: No acute distress, alert and oriented per baseline HEENT: Atraumatic, normocephalic, mucous membranes moist CV: Regular rate and rhythm, S1, S2 Lungs: Clear to auscultation bilaterally, no rales or crackles noted, no wheezes, good air entry Abdomen: Soft, nontender, nondistended Extremities: Normal to inspection, 2+ pitting edema Skin: No rashes noted, no lesions or wounds seen Psych: Euthymic, normal affect Objective Data Vital Signs Vital Signs: Vital Signs - 24 hr 11/11/22 17:36 11/11/22 18:00 11/11/22 19:02 Temperature Pulse Rate 153 H 121 H 132 H Respiratory Rate Blood Pressure Pulse Oximetry Oxygen Delivery 11/11/22 20:00 11/11/22 20:30 11/11/22 21:2
[2022-11-12] MEDS: dilTIAZem 100 MG/100 ML 100 MG/100 ML BAG 10 MG IV CONT (17:02)
--- NOTE | 2022-11-12 17:02 | PC.NURSE ---
BP 96/58. Dr. Dubose made aware. New orders noted to decrease diltiazem to 10 mg/hr. Keep systolic BP > 100.
--- NOTE | 2022-11-12 19:12 | PC.NURSE ---
BP 92/60. Dr. Dubose made aware. New orders noted to hold metoprolol if SBP <110.
[2022-11-12] MEDS: MELATONIN 5 MG TABLET PO (22:09)
[2022-11-13] VITALS (23 sets, daily range): BP systolic 101–134; BP diastolic 47–81; PULSE 58–112; RESP 16–24; TEMP 36.1–37.1; O2SAT 94–100
[2022-11-13] MEDS: dilTIAZem 100 MG/100 ML 100 MG/100 ML BAG 10 MG IV CONT ×3 (00:25→21:24)
[2022-11-13 05:37] LABS: Basophils Absolute Auto 0.1 K/mm3 (0.0-0.1); Eosinophils Absolute Auto 0.7 K/mm3 (0-0.3); Eosinophils Percent Auto 7.3 % (0-4.4); Hematocrit 41.7 % (37.0-47.0); Hemoglobin 13.3 g/dL (12.0-15.0); Immature Granulocyte Absolute 0.13 K/mm3 (0.00-0.031); Immature Granulocyte Percent A 1.4 % (0-0.5); Lymphocytes Absolute Auto 3.12 K/mm3 (0.9-3.2); Lymphocytes Percent Auto 33.7 % (18.3-44.2); Mean Corpuscular HGB Conc 31.9 g/dl (32-36); Mean Corpuscular Hemoglobin 28.4 pg (26-34); Mean Corpuscular Volume 89.1 fl (80-100); Mean Platelet Volume 8.4 fl (7.4-10.4); Monocytes Absolute Auto 1.4 K/mm3 (0.1-0.6); Monocytes Percent Auto 14.8 % (2.6-8.5); Neutrophils Absolute Auto 3.9 K/mm3 (1.3-6.7); Neutrophils Percent Auto 41.8 % (45.5-73.1); Platelet Count Result 546 k/mm3 (150-375); Red Blood Count 4.68 M/mm3 (4.2-5.4); Red Cell Distribution Width 17.8 % (11.5-14.5); White Blood Count 9.3 K/mm3 (4.5-10.0)
[2022-11-13 05:52] LABS: Alanine Aminotransferase 17 U/L (6-35); Albumin Level 3.2 g/dL (3.5-5.1); Alkaline Phosphatase 147 U/L (38-126); Anion Gap 7 mmol/L (8-16); Aspartate Amino Transferase 24 U/L (14-36); Bilirubin,Total 0.5 mg/dL (0.2-1.3); Blood Urea Nitrogen 5 mg/dL (7-17); Calcium 8.7 mg/dL (8.4-10.2); Carbon Dioxide 33 mmol/L (22-30); Chloride 95 mmol/L (98-107); Estimated CRCL calculation 154 ml/min; Estimated Glomerular Filt Rate > 60; Glucose 119 mg/dL (65-110); Potassium 2.9 mmol/L (3.4-5.0); Sodium 135 mmol/L (137-145)
[2022-11-13 08:26] LABS: Glucose Point of Care 130 mg/dl (65-105)
--- NOTE | 2022-11-13 09:21 | PM.PNCARD ---
Progress Note: A&P Assessment and Plan (1) Atrial fibrillation with rapid ventricular response: Code(s): I48.91 - Unspecified atrial fibrillation Status: Acute Assessment and Plan: Paroxysmal atrial fibrillation s/p DCCV last week being maintained on a combination of beta-nolvia diltiazem and digoxin. Unfortunately had a recurrence of atrial fibrillation within days of being discharged from the hospital last week. She spontaneously converted back to sinus rhythm yesterday and was placed on sotalol in hopes of maintaining sinus rhythm. She then developed a junctional rhythm with heart rates in the 40s and 50s prompting discontinuation of sotalol due to risk of progressive heart block and/or symptomatic bradycardia and worsening toxicity. This morning, she has once again spontaneously converted to sinus rhythm. Continue diltiazem drip at 10 mg an hour and will continue metoprolol 25 mg q.6 hours with holding parameters. If she remains in sinus rhythm can shift these both to the long acting oral forms tomorrow if BP remains stable. (2) Tachycardia-bradycardia syndrome: Code(s): I49.5 - Sick sinus syndrome Status: Acute Assessment and Plan: As above, patient has demonstrated tachycardia bradycardia due to in ability to tolerate sotalol a as well as AV gabriella blocking agents and antiarrhythmic therapy. (3) Junctional bradycardia: Code(s): R00.1 - Bradycardia, unspecified Status: Acute Assessment and Plan: Resolved thus far on telemetry. Now back in Afib with RVR. Difficult management as she was not responsive to amiodarone during her recent hospitalization and required rate control with diltiazem, metoprolol, and digoxin. She remains not adequately rate controlled on current regimen. Will increase metoprolol to 25mg q 6h and observe her response. If she remains tachycardic tomorrow, will make another attempt to control her rhythm with amiodarone. (4) Diastolic congestive heart failure: Qualifiers: Heart failure chronicity: acute on chronic Qualified Code(s): I50.33 - Acute on chronic diastolic (congestive) heart failure Code(s): I50.30 - Unspecified diastolic (congestive) heart failure Status: Acute Assessment and Plan: Suspect combination of chronic lower extremity edema possible lymphedema in addition to recent exacerbation. Continue IV diuresis. Follow input and output, daily weight, renal function electrolytes closely. Avoid hypokalemia, acute kidney injury and or hypotension. BP stable thus far. Accurate input and output and daily weights. She has a history of preserved LV systolic function. Continue losartan 25 mg daily. (5) Coronary artery disease: Qualifiers: Associated angina: without angina Coronary Disease-Associated Artery/Lesion type: [place] artery [place] vs. transplanted heart: [place]ka heart Qualified Code(s): I25.10 - Atherosclerotic heart disease of [place] coronary artery without angina pectoris Code(s): I25.10 - Atherosclerotic heart disease of [place] coronary artery without angina pectoris Status: Acute Assessment and Plan: Continue clopidogrel 75 mg daily for anti-platelet therapy. Continue atorvastatin 40 mg bedtime. No anginal symptoms at this time. (6) Hypertension: Qualifiers: Hypertension type: primary hypertension Qualified Code(s): I10 - Essential (primary) hypertension Code(s): I10 - Essential (primary) hypertension Status: Acute Assessment and Plan: Somewhat labile overall stable. She had intermittent hypotension within the past 48 hours no acute issues past 24 hours. Continue losartan 25 mg daily. Monitor BP closely (7) Acute UTI: Code(s): N39.0 - Urinary tract infection, site not specified Status: Acute Assessment and Plan: Per hospitalist service. Continue IV ceftriaxone, transition oral antibiotic as appropriate. Removal Fol
[2022-11-13] MEDS: CLOPIDOGREL BISULFATE 75 MG TABLET PO (10:15)
[2022-11-13] MEDS: FUROSEMIDE INJ 40 MG/4 ML VIAL IV PUSH ×2 (10:15→16:06)
[2022-11-13] MEDS: ATORVASTATIN 40 MG TABLET PO (10:15)
[2022-11-13] MEDS: APIXABAN 5 MG TABLET PO ×2 (10:15→16:06)
[2022-11-13] MEDS: ACETAMINOPHEN 325 MG TABLET 650 MG BY MOUTH ×2 (10:15→21:24)
[2022-11-13] MEDS: polyethylene glycoL 3350 17 GM POWD.PACK PO (10:16)
[2022-11-13] MEDS: LOSARTAN POTASSIUM 25 MG TABLET PO (10:16)
[2022-11-13] MEDS: FAMOTIDINE 20 MG TABLET PO ×2 (10:16→16:06)
[2022-11-13] MEDS: CYCLOBENZAPRINE HCL 10 MG TABLET PO ×3 (10:16→16:06)
[2022-11-13] MEDS: MICONAZOLE NITRATE 2% CREAM 30 GM TUBE 1 APPLIC TOPICAL ×2 (10:17→16:06)
[2022-11-13 11:26] LABS: Magnesium 1.7 mg/dL (1.6-2.3)
[2022-11-13] MEDS: METOPROLOL TARTRATE 25 MG TABLET PO ×3 (12:29→23:57)
[2022-11-13] MEDS: POTASSIUM CHLORIDE 20 MEQ PACKET (FOR LIQUID) 80 MEQ PO (12:29)
--- NOTE | 2022-11-13 13:05 | PM.IMPN ---
Progress Note: A&P Assessment and Plan (1) Atrial fibrillation with rapid ventricular response: Code(s): I48.91 - Unspecified atrial fibrillation Status: Acute Assessment and Plan: The patient was admitted from 10/27-11/06 for racing heart rate and found to have AFib. She was trialed on Amiodarone and diltiazem but ultimately underwent cardioversion. She was discharged on Digoxin, metoprolol and Eliquis. She returns for palpitations and found to be in AFib again. She has since converted to sinus rhythm. TSH 5.9. Cardiology consulted. Digoxin and metoprolol stopped and sotalol started. EKG today showing junctional rhythm with rate of [address]-T wave changes. Continue Eliquis. Sotalol stopped. Monitor on tele. Appreciate Cardiology input. Replace mag and potassium. 11/12: Appreciate cardiology consultation, metoprolol increased, considering adding amiodarone 11/13: Defer to cardio for further management, cont diuresis, improving (2) Acute UTI: Code(s): N39.0 - Urinary tract infection, site not specified Status: Acute Assessment and Plan: UA noted and concerning for UTI. BCx NGTD. UCx pending. Continue with Rocephin 11/12: Urine culture came back Klebsiella, will give gentamicin x1 dose (3) Hyperlipidemia: Code(s): E78.5 - Hyperlipidemia, unspecified Status: Acute Assessment and Plan: LFTs okay. Continue with atorvastatin (4) Diastolic congestive heart failure: Qualifiers: Heart failure chronicity: acute on chronic Qualified Code(s): I50.33 - Acute on chronic diastolic (congestive) heart failure Code(s): I50.30 - Unspecified diastolic (congestive) heart failure Status: Acute Assessment and Plan: Echo (10/31) showing nml LV size and function with EF 60-65%. Diastolic function indeterminate. Marked LE edema but suspect this is dependent edema. CXR does show mild infiltrates or atelecatasis in the lower lung eli, CMG and possibly pulm vascular redistribution. BNP 1150. Change to IV Lasix. (5) Hypertension: Qualifiers: Hypertension type: primary hypertension Qualified Code(s): I10 - Essential (primary) hypertension Code(s): I10 - Essential (primary) hypertension Status: Acute Assessment and Plan: Patient's blood pressure was reviewed on 11/13 Blood pressure remains well controlled. Will continue to monitor (6) Obstructive sleep apnea on CPAP: Code(s): G47.33 - Obstructive sleep apnea (adult) (pediatric) Status: Acute Assessment and Plan: Stable. Patient is compliant with NIV. Continue with CPAP as per home settings. Plan DVT prophylaxis with SCDs GI prophylaxis not indicated Code status meds only, DNI/DNR Subjective Date/time seen: 11/13/22 13:05 Interval history: 72yo female with AFib, CHF, BRINDA, CAD and HTN here for recurrent AFib. Has a chronic Sullivan. No overnight events noted. No chest pain or shortness of breath. No nausea, vomiting or diarrhea. No fevers or chills. No complaints, states she feels better than yesterday. Review of Systems Review of Systems: 12 point review of systems was assessed and was negative except as noted in the HPI Exam Narrative: General: No acute distress, alert and oriented per baseline HEENT: Atraumatic, normocephalic, mucous membranes moist CV: Regular rate and rhythm, S1, S2 Lungs: Clear to auscultation bilaterally, no rales or crackles noted, no wheezes, good air entry Abdomen: Soft, nontender, nondistended Extremities: Normal to inspection, edema improving from yesterday, skin wrinkling increased, still with pitting edema bilateral lower extremities, right foot greater than left foot Skin: No rashes noted, no lesions or wounds seen Psych: Euthymic, normal affect Objective Data Vital Signs Vital Signs: Vital Signs - 24 hr 11/12/22 16:00 11/12/22 14:00 11/12/22 16:00
[2022-11-13] MEDS: MAGNESIUM SULF 2 GM/WATER 50ML 2 GM/50 ML BAG IVPB (16:06)
[2022-11-13] MEDS: MELATONIN 5 MG TABLET PO (21:23)
[2022-11-14] VITALS (17 sets, daily range): BP systolic 98–126; BP diastolic 40–72; PULSE 50–64; RESP 15–20; TEMP 36.1–36.6; O2SAT 96–100
[2022-11-14 04:27] LABS: Basophils Absolute Auto 0.1 K/mm3 (0.0-0.1); Basophils Percent Auto 0.7 % (0.2-1.2); Eosinophils Absolute Auto 0.7 K/mm3 (0-0.3); Eosinophils Percent Auto 7.4 % (0-4.4); Hematocrit 37.6 % (37.0-47.0); Hemoglobin 11.9 g/dL (12.0-15.0); Immature Granulocyte Percent A 1.1 % (0-0.5); Lymphocytes Absolute Auto 2.79 K/mm3 (0.9-3.2); Lymphocytes Percent Auto 30.3 % (18.3-44.2); Mean Corpuscular HGB Conc 31.6 g/dl (32-36); Mean Corpuscular Hemoglobin 28.3 pg (26-34); Mean Corpuscular Volume 89.5 fl (80-100); Mean Platelet Volume 8.5 fl (7.4-10.4); Monocytes Absolute Auto 1.2 K/mm3 (0.1-0.6); Monocytes Percent Auto 12.9 % (2.6-8.5); Neutrophils Absolute Auto 4.4 K/mm3 (1.3-6.7); Neutrophils Percent Auto 47.6 % (45.5-73.1); Platelet Count Result 502 k/mm3 (150-375); Red Cell Distribution Width 18.1 % (11.5-14.5); White Blood Count 9.2 K/mm3 (4.5-10.0)
[2022-11-14 04:45] LABS: Alanine Aminotransferase 17 U/L (6-35); Albumin Level 2.9 g/dL (3.5-5.1); Alkaline Phosphatase 134 U/L (38-126); Anion Gap 4 mmol/L (8-16); Aspartate Amino Transferase 22 U/L (14-36); Bilirubin,Total 0.5 mg/dL (0.2-1.3); Blood Urea Nitrogen 6 mg/dL (7-17); Calcium 8.6 mg/dL (8.4-10.2); Carbon Dioxide 32 mmol/L (22-30); Chloride 95 mmol/L (98-107); Estimated CRCL calculation 125 ml/min; Estimated Glomerular Filt Rate > 60; Glucose 106 mg/dL (65-110); Potassium 3.3 mmol/L (3.4-5.0); Sodium 131 mmol/L (137-145)
--- NOTE | 2022-11-14 07:47 | PM.PNCARD ---
Progress Note: A&P Assessment and Plan (1) Atrial flutter: Code(s): I48.92 - Unspecified atrial flutter Status: Acute Plan Challenging case of paroxysmal atrial flutter in combination with bradycardia/junctional rhythm necessitating the plan to discontinue specific antiarrhythmic therapy and currently using metoprolol and diltiazem for rate/rhythm control. IV diltiazem was will be stopped this morning and switch to oral diltiazem at a slightly higher dose than her admission dosage. She undoubtedly will have recurrences of her atrial flutter without specific or more aggressive antiarrhythmic therapy. She does have follow-up stab was with her nursing home manager elsewhere who should be involved in more definitive management of this then we can provide here at [facility]. Options would include either atrial flutter ablation or AV node ablation and pacemaker implantation. Obviously these services are not available here. Miguel Angel Phillips MD [facility] Subjective Date/time seen: Date of service: 11/14/22 07:47 Interval history: Follow-up for tachycardia bradycardia syndrome, atrial fibrillation, junctional rhythm Date of service 11/11/2022: Patient feels tired she states. Denies chest pain or shortness of breath. She notes some discomfort in her lower extremity due to swelling. She states she had 10-15 seconds of a gallop sensation in her chest this morning otherwise has been feeling fairly well in this regard. No new issues overnight. She states her mouth feels quite dry. Date of service 11/12/2022: In atrial fibrillation with RVR, rates typically in the 110-120 range. Swelling persists. No chest pain. Date of service 11/13/2022: Has some issues with hypotension last night. Therefore, her diltiazem was decreased to 10 mg an hour and her metoprolol was held. Surprisingly, this morning she is back in sinus rhythm and her blood pressure has normalized. Her main complaint is fatigue. Date of service 11/14/2022: Patient comfortable in bed with CPAP in place no cardiovascular complaints still maintaining sinus rhythm as of this morning. Exam Const: General: comfortable, no acute distress and obese Nutritional Appearance: obese Other: Morbidly obese white female no distress lying upright in bed hard of hearing, speaking full sentences breathing comfortably. HENMT: Mouth: Yes moist mucous membranes and Yes dry mucous membranes Eyes: Sclera: sclerae normal Neck: Neck: supple Other: Very difficult to comment on JVD, carotid impulses are normal Resp: Effort & Inspection: normal respiratory effort Auscultation: clear to auscultation bilaterally Other: Breath sounds distant but clear Cardio: Rate: regular rate and bradycardic Rhythm: regular rhythm Heart sounds: S1 normal heart sound present, S2 normal heart sound present and no murmurs Other: PMI not palpable first and second heart sounds normal no gallop no murmur GI: Auscultation: normal bowel sounds Other: Morbidly obese, soft, nontender, nondistended Skin: General skin exam: normal color Other: Warm and dry Neuro: Other: Alert and oriented Extrem: Right lower extremity: edema Left lower extremity: edema Other: 2 to 3+ bilateral pitting lower extremity edema right greater than left Psych: Other: Mood calm and appropriate Objective Data Vital Signs Vital Signs: Vital Signs - 24 hr 11/13/22 08:00 11/13/22 08:00 11/13/22 10:00 Temperature 36.5 C Pulse Rate 78 84 74 Respiratory Rate 24 H Blood Pressure 133/61 Pulse Oximetry 98 Oxygen Delivery 11/13/22 08:00 11/13/22 12:00 11/13/22 10:25 Temperature 37.1 C Pulse Rate 84 84 Respiratory Rate 18 Blood Pressure 127/58 L 127/58 L Pulse Oximetry 98 96 Oxygen Delivery Room Air 11/13/22 12:28 11/13/22 12:29 11/13/22 12:00 Temperature Pulse Rate 84 84 84 Respiratory Rate Blood Pressure 127/
[2022-11-14] MEDS: CYCLOBENZAPRINE HCL 10 MG TABLET PO ×3 (09:55→18:11)
[2022-11-14] MEDS: dilTIAZem HCL CD 180 MG CAP.24HR PO (09:55)
[2022-11-14] MEDS: ATORVASTATIN 40 MG TABLET PO (09:55)
[2022-11-14] MEDS: METOPROLOL SUCCINATE EXT REL 50 MG TABCR PO ×2 (09:55→21:06)
[2022-11-14] MEDS: CLOPIDOGREL BISULFATE 75 MG TABLET PO (09:55)
[2022-11-14] MEDS: APIXABAN 5 MG TABLET PO ×2 (09:55→18:10)
[2022-11-14] MEDS: FUROSEMIDE INJ 40 MG/4 ML VIAL IV PUSH ×2 (09:55→18:11)
[2022-11-14] MEDS: FAMOTIDINE 20 MG TABLET PO ×2 (09:55→18:11)
[2022-11-14] MEDS: LOSARTAN POTASSIUM 25 MG TABLET PO (09:55)
[2022-11-14] MEDS: MICONAZOLE NITRATE 2% CREAM 30 GM TUBE 1 APPLIC TOPICAL ×2 (09:56→18:10)
[2022-11-14] MEDS: ACETAMINOPHEN 325 MG TABLET 650 MG BY MOUTH (10:01)
--- NOTE | 2022-11-14 11:57 | PM.IMPN ---
Progress Note: A&P Assessment and Plan (1) Atrial fibrillation with rapid ventricular response: Code(s): I48.91 - Unspecified atrial fibrillation Status: Acute Assessment and Plan: The patient was admitted from 10/27-11/06 for racing heart rate and found to have AFib. She was trialed on Amiodarone and diltiazem but ultimately underwent cardioversion. She was discharged on Digoxin, metoprolol and Eliquis. She returns for palpitations and found to be in AFib again. She has since converted to sinus rhythm. TSH 5.9. Cardiology consulted. Digoxin and metoprolol stopped and sotalol started. EKG today showing junctional rhythm with rate of [address]-T wave changes. Continue Eliquis. Sotalol stopped. Monitor on tele. Appreciate Cardiology input. Replace mag and potassium. 11/12: Appreciate cardiology consultation, metoprolol increased, considering adding amiodarone 11/13: Defer to cardio for further management, cont diuresis, improving 11/14: Appreciate Cardiology management of diuresis and rate control (2) Acute UTI: Code(s): N39.0 - Urinary tract infection, site not specified Status: Acute Assessment and Plan: UA noted and concerning for UTI. BCx NGTD. UCx pending. Continue with Rocephin 11/12: Urine culture came back Klebsiella, will give gentamicin x1 dose (3) Hyperlipidemia: Code(s): E78.5 - Hyperlipidemia, unspecified Status: Acute Assessment and Plan: LFTs okay. Continue with atorvastatin (4) Diastolic congestive heart failure: Qualifiers: Heart failure chronicity: acute on chronic Qualified Code(s): I50.33 - Acute on chronic diastolic (congestive) heart failure Code(s): I50.30 - Unspecified diastolic (congestive) heart failure Status: Acute Assessment and Plan: Echo (10/31) showing nml LV size and function with EF 60-65%. Diastolic function indeterminate. Marked LE edema but suspect this is dependent edema. CXR does show mild infiltrates or atelecatasis in the lower lung eli, CMG and possibly pulm vascular redistribution. BNP 1150. Change to IV Lasix. see above (5) Hypertension: Qualifiers: Hypertension type: primary hypertension Qualified Code(s): I10 - Essential (primary) hypertension Code(s): I10 - Essential (primary) hypertension Status: Acute Assessment and Plan: Patient's blood pressure was reviewed on 11/14 Blood pressure remains well controlled. Will continue to monitor (6) Obstructive sleep apnea on CPAP: Code(s): G47.33 - Obstructive sleep apnea (adult) (pediatric) Status: Acute Assessment and Plan: Stable. Patient is compliant with NIV. Continue with CPAP as per home settings. Plan DVT prophylaxis with SCDs GI prophylaxis not indicated Code status meds only, DNI/DNR Subjective Date/time seen: 11/14/22 11:57 Interval history: 72yo female with AFib, CHF, BRINDA, CAD and HTN here for recurrent AFib. Has a chronic Sullivan. No overnight events noted. No chest pain or shortness of breath. No nausea, vomiting or diarrhea. No fevers or chills. Feels about the same as yesterday. No complaints. Review of Systems Review of Systems: 12 point review of systems was assessed and was negative except as noted in the HPI Exam Narrative: General: No acute distress, alert and oriented per baseline HEENT: Atraumatic, normocephalic, mucous membranes moist CV: Regular rate and rhythm, S1, S2 Lungs: Clear to auscultation bilaterally, no rales or crackles noted, no wheezes, good air entry Abdomen: Soft, nontender, nondistended Extremities: Normal to inspection, edema continues to improve Skin: No rashes noted, no lesions or wounds seen Psych: Euthymic, normal affect Objective Data Vital Signs Vital Signs: Vital Signs - 24 hr 11/13/22 12:00 11/13/22 12:28 11/13/22 12:29 Temperature 98.7 F Pulse Rate 84 84 84
--- NOTE | 2022-11-14 16:19 | PC.NURSE ---
This patient, Lauren Lambert, was transferred to [facility] on 11/14/22 at 1620. Personal belongings sent with patient. Report given to Aysha BAUM. Appropriate documentation sent with patient.
[2022-11-14] MEDS: MELATONIN 5 MG TABLET PO (21:06)
[2022-11-15] VITALS (11 sets, daily range): BP systolic 92–118; BP diastolic 46–64; PULSE 50–74; RESP 17–18; TEMP 36.2–36.6; O2SAT 97–98
[2022-11-15] MEDS: ACETAMINOPHEN 325 MG TABLET 650 MG BY MOUTH (04:21)
[2022-11-15 05:59] LABS: Basophils Absolute Auto 0.1 K/mm3 (0.0-0.1); Basophils Percent Auto 0.7 % (0.2-1.2); Eosinophils Absolute Auto 0.7 K/mm3 (0-0.3); Eosinophils Percent Auto 6.6 % (0-4.4); Hematocrit 37.4 % (37.0-47.0); Hemoglobin 11.9 g/dL (12.0-15.0); Immature Granulocyte Absolute 0.11 K/mm3 (0.00-0.031); Immature Granulocyte Percent A 1.1 % (0-0.5); Lymphocytes Absolute Auto 3.26 K/mm3 (0.9-3.2); Lymphocytes Percent Auto 32.4 % (18.3-44.2); Mean Corpuscular HGB Conc 31.8 g/dl (32-36); Mean Corpuscular Hemoglobin 28.2 pg (26-34); Mean Corpuscular Volume 88.6 fl (80-100); Mean Platelet Volume 8.3 fl (7.4-10.4); Monocytes Absolute Auto 1.3 K/mm3 (0.1-0.6); Monocytes Percent Auto 12.5 % (2.6-8.5); Neutrophils Absolute Auto 4.7 K/mm3 (1.3-6.7); Neutrophils Percent Auto 46.7 % (45.5-73.1); Platelet Count Result 467 k/mm3 (150-375); Red Blood Count 4.22 M/mm3 (4.2-5.4); Red Cell Distribution Width 17.9 % (11.5-14.5); White Blood Count 10.1 K/mm3 (4.5-10.0)
[2022-11-15 06:09] LABS: Alanine Aminotransferase 17 U/L (6-35); Albumin Level 2.7 g/dL (3.5-5.1); Alkaline Phosphatase 144 U/L (38-126); Anion Gap 4 mmol/L (8-16); Aspartate Amino Transferase 22 U/L (14-36); Bilirubin,Total 0.5 mg/dL (0.2-1.3); Blood Urea Nitrogen 8 mg/dL (7-17); Calcium 8.4 mg/dL (8.4-10.2); Carbon Dioxide 31 mmol/L (22-30); Chloride 97 mmol/L (98-107); Estimated CRCL calculation 126 ml/min; Estimated Glomerular Filt Rate > 60; Glucose 122 mg/dL (65-110); Sodium 132 mmol/L (137-145)
[2022-11-15] MEDS: FAMOTIDINE 20 MG TABLET PO ×2 (08:57→17:25)
[2022-11-15] MEDS: polyethylene glycoL 3350 17 GM POWD.PACK PO (08:57)
[2022-11-15] MEDS: METOPROLOL SUCCINATE EXT REL 50 MG TABCR PO ×2 (08:58→21:20)
[2022-11-15] MEDS: dilTIAZem HCL CD 180 MG CAP.24HR PO (08:59)
[2022-11-15] MEDS: FUROSEMIDE INJ 40 MG/4 ML VIAL IV PUSH ×3 (08:59→17:25)
[2022-11-15] MEDS: CLOPIDOGREL BISULFATE 75 MG TABLET PO (08:59)
[2022-11-15] MEDS: MICONAZOLE NITRATE 2% CREAM 30 GM TUBE 1 APPLIC TOPICAL ×2 (08:59→17:27)
[2022-11-15] MEDS: LOSARTAN POTASSIUM 25 MG TABLET PO (08:59)
[2022-11-15] MEDS: APIXABAN 5 MG TABLET PO ×2 (08:59→17:26)
[2022-11-15] MEDS: CYCLOBENZAPRINE HCL 10 MG TABLET PO ×3 (08:59→17:26)
[2022-11-15] MEDS: ATORVASTATIN 40 MG TABLET PO (08:59)
--- NOTE | 2022-11-15 09:22 | PM.PNCARD ---
Progress Note: A&P Assessment and Plan (1) Tachycardia-bradycardia syndrome: Code(s): I49.5 - Sick sinus syndrome Status: Acute (2) Atrial flutter: Code(s): I48.92 - Unspecified atrial flutter Status: Acute Plan Patient has had problematic atrial tachyarrhythmias primarily atrial flutter with RVR. She is currently stable on regimen of diltiazem and metoprolol and is in sinus rhythm/sinus bradycardia. It has been challenging to treat this as she had a poor response to sotalol developing a symptomatic junctional bradycardia. For now we will not adjust her medications. She really should be followed up at short interval by her established hearing aid repairer where they have electrophysiology Services for more definitive/aggressive management of this. She would potentially be a candidate for atrial flutter ablation alternatively AV junction ablation and a pacemaker would be an option as well. As I mentioned in my previous notes these services are not available here. Miguel Angel Phillips MD [facility] Subjective Date/time seen: Date of service: 11/15/22 09:22 Interval history: Follow-up for tachycardia bradycardia syndrome, atrial fibrillation, junctional rhythm Date of service 11/11/2022: Patient feels tired she states. Denies chest pain or shortness of breath. She notes some discomfort in her lower extremity due to swelling. She states she had 10-15 seconds of a gallop sensation in her chest this morning otherwise has been feeling fairly well in this regard. No new issues overnight. She states her mouth feels quite dry. Date of service 11/12/2022: In atrial fibrillation with RVR, rates typically in the 110-120 range. Swelling persists. No chest pain. Date of service 11/13/2022: Has some issues with hypotension last night. Therefore, her diltiazem was decreased to 10 mg an hour and her metoprolol was held. Surprisingly, this morning she is back in sinus rhythm and her blood pressure has normalized. Her main complaint is fatigue. Date of service 11/14/2022: Patient comfortable in bed with CPAP in place no cardiovascular complaints still maintaining sinus rhythm as of this morning. Date of service 11/15/2022: Patient is comfortable has been moved up to 3rd floor. Telemetry still shows sinus rhythm/sinus bradycardia heart rate generally in the mid 50s. No problematic hypotension on current regimen. Exam Const: General: comfortable, no acute distress and obese Nutritional Appearance: obese Other: Morbidly obese white female no distress lying upright in bed hard of hearing, speaking full sentences breathing comfortably. HENMT: Mouth: Yes moist mucous membranes and Yes dry mucous membranes Eyes: Sclera: sclerae normal Neck: Neck: supple Other: Very difficult to comment on JVD, carotid impulses are normal Resp: Effort & Inspection: normal respiratory effort Auscultation: clear to auscultation bilaterally Other: Breath sounds distant but clear Cardio: Rate: regular rate and bradycardic Rhythm: regular rhythm Heart sounds: S1 normal heart sound present, S2 normal heart sound present and no murmurs Other: PMI not palpable first and second heart sounds normal no gallop no murmur GI: Auscultation: normal bowel sounds Other: Morbidly obese, soft, nontender, nondistended Skin: General skin exam: normal color Other: Warm and dry Neuro: Other: Alert and oriented Extrem: Right lower extremity: edema Left lower extremity: edema Other: 2 to 3+ bilateral pitting lower extremity edema right greater than left Psych: Other: Mood calm and appropriate Objective Data Vital Signs Vital Signs: Vital Signs - 24 hr 11/14/22 09:55 11/14/22 12:00 11/14/22 12:00 Temperature 36.4 C L Pulse Rate 52 L 53 L Respiratory Rate 18 Blood Pressure 101/40 L Pulse Oximetry 96 Oxygen Delivery Room Air 11/14/22 10:00 11/14/22 12:00 11/14/22
--- NOTE | 2022-11-15 10:43 | PM.IMPN ---
Progress Note: A&P Assessment and Plan (1) Atrial fibrillation with rapid ventricular response: Code(s): I48.91 - Unspecified atrial fibrillation Status: Acute Assessment and Plan: The patient was admitted from 10/27-11/06 for racing heart rate and found to have AFib. She was trialed on Amiodarone and diltiazem but ultimately underwent cardioversion. She was discharged on Digoxin, metoprolol and Eliquis. She returns for palpitations and found to be in AFib again. She has since converted to sinus rhythm. TSH 5.9. Cardiology consulted. Digoxin and metoprolol stopped and sotalol started. EKG today showing junctional rhythm with rate of [address]-T wave changes. Continue Eliquis. Sotalol stopped. Monitor on tele. Appreciate Cardiology input. Replace mag and potassium. 11/12: Appreciate cardiology consultation, metoprolol increased, considering adding amiodarone 11/13: Defer to cardio for further management, cont diuresis, improving 11/14: Appreciate Cardiology management of diuresis and rate control 11/15: Potassium replaced to keep >4, check mag, cont IV lasix, increase to TID today, anticipate converting to po tomorrow (2) Acute UTI: Code(s): N39.0 - Urinary tract infection, site not specified Status: Acute Assessment and Plan: UA noted and concerning for UTI. BCx NGTD. UCx pending. Continue with Rocephin 11/12: Urine culture came back Klebsiella, will give gentamicin x1 dose (3) Hyperlipidemia: Code(s): E78.5 - Hyperlipidemia, unspecified Status: Acute Assessment and Plan: LFTs okay. Continue with atorvastatin (4) Diastolic congestive heart failure: Qualifiers: Heart failure chronicity: acute on chronic Qualified Code(s): I50.33 - Acute on chronic diastolic (congestive) heart failure Code(s): I50.30 - Unspecified diastolic (congestive) heart failure Status: Acute Assessment and Plan: Echo (10/31) showing nml LV size and function with EF 60-65%. Diastolic function indeterminate. Marked LE edema but suspect this is dependent edema. CXR does show mild infiltrates or atelecatasis in the lower lung eli, CMG and possibly pulm vascular redistribution. BNP 1150. see above (5) Hypertension: Qualifiers: Hypertension type: primary hypertension Qualified Code(s): I10 - Essential (primary) hypertension Code(s): I10 - Essential (primary) hypertension Status: Acute Assessment and Plan: Patient's blood pressure was reviewed on 11/15 Blood pressure remains well controlled. Will continue to monitor (6) Obstructive sleep apnea on CPAP: Code(s): G47.33 - Obstructive sleep apnea (adult) (pediatric) Status: Acute Assessment and Plan: Stable. Patient is compliant with NIV. Continue with CPAP as per home settings. (7) Swelling of right foot: Code(s): M79.89 - Other specified soft tissue disorders Status: Acute Assessment and Plan: unsure of etiology, check CT right foot 11/15 Plan DVT prophylaxis with eliquis GI prophylaxis not indicated Code status meds only, DNI/DNR Subjective Date/time seen: 11/15/22 10:43 Interval history: 72yo female with AFib, CHF, BRINDA, CAD and HTN here for recurrent AFib. Has a chronic Sullivan. No overnight events noted. No chest pain or shortness of breath. No nausea, vomiting or diarrhea. No fevers or chills. Swelling cont to improve. Refusing sukhdeep hose due to pain. Review of Systems Review of Systems: 12 point review of systems was assessed and was negative except as noted in the HPI Exam Narrative: General: No acute distress, alert and oriented per baseline HEENT: Atraumatic, normocephalic, mucous membranes moist CV: Regular rate and rhythm, S1, S2 Lungs: Clear to auscultation bilaterally, no rales or crackles noted, no wheezes, good air entry Abdomen: Soft, nontender, nondistended Extremitie
[2022-11-15] MEDS: POTASSIUM CHLORIDE 20 MEQ ER TABLET 80 MEQ PO (11:51)
[2022-11-15 16:05] LABS: Magnesium 1.8 mg/dL (1.6-2.3)
[2022-11-15] MEDS: MELATONIN 5 MG TABLET PO (21:20)
[2022-11-16] VITALS (15 sets, daily range): BP systolic 98–118; BP diastolic 48–64; PULSE 46–72; RESP 13–18; TEMP 36.3–36.9; O2SAT 95–100
[2022-11-16 07:31] LABS: Basophils Absolute Auto 0.1 K/mm3 (0.0-0.1); Basophils Percent Auto 0.9 % (0.2-1.2); Eosinophils Absolute Auto 0.7 K/mm3 (0-0.3); Eosinophils Percent Auto 7.2 % (0-4.4); Hematocrit 40.5 % (37.0-47.0); Hemoglobin 12.7 g/dL (12.0-15.0); Immature Granulocyte Absolute 0.09 K/mm3 (0.00-0.031); Lymphocytes Absolute Auto 3.29 K/mm3 (0.9-3.2); Lymphocytes Percent Auto 35.5 % (18.3-44.2); Mean Corpuscular HGB Conc 31.4 g/dl (32-36); Mean Corpuscular Hemoglobin 28.3 pg (26-34); Mean Corpuscular Volume 90.2 fl (80-100); Mean Platelet Volume 8.4 fl (7.4-10.4); Monocytes Absolute Auto 1.3 K/mm3 (0.1-0.6); Monocytes Percent Auto 13.5 % (2.6-8.5); Neutrophils Absolute Auto 3.9 K/mm3 (1.3-6.7); Neutrophils Percent Auto 41.9 % (45.5-73.1); Platelet Count Result 445 k/mm3 (150-375); Red Blood Count 4.49 M/mm3 (4.2-5.4); White Blood Count 9.3 K/mm3 (4.5-10.0)
[2022-11-16 07:36] LABS: Alanine Aminotransferase 18 U/L (6-35); Alkaline Phosphatase 143 U/L (38-126); Anion Gap 4 mmol/L (8-16); Aspartate Amino Transferase 23 U/L (14-36); Bilirubin,Total 0.5 mg/dL (0.2-1.3); Blood Urea Nitrogen 8 mg/dL (7-17); Calcium 8.6 mg/dL (8.4-10.2); Carbon Dioxide 32 mmol/L (22-30); Chloride 97 mmol/L (98-107); Estimated CRCL calculation 153 ml/min; Estimated Glomerular Filt Rate > 60; Glucose 119 mg/dL (65-110); Magnesium 1.8 mg/dL (1.6-2.3); Potassium 3.4 mmol/L (3.4-5.0); Sodium 133 mmol/L (137-145)
[2022-11-16] MEDS: LOSARTAN POTASSIUM 25 MG TABLET PO (09:38)
[2022-11-16] MEDS: METOPROLOL SUCCINATE EXT REL 50 MG TABCR PO ×2 (09:38→20:56)
[2022-11-16] MEDS: dilTIAZem HCL CD 180 MG CAP.24HR PO (09:38)
[2022-11-16] MEDS: FAMOTIDINE 20 MG TABLET PO ×2 (09:38→18:23)
[2022-11-16] MEDS: CLOPIDOGREL BISULFATE 75 MG TABLET PO (09:39)
[2022-11-16] MEDS: polyethylene glycoL 3350 17 GM POWD.PACK PO (09:39)
[2022-11-16] MEDS: MICONAZOLE NITRATE 2% CREAM 30 GM TUBE 1 APPLIC TOPICAL ×2 (09:39→18:23)
[2022-11-16] MEDS: CYCLOBENZAPRINE HCL 10 MG TABLET PO ×3 (09:39→18:23)
[2022-11-16] MEDS: APIXABAN 5 MG TABLET PO ×2 (09:39→18:23)
[2022-11-16] MEDS: ATORVASTATIN 40 MG TABLET PO (09:39)
--- NOTE | 2022-11-16 10:06 | PM.IMPN ---
Progress Note: A&P Assessment and Plan (1) Atrial fibrillation with rapid ventricular response: Code(s): I48.91 - Unspecified atrial fibrillation Status: Acute Assessment and Plan: The patient was admitted from 10/27-11/06 for racing heart rate and found to have AFib. She was trialed on Amiodarone and diltiazem but ultimately underwent cardioversion. She was discharged on Digoxin, metoprolol and Eliquis. She returns for palpitations and found to be in AFib again. She has since converted to sinus rhythm. TSH 5.9. Cardiology consulted. Digoxin and metoprolol stopped and sotalol started. EKG today showing junctional rhythm with rate of [address]-T wave changes. Continue Eliquis. Sotalol stopped. Monitor on tele. Appreciate Cardiology input. Replace mag and potassium. 11/12: Appreciate cardiology consultation, metoprolol increased, considering adding amiodarone 11/13: Defer to cardio for further management, cont diuresis, improving 11/14: Appreciate Cardiology management of diuresis and rate control 11/15: Potassium replaced to keep >4, check mag, cont IV lasix, increase to TID today, anticipate converting to po tomorrow 11/16: responded well to increased lasix dose, will cont one more day, potassium and mag wnl, replete to keep K>4 and Mg>2 (2) Acute UTI: Code(s): N39.0 - Urinary tract infection, site not specified Status: Acute Assessment and Plan: UA noted and concerning for UTI. BCx NGTD. UCx pending. Continue with Rocephin 11/12: Urine culture came back Klebsiella CRE, will give gentamicin x1 dose (3) Hyperlipidemia: Code(s): E78.5 - Hyperlipidemia, unspecified Status: Acute Assessment and Plan: LFTs okay. Continue with atorvastatin (4) Diastolic congestive heart failure: Qualifiers: Heart failure chronicity: acute on chronic Qualified Code(s): I50.33 - Acute on chronic diastolic (congestive) heart failure Code(s): I50.30 - Unspecified diastolic (congestive) heart failure Status: Acute Assessment and Plan: Echo (10/31) showing nml LV size and function with EF 60-65%. Diastolic function indeterminate. Marked LE edema but suspect this is dependent edema. CXR does show mild infiltrates or atelecatasis in the lower lung eli, CMG and possibly pulm vascular redistribution. BNP 1150. see above (5) Hypertension: Qualifiers: Hypertension type: primary hypertension Qualified Code(s): I10 - Essential (primary) hypertension Code(s): I10 - Essential (primary) hypertension Status: Acute Assessment and Plan: Patient's blood pressure was reviewed on 11/16 Blood pressure remains well controlled. Will continue to monitor (6) Obstructive sleep apnea on CPAP: Code(s): G47.33 - Obstructive sleep apnea (adult) (pediatric) Status: Acute Assessment and Plan: Stable. Patient is compliant with NIV. Continue with CPAP as per home settings. (7) Swelling of right foot: Code(s): M79.89 - Other specified soft tissue disorders Status: Acute Assessment and Plan: unsure of etiology CT right foot shows diffuse soft tissue swelling, no abscess/fracture noted, consider MRI? not very painful, hold off on further workup at this time Plan DVT prophylaxis with eliquis GI prophylaxis not indicated Code status meds only, DNI/DNR Subjective Date/time seen: 11/16/22 10:06 Interval history: 72yo female with AFib, CHF, BRINDA, CAD and HTN here for recurrent AFib. Has a chronic Spears. No overnight events noted. No chest pain or shortness of breath. No nausea, vomiting or diarrhea. No fevers or chills. Ready to have spears out. Swelling almost gone. Review of Systems Review of Systems: 12 point review of systems was assessed and was negative except as noted in the HPI Exam Narrative: General: No acute distress, alert and oriented per baseline
[2022-11-16] MEDS: POTASSIUM CHLORIDE 20 MEQ ER TABLET 40 MEQ PO (10:23)
[2022-11-16] MEDS: MAGNESIUM SULF 1 GM/D5W 100 ML 1 GM/100 ML BAG IVPB (10:23)
--- NOTE | 2022-11-16 11:50 | PCPTNOTE ---
Attempted PT evaluation, pt refused. Will make RN aware. Will follow.
[2022-11-16] MEDS: FUROSEMIDE INJ 40 MG/4 ML VIAL IV PUSH ×2 (13:02→18:22)
--- NOTE | 2022-11-16 13:17 | PCNWS ---
Weekly nutritional screen. Patient is tolerating current heart healthy diet with adequate intake of meals. No weight loss reported. No nutritional needs at this time.
--- NOTE | 2022-11-16 18:57 | PC.NURSE ---
Pt has been in bed today. Pt had spears removed and tolerated well. Pt denies any pain at this time. Pt had CT of right foot this morning. Pt has been monitored for any changes in status. Pt is a manual BP. Pt still on contact precautions.
[2022-11-16] MEDS: MELATONIN 5 MG TABLET PO (20:56)
[2022-11-16] MEDS: diphenhydrAMINE HCl INJ 50 MG/ML VIAL 25 MG IV PUSH (21:44)
[2022-11-17] VITALS (10 sets, daily range): BP systolic 107–146; BP diastolic 52–65; PULSE 64–70; RESP 16–17; TEMP 36.3–36.6; O2SAT 98–100
[2022-11-17 06:53] LABS: Basophils Absolute Auto 0.1 K/mm3 (0.0-0.1); Basophils Percent Auto 0.8 % (0.2-1.2); Eosinophils Absolute Auto 0.8 K/mm3 (0-0.3); Eosinophils Percent Auto 8.4 % (0-4.4); Hematocrit 39.3 % (37.0-47.0); Hemoglobin 12.6 g/dL (12.0-15.0); Immature Granulocyte Absolute 0.09 K/mm3 (0.00-0.031); Immature Granulocyte Percent A 0.9 % (0-0.5); Lymphocytes Percent Auto 34.4 % (18.3-44.2); Mean Corpuscular HGB Conc 32.1 g/dl (32-36); Mean Corpuscular Hemoglobin 28.6 pg (26-34); Mean Corpuscular Volume 89.1 fl (80-100); Mean Platelet Volume 8.2 fl (7.4-10.4); Monocytes Absolute Auto 1.2 K/mm3 (0.1-0.6); Monocytes Percent Auto 12.7 % (2.6-8.5); Neutrophils Absolute Auto 4.1 K/mm3 (1.3-6.7); Neutrophils Percent Auto 42.8 % (45.5-73.1); Platelet Count Result 446 k/mm3 (150-375); Red Blood Count 4.41 M/mm3 (4.2-5.4); Red Cell Distribution Width 17.7 % (11.5-14.5); White Blood Count 9.6 K/mm3 (4.5-10.0)
[2022-11-17 07:03] LABS: Alanine Aminotransferase 19 U/L (6-35); Alkaline Phosphatase 152 U/L (38-126); Anion Gap 3 mmol/L (8-16); Aspartate Amino Transferase 26 U/L (14-36); Bilirubin,Total 0.5 mg/dL (0.2-1.3); Blood Urea Nitrogen 7 mg/dL (7-17); Calcium 8.5 mg/dL (8.4-10.2); Carbon Dioxide 34 mmol/L (22-30); Chloride 96 mmol/L (98-107); Estimated CRCL calculation 152 ml/min; Estimated Glomerular Filt Rate > 60; Glucose 111 mg/dL (65-110); Magnesium 1.8 mg/dL (1.6-2.3); Potassium 3.3 mmol/L (3.4-5.0); Sodium 133 mmol/L (137-145)
[2022-11-17] MEDS: polyethylene glycoL 3350 17 GM POWD.PACK PO (09:01)
[2022-11-17] MEDS: CYCLOBENZAPRINE HCL 10 MG TABLET PO ×3 (09:02→17:33)
[2022-11-17] MEDS: APIXABAN 5 MG TABLET PO ×2 (09:02→17:33)
[2022-11-17] MEDS: CLOPIDOGREL BISULFATE 75 MG TABLET PO (09:02)
[2022-11-17] MEDS: dilTIAZem HCL CD 180 MG CAP.24HR PO (09:03)
[2022-11-17] MEDS: LOSARTAN POTASSIUM 25 MG TABLET PO (09:03)
[2022-11-17] MEDS: FAMOTIDINE 20 MG TABLET PO ×2 (09:03→17:33)
[2022-11-17] MEDS: ATORVASTATIN 40 MG TABLET PO (09:03)
[2022-11-17] MEDS: METOPROLOL SUCCINATE EXT REL 50 MG TABCR PO (09:03)
[2022-11-17] MEDS: FUROSEMIDE INJ 40 MG/4 ML VIAL IV PUSH (09:04)
[2022-11-17] MEDS: ACETAMINOPHEN 325 MG TABLET 650 MG BY MOUTH (09:18)
[2022-11-17] MEDS: MICONAZOLE NITRATE 2% CREAM 30 GM TUBE 1 APPLIC TOPICAL ×2 (09:19→17:33)
--- NOTE | 2022-11-17 12:31 | PM.IMPN ---
Progress Note: A&P Assessment and Plan (1) Atrial fibrillation with rapid ventricular response: Code(s): I48.91 - Unspecified atrial fibrillation Status: Acute Assessment and Plan: The patient was admitted from 10/27-11/06 for racing heart rate and found to have AFib. She was trialed on Amiodarone and diltiazem but ultimately underwent cardioversion. She was discharged on Digoxin, metoprolol and Eliquis. She returns for palpitations and found to be in AFib again. She has since converted to sinus rhythm. TSH 5.9. Cardiology consulted. Digoxin and metoprolol stopped and sotalol started. EKG today showing junctional rhythm with rate of [address]-T wave changes. Continue Eliquis. Sotalol stopped. Monitor on tele. Appreciate Cardiology input. Replace mag and potassium. 11/12: Appreciate cardiology consultation, metoprolol increased, considering adding amiodarone 11/13: Defer to cardio for further management, cont diuresis, improving 11/14: Appreciate Cardiology management of diuresis and rate control 11/15: Potassium replaced to keep >4, check mag, cont IV lasix, increase to TID today, anticipate converting to po tomorrow 11/16: responded well to increased lasix dose, will cont one more day, potassium and mag wnl, replete to keep K>4 and Mg>2 (2) Acute UTI: Code(s): N39.0 - Urinary tract infection, site not specified Status: Acute Assessment and Plan: UA noted and concerning for UTI. BCx NGTD. UCx pending. Continue with Rocephin 11/12: Urine culture came back Klebsiella CRE, will give gentamicin x1 dose (3) Hyperlipidemia: Code(s): E78.5 - Hyperlipidemia, unspecified Status: Acute Assessment and Plan: LFTs okay. Continue with atorvastatin (4) Diastolic congestive heart failure: Qualifiers: Heart failure chronicity: acute on chronic Qualified Code(s): I50.33 - Acute on chronic diastolic (congestive) heart failure Code(s): I50.30 - Unspecified diastolic (congestive) heart failure Status: Acute Assessment and Plan: Echo (10/31) showing nml LV size and function with EF 60-65%. Diastolic function indeterminate. Marked LE edema but suspect this is dependent edema. CXR does show mild infiltrates or atelecatasis in the lower lung eli, CMG and possibly pulm vascular redistribution. BNP 1150. see above (5) Hypertension: Qualifiers: Hypertension type: primary hypertension Qualified Code(s): I10 - Essential (primary) hypertension Code(s): I10 - Essential (primary) hypertension Status: Acute Assessment and Plan: Patient's blood pressure was reviewed on 11/17 Blood pressure remains well controlled. Will continue to monitor (6) Obstructive sleep apnea on CPAP: Code(s): G47.33 - Obstructive sleep apnea (adult) (pediatric) Status: Acute Assessment and Plan: Stable. Patient is compliant with NIV. Continue with CPAP as per home settings. (7) Swelling of right foot: Code(s): M79.89 - Other specified soft tissue disorders Status: Acute Assessment and Plan: unsure of etiology CT right foot 11/15n shows diffuse soft tissue swelling, no abscess/fracture noted not very painful, hold off on further workup at this time Plan DVT prophylaxis with eliquis GI prophylaxis not indicated Code status meds only, DNI/DNR Subjective Date/time seen: 11/17/22 12:31 Interval history: 72yo female with AFib, CHF, BRINDA, CAD and HTN here for recurrent AFib. Has a chronic Spears. No overnight events noted. No chest pain or shortness of breath. No nausea, vomiting or diarrhea. No fevers or chills. Ready to have spears out. Swelling almost gone. Exam Narrative: General: No acute distress, alert and oriented per baseline HEENT: Atraumatic, normocephalic, mucous membranes moist CV: Regular rate and rhythm, S1, S2 Lungs: Clear to auscultation bilaterally, no rale
--- NOTE | 2022-11-17 12:45 | PM.DS ---
DS: Admitting Diagnosis Discharge Date 11/17/22 Admitting Diagnosis swelling DS: Discharge Diagnosis Discharge Diagnosis (1) Atrial fibrillation with rapid ventricular response: Code(s): I48.91 - Unspecified atrial fibrillation Status: Acute Assessment and Plan: The patient was admitted from 10/27-11/06 for racing heart rate and found to have AFib. She was trialed on Amiodarone and diltiazem but ultimately underwent cardioversion. She was discharged on Digoxin, metoprolol and Eliquis. She returns for palpitations and found to be in AFib again. She has since converted to sinus rhythm. TSH 5.9. Cardiology consulted. Digoxin and metoprolol stopped and sotalol started. EKG today showing junctional rhythm with rate of [address]-T wave changes. Continue Eliquis. Sotalol stopped. Monitor on tele. Appreciate Cardiology input. Replace mag and potassium. 11/12: Appreciate cardiology consultation, metoprolol increased, considering adding amiodarone 11/13: Defer to cardio for further management, cont diuresis, improving 11/14: Appreciate Cardiology management of diuresis and rate control 11/15: Potassium replaced to keep >4, check mag, cont IV lasix, increase to TID today, anticipate converting to po tomorrow 11/16: responded well to increased lasix dose, will cont one more day, potassium and mag wnl, replete to keep K>4 and Mg>2 (2) Acute UTI: Code(s): N39.0 - Urinary tract infection, site not specified Status: Acute Assessment and Plan: UA noted and concerning for UTI. BCx NGTD. UCx pending. Continue with Rocephin 11/12: Urine culture came back Klebsiella CRE, will give gentamicin x1 dose (3) Hyperlipidemia: Code(s): E78.5 - Hyperlipidemia, unspecified Status: Acute Assessment and Plan: LFTs okay. Continue with atorvastatin (4) Diastolic congestive heart failure: Qualifiers: Heart failure chronicity: acute on chronic Qualified Code(s): I50.33 - Acute on chronic diastolic (congestive) heart failure Code(s): I50.30 - Unspecified diastolic (congestive) heart failure Status: Acute Assessment and Plan: Echo (10/31) showing nml LV size and function with EF 60-65%. Diastolic function indeterminate. Marked LE edema but suspect this is dependent edema. CXR does show mild infiltrates or atelecatasis in the lower lung eli, CMG and possibly pulm vascular redistribution. BNP 1150. see above (5) Hypertension: Qualifiers: Hypertension type: primary hypertension Qualified Code(s): I10 - Essential (primary) hypertension Code(s): I10 - Essential (primary) hypertension Status: Acute Assessment and Plan: Patient's blood pressure was reviewed on 11/17 Blood pressure remains well controlled. Will continue to monitor (6) Obstructive sleep apnea on CPAP: Code(s): G47.33 - Obstructive sleep apnea (adult) (pediatric) Status: Acute Assessment and Plan: Stable. Patient is compliant with NIV. Continue with CPAP as per home settings. (7) Swelling of right foot: Code(s): M79.89 - Other specified soft tissue disorders Status: Acute Assessment and Plan: unsure of etiology CT right foot 11/15n shows diffuse soft tissue swelling, no abscess/fracture noted not very painful, hold off on further workup at this time Plan DVT prophylaxis with eliquis GI prophylaxis not indicated Code status meds only, DNI/DNR DS: Summary Hospital Course Hospital Course: 72yo female with AFib, CHF, BRINDA, CAD and HTN here for recurrent AFib. Has a chronic Sullivan. The patient was admitted from 10/27-11/06 for racing heart rate and found to have AFib. She was trialed on Amiodarone and diltiazem but ultimately underwent cardioversion. She was discharged on Digoxin, metoprolol and Eliquis. She returns for palpitations and found to be in AFib again. She has since converted to sinus rhythm. TSH 5.9.? Ca
[2022-11-17 15:34] LABS: SARS-CoV-2 RNA PCR Negative (Negative)
== END 2022-11-17 18:30 | DRG 308 ==
LOC: ANHED 17:38 → ANHIMU 18:56 → ANH3MEDSUR 11-14 16:14
PROVIDERS: Internal Medicine; Nurse Practitioner; Admitting Provider Hospitalist; Emergency Provider Emergency Medicine; PCP Hospitalist; Visit Provider Student in an Organized Health Care Education/Training Program
DX: I48.0 Paroxysmal atrial fibrillation (principal); I50.33 Acute on chronic diastolic (congestive) heart failure; J96.11 Chronic respiratory failure with hypoxia; N39.0 Urinary tract infection, site not specified; Z68.41 Body mass index [BMI] 40.0-44.9, adult; I11.0 Hypertensive heart disease with heart failure; I25.10 Atherosclerotic heart disease of native coronary artery without angina pectoris; I49.5 Sick sinus syndrome; M79.89 Other specified soft tissue disorders; E66.01 Morbid (severe) obesity due to excess calories; B96.1 Klebsiella pneumoniae [K. pneumoniae] as the cause of diseases classified elsewhere; G47.33 Obstructive sleep apnea (adult) (pediatric); I25.2 Old myocardial infarction; Z20.822 Contact with and (suspected) exposure to COVID-19; Z79.01 Long term (current) use of anticoagulants; Z86.718 Personal history of other venous thrombosis and embolism; Z79.02 Long term (current) use of antithrombotics/antiplatelets; Z99.81 Dependence on supplemental oxygen
CPT/HCPCS: 36415; 71045; 73700; 80048; 80053; 80069; 81001; 82948; 83605; 83735; 83880; 84439; 84443; 84480; 85025; 85610; 85730; 87040; 87077; 87086; 87186; 87635; 93005; 94660; 96365; 96375; 99285; A9270; G0378; J0696; J1200; J1580; J1940; J3475; J7030

== ENCOUNTER 2022-11-28 19:04 | Inpatient (IN) | payer MEDICARE, MEDICAID, SELFPAY ==
[2022-11-28] VITALS (39 sets, daily range): BP systolic 61–139; BP diastolic 34–116; PULSE 109–116; RESP 9–29; TEMP 37.2; O2SAT 88–100
--- NOTE | ~2022-11-28 | CT_ITS ---
EXAMINATION: CT brain wo con DATE: 12/04/2022 18:33 INDICATION: left side weakness; slur speech . TECHNIQUE: Computed tomography (CT) of the head was performed without intravenous contrast. The mA wa s adjusted according to patient size. Iterative reconstruction technique was employed. The dose-lengt h product was 1362.00 mGy-cm. COMPARISON: None. FINDINGS: Motion artifact, which persisted in repeated imaging attempts. No acute intracranial hemorrhage or extra-axial fluid collection. No hydrocephalus, mass, or herniation. No acute ischemic infarct. Unremarkable dural venous sinus attenuation. No acute osseous abnormality. Aerated secretions in the right sphenoid sinus. Complete Mild atrophy and chronic white matter change. Atherosclerotic intracranial calcification. Bilateral l ens replacements. IMPRESSION: No acute intracranial process. CT findings suggestive of bilateral otomastoiditis and acute sphenoid sinusitis. Reviewed, dictated and finalized at location K. IMPRESSION: No acute intracranial process. CT findings suggestive of bilateral otomastoiditis and acute sphenoid sinusitis .
--- NOTE | ~2022-11-28 | XR_ITS ---
EXAMINATION: XR chest 1V portable DATE: 11/28/2022 20:37 INDICATION: Tachycardia. TECHNIQUE: A single frontal view of the chest was obtained. COMPARISON: Chest single view 11/08/2022, CT abdomen and pelvis 10/27/2022 FINDINGS: There is no pneumonia, pleural effusion, or pneumothorax. Cardiomegaly is noted. IMPRESSION: 1. Cardiomegaly. Reviewed, dictated and finalized at location E. IMPRESSION: 1. Cardiomegaly.
--- NOTE | ~2022-11-28 | CT_ITS ---
EXAMINATION: 1. CT soft tissue neck w con 2. CT facial bones w con DATE: 11/28/2022 21:08 INDICATION: Right neck and face cellulitis. TECHNIQUE: Computed tomography (CT) of the facial bones and neck was performed with 75 mL Omnipaque-3 50 intravenous contrast. Automated exposure control and iterative reconstruction technique were emplo yed. The dose-length product was 849 mGy-cm. COMPARISON: Neck CT 11/03/2022 FINDINGS: CT MAXILLOFACIAL: There is enlargement of the right parotid gland with surrounding fat stranding. The re is enlargement of right masseter muscle and right sternocleidomastoid muscle. There is soft tissue swelling of right lateral scalp and right external auditory canal. There is no sialolith. CT NECK: There is plaque in the proximal internal carotid arteries with 0% stenosis relative to norm al distal artery lumen diameters. There are no pathologically enlarged lymph nodes. There is subcutan eous fat stranding in right face and neck. 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 There is a right otomastoid effusion. There is a left otomastoid effusio n. There is moderate cervical spondylosis. IMPRESSION: 1. Worsened right-sided parotiditis with cellulitis of the right face and neck. No drainable abscess. Reviewed, dictated and finalized at location E. IMPRESSION: 1. Worsened right-sided parotiditis with cellulitis of the right face and neck. No drainable abscess.
--- NOTE | ~2022-11-28 | US_ITS ---
EXAMINATION: US venous doppler UE RT DATE: 11/29/2022 15:09 INDICATION: Right upper limb edema. TECHNIQUE: Grayscale ultrasound images without and with compression and Doppler ultrasound images of the right upper extremity veins were obtained. COMPARISON: None. FINDINGS: The visualized portions of the right internal jugular vein, subclavian vein, axillary vein, brachial veins, basilic vein, cephalic vein, radial vein, and ulnar vein are patent. There is edema in the upp er arm near the elbow. IMPRESSION: 1. No deep venous thrombosis. Reviewed, dictated and finalized at location E.
--- NOTE | 2022-11-28 19:17 | ECG_ITS ---
Measurements Intervals [place] Rate: 114 P: 79 OK: 172 QRS: 14 QRSD: 98 T: 203 QT: 198 QTc: 273 Interpretive Statements PROBABLE sINUS TACHYCARDIA BUT CANNOT EXCLUDE ATRIAL FLUTTER POSSIBLE ANTERIOR MYOCARDIAL INFARCTION , OF INDETERMINATE AGE [30 ms Q WAVE IN V3/V4, OR R < 0.2 mV IN V4] NONSPECIFIC T-WAVE ABNORMALITY ABNORMAL ECG COMPARED TO ECG 11/12/2022 08:53:10 SINUS TACHYCARDIA NOW PRESENT Electronically Signed On 11-29-2022 10:05:00 CDT by Jesus Nolan M.D.
[2022-11-28] MEDS: SODIUM CHLORIDE 0.9% IV 1,000 ML 999 ML IV CONT ×2 (19:38→22:28)
[2022-11-28 19:39] LABS: Glucose Point of Care 110 mg/dl (65-105)
[2022-11-28 19:52] LABS: Basophils Absolute Auto 0.1 K/mm3 (0.0-0.1); Basophils Percent Auto 0.4 % (0.2-1.2); Eosinophils Absolute Auto 0.2 K/mm3 (0-0.3); Eosinophils Percent Auto 0.9 % (0-4.4); Hematocrit 40.6 % (37.0-47.0); Hemoglobin 13.7 g/dL (12.0-15.0); Immature Granulocyte Percent A 0.8 % (0-0.5); Lymphocytes Absolute Auto 3.39 K/mm3 (0.9-3.2); Lymphocytes Percent Auto 13.3 % (18.3-44.2); Mean Corpuscular HGB Conc 33.7 g/dl (32-36); Mean Corpuscular Hemoglobin 29.5 pg (26-34); Mean Corpuscular Volume 87.3 fl (80-100); Mean Platelet Volume 8.1 fl (7.4-10.4); Monocytes Absolute Auto 2.3 K/mm3 (0.1-0.6); Monocytes Percent Auto 9.2 % (2.6-8.5); Neutrophils Absolute Auto 19.1 K/mm3 (1.3-6.7); Neutrophils Percent Auto 75.4 % (45.5-73.1); Platelet Count Result 388 k/mm3 (150-375); Red Blood Count 4.65 M/mm3 (4.2-5.4); Red Cell Distribution Width 18.4 % (11.5-14.5); White Blood Count 25.4 K/mm3 (4.5-10.0)
[2022-11-28 20:03] LABS: Lactic Acid Reflex 1.6 mmol/L (0.7-2.0); Lipase 20 U/L (23-300); Magnesium 1.9 mg/dL (1.6-2.3); Phosphorus 3.4 mg/dL (2.5-4.5)
[2022-11-28 20:04] LABS: INR 1.7; Prothrombin Time 21.2 Seconds (11.1-14.7)
[2022-11-28 20:05] LABS: Partial Thromboplastin Time 45.9 SECONDS (22.3-36.8)
[2022-11-28 20:12] LABS: NT Pro B Type Natriuretic Pept 3040 pg/mL (19.9-100)
[2022-11-28 20:14] LABS: Troponin I < 0.012 ng/mL (0.000-0.034)
[2022-11-28 20:20] LABS: Alanine Aminotransferase 19 U/L (6-35); Albumin Level 3.1 g/dL (3.5-5.1); Alkaline Phosphatase 163 U/L (38-126); Anion Gap 6 mmol/L (8-16); Aspartate Amino Transferase 24 U/L (14-36); Bilirubin,Total 1.4 mg/dL (0.2-1.3); Blood Urea Nitrogen 15 mg/dL (7-17); Calcium 8.3 mg/dL (8.4-10.2); Carbon Dioxide 29 mmol/L (22-30); Chloride 91 mmol/L (98-107); Creatine Kinase 65 U/L (30-135); Estimated CRCL calculation 103 ml/min; Estimated Glomerular Filt Rate > 60; Glucose 112 mg/dL (65-110); Potassium 3.2 mmol/L (3.4-5.0); Sodium 126 mmol/L (137-145)
[2022-11-28 20:28] LABS: Influenza A QL RT-PCR Negative (Negative); Influenza B QL RT-PCR Negative (Negative); RSV RNA, RT-PCR Negative (Negative); SARS-CoV-2 RNA PCR Negative (Negative)
[2022-11-28 20:39] LABS: Appearance Urine Turbid (Clear); Bacteria Urine 4+ /hpf; Bilirubin Urine Negative (Negative); Blood Urine 1+ (Negative); Color Urine Yellow (Yellow); Glucose Urine UA Negative (Negative); Ketones Urine Negative (Negative); Leukocyte Esterase Ur 3+ LEU/UL (Negative); Need Manual Microscopic Reviewed; Nitrate Urine Negative (Negative); Protein Urine 1+ mg/dL (Negative); RBC Urine 0-2 /hpf (0-2); Specific Grav Ur 1.014 (1.001-1.035); Squamous Epithelial Cell Urine None seen /hpf (Few); WBC Urine >100 /hpf; pH Urine 5.5 (5.0-9.0)
[2022-11-28 20:40] LABS: Add Urine Microscopic? YES
--- NOTE | 2022-11-28 21:14 | ED.GENADULT ---
HPI - General Adult General Chief complaint: Skin/Abscess/Foreign Body Stated complaint: cellulitis Time Seen by Provider: 11/28/22 19:05 History of Present Illness HPI narrative: This is a 72-year-old female presenting ED with chief complaint of facial cellulitis. The patient was recently discharged from the hospital after having drug-resistant Klebsiella. She is now coming back because she has developed cellulitis on the right side of her face. Patient A&O 0-1 at baseline. She cannot provide much useful information during the interview Due to mental status. Related Data Home Medications Medication Instructions Recorded Confirmed acetaminophen 650 mg tablet 650 mg PO Q6H PRN Pain 10/27/22 11/08/22 apixaban 5 mg tablet (Eliquis) 5 mg PO BID 10/27/22 11/08/22 atorvastatin 40 mg tablet 40 mg PO DAILY 10/27/22 11/08/22 bisacodyl 5 mg tablet,delayed 5 mg PO HS PRN Constipation 10/27/22 11/08/22 release clopidogrel 75 mg tablet 75 mg PO DAILY 10/27/22 11/08/22 cyclobenzaprine 10 mg tablet 10 mg PO TID 10/27/22 11/08/22 famotidine 20 mg tablet 20 mg PO BID 10/27/22 11/08/22 furosemide 40 mg tablet 40 mg PO DAILY 10/27/22 11/08/22 miconazole nitrate 2 % topical 1 applic topical BID 10/27/22 11/08/22 cream losartan 25 mg tablet 25 mg PO DAILY 11/08/22 11/08/22 nitroglycerin 0.4 mg sublingual 0.4 mg sublingual Q5MIN PRN Chest 11/08/22 11/08/22 tablet Pain prochlorperazine maleate 5 mg 5 mg PO Q6H PRN Nausea 11/08/22 11/08/22 tablet Allergies Allergy/AdvReac Type Severity Reaction Status Date / Time Latex, Natural Rubber AdvReac Unknown Verified 11/08/22 17:39 [facility] Past Medical History Medical History Arthritis Atrial fibrillation Status post cardiac ablation. Chronic respiratory failure with hypoxia, on home oxygen therapy Coronary artery disease Deep venous thrombosis Diastolic congestive heart failure Hyperlipidemia Hypertension Myocardial infarction Patient reports history of PA, no stents Obstructive sleep apnea on CPAP Surgical History Surgical History History of cardiac radiofrequency ablation History of tonsillectomy Family History Family History Father Malignant neoplasm of prostate Acute myocardial infarction Mother Uterine cancer Acute myocardial infarction Sibling Uterine cancer Social History Social History Social History: Patient reports she has a master's degree in psychiatric nursing. Code status: Modified code, medications only. No CPR intubation. Okay with noninvasive ventilation. Smoking status: Never smoker Alcohol intake: never Substance use: never Lack of Transportation: No Lack of Food: Never True Current Housing: I Have Housing Concerned About Future Housing: No Difficulty Paying Gas/Electric Bills: No Difficulty Paying for Meds: No Currently Unemployed: No Education: Master's Degree or Higher Difficulty w/ Childcare or Family Care: No Additional living arrangements comments: [facility]. No children. 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 Spiritual care concerns: No Exam Narrative: APPEARANCE: Patient appears chronically unwell Head: swelling /induration and erythema with clear delineation over the right side of the patient's face, tracking down into the neck. EYES: EOMI, NOSE: Atraumatic NECK: Trachea midline RESPIRATORY: Decreased lung sounds in all eli. CARDIOVASCULAR: RRR, Edema lower extremities ABDOMINAL: obese, nontender no guarding or rebound MUSCULOSKELETAl: No obvious deformities NEURO: Alert. Moving 4/4 extremities SKIN:: Warm, dry. Normal color, no skin breakdown over the sacrum. PSYCHIATRIC: Normal affect Course
[2022-11-28 21:16] LABS: Free T4 Free Thyroxine Reflex 2.34 ng/dL (0.78-2.19)
[2022-11-28] MEDS: metroNIDAZOLE 500 MG/ISO 100ML 500 MG/100 ML BAG 100 MG IVPB (21:32)
[2022-11-28] MEDS: CEFEPIME 2 GM/NS 50 ML 2 GM/50 ML BAG IVPB (21:32)
[2022-11-28] MEDS: POTASSIUM CHLORIDE INJ 40 MEQ in SODIUM CHLORIDE 0.9% IV 500 ML 130 MEQ IVPB (22:22)
[2022-11-28 23:58] LABS: Troponin I < 0.012 ng/mL (0.000-0.034)
[2022-11-29] VITALS (40 sets, daily range): BP systolic 66–104; BP diastolic 41–88; PULSE 105–114; RESP 12–30; TEMP 36.3–36.9; O2SAT 89–100; BMI 46.7
--- NOTE | 2022-11-29 00:51 | PM.IMHP ---
H&P: HPI History of Present Illness Date/Time: 11/29/22 00:51 Chief Complaint: AMS Narrative: THIS IS A 72-YEAR-OLD FEMALE WITH PAST MEDICAL HISTORY SIGNIFICANT FOR MULTIPLE COMORBIDITIES, MORBID OBESITY, ATRIAL FIBRILLATION, OVERALL POOR HEALTH, PATIENT IS ANTICOAGULATED AND RATE CONTROLLED, CHRONIC BILATERAL LOWER EXTREMITY LYMPHEDEMA, CHRONIC RESPIRATORY FAILURE WITH ON SUPPLEMENTAL HOLD LOW HOME OXYGEN AT HOME OBSTRUCTIVE SLEEP APNEA ON CPAP AT NIGHTTIME, MYOCARDIAL INFARCTION, DID VENTRUM BOXES, DIASTOLIC HEART FAILURE, HYPERTENSION, DYSLIPIDEMIA. PATIENT RECENTLY DISCHARGED FROM [facility] AFTER SHE WAS TREATED FOR ATRIAL FIBRILLATION WERE APPEAR TO BE CONGESTIVE HEART FAILURE. THE PATIENT NOW RETURNS DUE TO ALTERED MENTAL STATUS AND RIGHT SIDE OF HER FACE AND NECK SWELLING AND REDNESS, PATIENT IS UNABLE TO GIVE ANY HISTORY SHE IS STUPOROUS, OBTUNDED. PRELIMINARY WORKUP WAS SIGNIFICANT FOR CT OF THE SOFT TISSUE OF NECK AND FACE FOR WORSENING PAROTIDITIS. BRIEF DISCUSSION TOOK PLACE IN BETWEEN EMERGENCY ROOM DOCTOR AND FAMILY MEMBERS AND IT HAS BEEN DISCUSSED THAT PATIENT CAN HAVE VASOPRESSORS AND TREATMENT HOWEVER NO CHEST COMPRESSIONS OR INTUBATION. PATIENT IS BEEN ADMITTED FOR FURTHER EVALUATION MANAGEMENT AND TREATMENT. EXAMINATION: XR chest 1V portable DATE: 11/28/2022 20:37 INDICATION: Tachycardia. TECHNIQUE: A single frontal view of the chest was obtained. COMPARISON: Chest single view 11/08/2022, CT abdomen and pelvis 10/27/2022 FINDINGS: There is no pneumonia, pleural effusion, or pneumothorax. Cardiomegaly is noted. IMPRESSION: 1. Cardiomegaly. EXAMINATION: 1. CT soft tissue neck w con 2. CT facial bones w con DATE: 11/28/2022 21:08 INDICATION: Right neck and face cellulitis. TECHNIQUE: Computed tomography (CT) of the facial bones and neck was performed with 75 mL Omnipaque-350 intravenous contrast. Automated exposure control and iterative reconstruction technique were employed. The dose-length product was 849 mGy-cm. COMPARISON: Neck CT 11/03/2022 FINDINGS: CT MAXILLOFACIAL: There is enlargement of the right parotid gland with surrounding fat stranding. There is enlargement of right masseter muscle and right sternocleidomastoid muscle. There is soft tissue swelling of right lateral scalp and right external auditory canal. There is no sialolith. CT NECK:? There is plaque in the proximal internal carotid arteries with 0% stenosis relative to normal distal artery lumen diameters. There are no pathologically enlarged lymph nodes. There is subcutaneous fat stranding in right face and neck. 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 There is a right otomastoid effusion. There is a left otomastoid effusion. There is moderate cervical spondylosis. IMPRESSION: 1. Worsened right-sided parotiditis with cellulitis of the right face and neck. No drainable abscess. Review of Systems Review of Systems: ROS unobtainable: Yes unobtainable due to mental status ( STUPOROUS, OBTUNDED, DELIRIOUS) [facility] Past Medical History Medical History (Updated 11/29/22 @ 02:49 by Ori Flores MD) Arthritis Atrial fibrillation Status post cardiac ablation. Chronic respiratory failure with hypoxia, on home oxygen therapy Coronary artery disease Deep venous thrombosis Diastolic congestive heart failure Hyperlipidemia Hypertension Myocardial infarction Patient reports history of [place], no stents Obstructive sleep apnea on CPAP Surgical History Surgical History History of cardiac radiofrequency ablation History of tonsillectomy Family History Family History Father Malignant neoplasm of prostate Acute myocardial infarction Mother Uterine cancer Acute myocardial infarction Sibling Uterine cancer Social History Social History (Reviewed
--- NOTE | 2022-11-29 02:53 | ADMGEN ---
This patient, Lauren Lambert, was admitted to IMU Room 206-02 on 11/29/22 at 0223. Patient/family oriented to hospital policies and general routines including ID bracelet, bed and alarms, visiting hours, pain management, procedures, bathroom and other care routines, personal items, smoking policy, room service/diet, and visiting hours. Information on how to activate the Rapid Response Team has been discussed. Patient/Family are encouraged to report perceived risks to care and to ask questions if they do not understand what they are told or what they should do.
[2022-11-29 05:15] LABS: Estimated CRCL calculation 122 ml/min; Estimated Glomerular Filt Rate > 60
[2022-11-29] MEDS: CEFEPIME 2 GM/NS 50 ML 2 GM/50 ML BAG IVPB ×3 (05:42→23:39)
[2022-11-29] MEDS: metroNIDAZOLE 500 MG/ISO 100ML 500 MG/100 ML BAG 100 MG IVPB ×3 (05:42→20:13)
[2022-11-29] MEDS: polyethylene glycoL 3350 17 GM POWD.PACK PO (09:30)
[2022-11-29] MEDS: METOPROLOL SUCCINATE EXT REL 50 MG TABCR PO (09:30)
[2022-11-29] MEDS: FAMOTIDINE 20 MG TABLET PO ×2 (09:31→17:17)
[2022-11-29] MEDS: CYCLOBENZAPRINE HCL 10 MG TABLET PO ×3 (09:31→17:17)
[2022-11-29] MEDS: APIXABAN 5 MG TABLET PO ×2 (09:31→19:48)
[2022-11-29] MEDS: CLOPIDOGREL BISULFATE 75 MG TABLET PO (09:31)
[2022-11-29] MEDS: ATORVASTATIN 40 MG TABLET PO (09:31)
[2022-11-29] MEDS: LOSARTAN POTASSIUM 25 MG TABLET PO (09:31)
[2022-11-29] MEDS: dilTIAZem HCL CD 180 MG CAP.24HR PO (09:31)
[2022-11-29] MEDS: MICONAZOLE NITRATE 2% CREAM 30 GM TUBE 1 APPLIC TOPICAL ×2 (09:32→17:18)
--- NOTE | 2022-11-29 11:25 | PM.IMPN ---
Progress Note: A&P Assessment and Plan (1) Cellulitis of face: Code(s): L03.211 - Cellulitis of face Status: Acute Assessment and Plan: Vancomycin, cefepime and Flagyl initiated 11/28 ENT consult placed in pending for parotiditis (2) Sepsis: Code(s): A41.9 - Sepsis, unspecified organism Status: Acute Assessment and Plan: See above (3) Acute alteration in mental status: Code(s): R41.82 - Altered mental status, unspecified Status: Acute Assessment and Plan: As above (4) Chronic respiratory failure with hypoxia, on home oxygen therapy: Code(s): J96.11 - Chronic respiratory failure with hypoxia; Z99.81 - Dependence on supplemental oxygen Status: Acute Assessment and Plan: As needed (5) Obstructive sleep apnea on CPAP: Code(s): G47.33 - Obstructive sleep apnea (adult) (pediatric) Status: Acute Assessment and Plan: CPAP at night (6) Morbid obesity with BMI of 45.0-49.9, adult: Code(s): E66.01 - Morbid (severe) obesity due to excess calories; Z68.42 - Body mass index [BMI] 45.0-49.9, adult Status: Acute (7) Atrial fibrillation: Code(s): I48.91 - Unspecified atrial fibrillation Status: Acute Assessment and Plan: Rate controlled, anticoagulated, status post ablation Plan DVT prophylaxis with SCDs GI prophylaxis not indicated Code status no CPR, DNI Subjective Date/time seen: 11/29/22 11:25 Interval history: 72-year-old female presenting with facial cellulitis and sepsis. Somnolent, arousable. No overnight events. Review of Systems Review of Systems: ROS unobtainable: Yes unobtainable due to mental status Exam Narrative: General: Somnolent HEENT: Erythematous and swollen over right cheek, normocephalic, mucous membranes moist CV: Regular rate and rhythm, S1, S2 Lungs: Coarse BS throughout, diminished at bases with scattered crackles Abdomen: Soft, nontender, nondistended Extremities: Significant 3+ pitting edema B/L LE, right > left Skin: No rashes noted, no lesions or wounds seen Psych: Unable to assess Objective Data Vital Signs Vital Signs: Vital Signs - 24 hr 11/28/22 19:04 11/28/22 19:49 11/28/22 22:28 Temperature 98.9 F Pulse Rate 113 H 113 H Respiratory Rate 22 H 24 H Blood Pressure 98/34 L Pulse Oximetry 97 94 96 Oxygen Delivery Room Air Room Air 11/28/22 22:35 11/28/22 19:17 11/28/22 19:30 Temperature Pulse Rate 116 H 114 H Respiratory Rate 20 21 H Blood Pressure 112/79 118/76 93/77 L Pulse Oximetry Oxygen Delivery 11/28/22 19:45 11/28/22 20:16 11/28/22 20:26 Temperature Pulse Rate 114 H 114 H 114 H Respiratory Rate 16 21 H 21 H Blood Pressure 97/68 L 126/75 95/61 L Pulse Oximetry 93 96 Oxygen Delivery 11/28/22 20:45 11/28/22 21:07 11/28/22 21:08 Temperature Pulse Rate 115 H 109 H 109 H Respiratory Rate 15 9 L 18 Blood Pressure 102/76 99/42 L Pulse Oximetry 88 L 97 97 Oxygen Delivery 11/28/22 21:15 11/28/22 21:16 11/28/22 21:30 Temperature Pulse Rate 112 H 111 H 112 H Respiratory Rate 20 21 H 16 Blood Pressure 101/66 83/51 L Pulse Oximetry 90 93 92 Oxygen Delivery 11/28/22 21:31 11/28/22 21:38 11/28/22 21:45 Temperature Pulse Rate 111 H 111 H 111 H Respiratory Rate 17 16 18 Blood Pressure 105/69 Pulse Oximetry 91 97 94 Oxygen Delivery 11/28/22 21:46 11/28/22 21:51 11/28/22 21:53 Temperature Pulse Rate 112 H 112 H 111 H Respiratory Rate 18 18 24 H Blood Pressure 61/51 L 85/58 L 134/107 H Pulse Oximetry 90 89 L 100 Oxygen Delivery 11/28/22 21:54 11/28/22 22:00 11/28/22 22:01 Temperature Pulse Rate 112 H 112 H 113 H Respiratory Rate 29 H 17 15 Blood Pressure 139/116 H 86/52 L Pulse Oximetry 98 92 96 Oxygen Delivery 11/28/22 22:15 11/28/22 22:16 11/28/22 22:25 Temperature Pulse Rate 112 H 113 H 11
[2022-11-29] MEDS: SODIUM CHLORIDE 0.9% IV 500 ML IV CONT ×2 (17:17→19:42)
[2022-11-29] MEDS: FUROSEMIDE INJ 40 MG/4 ML VIAL IV PUSH (17:17)
[2022-11-29 18:26] LABS: Basophils Absolute Auto 0.1 K/mm3 (0.0-0.1); Basophils Percent Auto 0.4 % (0.2-1.2); Eosinophils Absolute Auto 0.9 K/mm3 (0-0.3); Eosinophils Percent Auto 5.3 % (0-4.4); Hematocrit 35.3 % (37.0-47.0); Hemoglobin 11.5 g/dL (12.0-15.0); Immature Granulocyte Absolute 0.12 K/mm3 (0.00-0.031); Immature Granulocyte Percent A 0.7 % (0-0.5); Lymphocytes Absolute Auto 2.55 K/mm3 (0.9-3.2); Lymphocytes Percent Auto 15.6 % (18.3-44.2); Mean Corpuscular HGB Conc 32.6 g/dl (32-36); Mean Corpuscular Hemoglobin 28.8 pg (26-34); Mean Corpuscular Volume 88.5 fl (80-100); Mean Platelet Volume 8.2 fl (7.4-10.4); Monocytes Absolute Auto 1.7 K/mm3 (0.1-0.6); Monocytes Percent Auto 10.1 % (2.6-8.5); Neutrophils Absolute Auto 11.1 K/mm3 (1.3-6.7); Neutrophils Percent Auto 67.9 % (45.5-73.1); Platelet Count Result 337 k/mm3 (150-375); Red Blood Count 3.99 M/mm3 (4.2-5.4); Red Cell Distribution Width 18.1 % (11.5-14.5); White Blood Count 16.4 K/mm3 (4.5-10.0)
[2022-11-29 19:00] LABS: Alanine Aminotransferase 15 U/L (6-35); Albumin Level 2.1 g/dL (3.5-5.1); Alkaline Phosphatase 135 U/L (38-126); Anion Gap 4 mmol/L (8-16); Aspartate Amino Transferase 18 U/L (14-36); Blood Urea Nitrogen 12 mg/dL (7-17); Calcium 7.7 mg/dL (8.4-10.2); Carbon Dioxide 28 mmol/L (22-30); Chloride 96 mmol/L (98-107); Estimated CRCL calculation 122 ml/min; Estimated Glomerular Filt Rate > 60; Glucose 108 mg/dL (65-110); Potassium 3.1 mmol/L (3.4-5.0); Sodium 128 mmol/L (137-145)
[2022-11-29] MEDS: MIDODRINE HCL 10 MG TABLET PO (19:48)
[2022-11-30] VITALS (19 sets, daily range): BP systolic 86–140; BP diastolic 42–92; PULSE 108–115; RESP 16–22; TEMP 36.3–37.3; O2SAT 95–100; BMI 46.7
[2022-11-30] MEDS: metroNIDAZOLE 500 MG/ISO 100ML 500 MG/100 ML BAG 100 MG IVPB ×3 (04:36→20:54)
[2022-11-30] MEDS: CEFEPIME 2 GM/NS 50 ML 2 GM/50 ML BAG IVPB ×2 (05:29→15:26)
[2022-11-30 08:08] LABS: Basophils Absolute Auto 0.1 K/mm3 (0.0-0.1); Basophils Percent Auto 0.4 % (0.2-1.2); Eosinophils Absolute Auto 1.1 K/mm3 (0-0.3); Eosinophils Percent Auto 7.8 % (0-4.4); Hematocrit 34.3 % (37.0-47.0); Hemoglobin 11.4 g/dL (12.0-15.0); Immature Granulocyte Absolute 0.13 K/mm3 (0.00-0.031); Immature Granulocyte Percent A 0.9 % (0-0.5); Lymphocytes Absolute Auto 3.68 K/mm3 (0.9-3.2); Lymphocytes Percent Auto 25.2 % (18.3-44.2); Mean Corpuscular HGB Conc 33.2 g/dl (32-36); Mean Corpuscular Hemoglobin 29.5 pg (26-34); Mean Corpuscular Volume 88.6 fl (80-100); Mean Platelet Volume 8.3 fl (7.4-10.4); Monocytes Absolute Auto 1.6 K/mm3 (0.1-0.6); Monocytes Percent Auto 11.1 % (2.6-8.5); Neutrophils Percent Auto 54.6 % (45.5-73.1); Platelet Count Result 353 k/mm3 (150-375); Red Blood Count 3.87 M/mm3 (4.2-5.4); Red Cell Distribution Width 18.2 % (11.5-14.5); White Blood Count 14.6 K/mm3 (4.5-10.0)
[2022-11-30 08:19] LABS: Alanine Aminotransferase 16 U/L (6-35); Albumin Level 2.4 g/dL (3.5-5.1); Alkaline Phosphatase 134 U/L (38-126); Anion Gap 2 mmol/L (8-16); Aspartate Amino Transferase 20 U/L (14-36); Bilirubin,Total 0.9 mg/dL (0.2-1.3); Blood Urea Nitrogen 11 mg/dL (7-17); Calcium 7.8 mg/dL (8.4-10.2); Carbon Dioxide 29 mmol/L (22-30); Chloride 99 mmol/L (98-107); Estimated CRCL calculation 148 ml/min; Estimated Glomerular Filt Rate > 60; Glucose 81 mg/dL (65-110); Sodium 130 mmol/L (137-145)
--- NOTE | 2022-11-30 08:31 | PM.IMPN ---
Progress Note: A&P Assessment and Plan (1) Cellulitis of face: Code(s): L03.211 - Cellulitis of face Status: Acute Assessment and Plan: Vancomycin, cefepime and Flagyl initiated 11/28 ENT consult placed in pending for parotoditis Leuk trending down, swelling improving 1/2 blood cultures positive for GPC Repeat blood cultures ordered 11/30 and pending (2) Sepsis: Code(s): A41.9 - Sepsis, unspecified organism Status: Acute Assessment and Plan: See above (3) Acute alteration in mental status: Code(s): R41.82 - Altered mental status, unspecified Status: Acute Assessment and Plan: As above (4) Chronic respiratory failure with hypoxia, on home oxygen therapy: Code(s): J96.11 - Chronic respiratory failure with hypoxia; Z99.81 - Dependence on supplemental oxygen Status: Acute Assessment and Plan: As needed (5) Obstructive sleep apnea on CPAP: Code(s): G47.33 - Obstructive sleep apnea (adult) (pediatric) Status: Acute Assessment and Plan: CPAP at night (6) Morbid obesity with BMI of 45.0-49.9, adult: Code(s): E66.01 - Morbid (severe) obesity due to excess calories; Z68.42 - Body mass index [BMI] 45.0-49.9, adult Status: Acute (7) Atrial fibrillation: Code(s): I48.91 - Unspecified atrial fibrillation Status: Acute Assessment and Plan: Rate controlled, anticoagulated, status post ablation Plan DVT prophylaxis with eliquis GI prophylaxis not indicated Code status no CPR, DNI Subjective Date/time seen: 11/30/22 08:31 Interval history: 72-year-old female presenting with facial cellulitis and sepsis. Yesterday and overnight patient had hypotensive episodes that responded to fluid boluses and midodrine. She had intermittent somnolence and periods of alertness. No fevers. Much less swollen today. Review of Systems Review of Systems: ROS unobtainable: Yes unobtainable due to mental status Exam Narrative: General: Somnolent HEENT: Erythematous and swollen over right cheek, normocephalic, mucous membranes moist CV: Regular rate and rhythm, S1, S2 Lungs: Coarse BS throughout, diminished at bases with scattered crackles Abdomen: Soft, nontender, nondistended Extremities: Significant trace pitting edema B/L LE, right > left Skin: No rashes noted, no lesions or wounds seen Psych: Unable to assess Objective Data Vital Signs Vital Signs: Vital Signs - 24 hr 11/29/22 08:34 11/29/22 09:30 11/29/22 10:00 Temperature Pulse Rate 110 H 112 H Respiratory Rate Blood Pressure Pulse Oximetry 99 Oxygen Delivery Room Air Oxygen Flow Rate 11/29/22 11:34 11/29/22 12:00 11/29/22 16:00 Temperature 98.2 F 97.6 F Pulse Rate 113 H 111 H 112 H Respiratory Rate 14 12 Blood Pressure 90/54 L 66/41 L Pulse Oximetry 99 97 Oxygen Delivery Oxygen Flow Rate 11/29/22 16:50 11/29/22 12:00 11/29/22 16:00 Temperature Pulse Rate Respiratory Rate Blood Pressure 76/41 L Pulse Oximetry Oxygen Delivery Room Air Room Air Oxygen Flow Rate 11/29/22 16:50 11/29/22 18:40 11/29/22 18:40 Temperature Pulse Rate Respiratory Rate Blood Pressure 69/47 L 75/49 L 79/49 L Pulse Oximetry Oxygen Delivery Oxygen Flow Rate 11/29/22 14:00 11/29/22 16:00 11/29/22 18:00 Temperature Pulse Rate 111 H 112 H 110 H Respiratory Rate Blood Pressure Pulse Oximetry Oxygen Delivery Oxygen Flow Rate 11/29/22 20:21 11/29/22 20:09 11/29/22 20:54 Temperature Pulse Rate 105 H 111 H Respiratory Rate 15 Blood Pressure Pulse Oximetry 93 100 Oxygen Delivery Room Air CPAP Oxygen Flow Rate 11/29/22 20:00 11/29/22 20:00 11/29/22 23:35 Temperature 97.6 F 97.6 F Pulse Rate 110 H 110 H 113 H Respiratory Rate 18 18 22 H Blood Pressure 88/53 L 89/55 L Pulse Oximetry 100 100 100
[2022-11-30 09:00] LABS: Vancomycin Trough 22.7 ug/mL (10.0-20.0)
[2022-11-30] MEDS: POTASSIUM CHLORIDE INJ 40 MEQ in SODIUM CHLORIDE 0.9% IV 500 ML 125.18 MEQ IVPB ×2 (09:45→14:03)
[2022-11-30] MEDS: polyethylene glycoL 3350 17 GM POWD.PACK PO (09:45)
[2022-11-30] MEDS: APIXABAN 5 MG TABLET PO ×2 (09:46→21:03)
[2022-11-30] MEDS: METOPROLOL SUCCINATE EXT REL 50 MG TABCR PO ×2 (09:46→21:02)
[2022-11-30] MEDS: ATORVASTATIN 40 MG TABLET PO (09:46)
[2022-11-30] MEDS: CLOPIDOGREL BISULFATE 75 MG TABLET PO (09:46)
[2022-11-30] MEDS: HYDROCORTISONE 1% 30 GM CREAM 1 APPLIC TOPICAL (09:46)
[2022-11-30] MEDS: MICONAZOLE NITRATE 2% CREAM 30 GM TUBE 1 APPLIC TOPICAL ×2 (09:46→16:10)
[2022-11-30] MEDS: MIDODRINE HCL 2.5 MG TABLET 5 MG PO ×3 (09:47→16:10)
[2022-11-30] MEDS: CYCLOBENZAPRINE HCL 10 MG TABLET PO ×3 (09:47→16:10)
[2022-11-30] MEDS: FAMOTIDINE 20 MG TABLET PO ×2 (09:47→16:10)
--- NOTE | 2022-11-30 11:47 | PCSTNOTE ---
Please refer to the Modified Barium Swallow Evaluation in the EMR.
--- NOTE | 2022-11-30 18:00 | WPDCN ---
Assessment and Plan Assessment and plan (1) Parotitis: Code(s): K11.20 - Sialoadenitis, unspecified Status: Acute Assessment and Plan: anti MRSA antibiotics, milk the gland forcefully one to two times per hour while awake, daily cbc, increased hydration, sour/citrus foods to increase salivation HPI Data of Consult Date/Time: 11/30/22 18:00 Requesting Physician: Ori Flores MD Primary Care Provider: Remy Chappell MD Consult Narrative Reason for consult: Parotitis Narrative: Lauren Lambert is a 72 year old female with right sided parotitis, no abscess seen on imaging Review of Systems Review of Systems: All systems reviewed & are unremarkable except as noted in HPI and below PMFSH Past Medical History Medical History (Updated 11/30/22 @ 18:01 by Constantine Dash MD) Arthritis Atrial fibrillation Status post cardiac ablation. Chronic respiratory failure with hypoxia, on home oxygen therapy Coronary artery disease Deep venous thrombosis Diastolic congestive heart failure Hyperlipidemia Hypertension Myocardial infarction Patient reports history of GA, no stents Obstructive sleep apnea on CPAP Surgical History Surgical History History of cardiac radiofrequency ablation History of tonsillectomy Family History Family History Father Malignant neoplasm of prostate Acute myocardial infarction Mother Uterine cancer Acute myocardial infarction Sibling Uterine cancer Social History Social History Social History: Patient reports she has a master's degree in psychiatric nursing. Code status: Modified code, medications only. No CPR intubation. Okay with noninvasive ventilation. Smoking status: Never smoker Second hand tobacco smoke exposure: No Alcohol intake: never Substance use: never Substance use type: does not use Lack of Transportation: No Lack of Food: Never True Current Housing: I Have Housing Concerned About Future Housing: No Difficulty Paying Gas/Electric Bills: No Difficulty Paying for Meds: No Currently Unemployed: No Education: Master's Degree or Higher Difficulty w/ Childcare or Family Care: No Additional living arrangements comments: [facility]. No children. 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 Spiritual care concerns: No Meds Home Medications and Allergies Home Medications Medication Instructions Recorded Confirmed Type acetaminophen 650 mg tablet 650 mg PO Q6H PRN Pain 10/27/22 11/29/22 History apixaban 5 mg tablet (Eliquis) 5 mg PO BID 10/27/22 11/29/22 History atorvastatin 40 mg tablet 40 mg PO DAILY 10/27/22 11/29/22 History bisacodyl 5 mg tablet,delayed 5 mg PO HS PRN Constipation 10/27/22 11/29/22 History release clopidogrel 75 mg tablet 75 mg PO DAILY 10/27/22 11/29/22 History cyclobenzaprine 10 mg tablet 10 mg PO TID 10/27/22 11/29/22 History famotidine 20 mg tablet 20 mg PO BID 10/27/22 11/29/22 History furosemide 40 mg tablet 40 mg PO DAILY 10/27/22 11/29/22 History miconazole nitrate 2 % topical 1 applic topical BID 10/27/22 11/29/22 History cream polyethylene glycol 3350 17 gram 17 g PO QAM #14 ea 11/06/22 11/29/22 Rx oral powder packet (Miralax) losartan 25 mg tablet 25 mg PO DAILY 11/08/22 11/29/22 History nitroglycerin 0.4 mg sublingual 0.4 mg sublingual Q5MIN PRN Chest 11/08/22 11/29/22 History tablet Pain prochlorperazine maleate 5 mg 5 mg PO Q6H PRN Nausea 11/08/22 11/29/22 History tablet diltiazem HCl 180 mg 180 mg PO QAM 1 month #30 caps 11/17/22 11/29/22 Rx capsule,extended release 24 hr, controlled metoprolol succinate 50 mg 50 mg PO Q12H 1 month #60 tabs 11/17/22 11/29/22 Rx tablet,extended release 24 hr Allergies Allergy/AdvRea
[2022-11-30] MEDS: ACETAMINOPHEN 325 MG TABLET 650 MG BY MOUTH (21:00)
[2022-12-01] VITALS (16 sets, daily range): BP systolic 88–147; BP diastolic 52–119; PULSE 107–112; RESP 18–22; TEMP 36.2–37.2; O2SAT 10–100
[2022-12-01] MEDS: CEFEPIME 2 GM/NS 50 ML 2 GM/50 ML BAG IVPB ×4 (01:21→21:24)
[2022-12-01] MEDS: HYDROCORTISONE 1% 30 GM CREAM 1 APPLIC TOPICAL ×3 (01:26→21:24)
[2022-12-01 04:44] LABS: Basophils Absolute Auto 0.1 K/mm3 (0.0-0.1); Basophils Percent Auto 0.8 % (0.2-1.2); Eosinophils Absolute Auto 1.2 K/mm3 (0-0.3); Eosinophils Percent Auto 12.6 % (0-4.4); Hematocrit 35.2 % (37.0-47.0); Hemoglobin 11.7 g/dL (12.0-15.0); Immature Granulocyte Absolute 0.09 K/mm3 (0.00-0.031); Lymphocytes Absolute Auto 2.66 K/mm3 (0.9-3.2); Lymphocytes Percent Auto 28.5 % (18.3-44.2); Mean Corpuscular HGB Conc 33.2 g/dl (32-36); Mean Corpuscular Hemoglobin 29.1 pg (26-34); Mean Corpuscular Volume 87.6 fl (80-100); Monocytes Absolute Auto 1.1 K/mm3 (0.1-0.6); Monocytes Percent Auto 11.8 % (2.6-8.5); Neutrophils Absolute Auto 4.2 K/mm3 (1.3-6.7); Neutrophils Percent Auto 45.3 % (45.5-73.1); Platelet Count Result 362 k/mm3 (150-375); Red Blood Count 4.02 M/mm3 (4.2-5.4); Red Cell Distribution Width 17.9 % (11.5-14.5); White Blood Count 9.3 K/mm3 (4.5-10.0)
[2022-12-01 04:56] LABS: Alanine Aminotransferase 14 U/L (6-35); Albumin Level 2.1 g/dL (3.5-5.1); Alkaline Phosphatase 117 U/L (38-126); Anion Gap -2 mmol/L (8-16); Aspartate Amino Transferase 19 U/L (14-36); Bilirubin,Total 0.7 mg/dL (0.2-1.3); Blood Urea Nitrogen 8 mg/dL (7-17); Calcium 7.9 mg/dL (8.4-10.2); Carbon Dioxide 28 mmol/L (22-30); Chloride 104 mmol/L (98-107); Estimated CRCL calculation 148 ml/min; Estimated Glomerular Filt Rate > 60; Glucose 84 mg/dL (65-110); Potassium 3.4 mmol/L (3.4-5.0); Sodium 130 mmol/L (137-145)
[2022-12-01] MEDS: metroNIDAZOLE 500 MG/ISO 100ML 500 MG/100 ML BAG 100 MG IVPB ×2 (05:14→12:36)
[2022-12-01] MEDS: METOPROLOL SUCCINATE EXT REL 50 MG TABCR PO (08:26)
[2022-12-01] MEDS: polyethylene glycoL 3350 17 GM POWD.PACK PO (08:26)
[2022-12-01] MEDS: MIDODRINE HCL 2.5 MG TABLET 5 MG PO ×3 (08:26→16:00)
[2022-12-01] MEDS: ATORVASTATIN 40 MG TABLET PO (08:26)
[2022-12-01] MEDS: APIXABAN 5 MG TABLET PO ×2 (08:26→21:24)
[2022-12-01] MEDS: FAMOTIDINE 20 MG TABLET PO ×2 (08:27→16:00)
[2022-12-01] MEDS: CLOPIDOGREL BISULFATE 75 MG TABLET PO (08:27)
[2022-12-01] MEDS: CYCLOBENZAPRINE HCL 10 MG TABLET PO ×3 (08:27→16:00)
--- NOTE | 2022-12-01 08:34 | PM.IMPN ---
Progress Note: A&P Assessment and Plan (1) Cellulitis of face: Code(s): L03.211 - Cellulitis of face Status: Acute Assessment and Plan: 11/28: Vancomycin, cefepime and flagyl started, ENT consult placed and pending for parotiditis Leuk trending down, swelling improving 1/2 blood cultures positive for MRSA Repeat blood cultures ordered 11/30 and pending, NGTD (2) Sepsis: Code(s): A41.9 - Sepsis, unspecified organism Status: Acute Assessment and Plan: See above (3) Acute alteration in mental status: Code(s): R41.82 - Altered mental status, unspecified Status: Acute Assessment and Plan: As above (4) Chronic respiratory failure with hypoxia, on home oxygen therapy: Code(s): J96.11 - Chronic respiratory failure with hypoxia; Z99.81 - Dependence on supplemental oxygen Status: Acute Assessment and Plan: As needed (5) Obstructive sleep apnea on CPAP: Code(s): G47.33 - Obstructive sleep apnea (adult) (pediatric) Status: Acute Assessment and Plan: CPAP at night (6) Morbid obesity with BMI of 45.0-49.9, adult: Code(s): E66.01 - Morbid (severe) obesity due to excess calories; Z68.42 - Body mass index [BMI] 45.0-49.9, adult Status: Acute (7) Atrial fibrillation: Code(s): I48.91 - Unspecified atrial fibrillation Status: Acute Assessment and Plan: Rate controlled, anticoagulated, status post ablation Plan DVT prophylaxis with eliquis GI prophylaxis not indicated Code status no CPR, DNI Subjective Date/time seen: 12/01/22 08:34 Interval history: 72-year-old female presenting with facial cellulitis and sepsis. No overnight events. Doing better today, less swollen, better blood pressure. ENT came in and drained purulence from infection, improved redness and swelling. Review of Systems Review of Systems: 12 point review of systems was assessed and was negative except as noted in the HPI Exam Narrative: General: Somnolent HEENT: Erythematous and swollen over right cheek, normocephalic, mucous membranes moist CV: Regular rate and rhythm, S1, S2 Lungs: Coarse BS throughout, diminished at bases with scattered crackles Abdomen: Soft, nontender, nondistended Extremities: Significant trace pitting edema B/L LE, right > left Skin: No rashes noted, no lesions or wounds seen Psych: Unable to assess Objective Data Vital Signs Vital Signs: Vital Signs - 24 hr 11/30/22 09:46 11/30/22 12:00 11/30/22 12:00 Temperature 99 F Pulse Rate 110 H 110 H Respiratory Rate 16 Blood Pressure 103/44 L Pulse Oximetry 100 Oxygen Delivery Room Air Oxygen Flow Rate 11/30/22 16:00 11/30/22 10:00 11/30/22 12:00 Temperature 98.4 F Pulse Rate 108 H 112 H 111 H Respiratory Rate 16 Blood Pressure 140/92 H Pulse Oximetry 99 Oxygen Delivery Oxygen Flow Rate 11/30/22 14:00 11/30/22 16:00 11/30/22 18:00 Temperature Pulse Rate 109 H 108 H 108 H Respiratory Rate Blood Pressure Pulse Oximetry Oxygen Delivery Oxygen Flow Rate 11/30/22 16:00 11/30/22 20:00 11/30/22 21:02 Temperature 97.3 F L Pulse Rate 111 H 112 H Respiratory Rate 22 H Blood Pressure 90/61 L Pulse Oximetry 95 Oxygen Delivery Room Air Oxygen Flow Rate 11/30/22 20:00 11/30/22 23:56 12/01/22 00:00 Temperature 97.3 F L Pulse Rate 112 H 109 H 109 H Respiratory Rate 22 H 22 H 22 H Blood Pressure 92/53 L Pulse Oximetry 95 98 98 Oxygen Delivery Room Air CPAP Oxygen Flow Rate 2 11/30/22 20:00 11/30/22 22:00 12/01/22 00:00 Temperature Pulse Rate 113 H 110 H 110 H Respiratory Rate Blood Pressure Pulse Oximetry Oxygen Delivery Oxygen Flow Rate 12/01/22 02:00 12/01/22 03:45 12/01/22 04:00 Temperature 97.1 F L Pulse Rate 107 H 107 H 107 H Respiratory Rate 22 H 20 Blood Pressure 100/52 L P
[2022-12-01] MEDS: MICONAZOLE NITRATE 2% CREAM 30 GM TUBE 1 APPLIC TOPICAL ×2 (09:30→16:00)
[2022-12-02] VITALS (19 sets, daily range): BP systolic 103–113; BP diastolic 56–91; PULSE 91–117; RESP 17–22; TEMP 36.2–36.7; O2SAT 95–98
[2022-12-02 04:08] LABS: Basophils Absolute Auto 0.1 K/mm3 (0.0-0.1); Basophils Percent Auto 0.6 % (0.2-1.2); Eosinophils Absolute Auto 1.2 K/mm3 (0-0.3); Eosinophils Percent Auto 8.1 % (0-4.4); Hematocrit 35.8 % (37.0-47.0); Hemoglobin 11.8 g/dL (12.0-15.0); Immature Granulocyte Absolute 0.18 K/mm3 (0.00-0.031); Immature Granulocyte Percent A 1.3 % (0-0.5); Lymphocytes Absolute Auto 3.04 K/mm3 (0.9-3.2); Lymphocytes Percent Auto 21.5 % (18.3-44.2); Mean Corpuscular Hemoglobin 29.2 pg (26-34); Mean Corpuscular Volume 88.6 fl (80-100); Mean Platelet Volume 8.2 fl (7.4-10.4); Monocytes Absolute Auto 1.8 K/mm3 (0.1-0.6); Neutrophils Absolute Auto 7.8 K/mm3 (1.3-6.7); Neutrophils Percent Auto 55.5 % (45.5-73.1); Platelet Count Result 413 k/mm3 (150-375); Red Blood Count 4.04 M/mm3 (4.2-5.4); White Blood Count 14.1 K/mm3 (4.5-10.0)
[2022-12-02] MEDS: CEFEPIME 2 GM/NS 50 ML 2 GM/50 ML BAG IVPB ×3 (05:27→21:09)
[2022-12-02 07:46] LABS: Alanine Aminotransferase 17 U/L (6-35); Albumin Level 2.5 g/dL (3.5-5.1); Alkaline Phosphatase 135 U/L (38-126); Anion Gap 6 mmol/L (8-16); Aspartate Amino Transferase 22 U/L (14-36); Bilirubin,Total 0.7 mg/dL (0.2-1.3); Blood Urea Nitrogen 8 mg/dL (7-17); Calcium 8.4 mg/dL (8.4-10.2); Carbon Dioxide 24 mmol/L (22-30); Chloride 102 mmol/L (98-107); Estimated CRCL calculation 148 ml/min; Estimated Glomerular Filt Rate > 60; Glucose 106 mg/dL (65-110); Potassium 3.3 mmol/L (3.4-5.0); Sodium 132 mmol/L (137-145)
[2022-12-02] MEDS: HYDROCORTISONE 1% 30 GM CREAM 1 APPLIC TOPICAL ×2 (08:16→20:56)
[2022-12-02] MEDS: MIDODRINE HCL 2.5 MG TABLET 5 MG PO ×2 (08:17→13:00)
[2022-12-02] MEDS: APIXABAN 5 MG TABLET PO ×2 (08:17→20:56)
[2022-12-02] MEDS: CYCLOBENZAPRINE HCL 10 MG TABLET PO ×2 (08:17→12:59)
[2022-12-02] MEDS: CLOPIDOGREL BISULFATE 75 MG TABLET PO (08:17)
[2022-12-02] MEDS: FAMOTIDINE 20 MG TABLET PO (08:17)
[2022-12-02] MEDS: MICONAZOLE NITRATE 2% CREAM 30 GM TUBE 1 APPLIC TOPICAL ×2 (08:17→16:55)
[2022-12-02] MEDS: ATORVASTATIN 40 MG TABLET PO (08:17)
[2022-12-02] MEDS: METOPROLOL SUCCINATE EXT REL 50 MG TABCR PO ×2 (08:17→20:55)
--- NOTE | 2022-12-02 08:25 | PM.IMPN ---
Progress Note: A&P Assessment and Plan (1) Cellulitis of face: Code(s): L03.211 - Cellulitis of face Status: Acute Assessment and Plan: 11/28: Vancomycin, cefepime and flagyl started, ENT consult placed and pending for parotiditis Leuk trending down, swelling improving 1/2 blood cultures positive for MRSA Repeat blood cultures ordered 11/30 and pending, NGTD (2) Sepsis: Code(s): A41.9 - Sepsis, unspecified organism Status: Acute Assessment and Plan: See above (3) Acute alteration in mental status: Code(s): R41.82 - Altered mental status, unspecified Status: Acute Assessment and Plan: As above (4) Chronic respiratory failure with hypoxia, on home oxygen therapy: Code(s): J96.11 - Chronic respiratory failure with hypoxia; Z99.81 - Dependence on supplemental oxygen Status: Acute Assessment and Plan: As needed (5) Obstructive sleep apnea on CPAP: Code(s): G47.33 - Obstructive sleep apnea (adult) (pediatric) Status: Acute Assessment and Plan: CPAP at night (6) Morbid obesity with BMI of 45.0-49.9, adult: Code(s): E66.01 - Morbid (severe) obesity due to excess calories; Z68.42 - Body mass index [BMI] 45.0-49.9, adult Status: Acute (7) Atrial fibrillation: Code(s): I48.91 - Unspecified atrial fibrillation Status: Acute Assessment and Plan: Rate controlled, anticoagulated, status post ablation (8) UTI (urinary tract infection): Code(s): N39.0 - Urinary tract infection, site not specified Status: Acute Assessment and Plan: Urine culture positive for ecoli UTI, cont cefepime Plan DVT prophylaxis with eliquis GI prophylaxis not indicated Code status no CPR, DNI Subjective Date/time seen: 12/02/22 08:25 Interval history: 72-year-old female presenting with facial cellulitis and sepsis. No events, improving. Less redness, pain and swelling. No complaints. States she does feel wiped out. Review of Systems Review of Systems: 12 point review of systems was assessed and was negative except as noted in the HPI Exam Narrative: General: Awake and alert, still not oriented completely per baseline HEENT: Erythematous and swollen over right cheek, normocephalic, mucous membranes moist CV: Regular rate and rhythm, S1, S2 Lungs: Coarse BS throughout, diminished at bases with scattered crackles Abdomen: Soft, nontender, nondistended Extremities: Minimal edema B/L LE, erythema improved Skin: No rashes noted, no lesions or wounds seen Psych: Unable to assess Objective Data Vital Signs Vital Signs: Vital Signs - 24 hr 12/01/22 08:26 12/01/22 09:30 12/01/22 10:00 Temperature Pulse Rate 107 H 110 H Respiratory Rate Blood Pressure Pulse Oximetry 98 Oxygen Delivery Room Air 12/01/22 12:00 12/01/22 12:00 12/01/22 14:00 Temperature 98.2 F Pulse Rate 110 H 111 H 109 H Respiratory Rate 19 Blood Pressure 146/119 H Pulse Oximetry 95 Oxygen Delivery 12/01/22 16:00 12/01/22 12:00 12/01/22 16:00 Temperature Pulse Rate 112 H Respiratory Rate Blood Pressure Pulse Oximetry Oxygen Delivery Room Air Room Air 12/01/22 16:00 12/01/22 17:58 12/01/22 20:00 Temperature 98.9 F 97.2 F L Pulse Rate 110 H 110 H 111 H Respiratory Rate 18 20 Blood Pressure 128/61 88/64 L Pulse Oximetry 96 97 Oxygen Delivery 12/01/22 20:00 12/01/22 20:00 12/01/22 22:00 Temperature Pulse Rate 112 H 112 H Respiratory Rate Blood Pressure Pulse Oximetry Oxygen Delivery Room Air 12/02/22 00:00 12/02/22 00:00 12/02/22 02:00 Temperature 97.9 F Pulse Rate 109 H 115 H 112 H Respiratory Rate 20 Blood Pressure 103/56 L Pulse Oximetry 96 Oxygen Delivery 12/02/22 00:00 12/01/22 20:45 12/02/22 02:35 Temperature Pulse Rate 112 H Respiratory Rate Blood P
[2022-12-02] MEDS: ACETAMINOPHEN 325 MG TABLET 650 MG BY MOUTH ×2 (08:46→21:00)
[2022-12-02] MEDS: metroNIDAZOLE 500 MG/ISO 100ML 500 MG/100 ML BAG 100 MG IVPB ×3 (08:47→21:10)
[2022-12-02 13:16] LABS: Basophils Absolute Auto 0.1 K/mm3 (0.0-0.1); Basophils Percent Auto 0.7 % (0.2-1.2); Eosinophils Absolute Auto 0.9 K/mm3 (0-0.3); Eosinophils Percent Auto 7.9 % (0-4.4); Hematocrit 35.2 % (37.0-47.0); Hemoglobin 11.4 g/dL (12.0-15.0); Immature Granulocyte Absolute 0.13 K/mm3 (0.00-0.031); Immature Granulocyte Percent A 1.1 % (0-0.5); Lymphocytes Absolute Auto 3.21 K/mm3 (0.9-3.2); Lymphocytes Percent Auto 27.7 % (18.3-44.2); Mean Corpuscular HGB Conc 32.4 g/dl (32-36); Mean Corpuscular Hemoglobin 28.8 pg (26-34); Mean Corpuscular Volume 88.9 fl (80-100); Mean Platelet Volume 8.2 fl (7.4-10.4); Monocytes Absolute Auto 1.8 K/mm3 (0.1-0.6); Monocytes Percent Auto 15.1 % (2.6-8.5); Neutrophils Absolute Auto 5.5 K/mm3 (1.3-6.7); Neutrophils Percent Auto 47.5 % (45.5-73.1); Platelet Count Result 384 k/mm3 (150-375); Red Blood Count 3.96 M/mm3 (4.2-5.4); Red Cell Distribution Width 17.8 % (11.5-14.5); White Blood Count 11.6 K/mm3 (4.5-10.0)
[2022-12-02 20:42] LABS: Vancomycin Trough 22.5 ug/mL (10.0-20.0)
[2022-12-03] VITALS (19 sets, daily range): BP systolic 95–129; BP diastolic 49–89; PULSE 99–118; RESP 16–22; TEMP 36.1–36.8; O2SAT 93–100
--- NOTE | 2022-12-03 | ECHOL_ITS ---
Patient Info Name: Lauren Lambert Age: 72 years : 1950 Gender: Female Ht: 66 in Wt: 290 lbs BSA: 2.55 m2 HR: 99 bpm BP: 129 / 59 mmHg Heart Rhythm: Sinus Rhythm Technical Quality: Poor Exam Date: 12/03/2022 12:06 PM Exam Location: [facility] Card Pulmonary Patient Status: Inpatient Admit Date: 11/28/2022 Staff Ordering Physician: Héctor Waters MD Car Dumper Operator: Magdy Rogers RDCS Attending Provider: Héctor Waters MD Referring Physician: Jt NICK; Exam Type: CA echo limited Study Info Indications - MRSA BACTEREMIA-CHECK VALVE R/O VEGEITATION Limited two-dimensional transthoracic echocardiogram is performed. Reason for Poor Study: poor patient cooperation Summary 1. Technically difficult limited echocardiogram performed to assess for infectious vegetation. 2. Aortic and mitral valve were reasonably well seen and there was no apparent vegetation. 3. Right-sided valves were not well visualized. 4. No Doppler was requested. Left Ventricle Left ventricular chamber dimension is normal. Left ventricular systolic function is normal, estimated at 60-65%. Right Ventricle Right ventricular chamber dimension is normal. Left Atria Left atrial chamber dimension is normal. Right Atria Right atrial chamber dimension is normal. Aortic Valve The aortic valve is trileaflet. There is mild aortic valve sclerosis. Pulmonic Valve The pulmonic valve is not well visualized. Mitral Valve The mitral valve has normal leaflets. Tricuspid Valve The tricuspid valve leaflets are not well visualized. Pericardium/Pleural The pericardium appears normal. Aorta The aortic root size at the sinus of Valsalva is normal. Ventricles Name Value Normal LV Dimensions 2D/MM IVS Diastolic Thickness (2D) 1.0 cm 0.6-1.0 LVID Diastole (2D) 3.2 cm 3.8-5.2 LVIW Diastolic Thickness (2D) 1.0 cm 0.6-0.9 LVID Systole (2D) 2.6 cm 2.2-3.5 LV Mass (2D Cubed) 91.95 g 67.00-162.00 LV Mass Index (2D Cubed) 36 g/m2 43-95 Relative Wall Thickness (2D) 0.59 LV Fractional Shortening/Ejection Fraction 2D/MM LV Fractional Shortening (2D) 21 % 27-45 LV EF (2D Teicholz) 44 % 54-74 LV Diastolic Volume (4C MOD) 94 ml LV EF (4C MOD) 59 % LV Diastolic Length (4C) 8.2 cm LV Systolic Length (4C) 6.8 cm LV Stroke Volume (4C MOD) 56 ml Report Signatures
[2022-12-03 04:55] LABS: Basophils Absolute Auto 0.1 K/mm3 (0.0-0.1); Basophils Percent Auto 0.7 % (0.2-1.2); Eosinophils Absolute Auto 0.8 K/mm3 (0-0.3); Eosinophils Percent Auto 7.8 % (0-4.4); Hematocrit 35.2 % (37.0-47.0); Hemoglobin 11.4 g/dL (12.0-15.0); Immature Granulocyte Absolute 0.22 K/mm3 (0.00-0.031); Lymphocytes Absolute Auto 3.44 K/mm3 (0.9-3.2); Mean Corpuscular HGB Conc 32.4 g/dl (32-36); Mean Corpuscular Hemoglobin 28.9 pg (26-34); Mean Corpuscular Volume 89.3 fl (80-100); Mean Platelet Volume 8.4 fl (7.4-10.4); Monocytes Absolute Auto 1.5 K/mm3 (0.1-0.6); Monocytes Percent Auto 14.3 % (2.6-8.5); Neutrophils Absolute Auto 4.6 K/mm3 (1.3-6.7); Neutrophils Percent Auto 43.2 % (45.5-73.1); Platelet Count Result 400 k/mm3 (150-375); Red Blood Count 3.94 M/mm3 (4.2-5.4); Red Cell Distribution Width 17.9 % (11.5-14.5); White Blood Count 10.7 K/mm3 (4.5-10.0)
[2022-12-03 05:07] LABS: Alanine Aminotransferase 14 U/L (6-35); Albumin Level 2.4 g/dL (3.5-5.1); Alkaline Phosphatase 118 U/L (38-126); Anion Gap 2 mmol/L (8-16); Aspartate Amino Transferase 23 U/L (14-36); Bilirubin,Total 0.8 mg/dL (0.2-1.3); Blood Urea Nitrogen 8 mg/dL (7-17); Calcium 8.5 mg/dL (8.4-10.2); Carbon Dioxide 28 mmol/L (22-30); Chloride 103 mmol/L (98-107); Estimated CRCL calculation 189 ml/min; Estimated Glomerular Filt Rate > 60; Glucose 78 mg/dL (65-110); Potassium 3.6 mmol/L (3.4-5.0); Sodium 133 mmol/L (137-145)
[2022-12-03] MEDS: metroNIDAZOLE 500 MG/ISO 100ML 500 MG/100 ML BAG 100 MG IVPB (06:01)
[2022-12-03] MEDS: CEFEPIME 2 GM/NS 50 ML 2 GM/50 ML BAG IVPB (06:02)
[2022-12-03] MEDS: HYDROCORTISONE 1% 30 GM CREAM 1 APPLIC TOPICAL ×2 (10:16→23:20)
[2022-12-03] MEDS: APIXABAN 5 MG TABLET PO ×2 (10:16→21:33)
[2022-12-03] MEDS: MICONAZOLE NITRATE 2% CREAM 30 GM TUBE 1 APPLIC TOPICAL ×2 (10:16→17:19)
[2022-12-03] MEDS: FAMOTIDINE 20 MG TABLET PO ×2 (10:16→17:19)
[2022-12-03] MEDS: MIDODRINE HCL 2.5 MG TABLET 5 MG PO ×3 (10:17→17:19)
[2022-12-03] MEDS: METOPROLOL SUCCINATE EXT REL 50 MG TABCR PO ×2 (10:17→21:32)
[2022-12-03] MEDS: CLOPIDOGREL BISULFATE 75 MG TABLET PO (10:17)
[2022-12-03] MEDS: ATORVASTATIN 40 MG TABLET PO (10:17)
[2022-12-03] MEDS: CYCLOBENZAPRINE HCL 10 MG TABLET PO ×3 (10:17→17:18)
[2022-12-03] MEDS: polyethylene glycoL 3350 17 GM POWD.PACK PO (10:22)
[2022-12-03] MEDS: FUROSEMIDE 40 MG TABLET PO (10:22)
--- NOTE | 2022-12-03 10:23 | PCSTNOTE ---
Therapist spoke with nurse who reports no difficulty swallowing. Stated patient did consume only a small amount of breakfast and began heaving .
--- NOTE | 2022-12-03 11:19 | PM.IMPN ---
Progress Note: A&P Assessment and Plan (1) Cellulitis of face: Code(s): L03.211 - Cellulitis of face Status: Acute Assessment and Plan: 11/28: Vancomycin, cefepime and flagyl started, ENT consulted for parotitis Leuk trending down, swelling improving 1/2 blood cultures positive for MRSA Repeat blood cultures ordered 11/30 and pending, NGTD Given MRSA bacteremia will get an echocardiogram to rule out cardiac vegetations (2) Sepsis: Code(s): A41.9 - Sepsis, unspecified organism Status: Acute Assessment and Plan: See above (3) Acute alteration in mental status: Code(s): R41.82 - Altered mental status, unspecified Status: Acute Assessment and Plan: Likely from sepsis (4) Chronic respiratory failure with hypoxia, on home oxygen therapy: Code(s): J96.11 - Chronic respiratory failure with hypoxia; Z99.81 - Dependence on supplemental oxygen Status: Acute Assessment and Plan: As needed (5) Obstructive sleep apnea on CPAP: Code(s): G47.33 - Obstructive sleep apnea (adult) (pediatric) Status: Acute Assessment and Plan: CPAP at night (6) Atrial fibrillation: Code(s): I48.91 - Unspecified atrial fibrillation Status: Acute Assessment and Plan: Rate controlled, anticoagulated, status post ablation (7) UTI (urinary tract infection): Code(s): N39.0 - Urinary tract infection, site not specified Status: Acute Assessment and Plan: Urine culture positive for ecoli UTI, finished 5 days course of cefepime Subjective Date/time seen: 12/03/22 11:19 Interval history: Patient appears confused Review of Systems Review of Systems: ROS unobtainable: Yes unobtainable due to mental status Exam Narrative: General: Confused HEENT: Erythematous and swollen over right cheek, normocephalic, mucous membranes moist CV: Regular rate and rhythm, S1, S2 Lungs: Coarse BS throughout, diminished at bases with scattered crackles Abdomen: Soft, nontender, nondistended Extremities: Minimal edema B/L LE, erythema improved Skin: No rashes noted, no lesions or wounds seen Psych: Unable to assess Objective Data Vital Signs Vital Signs: Vital Signs - 24 hr 12/02/22 12:00 12/02/22 12:00 12/02/22 16:30 Temperature 98 F Pulse Rate 110 H 91 Respiratory Rate 22 H Blood Pressure 108/90 Pulse Oximetry 96 96 Oxygen Delivery Room Air Room Air 12/02/22 16:34 12/02/22 14:00 12/02/22 16:00 Temperature 98 F Pulse Rate 110 H 113 H 115 H Respiratory Rate 20 Blood Pressure 113/74 Pulse Oximetry 96 Oxygen Delivery 12/02/22 20:00 12/02/22 20:55 12/02/22 20:00 Temperature 97.1 F L Pulse Rate 117 H 115 H 111 H Respiratory Rate 18 Blood Pressure 106/91 H Pulse Oximetry 98 Oxygen Delivery 12/02/22 20:00 12/02/22 22:00 12/03/22 00:00 Temperature Pulse Rate 111 H 114 H 115 H Respiratory Rate 18 Blood Pressure Pulse Oximetry 98 Oxygen Delivery Room Air 12/03/22 00:00 12/03/22 00:00 12/03/22 02:29 Temperature 97 F L Pulse Rate 115 H 115 H 101 H Respiratory Rate 18 20 16 Blood Pressure 125/89 Pulse Oximetry 98 98 98 Oxygen Delivery Room Air CPAP 12/03/22 02:00 12/03/22 04:00 12/03/22 04:00 Temperature 97.3 F L Pulse Rate 110 H 115 H 115 H Respiratory Rate 22 H Blood Pressure 104/54 L Pulse Oximetry 100 Oxygen Delivery 12/03/22 04:00 12/03/22 06:00 12/03/22 08:00 Temperature 98 F Pulse Rate 115 H 111 H 99 Respiratory Rate 22 H 18 Blood Pressure 129/59 L Pulse Oximetry 100 98 Oxygen Delivery CPAP 12/03/22 08:22 12/03/22 10:17 12/03/22 08:00 Temperature Pulse Rate 115 H 110 H Respiratory Rate Blood Pressure Pulse Oximetry 93 Oxygen Delivery Room Air 12/03/22 10:00 Temperature Pulse Rate 117 H Respiratory Rate Blood Pressure Pulse Oximetry Oxygen Delive
--- NOTE | 2022-12-03 11:53 | PCNFU ---
Nutrition Follow-Up Complete: Pt current nutrition is minced and moist, level 5/regular diet with Ensure Compact BID. Last recorded weight is 131.7 kg. Weight up 1.7 kg/4 lbs (1%) x 5 days. Labs Reviewed: (12/03/22) Hgb: 11.4, Hct: 35.2, Na: 133 Meds Noted: Eliquis, Dulcolax, Lasix, Pepcid, Zofran, MiraLAX Skin: no breakdown noted per EHR Edema: bilateral arm: 1+ (down from 3+), bilateral le+ (down from 3+), generalized: 3+, left foot: 2+, right face: 1+, right upper foot: 3+. GI: abdomen is soft, nondistended, nontender. BM: 12/02/22. Additional Notes: Patient not awake during visit. CLINICAL STAFF ANESTHESIOLOGIST evaluated patient on 11/30/22 and recommended MM5. AMS/confusion noted. Intake of 10-20% x 3 meals on 12/02/22. Patient on room air. Nutrition Focused Physical Findings: Patient appears obese with no signs of muscle or fat wasting. Nutrition recommendation: 1. Continue with MM5/regular diet. CLINICAL STAFF ANESTHESIOLOGIST to determine diet consistency. Monitor need for heart-healthy diet if intake would improve. 2. Assist with meals 2/2 AMS. 3. Increase Ensure Compact to 3x/day. 4. Weights 3x/week. 5. Monitor GOC. Inadequate Oral intake as related to AMS as evidenced by poor po intake reported. (Continue) Goal: Meet nutrition needs 1. Pateint to consume at least 50% of 2-3 meals daily. 2. Weight to remain within 2% of current weight (131.7 kg) through follow-up. Will monitor weight, labs, skin, oral intake. Reassess in 3-5 days.
[2022-12-03] MEDS: metroNIDAZOLE 250 MG TABLET 500 MG PO ×2 (14:36→21:32)
[2022-12-03] MEDS: ACETAMINOPHEN 325 MG TABLET 650 MG BY MOUTH (17:18)
[2022-12-03] MEDS: NITROFURANTOIN MONOHYD MACROCR 100 MG CAP PO (21:33)
[2022-12-04] VITALS (12 sets, daily range): BP systolic 97–150; BP diastolic 58–102; PULSE 69–120; RESP 16–22; TEMP 35.9–36.3; O2SAT 96–99
[2022-12-04] MEDS: metroNIDAZOLE 250 MG TABLET 500 MG PO ×3 (05:47→21:22)
[2022-12-04 06:16] LABS: Anion Gap 2 mmol/L (8-16); Blood Urea Nitrogen 6 mg/dL (7-17); Carbon Dioxide 25 mmol/L (22-30); Chloride 101 mmol/L (98-107); Estimated CRCL calculation 148 ml/min; Estimated Glomerular Filt Rate > 60; Glucose 83 mg/dL (65-110); Potassium 2.8 mmol/L (3.4-5.0); Sodium 128 mmol/L (137-145)
[2022-12-04] MEDS: MAGNESIUM SULF 2 GM/WATER 50ML 2 GM/50 ML BAG IVPB (09:17)
[2022-12-04] MEDS: SODIUM CHLORIDE 0.9% IV 1,000 ML 100 ML IV CONT (09:17)
[2022-12-04] MEDS: HYDROCORTISONE 1% 30 GM CREAM 1 APPLIC TOPICAL ×2 (09:17→20:20)
[2022-12-04] MEDS: METOPROLOL SUCCINATE EXT REL 50 MG TABCR PO ×2 (09:18→20:19)
[2022-12-04] MEDS: NITROFURANTOIN MONOHYD MACROCR 100 MG CAP PO ×2 (09:18→20:19)
[2022-12-04] MEDS: CLOPIDOGREL BISULFATE 75 MG TABLET PO (09:18)
[2022-12-04] MEDS: MICONAZOLE NITRATE 2% CREAM 30 GM TUBE 1 APPLIC TOPICAL ×2 (09:18→17:47)
[2022-12-04] MEDS: CYCLOBENZAPRINE HCL 10 MG TABLET PO ×2 (09:19→12:56)
[2022-12-04] MEDS: FAMOTIDINE 20 MG TABLET PO (09:19)
[2022-12-04] MEDS: APIXABAN 5 MG TABLET PO ×2 (09:19→20:19)
[2022-12-04] MEDS: FUROSEMIDE 40 MG TABLET PO ×2 (09:19→19:29)
[2022-12-04] MEDS: ATORVASTATIN 40 MG TABLET PO (09:19)
[2022-12-04] MEDS: MIDODRINE HCL 2.5 MG TABLET 5 MG PO ×3 (09:19→19:29)
[2022-12-04] MEDS: POTASSIUM CHLORIDE 20 MEQ PACKET (FOR LIQUID) 80 MEQ PO (09:40)
--- NOTE | 2022-12-04 12:08 | PM.IMPN ---
Progress Note: A&P Assessment and Plan (1) Cellulitis of face: Code(s): L03.211 - Cellulitis of face Status: Acute Assessment and Plan: 11/28: Vancomycin, cefepime and flagyl started, ENT consulted for parotitis Discontinue cefepime and Flagyl 1/2 blood cultures positive for MRSA Repeat blood cultures ordered 11/30 and pending, NGTD Given MRSA bacteremia echocardiogram ordered to rule out cardiac vegetations. No vegetations on the aortic and mitral valve. Right-sided valves not well visualized (2) Sepsis: Code(s): A41.9 - Sepsis, unspecified organism Status: Acute Assessment and Plan: See above (3) Acute alteration in mental status: Code(s): R41.82 - Altered mental status, unspecified Status: Acute Assessment and Plan: Likely from sepsis (4) Obstructive sleep apnea on CPAP: Code(s): G47.33 - Obstructive sleep apnea (adult) (pediatric) Status: Acute Assessment and Plan: CPAP at night (5) Atrial fibrillation: Code(s): I48.91 - Unspecified atrial fibrillation Status: Acute Assessment and Plan: Rate controlled, anticoagulated, status post ablation (6) UTI (urinary tract infection): Code(s): N39.0 - Urinary tract infection, site not specified Status: Acute Assessment and Plan: Urine culture positive for ecoli UTI, finished 5 days course of cefepime (7) Hyponatremia: Code(s): E87.1 - Hypo-osmolality and hyponatremia Status: Acute Assessment and Plan: Mild. Hold off on giving IV fluids since patient has pedal edema. Continue Lasix. Will order fluid restriction Subjective Date/time seen: 12/04/22 12:08 Interval history: No change Review of Systems Review of Systems: ROS unobtainable: Yes unobtainable due to mental status Exam Narrative: General: Confused HEENT: Erythematous and swollen over right cheek, normocephalic, mucous membranes moist CV: Regular rate and rhythm, S1, S2 Lungs: Coarse BS throughout, diminished at bases with scattered crackles Abdomen: Soft, nontender, nondistended Extremities: Minimal edema B/L LE, erythema improved Skin: No rashes noted, no lesions or wounds seen Psych: Unable to assess Objective Data Vital Signs Vital Signs: Vital Signs - 24 hr 12/03/22 16:00 12/03/22 14:00 12/03/22 16:00 Temperature 97.7 F Pulse Rate 117 H 118 H 110 H Respiratory Rate 18 Blood Pressure 125/49 L Pulse Oximetry 99 Oxygen Delivery 12/03/22 18:00 12/03/22 16:00 12/03/22 20:00 Temperature 97.5 F L Pulse Rate 118 H 115 H Respiratory Rate 20 Blood Pressure 95/53 L Pulse Oximetry 94 99 Oxygen Delivery Room Air 12/03/22 21:32 12/03/22 20:00 12/03/22 23:30 Temperature Pulse Rate 116 H 115 H Respiratory Rate 18 Blood Pressure Pulse Oximetry 94 97 Oxygen Delivery Room Air CPAP 12/03/22 23:38 12/04/22 00:00 12/04/22 00:00 Temperature 96.9 F L Pulse Rate 69 118 H Respiratory Rate 20 20 Blood Pressure 97/59 L Pulse Oximetry 94 99 99 Oxygen Delivery Room Air Room Air 12/03/22 20:00 12/03/22 22:00 12/04/22 00:00 Temperature Pulse Rate 117 H 115 H 115 H Respiratory Rate Blood Pressure Pulse Oximetry Oxygen Delivery 12/04/22 04:00 12/04/22 04:00 12/04/22 02:00 Temperature 97 F L Pulse Rate 115 H 120 H 90 Respiratory Rate 20 22 H Blood Pressure 102/58 L Pulse Oximetry 99 98 Oxygen Delivery Room Air 12/04/22 04:00 12/04/22 06:00 12/04/22 08:00 Temperature 97.4 F L Pulse Rate 118 H 115 H 116 H Respiratory Rate 18 Blood Pressure 112/71 Pulse Oximetry 99 Oxygen Delivery 12/04/22 09:18 12/04/22 08:00 12/04/22 10:00 Temperature Pulse Rate 116 H 118 H 115 H Respiratory Rate Blood Pressure Pulse Oximetry Oxygen Delivery 12/04/22 08:00 Temperature Pulse Rate Respiratory Rate Blood Pressure Pu
--- NOTE | 2022-12-04 18:21 | PC.NURSE ---
Addendum entered by Cassandra Rodas RN 12/04/22 18:25: 1700 meds held due to pt unable to safely swallow medication. Original Note: Stat CT ordered for pt due to pt exhibiting strokelike symptoms. 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 Pt unable to answer simple questions appropriately. Pt unable to state her name and birthday. Pt talking nonsense. Pt repeating that she wants to go home, and talking about her car. Pt was transferred from IMU earlier in the day. Will continue to monitor pt for any other changes in status.
--- NOTE | 2022-12-04 21:41 | PC.NURSE ---
pt spit out most of medication
[2022-12-05] VITALS (7 sets, daily range): BP systolic 100–121; BP diastolic 61–80; PULSE 112–116; RESP 15–20; TEMP 36.5–36.9; O2SAT 92–100
[2022-12-05 02:49] LABS: Anion Gap 5 mmol/L (8-16); Blood Urea Nitrogen 5 mg/dL (7-17); Calcium 8.1 mg/dL (8.4-10.2); Carbon Dioxide 26 mmol/L (22-30); Chloride 100 mmol/L (98-107); Estimated CRCL calculation 122 ml/min; Estimated Glomerular Filt Rate > 60; Glucose 86 mg/dL (65-110); Potassium 3.2 mmol/L (3.4-5.0); Sodium 131 mmol/L (137-145)
[2022-12-05 03:34] LABS: Vancomycin Trough 12.8 ug/mL (10.0-20.0)
[2022-12-05] MEDS: metroNIDAZOLE 250 MG TABLET 500 MG PO (05:09)
[2022-12-05] MEDS: MIDODRINE HCL 2.5 MG TABLET 5 MG PO ×3 (08:49→17:10)
[2022-12-05] MEDS: NITROFURANTOIN MONOHYD MACROCR 100 MG CAP PO ×2 (08:49→21:06)
[2022-12-05] MEDS: METOPROLOL SUCCINATE EXT REL 50 MG TABCR PO ×2 (08:49→21:06)
[2022-12-05] MEDS: CYCLOBENZAPRINE HCL 10 MG TABLET PO ×3 (08:51→17:10)
[2022-12-05] MEDS: ATORVASTATIN 40 MG TABLET PO (08:51)
[2022-12-05] MEDS: APIXABAN 5 MG TABLET PO ×2 (08:51→21:06)
[2022-12-05] MEDS: HYDROCORTISONE 1% 30 GM CREAM 1 APPLIC TOPICAL ×2 (08:52→21:06)
[2022-12-05] MEDS: FAMOTIDINE 20 MG TABLET PO ×2 (08:52→17:10)
[2022-12-05] MEDS: FUROSEMIDE 40 MG TABLET PO ×2 (08:52→17:11)
[2022-12-05] MEDS: MICONAZOLE NITRATE 2% CREAM 30 GM TUBE 1 APPLIC TOPICAL ×2 (08:52→17:11)
[2022-12-05] MEDS: polyethylene glycoL 3350 17 GM POWD.PACK PO (08:52)
[2022-12-05] MEDS: CLOPIDOGREL BISULFATE 75 MG TABLET PO (08:52)
[2022-12-05] MEDS: POTASSIUM CHLORIDE 20 MEQ ER TABLET 40 MEQ PO (10:10)
[2022-12-05] MEDS: AMOXICILLIN/CLAVULANATE K 875-125 MG TAB 1 TABLET PO ×2 (10:10→21:06)
[2022-12-05] MEDS: SULFAMETHOXAZOLE/TRIMETHOPRIM 800/160 MG DS TABLET 1 TAB PO ×2 (10:10→21:06)
--- NOTE | 2022-12-05 12:08 | PM.IMPN ---
Progress Note: A&P Assessment and Plan (1) Cellulitis of face: Code(s): L03.211 - Cellulitis of face Status: Acute Assessment and Plan: 11/28: Vancomycin, cefepime and flagyl started, ENT consulted for parotitis Discontinue cefepime and Flagyl 1/2 blood cultures positive for MRSA Repeat blood cultures ordered 11/30 and NGTD Given MRSA bacteremia echocardiogram ordered to rule out cardiac vegetations. No vegetations on the aortic and mitral valve. Right-sided valves not well visualized Will start on oral Bactrim and discontinue IV vancomycin. First day of treatment will be considered 11/30 which is the 1st negative culture. Continue for 2 weeks (2) Sepsis: Code(s): A41.9 - Sepsis, unspecified organism Status: Acute Assessment and Plan: See above (3) Acute alteration in mental status: Code(s): R41.82 - Altered mental status, unspecified Status: Acute Assessment and Plan: Apparently patient had stroke-like symptoms yesterday with left arm weakness as per the nursing staff. CT head was obtained which did not show any acute stroke but showed otomastoiditis and sinusitis. Will start patient on Augmentin for 5 days (4) Obstructive sleep apnea on CPAP: Code(s): G47.33 - Obstructive sleep apnea (adult) (pediatric) Status: Acute Assessment and Plan: CPAP at night (5) Atrial fibrillation: Code(s): I48.91 - Unspecified atrial fibrillation Status: Acute Assessment and Plan: Rate controlled, anticoagulated, status post ablation (6) UTI (urinary tract infection): Code(s): N39.0 - Urinary tract infection, site not specified Status: Acute Assessment and Plan: Urine culture positive for ecoli UTI, finished 5 days course of cefepime. E coli resistant to cefepime. Sensitive to Macrobid. Started on 5 day course of nitrofurantoin (7) Hyponatremia: Code(s): E87.1 - Hypo-osmolality and hyponatremia Status: Acute Assessment and Plan: Mild. Hold off on giving IV fluids since patient has pedal edema. Continue Lasix p.o. b.i.d. Continue fluid restriction Subjective Date/time seen: 12/05/22 12:08 Interval history: Remains stable. Review of Systems Review of Systems: ROS unobtainable: Yes unobtainable due to mental status Exam Narrative: General: Confused HEENT: Erythematous and swollen over right cheek, normocephalic, mucous membranes moist CV: Regular rate and rhythm, S1, S2 Lungs: Coarse BS throughout, diminished at bases with scattered crackles Abdomen: Soft, nontender, nondistended Extremities: Minimal edema B/L LE, erythema improved Skin: No rashes noted, no lesions or wounds seen Psych: Unable to assess Objective Data Vital Signs Vital Signs: Vital Signs - 24 hr 12/04/22 16:00 12/04/22 18:07 12/04/22 20:00 Temperature 96.6 F L Pulse Rate 117 H 117 H Respiratory Rate 16 20 Blood Pressure 102/60 150/102 H Pulse Oximetry 96 99 99 Oxygen Delivery Room Air 12/04/22 20:19 12/04/22 21:05 12/05/22 03:00 Temperature 97.1 F L Pulse Rate 110 H 117 H 113 H Respiratory Rate 18 15 Blood Pressure 106/66 Pulse Oximetry 99 95 Oxygen Delivery CPAP 12/04/22 22:50 12/05/22 06:10 12/05/22 08:49 Temperature 98.4 F Pulse Rate 114 H 115 H Respiratory Rate 20 Blood Pressure 100/61 Pulse Oximetry 92 Oxygen Delivery CPAP 12/05/22 08:50 Temperature Pulse Rate Respiratory Rate Blood Pressure Pulse Oximetry Oxygen Delivery Room Air Intake/Output Intake/Output: Intake & Output 12/02/22 12/03/22 12/04/22 12/05/22 23:59 23:59 23:59 23:59 Intake Total 1500 / 1500 850 / 850 605 / 605 240 / 240 Output Total 900 / 900 2850 / 2850 800 / 800 850 / 850 Balance 600 / 600 -2000 / -2000 -195 / -195 -610 / -610 Meds/Results Medications: Active Medications Generic Name Dose Route Start Last Admin Trade Name Adriana Albarado
[2022-12-06 06:00] VITALS: BP 105/64; PULSE 92; RESP 16; TEMP 36.4; O2SAT 99
[2022-12-06 07:07] LABS: Hematocrit 36.9 % (37.0-47.0); Hemoglobin 12.4 g/dL (12.0-15.0); Mean Corpuscular HGB Conc 33.6 g/dl (32-36); Mean Corpuscular Hemoglobin 29.4 pg (26-34); Mean Corpuscular Volume 87.4 fl (80-100); Mean Platelet Volume 9.2 fl (7.4-10.4); Platelet Count Result 465 k/mm3 (150-375); Red Blood Count 4.22 M/mm3 (4.2-5.4); Red Cell Distribution Width 18.2 % (11.5-14.5); White Blood Count 11.8 K/mm3 (4.5-10.0)
[2022-12-06 07:19] LABS: Anion Gap 2 mmol/L (8-16); Blood Urea Nitrogen 5 mg/dL (7-17); Carbon Dioxide 31 mmol/L (22-30); Chloride 100 mmol/L (98-107); Estimated CRCL calculation 148 ml/min; Estimated Glomerular Filt Rate > 60; Glucose 87 mg/dL (65-110); Potassium 3.4 mmol/L (3.4-5.0); Sodium 133 mmol/L (137-145)
[2022-12-06] MEDS: HYDROCORTISONE 1% 30 GM CREAM 1 APPLIC TOPICAL ×2 (08:39→20:39)
[2022-12-06] MEDS: MICONAZOLE NITRATE 2% CREAM 30 GM TUBE 1 APPLIC TOPICAL ×2 (08:39→16:41)
[2022-12-06] MEDS: FUROSEMIDE 40 MG TABLET PO ×2 (09:00→16:37)
--- NOTE | 2022-12-06 10:14 | PM.IMPN ---
Progress Note: A&P Assessment and Plan (1) Cellulitis of face: Code(s): L03.211 - Cellulitis of face Status: Acute Assessment and Plan: Started on vancomycin 1/2 blood cultures positive for MRSA Repeat blood cultures ordered 11/30 and NGTD Given MRSA bacteremia echocardiogram ordered to rule out cardiac vegetations. No vegetations on the aortic and mitral valve. Right-sided valves not well visualized start on oral Bactrim and discontinue IV vancomycin. First day of treatment will be considered 11/30 which is the 1st negative culture. Continue for 2 weeks (2) Sepsis: Code(s): A41.9 - Sepsis, unspecified organism Status: Acute Assessment and Plan: See above (3) Acute alteration in mental status: Code(s): R41.82 - Altered mental status, unspecified Status: Acute Assessment and Plan: CT head did not show any acute stroke but showed otomastoiditis and sinusitis. start patient on Augmentin for 5 days (4) Obstructive sleep apnea on CPAP: Code(s): G47.33 - Obstructive sleep apnea (adult) (pediatric) Status: Acute Assessment and Plan: CPAP at night (5) Atrial fibrillation: Code(s): I48.91 - Unspecified atrial fibrillation Status: Acute Assessment and Plan: Rate controlled, anticoagulated, status post ablation (6) UTI (urinary tract infection): Code(s): N39.0 - Urinary tract infection, site not specified Status: Acute Assessment and Plan: Urine culture positive for ecoli UTI, finished 5 days course of cefepime. Sensitivity came back as e coli resistant to cefepime. Sensitive to Macrobid. Started on 5 day course of nitrofurantoin (7) Hyponatremia: Code(s): E87.1 - Hypo-osmolality and hyponatremia Status: Acute Assessment and Plan: Mild. Hold off on giving IV fluids since patient has pedal edema. Continue Lasix p.o. b.i.d. Continue fluid restriction Subjective Date/time seen: 12/06/22 10:14 Interval history: No change in patient's overall condition Review of Systems Review of Systems: ROS unobtainable: Yes unobtainable due to mental status Exam Narrative: General: Confused HEENT: Erythematous and swollen over right cheek, normocephalic, mucous membranes moist CV: Regular rate and rhythm, S1, S2 Lungs: Coarse BS throughout, diminished at bases with scattered crackles Abdomen: Soft, nontender, nondistended Extremities: Minimal edema B/L LE, erythema improved Skin: No rashes noted, no lesions or wounds seen Psych: Unable to assess Objective Data Vital Signs Vital Signs: Vital Signs - 24 hr 12/05/22 14:00 12/05/22 21:06 12/05/22 21:33 Temperature 98.2 F 97.7 F Pulse Rate 114 H 113 H 116 H Respiratory Rate 16 16 Blood Pressure 121/68 119/80 Pulse Oximetry 100 97 Oxygen Delivery 12/05/22 20:00 12/05/22 22:50 12/06/22 06:00 Temperature 97.6 F Pulse Rate 112 H 92 Respiratory Rate 16 16 Blood Pressure 105/64 Pulse Oximetry 97 99 Oxygen Delivery Room Air CPAP Intake/Output Intake/Output: Intake & Output 12/03/22 12/04/22 12/05/22 12/06/22 23:59 23:59 23:59 23:59 Intake Total 850 / 850 605 / 605 720 / 720 240 / 240 Output Total 2850 / 2850 800 / 800 3300 / 3300 650 / 650 Balance -2000 / -2000 -195 / -195 -2580 / -2580 -410 / -410 Meds/Results Medications: Active Medications Generic Name Dose Route Start Last Admin Trade Name Trueq PRN Reason Stop Dose Admin Acetaminophen 650 mg 11/29/22 02:56 Acetaminophen 650 Mg Suppository RECTAL Q6H PRN Mild Pain (1-3) or Fever Acetaminophen 650 mg 11/29/22 05:51 12/03/22 17:18 Acetaminophen 325 Mg Tablet BY MOUTH 650 mg Q6H PRN Administration Pain Amoxicillin/Clavulanate Potassium 1 tablet 12/05/22 09:10 12/05/22 21:06 Amoxicillin/Clavulanate K 875-125 Mg Tab PO 12/09/22 22:00 1 tablet Q12HR DANIELLE Administration Apixaban
[2022-12-06 11:58] VITALS: PULSE 100
[2022-12-06] MEDS: CYCLOBENZAPRINE HCL 10 MG TABLET PO ×3 (11:58→16:37)
[2022-12-06] MEDS: APIXABAN 5 MG TABLET PO ×2 (11:58→20:38)
[2022-12-06] MEDS: AMOXICILLIN/CLAVULANATE K 875-125 MG TAB 1 TABLET PO ×2 (11:58→20:38)
[2022-12-06] MEDS: METOPROLOL SUCCINATE EXT REL 50 MG TABCR PO ×2 (11:58→20:38)
[2022-12-06] MEDS: NITROFURANTOIN MONOHYD MACROCR 100 MG CAP PO ×2 (11:58→20:38)
[2022-12-06] MEDS: CLOPIDOGREL BISULFATE 75 MG TABLET PO (11:58)
[2022-12-06] MEDS: FAMOTIDINE 20 MG TABLET PO ×2 (11:59→16:37)
[2022-12-06] MEDS: POTASSIUM CHLORIDE 20 MEQ ER TABLET 40 MEQ PO (11:59)
[2022-12-06] MEDS: SULFAMETHOXAZOLE/TRIMETHOPRIM 800/160 MG DS TABLET 1 TAB PO ×2 (11:59→20:38)
[2022-12-06] MEDS: ATORVASTATIN 40 MG TABLET PO (11:59)
[2022-12-06] MEDS: MIDODRINE HCL 2.5 MG TABLET 5 MG PO ×3 (12:18→16:37)
[2022-12-06 14:00] VITALS: BP 108/78; PULSE 116; RESP 20; TEMP 36.7; O2SAT 94
[2022-12-06 20:38] VITALS: PULSE 116
[2022-12-06 21:34] VITALS: BP 112/56; PULSE 116; RESP 18; TEMP 36.5; O2SAT 93
[2022-12-06 23:05] VITALS: PULSE 108; O2SAT 96
[2022-12-06] MEDS: ACETAMINOPHEN 325 MG TABLET 650 MG BY MOUTH (23:06)
[2022-12-07 06:00] VITALS: BP 115/76; PULSE 111; RESP 18; TEMP 36; O2SAT 98
[2022-12-07 07:13] LABS: Anion Gap 3 mmol/L (8-16); Blood Urea Nitrogen 5 mg/dL (7-17); Calcium 7.9 mg/dL (8.4-10.2); Carbon Dioxide 27 mmol/L (22-30); Chloride 100 mmol/L (98-107); Estimated CRCL calculation 119 ml/min; Estimated Glomerular Filt Rate > 60; Glucose 81 mg/dL (65-110); Potassium 3.4 mmol/L (3.4-5.0); Sodium 130 mmol/L (137-145)
[2022-12-07] MEDS: ATORVASTATIN 40 MG TABLET PO (09:07)
[2022-12-07] MEDS: FAMOTIDINE 20 MG TABLET PO (09:07)
[2022-12-07] MEDS: MIDODRINE HCL 2.5 MG TABLET 5 MG PO ×2 (09:07→12:49)
[2022-12-07] MEDS: AMOXICILLIN/CLAVULANATE K 875-125 MG TAB 1 TABLET PO (09:08)
[2022-12-07] MEDS: CLOPIDOGREL BISULFATE 75 MG TABLET PO (09:08)
[2022-12-07] MEDS: METOPROLOL SUCCINATE EXT REL 50 MG TABCR PO (09:08)
[2022-12-07] MEDS: APIXABAN 5 MG TABLET PO (09:08)
[2022-12-07] MEDS: FUROSEMIDE 40 MG TABLET PO (09:08)
[2022-12-07] MEDS: NITROFURANTOIN MONOHYD MACROCR 100 MG CAP PO (09:08)
[2022-12-07] MEDS: SULFAMETHOXAZOLE/TRIMETHOPRIM 800/160 MG DS TABLET 1 TAB PO (09:08)
[2022-12-07] MEDS: CYCLOBENZAPRINE HCL 10 MG TABLET PO ×2 (09:08→12:49)
[2022-12-07] MEDS: HYDROCORTISONE 1% 30 GM CREAM 1 APPLIC TOPICAL (09:09)
[2022-12-07] MEDS: MICONAZOLE NITRATE 2% CREAM 30 GM TUBE 1 APPLIC TOPICAL (09:09)
[2022-12-07] MEDS: polyethylene glycoL 3350 17 GM POWD.PACK PO (09:09)
--- NOTE | 2022-12-07 10:37 | PM.DS ---
DS: Admitting Diagnosis Discharge Date 12/07/2022 Admitting Diagnosis Altered mental status Sepsis DS: Discharge Diagnosis Discharge Diagnosis (1) Hyponatremia: Code(s): E87.1 - Hypo-osmolality and hyponatremia Status: Acute (2) Parotitis: Code(s): K11.20 - Sialoadenitis, unspecified Status: Acute (3) Atrial fibrillation: Code(s): I48.91 - Unspecified atrial fibrillation Status: Acute (4) Cellulitis of face: Code(s): L03.211 - Cellulitis of face Status: Acute (5) Acute UTI: Code(s): N39.0 - Urinary tract infection, site not specified Status: Acute (6) Sepsis: Code(s): A41.9 - Sepsis, unspecified organism Status: Acute (7) Acute alteration in mental status: Code(s): R41.82 - Altered mental status, unspecified Status: Acute DS: Summary Hospital Course Hospital Course: This is a 72-year-old female with a past medical history of morbid obesity, atrial fibrillation, chronic bilateral lower extremity lymphedema, chronic respiratory failure with supplemental oxygen, sleep apnea, ID, diastolic heart failure, hypertension, dyslipidemia who was brought into the hospital from the skilled nursing with concerns of altered mental status. Workup was significant for CT of the soft tissue of the neck and face showing worsening parotiditis. Patient was initially started on vancomycin cefepime and Flagyl. Initial blood cultures grew MRSA. Patient also had UTI. Urine culture grew E coli which was resistant to cefepime but sensitive to Macrobid so patient was switched to Macrobid. Fragile was discontinued. Repeat blood cultures were negative on the 30 of November. Patient was switched to oral Bactrim and to continue 2 weeks from the . Because of for MRSA bacteremia an echo was obtained. It was limited study. Aortic and mitral valve did not show any vegetations. Right-sided valves are not visualized. During the course of her stay 1 day patient was found to have left upper extremity weakness or CT head was obtained which was negative for any acute findings but showed otomastoiditis and sinusitis for which the patient has been started on oral Augmentin for 5 days. Patient is clinically back to baseline. She was put on fluid restriction because of pedal edema. Serum sodium was low which has improved. Patient would benefit from hospice/comfort care discussion at the skilled nursing because of poor quality of life. Time Spent with Patient Time attestation: Total time spent providing and/or coordinating discharge services: DS: Data Data Completed and Pending Labs on day of discharge: Labs from last 24 hours 12/07/22 06:43 Sodium 130 L Potassium 3.4 Chloride 100 Carbon Dioxide 27 Anion Gap 3 L BUN 5 L Creatinine 0.50 L Estim Creat Clear Calc 119 Estimated GFR > 60 Glucose 81 Calcium 7.9 L Discharge Plan Discharge Consulting providers: Constantine Dash Discharging Clinician: Héctor Waters Anticipated Discharge Date/Time: 12/07/22 10:33 Patient Disposition: SNF Activity: no preference Diet: heart healthy Patient Instructions: Apixaban (By mouth), Heart Failure (DC), Cellulitis (GEN), Sullivan Catheter Placement and Care (DC) Stand Alone Forms: General Discharge Information Follow-up/Referrals: Remy Chappell MD [Primary Care Provider] - Discharge Medications: New nitrofurantoin monohyd/m-cryst [Macrobid] 100 mg Capsule 100 mg PO Q12HR Qty: 3 0RF sulfamethoxazole-trimethoprim 800-160 mg Tablet 1 tab PO Q12HR Qty: 7 0RF amoxicillin-pot clavulanate 875-125 mg tablet 1 tablet PO Q12H Qty: 5 0RF Continued prochlorperazine maleate 5 mg Tablet 5 mg PO Q6H PRN (Reason: Nausea) losartan 25 mg tablet 25 mg PO DAILY nitroglycerin 0.4 mg tablet, sublingual 0.4 mg sublingual Q5MIN PRN (Reason: Chest Pain) metoprolol succinate 50 mg Tablet Extended Release 24 Hr 50 mg
--- NOTE | 2022-12-07 11:22 | PCNFU ---
Nutrition Follow-Up Complete: Inadequate Oral intake as related to AMS as evidenced by poor po intake reported. Goal:Meet estimated nutritional needs. Pt is not meeting goal. Pt current nutrition is Minced and moist level 5, mildly thick liquids, 1500ml fluid restriction, Ensure compact TID. Nutrition recommendation: continue to encourage po intake Last recorded weight is 127.3 kg. Bowel Motility:+BM 12/05 Labs Reviewed: NA:130, BUN:5, Cr:0.5 Meds Noted: eliquis, dulcolax, lasix, zofran Skin: cellulitis Additional Notes: Pt continues on a same diet, intake is minimal. Pt asleep during assessment. Nursing reports pt dislikes the food and thickened liquids. Possible discharge today to facility and pt prefers the food there. Will montior weight, labs,skin, oral intake every 3 days.
[2022-12-07 11:53] LABS: SARS-CoV-2 RNA PCR Negative (Negative)
[2022-12-07 13:54] VITALS: BP 104/77; PULSE 114; RESP 17; TEMP 36; O2SAT 94
== END 2022-12-07 14:20 | DRG 872 ==
LOC: ANHED 21:30 → ANHIMU 11-29 04:14 → ANH3MEDSUR 12-04 13:19
PROVIDERS: Student in an Organized Health Care Education/Training Program; Admitting Provider Internal Medicine; Emergency Provider Emergency Medicine; PCP Hospitalist; Visit Provider Hospitalist
DX: A41.9 Sepsis, unspecified organism (principal); E87.1 Hypo-osmolality and hyponatremia; L03.211 Cellulitis of face; N39.0 Urinary tract infection, site not specified; Z68.42 Body mass index [BMI] 45.0-49.9, adult; I50.32 Chronic diastolic (congestive) heart failure; J96.11 Chronic respiratory failure with hypoxia; Z16.19 Resistance to other specified beta lactam antibiotics; B96.20 Unspecified Escherichia coli [E. coli] as the cause of diseases classified elsewhere; B95.62 Methicillin resistant Staphylococcus aureus infection as the cause of diseases classified elsewhere; J32.9 Chronic sinusitis, unspecified; H70.90 Unspecified mastoiditis, unspecified ear; K11.20 Sialoadenitis, unspecified; I48.91 Unspecified atrial fibrillation; E66.01 Morbid (severe) obesity due to excess calories; E78.5 Hyperlipidemia, unspecified; G47.33 Obstructive sleep apnea (adult) (pediatric); Z20.822 Contact with and (suspected) exposure to COVID-19; F03.90 Unspecified dementia, unspecified severity, without behavioral disturbance, psychotic disturbance, mood disturbance, and anxiety; M19.90 Unspecified osteoarthritis, unspecified site; I25.10 Atherosclerotic heart disease of native coronary artery without angina pectoris; Z86.718 Personal history of other venous thrombosis and embolism; I25.2 Old myocardial infarction; Z99.81 Dependence on supplemental oxygen
CPT/HCPCS: 36415; 70450; 70487; 70491; 71045; 80048; 80053; 80202; 81001; 82550; 82565; 82948; 83605; 83690; 83735; 83880; 84100; 84439; 84443; 84484; 85025; 85027; 85610; 85730; 87040; 87077; 87081; 87086; 87088; 87186; 87635; 87637; 92526; 92610; 93005; 93308; 93971; 96361; 96365; 96366; 96367; 96368; 99285; A9270; J0692; J1836; J1940; J3370; J3475; J3480; J7030; J7040; Q9967

== ENCOUNTER 2022-12-31 15:32 | Inpatient (IN) | payer MEDICARE, MEDICAID, SELFPAY ==
[2022-12-31] VITALS (10 sets, daily range): BP systolic 92–153; BP diastolic 37–120; PULSE 100–148; RESP 15–21; TEMP 36.4–37; O2SAT 90–96; BMI 35.3
--- NOTE | ~2022-12-31 | XR_ITS ---
EXAMINATION: [id number] INDICATION: Nasogastric tube insertion TECHNIQUE: Supine view of the abdomen is obtained on two radiographs COMPARISON: None available FINDINGS: A nasogastric tube is in the stomach. There are pleural effusions. The bowel gas pattern is nonspecific. IMPRESSION: 1. Nasogastric tube in the stomach. Reviewed, dictated and finalized at location B.
--- NOTE | ~2022-12-31 | XR_ITS ---
Portable chest x-ray Comparison: 12/31/2022 Clinical History: Septic shock Findings: Small bilateral pleural effusions are present. There is mild bibasilar and perihilar hazin ess. There is probable left lower lobe atelectasis. Cardiomediastinal silhouette is stable. Bones an d soft tissues are unremarkable. Impression: Small bilateral pleural effusions with left lower lobe atelectasis. Hazy presumed pulmonary edema pattern of the lower to midlung zones. Correlate clinically for infecti on. Reviewed, dictated and finalized at [facility]. Impression: Small bilateral pleural effusions with left lower lobe atelectasis. Hazy presumed pulmonary edema pattern of the lower to midlung zones. Correlate clinically for infection.
--- NOTE | ~2022-12-31 | XR_ITS ---
XR chest port-a-cath/central DATE: 01/07/2023 17:16 INDICATION: PICC line placement TECHNIQUE: Portable AP chest on 01/07/2023 at 1708 hours COMPARISON: 01/07/2023 portable AP chest at 1607 hours FINDINGS: Right upper extremity PIC catheter tip superimposes the superior vena cava near the cavoatr ial junction. No pneumothorax is evident. Cardiomegaly, pulmonary vascular congestion and redistribution and bilateral mid and particularly low er lung infiltrates and/atelectasis and probable pleural effusions. Dextro scoliosis and degenerative spurring of the thoracic spine. Osteopenia. IMPRESSION: Congestive heart failure, bilateral central and lower lung infiltrates, likely due to pul monary edema, probable pleural effusions. Findings are consistent with congestive heart failure Right upper extremity PIC catheter, distal tip overlying superior vena cava near superior cavoatrial junction Reviewed, dictated and finalized at Location A. Reviewed, dictated and finalized at location A. IMPRESSION: Congestive heart failure, bilateral central and lower lung infiltra jamey, likely due to pulmonary edema, probable pleural effusions. Findings are co nsistent with congestive heart failure Right upper extremity PIC catheter, distal tip overlying superior vena cava [place] r superior cavoatrial junction
--- NOTE | ~2022-12-31 | CT_ITS ---
EXAMINATION: CT brain wo con INDICATION: Altered mental status COMPARISON: 12/04/2022 TECHNIQUE: Standard unenhanced head CT. The dose-length product (DLP) was 681.00 mGy-cm. The mA was a djusted according to patient size. Iterative reconstruction technique was employed. FINDINGS: No acute intraparenchymal hemorrhage. No evidence of mass lesion. No evidence of acute infa rction. There is mild periventricular and subcortical hypodensity probably related to small vessel is chemic disease. There is mild prominence of the sulci and ventricles related to cerebral atrophy. Int racranial calcified cerebral atherosclerosis is noted. No extra-axial collections. No mass effect or midline shift. The orbits and soft tissues are unremarkable. There are bilateral mastoid effusions. T here is partial opacification of the right sphenoid sinus. IMPRESSION: 1. No acute intracranial abnormality. 2. Age related findings. Reviewed, dictated and finalized at location B.
--- NOTE | ~2022-12-31 | XR_ITS ---
XR chest 1V portable 01/09/2023 06:01 Indication: Pulmonary vascular congestion Procedure: AP portable chest Comparison: Comparison to multiple prior studies sequentially, with oldest reviewed study dated 12/31. Findings: Cardiomegaly with pulmonary edema. Right subclavian central line tip in the SVC. Bilateral pleural effusions. No pneumothorax. No acute osseous abnormality. Impression: 1: Cardiomegaly with pulmonary edema and bilateral pleural effusions. No significant interval change. Reviewed, dictated and finalized at location A. Impression: 1: Cardiomegaly with pulmonary edema and bilateral pleural effusions. No signif icant interval change.
--- NOTE | ~2022-12-31 | CT_ITS ---
EXAMINATION: CT chest abdomen pelvis wo con DATE: 01/04/2023 13:38 INDICATION: Sepsis TECHNIQUE: Transaxial computed tomographic images of the chest, abdomen, and pelvis were obtained wit hout intravenous contrast. The dose-length product (DLP) was 1932.52 mGy-cm. Automated exposure contr ol and iterative reconstruction technique were employed. COMPARISON: 10/27/2022 FINDINGS: CHEST CT: There are small pleural effusions. There is mild dependent atelectasis of the lungs. No pathologicall y enlarged thoracic lymph nodes are identified. The heart size is normal. No pneumothorax is identifi ed. There is moderate thoracic spondylosis. ABDOMEN/PELVIS CT: The liver, spleen, pancreas, gallbladder, and right adrenal gland are normal. There is a stable 1.6 c m adenoma of the left adrenal gland. The kidneys are unremarkable. The bladder is decompressed by Fol ey catheter. There are calcified uterine fibroids. No pathologically enlarged abdominal or pelvic lym ph nodes are identified. No free intraperitoneal gas or evidence of bowel obstruction. There are bila teral femoral central venous catheters There is severe lumbar spondylosis. There is fecal impaction o f the rectum with mild perirectal fat stranding. IMPRESSION: 1. Small pleural effusions with bilateral dependent atelectasis. 2. Stercoral colitis. 3. Diffuse anasarca. Reviewed, dictated and finalized at location B.
--- NOTE | ~2022-12-31 | XR_ITS ---
EXAMINATION: XR chest 1V portable INDICATION: Weakness, hypotension TECHNIQUE: Portable AP chest at 1633 hours COMPARISON: 11/28/2022 FINDINGS: The lungs are free of acute opacities. No pleural effusion or pneumothorax. Cardiomegaly is noted. IMPRESSION: 1. Cardiomegaly. Reviewed, dictated and finalized at location F. IMPRESSION: 1. Cardiomegaly.
--- NOTE | ~2022-12-31 | XR_ITS ---
EXAMINATION: XR chest port-a-cath/central INDICATION: PICC insertion TECHNIQUE: Portable AP chest at 1607 hours COMPARISON: 01/06/2023 FINDINGS: A left upper extremity PICC appears to coil in the axilla and ending with its tip adjacent to the proximal humerus. The tip of the nasogastric tube appears to end at the gastroesophageal junct ion. Consider dedicated KUB for nasogastric tube position. There are airspace opacities of the mid an d lower lung zones. Cardiomegaly is noted. There are bilateral pleural effusions. IMPRESSION: 1. Left upper extremity PICC coiled in the axilla and ending with its tip adjacent to the proximal hu merus. 2. Possible partial withdrawal of the nasogastric tube. Consider dedicated KUB for tube position. Reviewed, dictated and finalized at location L. IMPRESSION: 1. Left upper extremity PICC coiled in the axilla and ending with its tip adjac ent to the proximal humerus. 2. Possible partial withdrawal of the nasogastric tube. Consider dedicated KUB for tube position.
--- NOTE | 2022-12-31 15:43 | ECG_ITS ---
Measurements Intervals [place] Rate: 157 P: -67 [place]: 161 QRS: -20 QRSD: 80 T: 229 QT: 226 QTc: 366 Interpretive Statements ATRIAL FIBRILLATION WITH RAPID VENTRICULAR RESPONSE LOW QRS VOLTAGE IN PRECORDIAL LEADS BORDERLINE ST-T WAVE ABNORMALITY- HIGH LATERAL LEADS BASELINE ARTIFACT- I, II, III, AVR, AVL, AVF, V1-V6 ABNORMAL ECG COMPARED TO ECG 11/28/2022 19:32:48 HEART RATE HAS INCREASED Electronically Signed On 12-31-2022 18:47:50 CDT by Dale Yeager D.O.
--- NOTE | 2022-12-31 17:30 | PC.NURSE ---
SPOKE WITH [facility] REGARDING DISCREPANCY OF THE DNR PAPERWORK. PT HAS POLST FROM 2020 INDICATING DNR. NEW FORM FROM 12/09 SHOWS FULL CODE BUT THE SIGNATURE OF THE PT IS ILLEGIBLE AND THE DOCTOR HASN'T SIGNED TO VALIDATE IT. LEAD SYSTEMS ANALYST OF NURSING REPORTS THAT PT HAS NO FAMILY OR FRIENDS IN THE AREA TO HELP WITH HER DECISION MAKING PROCESS. FACILITY IS IN BEGINNING STAGES OF EITHER SPEAKING TO STATE OR TO HOSPICE D/T PT'S DECLINING CONDITION BUT SINCE SHE BECAME LETHARGIC WITH LOW BP TODAY THEY SENT HER IN FOR EVAL. DR VERONICA IS AWARE OF THE DISCREPANT PAPERWORK. WHEN THIS RN ASKED THE PT HER WISHES FOR CPR IF HER CONDITION WORSENED THE PT STATED NO TO CHEST COMPRESSIONS OR A BREATHING TUBE
[2022-12-31 17:51] LABS: Basophils Absolute Auto 0.2 K/mm3 (0.0-0.1); Basophils Percent Auto 1.3 % (0.2-1.2); Eosinophils Absolute Auto 0.5 K/mm3 (0-0.3); Eosinophils Percent Auto 4.3 % (0-4.4); Hematocrit 35.1 % (37.0-47.0); Hemoglobin 12.5 g/dL (12.0-15.0); Immature Granulocyte Percent A 0.8 % (0-0.5); Lymphocytes Absolute Auto 3.39 K/mm3 (0.9-3.2); Lymphocytes Percent Auto 28.4 % (18.3-44.2); Mean Corpuscular HGB Conc 35.6 g/dl (32-36); Mean Corpuscular Hemoglobin 29.1 pg (26-34); Mean Corpuscular Volume 81.6 fl (80-100); Mean Platelet Volume 8.6 fl (7.4-10.4); Monocytes Absolute Auto 1.8 K/mm3 (0.1-0.6); Monocytes Percent Auto 15.2 % (2.6-8.5); Platelet Count Result 414 k/mm3 (150-375); Red Cell Distribution Width 16.5 % (11.5-14.5); White Blood Count 11.9 K/mm3 (4.5-10.0)
[2022-12-31 18:00] LABS: Lactic Acid Reflex 1.2 mmol/L (0.7-2.0)
[2022-12-31 18:06] LABS: Alanine Aminotransferase 17 U/L (6-35); Albumin Level 2.8 g/dL (3.5-5.1); Alkaline Phosphatase 132 U/L (38-126); Anion Gap 9 mmol/L (8-16); Aspartate Amino Transferase 36 U/L (14-36); Bilirubin,Total 1.1 mg/dL (0.2-1.3); Blood Urea Nitrogen 39 mg/dL (7-17); Calcium 7.7 mg/dL (8.4-10.2); Carbon Dioxide 30 mmol/L (22-30); Chloride 94 mmol/L (98-107); Estimated Glomerular Filt Rate 23; Glucose 82 mg/dL (65-110); Sodium 133 mmol/L (137-145)
--- NOTE | 2022-12-31 18:09 | ED.GENADULT ---
HPI - General Adult General Chief complaint: Weakness Stated complaint: low bp History of Present Illness HPI narrative: Patient is a 72-year-old female who presents ER with reports of low blood pressure from her halfway. According to EMS patient's systolic blood pressure was 60 and the diastolic was 30. They gave push dose epinephrine in route. Patient is not tachycardic and her blood pressures have improved. She has no complaints at this time but is altered. She is chronically debilitated and bedbound. She denies any chest pain or chest pressure. She has no abdominal discomfort. She does have a chronic indwelling Sullivan that has dark brown urine in the bag. Related Data Home Medications Medication Instructions Recorded Confirmed acetaminophen 650 mg tablet 650 mg PO Q6H PRN Pain 10/27/22 11/29/22 apixaban 5 mg tablet (Eliquis) 5 mg PO BID 10/27/22 11/29/22 atorvastatin 40 mg tablet 40 mg PO DAILY 10/27/22 11/29/22 bisacodyl 5 mg tablet,delayed 5 mg PO HS PRN Constipation 10/27/22 11/29/22 release clopidogrel 75 mg tablet 75 mg PO DAILY 10/27/22 11/29/22 cyclobenzaprine 10 mg tablet 10 mg PO TID 10/27/22 11/29/22 famotidine 20 mg tablet 20 mg PO BID 10/27/22 11/29/22 miconazole nitrate 2 % topical 1 applic topical BID 10/27/22 11/29/22 cream losartan 25 mg tablet 25 mg PO DAILY 11/08/22 11/29/22 nitroglycerin 0.4 mg sublingual 0.4 mg sublingual Q5MIN PRN Chest 11/08/22 11/29/22 tablet Pain prochlorperazine maleate 5 mg 5 mg PO Q6H PRN Nausea 11/08/22 11/29/22 tablet Allergies Allergy/AdvReac Type Severity Reaction Status Date / Time Latex, Natural Rubber AdvReac Unknown Verified 11/29/22 03:38 Review of Systems Review of Systems: ROS unobtainable: Yes unobtainable due to mental status [facility] Past Medical History Medical History (Updated 12/31/22 @ 19:37 by Martínez King MD) Arthritis Atrial fibrillation Status post cardiac ablation. Chronic respiratory failure with hypoxia, on home oxygen therapy Coronary artery disease Deep venous thrombosis Diastolic congestive heart failure Hyperlipidemia Hypertension Myocardial infarction Patient reports history of MA, no stents Obstructive sleep apnea on CPAP Surgical History Surgical History History of cardiac radiofrequency ablation History of tonsillectomy Family History Family History Father Malignant neoplasm of prostate Acute myocardial infarction Mother Uterine cancer Acute myocardial infarction Sibling Uterine cancer Social History Social History Social History: Patient reports she has a master's degree in psychiatric nursing. Code status: Modified code, medications only. No CPR intubation. Okay with noninvasive ventilation. Smoking status: Never smoker Second hand tobacco smoke exposure: No Alcohol intake: never Substance use: never Substance use type: does not use Lack of Transportation: No Lack of Food: Never True Current Housing: I Have Housing Concerned About Future Housing: No Difficulty Paying Gas/Electric Bills: No Difficulty Paying for Meds: No Currently Unemployed: No Education: Master's Degree or Higher Difficulty w/ Childcare or Family Care: No Additional living arrangements comments: [facility]. No children. 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 Spiritual care concerns: No Exam Narrative: GENERAL: Chronically ill-appearing, well-nourished, and in no acute distress. HEAD: Normocephalic, atraumatic. EYES: PERRL and EOMI. ENT: Mucous membranes moist. NECK: Supple. CHEST: Clear to auscultation. No respiratory distress. HEART: Irregular regular rate and rhythm that is tachycardic. Normal peripheral pulses. ABDOMEN: Soft, nontender, nondi
[2022-12-31] MEDS: dilTIAZem HCl INJ 25 MG/5 ML VIAL 10 MG IV PUSH (18:12)
[2022-12-31] MEDS: SODIUM CHLORIDE 0.9% IV 1,000 ML 999 ML IV CONT ×2 (18:15→18:55)
[2022-12-31 19:32] LABS: Appearance Urine Turbid (Clear); Bacteria Urine 1+ /hpf; Bilirubin Urine 3+ (Negative); Blood Urine 2+ (Negative); Color Urine Dark Yellow (Yellow); Glucose Urine UA Negative (Negative); Ketones Urine Trace mg/dL (Negative); Leukocyte Esterase Ur 3+ LEU/UL (Negative); Mucus Urine Present /lpf; Need Manual Microscopic Reviewed; Nitrate Urine Negative (Negative); Non Pathogenic Casts >20; Protein Urine 2+ mg/dL (Negative); RBC Urine 21-50 /hpf (0-2); Specific Grav Ur 1.023 (1.001-1.035); Squamous Epithelial Cell Urine Few /hpf (Few); WBC Urine >100 /hpf
[2022-12-31 19:33] LABS: Add Urine Microscopic? YES
--- NOTE | 2022-12-31 20:31 | PM.IMHP ---
H&P: HPI History of Present Illness Date/Time: 12/31/22 20:31 Chief Complaint: ams Narrative: This is a 72-year-old female with past medical history significant for atrial fibrillation, chronic respiratory failure on supplemental oxygen at home, coronary artery disease, diastolic heart failure hypertension, obstructive sleep apnea on CPAP. Patient was brought via EMS on the field patient was found to have a systolic of 60 with a diastolic of 30 giving a dose of IV push epinephrine on route. IN EMERGENCY ROOM EARLY GOAL-DIRECTED THERAPY WAS STARTED PRELIMINARY WORKUP WAS SIGNIFICANT FOR URINALYSIS WITH NUMEROUS WBCS PRESENT, A CHEMISTRY PANEL WAS SIGNIFICANT FOR CREATININE OF 2.1 BUN 39 A CHEST X-RAY WAS REPORTED : EXAMINATION: XR chest 1V portable INDICATION: Weakness, hypotension TECHNIQUE: Portable AP chest at 1633 hours COMPARISON: 11/28/2022 FINDINGS: The lungs are free of acute opacities. No pleural effusion or pneumothorax. Cardiomegaly is noted. IMPRESSION: 1. Cardiomegaly. PATIENT IS BEEN ADMITTED FOR FURTHER EVALUATION MANAGEMENT AND TREATMENT. Review of Systems Review of Systems: ROS unobtainable: Yes unobtainable due to mental status ( delirium, obtundation) [facility] Past Medical History Medical History (Updated 12/31/22 @ 19:37 by Martínez King MD) Arthritis Atrial fibrillation Status post cardiac ablation. Chronic respiratory failure with hypoxia, on home oxygen therapy Coronary artery disease Deep venous thrombosis Diastolic congestive heart failure Hyperlipidemia Hypertension Myocardial infarction Patient reports history of [place], no stents Obstructive sleep apnea on CPAP Surgical History Surgical History History of cardiac radiofrequency ablation History of tonsillectomy Family History Family History Father Malignant neoplasm of prostate Acute myocardial infarction Mother Uterine cancer Acute myocardial infarction Sibling Uterine cancer Social History Social History Social History: Patient reports she has a master's degree in psychiatric nursing. Code status: Modified code, medications only. No CPR intubation. Okay with noninvasive ventilation. Smoking status: Never smoker Second hand tobacco smoke exposure: No Alcohol intake: never Substance use: never Substance use type: does not use Lack of Transportation: No Lack of Food: Never True Current Housing: I Have Housing Concerned About Future Housing: No Difficulty Paying Gas/Electric Bills: No Difficulty Paying for Meds: No Currently Unemployed: No Education: Master's Degree or Higher Difficulty w/ Childcare or Family Care: No Additional living arrangements comments: [facility]. No children. 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 Spiritual care concerns: No Meds Home Medications and Allergies Home Medications Medication Instructions Recorded Confirmed Type acetaminophen 650 mg tablet 650 mg PO Q6H PRN Pain 10/27/22 12/31/22 History apixaban 5 mg tablet (Eliquis) 5 mg PO BID 10/27/22 12/31/22 History atorvastatin 40 mg tablet 40 mg PO DAILY 10/27/22 12/31/22 History bisacodyl 5 mg tablet,delayed 5 mg PO HS PRN Constipation 10/27/22 12/31/22 History release clopidogrel 75 mg tablet 75 mg PO DAILY 10/27/22 12/31/22 History cyclobenzaprine 10 mg tablet 10 mg PO TID 10/27/22 12/31/22 History famotidine 20 mg tablet 20 mg PO BID 10/27/22 12/31/22 History miconazole nitrate 2 % topical 1 applic topical BID 10/27/22 12/31/22 History cream polyethylene glycol 3350 17 gram 17 g PO QAM #14 ea 11/06/22 12/31/22 Rx oral powder packet (Miralax) losartan 25 mg tablet 25 mg PO DAILY 11/08/22 12/31/22 History nitroglycerin 0.4 mg sublingual 0.4
[2022-12-31] MEDS: CALCIUM GLUC 1,000 MG/NS 50 ML 1,000 MG/50 ML BAG 100 MG IVPB (20:46)
[2022-12-31] MEDS: dilTIAZem 100 MG/100 ML 100 MG/100 ML BAG IV CONT (21:30)
[2022-12-31] MEDS: SODIUM CHLORIDE 0.9% IV 1,000 ML 125 ML IV CONT (21:32)
--- NOTE | 2022-12-31 22:40 | ADMGEN ---
This patient, Lauren Lambert, was admitted to IMU Room 213-01. Patient/family oriented to hospital policies and general routines including ID bracelet, bed and alarms, visiting hours, pain management, procedures, bathroom and other care routines, personal items, smoking policy, room service/diet, and visiting hours. Information on how to activate the Rapid Response Team has been discussed. Patient/Family are encouraged to report perceived risks to care and to ask questions if they do not understand what they are told or what they should do.
[2022-12-31] MEDS: ONDANSETRON INJ 4 MG/2 ML VIAL (23:30)
[2023-01-01] VITALS (20 sets, daily range): BP systolic 84–138; BP diastolic 51–110; PULSE 95–140; RESP 10–24; TEMP 36.1–36.4; O2SAT 91–99; BMI 35.3
[2023-01-01] MEDS: POTASSIUM CHLORIDE INJ 40 MEQ in SODIUM CHLORIDE 0.9% IV 500 ML 130 MEQ IVPB ×2 (00:35→18:54)
[2023-01-01] MEDS: WATER FOR IRRIGATION, STERILE 1,000 ML BOTTLE 1000 ML (02:45)
[2023-01-01 09:19] LABS: Basophils Absolute Auto 0.1 K/mm3 (0.0-0.1); Basophils Percent Auto 1.1 % (0.2-1.2); Eosinophils Absolute Auto 0.6 K/mm3 (0-0.3); Hematocrit 32.9 % (37.0-47.0); Hemoglobin 11.2 g/dL (12.0-15.0); Immature Granulocyte Absolute 0.09 K/mm3 (0.00-0.031); Immature Granulocyte Percent A 0.8 % (0-0.5); Lymphocytes Absolute Auto 2.66 K/mm3 (0.9-3.2); Lymphocytes Percent Auto 23.9 % (18.3-44.2); Mean Corpuscular Hemoglobin 29.1 pg (26-34); Mean Corpuscular Volume 85.5 fl (80-100); Mean Platelet Volume 8.6 fl (7.4-10.4); Monocytes Absolute Auto 1.4 K/mm3 (0.1-0.6); Monocytes Percent Auto 12.8 % (2.6-8.5); Neutrophils Absolute Auto 6.3 K/mm3 (1.3-6.7); Neutrophils Percent Auto 56.4 % (45.5-73.1); Platelet Count Result 356 k/mm3 (150-375); Red Blood Count 3.85 M/mm3 (4.2-5.4); Red Cell Distribution Width 17.2 % (11.5-14.5); White Blood Count 11.1 K/mm3 (4.5-10.0)
[2023-01-01 09:27] LABS: Anion Gap 10 mmol/L (8-16); Blood Urea Nitrogen 31 mg/dL (7-17); Calcium 7.2 mg/dL (8.4-10.2); Carbon Dioxide 21 mmol/L (22-30); Chloride 102 mmol/L (98-107); Estimated CRCL calculation 43 ml/min; Estimated Glomerular Filt Rate 32; Glucose 81 mg/dL (65-110); Potassium 3.1 mmol/L (3.4-5.0); Sodium 133 mmol/L (137-145)
--- NOTE | 2023-01-01 09:57 | PM.IMPN ---
Progress Note: A&P Assessment and Plan (1) UTI (urinary tract infection): Code(s): N39.0 - Urinary tract infection, site not specified Status: Acute Assessment and Plan: ADMIT TO REGULAR MEDICAL FLOOR STARTED ON ROCEPHIN AWAIT CULTURES SUPPORTIVE CARE CONTINUE TO MONITOR (2) [place] (acute kidney injury): Code(s): N17.9 - Acute kidney failure, unspecified Status: Acute Assessment and Plan: IV FLUIDS HOLDING LOSARTAN HOLDING FUROSEMIDE REPEAT BMP (3) Hyponatremia: Code(s): E87.1 - Hypo-osmolality and hyponatremia Status: Acute Assessment and Plan: MILD LIKELY SECONDARY TO DIURETIC USE RECEIVING IV FLUIDS (4) Chronic respiratory failure with hypoxia, on home oxygen therapy: Code(s): J96.11 - Chronic respiratory failure with hypoxia; Z99.81 - Dependence on supplemental oxygen Status: Acute Assessment and Plan: CONTINUE SUPPLEMENTAL OXYGEN (5) Obstructive sleep apnea on CPAP: Code(s): G47.33 - Obstructive sleep apnea (adult) (pediatric) Status: Acute Assessment and Plan: CPAP AT NIGHTTIME (6) Atrial fibrillation: Code(s): I48.91 - Unspecified atrial fibrillation Status: Acute Assessment and Plan: RATE CONTROLLED AND ANTICOAGULATED CONTINUE TO MONITOR Subjective Date/time seen: 01/01/23 09:57 Interval history: Confused. Not responding to verbal stimuli Review of Systems Review of Systems: ROS unobtainable: Yes unobtainable due to mental status ( delirium, obtundation) Exam Narrative: patient is laying in bed Const: General: ill appearing, lethargic, patient obtunded and average body habitus Nutritional Appearance: obese Orientation/consciousness: oriented to person Limitations: altered mental status HENMT: Head: normal to inspection, normocephalic and atraumatic Ears: hearing grossly normal bilaterally Face/Nose/Sinus: normal facial exam Face and sinus: normal facial exam Other: dry mucosas Eyes: General: appearance normal, both eyes and all related structures Pupils: Equal, round and reactive pupils present EOM: EOMs intact bilaterally Neck: Neck: full ROM, no lymphadenopathy and no JVD Thyroid: thyroid normal Lymphatic: no lymphadenopathy noted Resp: Effort & Inspection: normal respiratory effort and able to speak in complete sentences Auscultation: clear to auscultation bilaterally Cardio: Jugular venous distension: no JVD Rate: regular rate Rhythm: regular rhythm Heart sounds: S1 normal heart sound present and S2 normal heart sound present GI: GI Palp: Yes Soft to palpation and Yes No hepatosplenomegaly present : General: Yes deferred Skin: Rashes: no rashes Wounds: no wounds Neuro: General: patient oriented x3 and CN's II-XI intact bilaterally Cranial nerves: Yes CN's II-XII intact bilaterally and Yes Equal, round and reactive pupils present Cognition (Neuro): abnormal cognition Speech: normal speech Gait exam (Neuro): Unable to assess gait Motor exam (neuro): 5/5 motor strength present throughout Extrem: General: normal to inspection, full ROM, no joint enlargement and no pedal edema Objective Data Vital Signs Vital Signs: Vital Signs - 24 hr 12/31/22 15:35 12/31/22 17:52 12/31/22 16:45 Temperature 97.8 F Pulse Rate 148 H 136 H 130 H Respiratory Rate 18 18 18 Blood Pressure 140/88 152/118 H 153/120 H Pulse Oximetry 93 90 90 Oxygen Delivery Room Air Oxygen Flow Rate Fraction of Inspired Oxygen 12/31/22 18:35 12/31/22 19:33 12/31/22 19:41 Temperature 97.5 F L Pulse Rate 114 H 145 H 126 H Respiratory Rate 20 21 H Blood Pressure 92/70 L 94/37 L Pulse Oximetry 93 96 Oxygen Delivery Oxygen Flow Rate Fraction of Inspired Oxygen 12/31/22 21:30 12/31/22 21:41 12/31/22 22:50 Temperature 98.6 F Pulse Rate 123 H 100 124 H Respiratory Rate 15 Blood Pressure 103/75 103/68 Pulse Oxim
[2023-01-01] MEDS: CYCLOBENZAPRINE HCL 10 MG TABLET PO ×3 (10:15→17:23)
[2023-01-01] MEDS: FAMOTIDINE 20 MG TABLET PO ×2 (10:15→17:23)
[2023-01-01] MEDS: CLOPIDOGREL BISULFATE 75 MG TABLET PO (10:15)
[2023-01-01] MEDS: polyethylene glycoL 3350 17 GM POWD.PACK PO (10:15)
[2023-01-01] MEDS: APIXABAN 5 MG TABLET PO ×2 (10:15→17:23)
[2023-01-01] MEDS: MICONAZOLE NITRATE 2% CREAM 30 GM TUBE 1 APPLIC TOPICAL ×2 (10:16→17:24)
[2023-01-01] MEDS: SODIUM CHLORIDE 0.9% IV 1,000 ML 125 ML IV CONT ×2 (11:00→19:04)
[2023-01-01] MEDS: ONDANSETRON INJ 4 MG/2 ML VIAL IV PUSH ×2 (19:00→22:36)
[2023-01-01] MEDS: dilTIAZem 100 MG/100 ML 100 MG/100 ML BAG IV CONT (19:15)
[2023-01-02] VITALS (22 sets, daily range): BP systolic 100–144; BP diastolic 46–118; PULSE 96–145; RESP 15–20; TEMP 36.1–36.3; O2SAT 90–100
[2023-01-02 05:28] LABS: Hematocrit 35.1 % (37.0-47.0); Hemoglobin 11.4 g/dL (12.0-15.0); Mean Corpuscular HGB Conc 32.5 g/dl (32-36); Mean Corpuscular Hemoglobin 28.7 pg (26-34); Mean Corpuscular Volume 88.4 fl (80-100); Mean Platelet Volume 8.6 fl (7.4-10.4); Platelet Count Result 359 k/mm3 (150-375); Red Blood Count 3.97 M/mm3 (4.2-5.4); Red Cell Distribution Width 17.5 % (11.5-14.5); White Blood Count 12.4 K/mm3 (4.5-10.0)
[2023-01-02 05:40] LABS: Anion Gap 9 mmol/L (8-16); Blood Urea Nitrogen 27 mg/dL (7-17); Calcium 7.4 mg/dL (8.4-10.2); Carbon Dioxide 19 mmol/L (22-30); Chloride 106 mmol/L (98-107); Estimated CRCL calculation 52 ml/min; Estimated Glomerular Filt Rate 40; Glucose 72 mg/dL (65-110); Potassium 3.3 mmol/L (3.4-5.0); Sodium 134 mmol/L (137-145)
[2023-01-02] MEDS: polyethylene glycoL 3350 17 GM POWD.PACK PO (09:12)
[2023-01-02] MEDS: MICONAZOLE NITRATE 2% CREAM 30 GM TUBE 1 APPLIC TOPICAL ×2 (09:12→17:10)
[2023-01-02] MEDS: FAMOTIDINE 20 MG TABLET PO ×2 (09:13→17:10)
[2023-01-02] MEDS: APIXABAN 5 MG TABLET PO ×2 (09:13→17:10)
[2023-01-02] MEDS: CLOPIDOGREL BISULFATE 75 MG TABLET PO (09:13)
[2023-01-02] MEDS: CYCLOBENZAPRINE HCL 10 MG TABLET PO ×3 (09:13→17:10)
[2023-01-02] MEDS: ONDANSETRON INJ 4 MG/2 ML VIAL IV PUSH ×2 (09:23→17:15)
--- NOTE | 2023-01-02 10:55 | PM.IMPN ---
Progress Note: A&P Assessment and Plan (1) Atrial fibrillation: Code(s): I48.91 - Unspecified atrial fibrillation Status: Acute Assessment and Plan: Will discontinue Cardizem drip and start on p.o. Cardizem 30 mg q.6 hours. Also resume home dose of Toprol-XL. (2) UTI (urinary tract infection): Code(s): N39.0 - Urinary tract infection, site not specified Status: Acute Assessment and Plan: ADMIT TO REGULAR MEDICAL FLOOR STARTED ON ROCEPHIN Urine culture growing Gram-negative bacilli (3) [place] (acute kidney injury): Code(s): N17.9 - Acute kidney failure, unspecified Status: Acute Assessment and Plan: Improving. Discontinue IV fluids since patient is getting edematous HOLDING LOSARTAN HOLDING FUROSEMIDE REPEAT BMP in a.m. (4) Hyponatremia: Code(s): E87.1 - Hypo-osmolality and hyponatremia Status: Acute Assessment and Plan: MILD LIKELY SECONDARY TO DIURETIC USE RECEIVING IV FLUIDS (5) Chronic respiratory failure with hypoxia, on home oxygen therapy: Code(s): J96.11 - Chronic respiratory failure with hypoxia; Z99.81 - Dependence on supplemental oxygen Status: Acute Assessment and Plan: CONTINUE SUPPLEMENTAL OXYGEN (6) Obstructive sleep apnea on CPAP: Code(s): G47.33 - Obstructive sleep apnea (adult) (pediatric) Status: Acute Assessment and Plan: CPAP AT NIGHTTIME (7) Sepsis: Code(s): A41.9 - Sepsis, unspecified organism Status: Acute Assessment and Plan: Urine culture growing Gram-negative bacilli. Blood culture growing Gram-positive cocci in chains. Continue IV Rocephin Subjective Date/time seen: 01/02/23 10:55 Interval history: Awake but not oriented. Still confused Review of Systems Review of Systems: ROS unobtainable: Yes unobtainable due to mental status ( delirium, obtundation) Exam Const: General: ill appearing, lethargic, patient obtunded and average body habitus Nutritional Appearance: obese Orientation/consciousness: oriented to person Limitations: altered mental status HENMT: Head: normal to inspection, normocephalic and atraumatic Ears: hearing grossly normal bilaterally Face/Nose/Sinus: normal facial exam Face and sinus: normal facial exam Other: dry mucosas Eyes: General: appearance normal, both eyes and all related structures Pupils: Equal, round and reactive pupils present EOM: EOMs intact bilaterally Neck: Neck: full ROM, no lymphadenopathy and no JVD Thyroid: thyroid normal Lymphatic: no lymphadenopathy noted Resp: Effort & Inspection: normal respiratory effort and able to speak in complete sentences Auscultation: clear to auscultation bilaterally Cardio: Jugular venous distension: no JVD Rate: regular rate Rhythm: regular rhythm Heart sounds: S1 normal heart sound present and S2 normal heart sound present GI: GI Palp: Yes Soft to palpation and Yes No hepatosplenomegaly present : General: Yes deferred Skin: Rashes: no rashes Wounds: no wounds Neuro: General: patient oriented x3 and CN's II-XI intact bilaterally Cranial nerves: Yes CN's II-XII intact bilaterally and Yes Equal, round and reactive pupils present Cognition (Neuro): abnormal cognition Speech: normal speech Gait exam (Neuro): Unable to assess gait Motor exam (neuro): 5/5 motor strength present throughout Extrem: General: normal to inspection, full ROM, no joint enlargement and no pedal edema Objective Data Vital Signs Vital Signs: Vital Signs - 24 hr 01/01/23 11:38 01/01/23 16:00 01/01/23 12:00 Temperature 97.3 F L 97.3 F L Pulse Rate 119 H 118 H 119 H Respiratory Rate 17 18 Blood Pressure 138/110 H 109/69 Pulse Oximetry 98 91 Oxygen Delivery Oxygen Flow Rate Fraction of Inspired Oxygen 01/01/23 14:00 01/01/23 16:00 01/01/23 18:00 Temperature Pulse Rate 139 H 125 H 125 H Respiratory Rate Blood Pressure Pu
[2023-01-02] MEDS: METOPROLOL SUCCINATE EXT REL 50 MG TABCR PO ×2 (11:14→21:26)
[2023-01-02] MEDS: dilTIAZem HCL 30 MG TABLET PO ×3 (11:14→23:07)
[2023-01-02] MEDS: ACETAMINOPHEN 325 MG TABLET 650 MG PO ×2 (17:10→23:17)
[2023-01-03] VITALS (19 sets, daily range): BP systolic 86–171; BP diastolic 38–107; PULSE 85–127; RESP 16–22; TEMP 36.2–36.6; O2SAT 97–100
[2023-01-03] MEDS: dilTIAZem HCL 30 MG TABLET PO ×3 (05:41→17:05)
[2023-01-03 07:51] LABS: Blood Urea Nitrogen 24 mg/dL (7-17); Carbon Dioxide 25 mmol/L (22-30); Chloride 104 mmol/L (98-107); Estimated CRCL calculation 61 ml/min; Estimated Glomerular Filt Rate 49
[2023-01-03 07:59] LABS: Anion Gap 6 mmol/L (8-16); Calcium 7.8 mg/dL (8.4-10.2); Glucose 80 mg/dL (65-110); Potassium 3.2 mmol/L (3.4-5.0); Sodium 135 mmol/L (137-145)
[2023-01-03 12:20] LABS: Glucose Point of Care 86 mg/dl (65-105)
[2023-01-03] MEDS: DEXTROSE 5%/0.45% SOD CHL 1,000 ML 100 ML IV CONT ×2 (12:30→23:42)
[2023-01-03] MEDS: CYCLOBENZAPRINE HCL 10 MG TABLET PO ×2 (13:11→16:45)
[2023-01-03] MEDS: CLOPIDOGREL BISULFATE 75 MG TABLET PO (13:11)
[2023-01-03] MEDS: APIXABAN 5 MG TABLET PO ×2 (13:11→16:45)
[2023-01-03] MEDS: METOPROLOL SUCCINATE EXT REL 50 MG TABCR PO ×2 (13:11→20:23)
[2023-01-03] MEDS: MICONAZOLE NITRATE 2% CREAM 30 GM TUBE 1 APPLIC TOPICAL ×2 (13:12→16:45)
[2023-01-03] MEDS: FAMOTIDINE 20 MG TABLET PO ×2 (13:12→16:45)
[2023-01-03 13:13] LABS: Alveolar/Arterial O2 Gradient 5.5 mmHg; Base Excess ABG -3.7 mEq/l (+/-2.0); Fractional Inspired Oxygen 21 %; HCO3 ABG 20.3 mEq/l (22.0-26.0); Oxygen Content ABG 17.4 %vol (16.0-22.0); Oxygen Saturation ABG 97.8 % (95.0-100.0); Oxyhemoglobin 96.6 % THb (90.0-100.0); PCO2 ABG 33.4 mmHg (35.0-45.0); PO2 ABG 104.2 mmHg (80.0-100.0); PO2 FiO2 Ratio Arterial Blood 4.96 %; Total Hemoglobin 12.7 g/dL (12.0-18.0); pH ABG 7.401 (7.350-7.450)
[2023-01-03 13:15] LABS: Modified Allen's Test Pass; Site Drawn RIGHT RADIAL
--- NOTE | 2023-01-03 16:30 | PM.IMPN ---
Progress Note: A&P Assessment and Plan (1) Atrial fibrillation: Code(s): I48.91 - Unspecified atrial fibrillation Status: Acute Assessment and Plan: Will discontinue Cardizem drip and start on p.o. Cardizem 30 mg q.6 hours. Also resume home dose of Toprol-XL. (2) UTI (urinary tract infection): Code(s): N39.0 - Urinary tract infection, site not specified Status: Acute Assessment and Plan: ADMIT TO REGULAR MEDICAL FLOOR STARTED ON ROCEPHIN Urine culture growing Gram-negative bacilli (3) OR[place]O (acute kidney injury): Code(s): N17.9 - Acute kidney failure, unspecified Status: Acute Assessment and Plan: Continue iv fluids for low BPS cut back rate (4) Hyponatremia: Code(s): E87.1 - Hypo-osmolality and hyponatremia Status: Acute Assessment and Plan: RECEIVING IV FLUIDS (5) Chronic respiratory failure with hypoxia, on home oxygen therapy: Code(s): J96.11 - Chronic respiratory failure with hypoxia; Z99.81 - Dependence on supplemental oxygen Status: Acute Assessment and Plan: CONTINUE SUPPLEMENTAL OXYGEN (6) Obstructive sleep apnea on CPAP: Code(s): G47.33 - Obstructive sleep apnea (adult) (pediatric) Status: Acute Assessment and Plan: CPAP AT NIGHTTIME (7) Sepsis: Code(s): A41.9 - Sepsis, unspecified organism Status: Acute Assessment and Plan: Urine culture growing Gram-negative bacilli. Blood culture growing Gram-positive cocci in chains. Continue IV Rocephin Subjective Date/time seen: 01/03/23 16:30 Interval history: 72-year-old female with past medical history significant for atrial fibrillation, chronic respiratory failure on supplemental oxygen at home, coronary artery disease, diastolic heart failure hypertension, obstructive sleep apnea on CPAP.? Patient was brought via EMS on the field patient was found to have a systolic of 60 with a diastolic of 30 giving a dose of IV push epinephrine on route. Pt was on diltiazem drip for AF now weaned off continue iv fluids or low BPs continue to watch pt in hospital watch kidney function and UO Pt appears more awake now earlier was drowsy ABG and accucheck neurochecks were ordered Review of Systems Review of Systems: Tiredness Exam Const: General: comfortable, no acute distress, well developed, ill appearing, lethargic, average body habitus and obese Nutritional Appearance: average body habitus and obese Orientation/consciousness: oriented to person, patient oriented x3, patient obtunded and lethargic Limitations: altered mental status Resp: Effort & Inspection: normal respiratory effort and able to speak in complete sentences Auscultation: clear to auscultation bilaterally Cardio: Jugular venous distension: no JVD Rate: regular rate Rhythm: regular rhythm Heart sounds: S1 normal heart sound present and S2 normal heart sound present Skin: Rashes: no rashes Wounds: no wounds Neuro: General: oriented to person, patient oriented x3, CN's II-XI intact bilaterally, patient obtunded and Unable to assess gait Cranial nerves: Yes CN's II-XII intact bilaterally and Yes Equal, round and reactive pupils present Cognition (Neuro): abnormal cognition Speech: normal speech Gait exam (Neuro): Unable to assess gait Motor exam (neuro): 5/5 motor strength present throughout Extrem: General: normal to inspection, full ROM, no joint enlargement and no pedal edema Objective Data Vital Signs Vital Signs: Vital Signs - 24 hr 01/02/23 18:00 01/02/23 20:24 01/02/23 21:26 Temperature 36.3 C L Pulse Rate 130 H 135 H 108 H Respiratory Rate 20 Blood Pressure 112/75 Pulse Oximetry 91 Oxygen Delivery Oxygen Flow Rate 01/02/23 22:32 01/02/23 23:49 01/02/23 20:00 Temperature 36.2 C L Pulse Rate 96 123 H 124 H Respiratory Rate 15 20 Blood Pressure 100/46 L Pulse Oximetry 98 Oxygen Delivery Autopap Oxyg
[2023-01-03] MEDS: ACETAMINOPHEN 325 MG TABLET 650 MG PO (16:57)
--- NOTE | 2023-01-03 23:27 | PC.NURSE ---
Spoke with Dr. Guerrero regarding patient's blood pressure, heart rate, I/O, medications. Dr. Guerrero saw patient, New orders received.
[2023-01-03] MEDS: MIDODRINE HCL 10 MG TABLET PO (23:37)
[2023-01-04] VITALS (50 sets, daily range): BP systolic 57–166; BP diastolic 34–151; PULSE 86–113; RESP 14–20; TEMP 34.8–36.5; O2SAT 93–100
--- NOTE | 2023-01-04 | ECHO_ITS ---
Patient Info Name: Lauren Lambert Age: 72 years : 1950 Gender: Female Ht: 72 in Wt: 282 lbs BSA: 2.60 m2 HR: 98 bpm BP: 92 / 77 mmHg Technical Quality: Fair Exam Date: 01/04/2023 4:02 PM Exam Location: [facility] Pulmonary Exam Room: ICU6 Patient Status: Inpatient Admit Date: 01/01/2023 Staff Ordering Physician: Yunior Sylvester MD Fiction And Nonfiction Prose Writer: Corinne Hill RDCS Attending Provider: Héctor Waters MD Exam Type: CA echo dop color flow w con Study Info Indications - BACTEREMIA Complete two-dimensional, color flow and Doppler transthoracic echocardiogram is performed with contrast to opacify the left ventricle and to improve the deliniation of the left ventricle endocardial borders. Contrast/Agitated Saline Contrast/Ag. Saline: Definity Amount: 2.00 ml Administered By: Corinne Hill [facility] Existing IV Access: Yes IV Access Condition: patent with no signs of infiltration Summary 1. Left ventricular chamber dimension is normal. 2. Left ventricular systolic function is lower limits of normal, estimated at 50-55%. 3. Left atrial chamber dimension is moderately enlarged. 4. Right atrial chamber dimension is mildly enlarged. 5. There is moderate mitral valve regurgitation. 6. There is moderate tricuspid valve regurgitation. 7. Left pleural effusion noted. 8. There is trivial pericardial effusion. Left Ventricle Left ventricular chamber dimension is normal. Left ventricular systolic function is lower limits of normal, estimated at 50-55%. There is no increased left ventricular wall thickness. Left ventricular septal wall motion is abnormal with septal motion related to bundle branch block. Right Ventricle Right ventricular chamber dimension is normal. Left Atria Left atrial chamber dimension is moderately enlarged. Right Atria Right atrial chamber dimension is mildly enlarged. Atrial Septum Intact interatrial septum visualized by color flow imaging. Aortic Valve The aortic valve is probable trileaflet. There is no aortic valve stenosis. There is mild aortic valve calcification. Pulmonic Valve The pulmonic valve is not well visualized. Mitral Valve There is moderate mitral valve regurgitation. Tricuspid Valve There is moderate tricuspid valve regurgitation. Pericardium/Pleural Left pleural effusion noted. There is trivial pericardial effusion. Inferior Vena Cava Inferior vena cava is not well visualized. Aorta The aortic root size at the sinus of Valsalva is normal. Left Ventricular Outflow Tract Name Value Normal LVOT 2D LVOT Diameter 2.01 cm LVOT Doppler LVOT Peak Gradient 4 mmHg LVOT Mean Gradient 2 mmHg LVOT VTI 18.60 cm LVOT VTI/AV VTI Ratio 0.79 LVOT Stroke Volume 58.90 ml LVOT CO 13.17 l/min LVOT CI 5.07 L/min/m2 Pulmonic Valve Name Value Normal
--- NOTE | 2023-01-04 02:13 | PC.NURSE ---
b/p 57/34. No change in assessment otherwise. Patient remains alert and oriented to self. Asking can she go to [facility]. States, just leave me alone , moans/cries when moved or b/p taken. Respirations even/nonlabored with oxygen at 2L/NC. Skin warm, dry, pale. PEARLA. Face symmetrical tho patient does not follow commands to smile or raise arms or legs. Continues to have generalized edema and 2-3+ pitting edema to legs/feet. Patient drank 2 styrofoam cups of thickened water tonight. Sullivan continues to drain small amount of dark ba urine. Dr. Guerrero called and rapid response called regarding b/p. Difficulty obtaining blood pressure d/t edema and uncooperative patient. Several different cuffs tried and manual bp's. Patient transferred to ICU and report given to Danny BAUM.
--- NOTE | 2023-01-04 02:16 | PC.NURSE ---
Patient moved to ICU for low blood pressure management. Patient initial blood pressure 126/95 upon arrival of ICU. Retake is 65/38. Dr Guerrero notified. Patient to be made ICU status. Hold lopressor and cardizem. Start Jose Juan-Synephrine through PIV. Dr. Guerrero to talk to Dr. Sylvester for further management/orders. Danny BAUM receiving nurse.
--- NOTE | 2023-01-04 02:19 | PC.NURSE ---
Attempt to reach family about transfer to ICU 6 unsuccessful. No contact information in patient chart.
[2023-01-04 04:35] LABS: Hematocrit 35.7 % (37.0-47.0); Hemoglobin 12.2 g/dL (12.0-15.0); Mean Corpuscular HGB Conc 34.2 g/dl (32-36); Mean Corpuscular Hemoglobin 29.1 pg (26-34); Mean Corpuscular Volume 85.2 fl (80-100); Mean Platelet Volume 9.4 fl (7.4-10.4); Platelet Count Result 422 k/mm3 (150-375); Red Blood Count 4.19 M/mm3 (4.2-5.4); White Blood Count 9.6 K/mm3 (4.5-10.0)
--- NOTE | 2023-01-04 05:24 | PM.CCN ---
Critical Care Event Note Summary Code activated: Yes ( rapid response code) Narrative: This case had a high probability of a clinically significant, sudden, or life threatening deterioration of this patient's condition which required my full and direct attention, intervention and personal management. Total critical care time spent was 63 minutes. Critical care time: 30 - 74 mins Vital Signs 12/31/22 15:35 12/31/22 16:45 12/31/22 17:52 12/31/22 18:35 12/31/22 19:33 12/31/22 19:41 12/31/22 21:30 12/31/22 21:41 12/31/22 22:37 12/31/22 22:41 12/31/22 22:44 12/31/22 22:50 01/01/23 00:00 01/01/23 00:00 01/01/23 00:11 01/01/23 02:00 01/01/23 02:40 01/01/23 04:00 01/01/23 04:00 01/01/23 04:21 01/01/23 04:27 01/01/23 06:00 01/01/23 08:00 01/01/23 08:00 01/01/23 08:43 01/01/23 10:00 01/01/23 11:38 01/01/23 12:00 01/01/23 12:00 01/01/23 13:11 01/01/23 14:00 Height 1.83 m 1.83 m Weight 112 kg 118.1 kg 118.1 kg 118.1 kg BMI 35.3 35.3 35.3 BP 140/88 153/120 H 152/118 H 92/70 L 94/37 L 103/75 103/68 117/46 L 84/51 L 105/87 117/97 H 138/110 H Position Sitting Supine Supine Sitting Supine Supine Supine Supine Sitting Supine Supine Respiration 18 18 18 20 21 H 15 18 18 18 10 L 24 H 24 H 17 17 Pulse 148 H 130 H 136 H 114 H 145 H 126 H 123 H 100 120 H 124 H 124 H 140 H 109 H 124 H 95 124 H 113 H 113 H 126 H 126 H 112 H 116 H 119 H 119 H 139 H Pulse Source Monitor Temp 36.6 C 36.4 C L 37.0 C 36.6 C 36.1 C L 36.4 C 36.1 C L 36.3 C L Temp Source Temporal Artery Scan Pulse Oximetry (%) 93 90 90 93 96 92 93 93 94 93 93 99 93 98 98 Oxygen Flow Rate 2 2 2 01/01/23 16:00 01/01/23 16:00 01/01/23 16:00 01/01/23 18:00 01/01/23 19:15 01/01/23 19:38 01/01/23 20:00 01/01/23 21:20 01/01/23 22:00 01/02/23 00:00 01/02/23 00:00 01/02/23 00:00 01/02/23 02:00 01/02/23 02:11 01/02/23 02:12 01/02/23 04:00 01/02/23 04:00 01/02/23 04:41 01/02/23 05:00 01/02/23 06:00 01/02/23 07:45 01/02/23 08:00 01/02/23 08:00 01/02/23 10:00 01/02/23 11:14 01/02/23 12:00 01/02/23 12:00 01/02/23 12:00 01/02/23 14:00 01/02/23 15:43 01/02/23 16:00 01/02/23 16:00 118.1 kg 109/69 100/65 100/63 129/107 H 142/118 H 144/106 H 124/93 H 127/98 H Supine Supine Sitting Supine Supine Supine Supine 18 18 18 20 20 16 20 20 16 16 15 118 H 125 H 125 H 132 H 132 H 135 H 132 H 130 H 116 H 145 H 116 H 130 H 96 132 H 131 H 132 H 127 H 124 H 138 H 134 H 125 H 144 H 136 H 138 H 125 H 132 H 36.3 C L 36.2 C L 36.2 C L 36.3 C L 36.2 C L 36.1 C L 36.3 C L 91 92 92 92 98 98 96 100 100 91 91 90 90 91 91 2 2 2 2 2 2 2 2 01/02/23 18:00 01/02/23 20:00 01/02/23 20:00 01/02/23 20:24 01/02/23 21:26 01/02/23 22:00 01/02/23 22:32 01/02/23 23:49 01/03/23 00:00 01/03/23 00:00 01/03/23 02:00 01/03/23 02:44 01/03/23 04:00 01/03/23 04:00 01/03/23 04:11 01/03/23 05:00 01/03/23 05:10 01/03/23 07:53 01/03/23 08:00 01/03/23 08:00 01/03/23 10:00 01/03/23 12:00 01/03/23 12:00 01/03/23 12:00 01/03/23 13:11 01/03/23 14:00 01/03/23 15:58 01/03/23 16:00 01/03/23 16:00 01/03/23 16:57 01/03/23 18:00 01/03/23 20:00 118.1 kg 112/75 100/46 L 153/103 H 171/107 H 90/44 L 121/54 L 86/38 L Supine Supine Supine Supine Supine Supine Supine 20 20 15 20 20 16 22 H 22 H 20 22 H 18
[2023-01-04] MEDS: ALBUMIN HUMAN 5% 25 GM/500 ML BTL IV CONT (05:40)
[2023-01-04 06:47] LABS: Anion Gap 8 mmol/L (8-16); Blood Urea Nitrogen 23 mg/dL (7-17); Carbon Dioxide 24 mmol/L (22-30); Chloride 102 mmol/L (98-107); Estimated CRCL calculation 63 ml/min; Estimated Glomerular Filt Rate 49; Glucose 92 mg/dL (65-110); Magnesium 1.5 mg/dL (1.6-2.3); Sodium 134 mmol/L (137-145)
[2023-01-04] MEDS: MIDAZOLAM HCL (*CRX) 2 MG/2 ML VIAL 1 MG IV PUSH ×2 (08:46→08:55)
--- NOTE | 2023-01-04 09:19 | P.PCNBED_ITS ---
Procedures Central Line Placement Right Femoral: Central Line Date: 01/04/23 Central Line Time: 08:50 Performed Emergently - Given emergent patient condition, temporal constraints may have precluded informed consent.: Yes Consent: Patient has no family members are POA. She is confused and cannot consent. Patient in septic shock and need for vasopressor. Poor IV access. Procedure done as medical necessity. Femoral site chosen because patient was uncooperative also anticoagulated. Time Out Performed: Yes Patient Position: supine Patient placed on monitor/pulse ox: Yes Provider Prep: mask, sterile gown, sterile gloves, Max. sterile barrier precautions, cap and hand hygiene with conventional soap/water or alcohol based hand rub Central line prep: Povidone-Iodine 1% Local anesthesia used: lidocaine 1% Amount of anesthesia used (ml): 5 Sterile US Technique with sterile gel/sterile probe covers: Yes Central line lumen inserted: triple [place]: 7 Length (cm): 20 Depth of Insertion (cm): 20 Post Procedure: sutured in place, good blood return, all ports aspirated, flushed, capped, transparent dressing, hemostatic product, antimicrobial product and aseptic technique maintained throughout procedure Patient tolerated procedure: no complications Complications: none Additional comments: Patient was uncooperative and moved her leg 1st time hence required 2 attempts to obtain venous cannulation.
[2023-01-04] MEDS: SODIUM CHLORIDE 0.9% IV 1,000 ML 999 ML IV CONT (09:20)
--- NOTE | 2023-01-04 09:21 | WPDCNINT ---
Assessment and Plan Assessment and plan (1) Septic shock: Code(s): A41.9 - Sepsis, unspecified organism; R65.21 - Severe sepsis with septic shock Status: Acute Assessment and Plan: Patient initially presented with sepsis secondary to urinary tract infection. She had indwelling Sullivan catheter and had UA consistent with UTI Blood culture drawn and patient was started on IV Rocephin Urine cultures growing Klebsiella Blood culture is growing VRE MRSA and Staph epidermis I am wondering whether patient has abdominal source of bacteremia. She is morbidly obese and exam is unreliable. CT abdomen done in 11/08 showed stercoral colitis Antibiotics changed to vancomycin and meropenem Check lactic acid level, procalcitonin Will send repeat blood culture Patient was started on Jose Juan-Synephrine infusion to her AFib. She is on high dose of Jose Juan-Synephrine and the blood pressure still not adequate I will give 1 L bolus and then Check night come see if patient is further fluid responsive Central venous catheter placed emergently Start Levophed and vasopressin Stress dose hydrocortisone Add 25% albumin Obtain echocardiogram (2) Bacteremia: Code(s): R78.81 - Bacteremia Status: Acute Assessment and Plan: See above (3) UTI (urinary tract infection): Code(s): N39.0 - Urinary tract infection, site not specified Status: Acute Assessment and Plan: Patient has indwelling Sullivan catheter and UA was consistent with UTI She is growing ESBL Klebsiella-antibiotics as above (4) [place]O (acute kidney injury): Code(s): N17.9 - Acute kidney failure, unspecified Status: Acute Assessment and Plan: Patient presented with creatinine of 2.1 which is likely secondary to sepsis and septic shock. Creatinine has been improving with IV fluids Monitor urine output electrolytes and creatinine CT scan to rule out any hydronephrosis or obstruction (5) Atrial fibrillation: Code(s): I48.91 - Unspecified atrial fibrillation Status: Acute Assessment and Plan: Patient currently in AFib with controlled ventricular rate. Continue monitor. May need amiodarone infusion if RVR developed Hold beta-nolvia and calcium channel nolvia Patient is anticoagulated with apixaban (6) Obstructive sleep apnea on CPAP: Code(s): G47.33 - Obstructive sleep apnea (adult) (pediatric) Status: Acute Assessment and Plan: CPAP ordered (7) Electrolyte abnormality: Code(s): E87.8 - Other disorders of electrolyte and fluid balance, not elsewhere classified Status: Acute Assessment and Plan: Potassium and magnesium replacement ordered Plan DVT prophylaxis -apixaban Stress ulcer prophylaxis -Pepcid Nutrition -diet ordered Code Status -DNR. Patient herself does not appear to have capacity. She is from [facility] and does not have any family or POA listed in the chart available. Apparently [facility] is trying to obtain state guardianship for this patient. Unfortunately all the procedures will be done as medical necessity due to lack of consenting adult. Will discuss with care coordination. Patient is DNR which was listed on her code status from the paperwork obtained from [facility].. Total Critical Care Time - 40 minutes Due to a high probability of clinically significant, life threatening deterioration, the patient required my highest level of preparedness to intervene emergently and I personally spent this critical care time directly and personally managing the patient. This critical care time included obtaining a history; examining the patient; pulse oximetry; ordering and review of studies; arranging urgent treatment with development of a management plan; evaluation of patient's response to treatment; frequent reassessment; and discussions with other providers. It was exclusive of separately billable procedures and treating other patients and teaching time. Please see Asse
[2023-01-04 10:11] LABS: Procalcitonin 0.1 ng/mL
[2023-01-04] MEDS: KCL 40 MEQ/WATER 100 ML 100 ML 25 ML IVPB ×2 (10:11→17:49)
[2023-01-04] MEDS: MAGNESIUM SULF 2 GM/WATER 50ML 2 GM/50 ML BAG IVPB ×2 (10:13→17:49)
[2023-01-04] MEDS: KCL 20 MEQ/D5/0.45% SOD CHL 1,000 ML 100 ML IV CONT (10:22)
[2023-01-04 10:26] LABS: Lactic Acid Reflex 2.2 mmol/L (0.7-2.0)
--- NOTE | 2023-01-04 10:32 | PM.CNCAR ---
Assessment and Plan Assessment and plan (1) Atrial fibrillation: Code(s): I48.91 - Unspecified atrial fibrillation Status: Acute Assessment and Plan: Heart rate is reasonably controlled. Obviously holding metoprolol and diltiazem for now because of hypotension/septic shock. When blood pressure is more stable, would resume. In the meantime, if heart rate was difficult to control, could try amiodarone or even IV digoxin. At this point heart rate is reasonably controlled and she needs no further intervention. Continue Eliquis 5 mg p.o. b.i.d.. (2) Bacteremia: Code(s): R78.81 - Bacteremia Status: Acute Assessment and Plan: On antibiotics per other teams (3) Septic shock: Code(s): A41.9 - Sepsis, unspecified organism; R65.21 - Severe sepsis with septic shock Status: Acute (4) Electrolyte abnormality: Code(s): E87.8 - Other disorders of electrolyte and fluid balance, not elsewhere classified Status: Acute Assessment and Plan: Potassium already replaced History of Present Illness History of Present Illness Consult date/time: 01/04/23 10:32 Requesting physician: Kayode Guerrero MD Consult reason: atrial fibrillation Reason For Visit: Afib, RVR, [place]O, Hypokalemia, Hypocalcemia Narrative: Date of service 01/04/2023 Reason for consultation: Atrial fibrillation Requesting provider: Dr. Guerrero History patient is a 72-year-old female who was known to the Cardiology Service. She has a history of atrial fibrillation/flutter who was at the nursing facility and brought back to the hospital on 12/31/2022 because of low blood pressure. She was on in IMU BUT BECAME MORE HYPOTENSIVE AND WAS TRANSFERRED TO THE ICU OVERNIGHT FOR FURTHER STABILIZATION. She is DNR. Blood pressure is better. Heart rate is reasonably controlled at present. She does have some altered mental state but currently denies any chest pain or shortness of breath. Does have lower extremity swelling. No syncope, presyncope. She is currently on pressors including norepinephrine and vasopressin. Review of Systems Review of Systems: All systems reviewed & are unremarkable except as noted in HPI and below Constitutional: Constitutional: Denies body ache(s) Eyes: Eyes: Denies blurry vision ENT: Denies epistaxis Cardiovascular: Cardiovascular: Denies chest pain Respiratory: Respiratory: Denies cough Gastrointestinal: Gastrointestinal: Denies abdominal pain Genitourinary: Genitourinary: Denies hematuria Musculoskeletal: Musculoskeletal: Denies myalgias Integumentary/Breasts: Skin/Breast: Reports rash Neurologic: Reports confusion Psychiatric: Psychiatric: Denies anxiety Endocrine: Endocrine: Denies excessive sweating Hematologic/Lymphatic: Hematologic/Lymphatic: Denies easy bleeding Allergic/Immunologic: Allergic/Immunologic: Denies GI upset with certain foods PMFSH Past Medical History Medical History Arthritis Atrial fibrillation Status post cardiac ablation. Chronic respiratory failure with hypoxia, on home oxygen therapy Coronary artery disease Deep venous thrombosis Diastolic congestive heart failure Hyperlipidemia Hypertension Myocardial infarction Patient reports history of [place], no stents Obstructive sleep apnea on CPAP Surgical History Surgical History History of cardiac radiofrequency ablation History of tonsillectomy Family History Family History Father Malignant neoplasm of prostate Acute myocardial infarction Mother Uterine cancer Acute myocardial infarction Sibling Uterine cancer Social History Social History Social History: Patient reports she has a master's degree in psychiatric nursing. Code status: Modified code, medications
[2023-01-04] MEDS: MEROPENEM 1 GM/NS 100 ML 1 GM/100 ML BAG IVPB ×2 (10:33→17:50)
[2023-01-04] MEDS: MICONAZOLE NITRATE 2% CREAM 30 GM TUBE 1 APPLIC TOPICAL ×2 (10:36→17:50)
--- NOTE | 2023-01-04 11:14 | PCNFU ---
Nutrition Follow-Up Complete: Severe protein calorie malnutrition related to loss of appetite, refusal of PO intake as evidenced by [facility] report of minimal PO intake at least 2 1/2 weeks, weight loss 10%/1 month. Improve PO intake to 50% meals and supplements - not meeting goal Maintain weight - meeting goal so far Goal: Pt current nutrition is Heart healthy diet, soft & bite size level 6; level 2 mildly thickened liquids. Ensure Enlive TID ordered for additional 350 kcal and 20 g protein each. Nutrition recommendation: Continue with current diet order and supplement order. Continue to encourage intakes. Agree with orders Last recorded weight is 128 kg. Bowel Motility: Last charted BM 12/30/22 Labs Reviewed: Hct 35.7, Alb 2.8, Na 134, K 3.0, GFR 49, BUN 23, Cre 1.1, Mag 1.5 Meds Noted: Albumin, phenylephrine, vasopressin Skin: Skin tear Additional Notes: Pt did not eat food, just drank her Ensure Enlive shake. Not oriented. DNR so no aggressive nutrition intervention is indicated at this time. Prior to coming to hospital pt was not eating or drinking at the [facility] for several weeks, as she was refusing thickened liquids. Her weight has improved since admission. Continue with current nutrition care plan and orders. Monitor intakes, weights, labs, supplement tolerance, plan of care Follow up in 5 days
[2023-01-04] MEDS: NOREPINEPHRINE 8 MG/D5W 250 ML 8 MG/250 ML BAG 9.38 MG IV CONT (11:36)
[2023-01-04] MEDS: VASOPRESSIN INJ 100 UNITS in DEXTROSE 5% 95 ML IV CONT (11:36)
[2023-01-04] MEDS: ALBUMIN HUMAN 25% 25 GM/100 ML 100 ML IVPB ×2 (11:43→17:50)
[2023-01-04] MEDS: VANCOMYCIN 1,250 MG/NS 250 ML 1,250 MG/250 ML BAG 166.67 MG IVPB ×2 (11:54→11:55)
[2023-01-04] MEDS: HYDROCORTISONE SODIUM SUCCINATE 100 MG/2 ML VIAL IV PUSH ×2 (13:07→21:51)
[2023-01-04] MEDS: CENTRAL LINE FLUSH 10 ML IV PUSH ×3 (13:07→21:51)
[2023-01-04] MEDS: LINEZOLID 600 MG/300 ML 600 MG/300 ML SOLN 300 MG IVPB ×2 (13:07→22:05)
[2023-01-04 13:13] LABS: Reflex Lactic Acid Yes or No Add Lactic
--- NOTE | 2023-01-04 13:18 | P.PCNBED_ITS ---
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 Noninvasive blood pressure monitoring inaccurate. Arterial line placed emergently for accurate blood pressure monitoring and blood sampling. Patient confuse and does not have capacity to give consent. No family or POA available. Procedure done as medical necessity in emergency
[2023-01-04 14:20] LABS: Lactic Acid 2.1 mmol/L (0.7-2.0)
[2023-01-04 15:33] LABS: Anion Gap 10 mmol/L (8-16); Blood Urea Nitrogen 19 mg/dL (7-17); Calcium 7.8 mg/dL (8.4-10.2); Carbon Dioxide 18 mmol/L (22-30); Chloride 104 mmol/L (98-107); Estimated CRCL calculation 77 ml/min; Estimated Glomerular Filt Rate > 60; Glucose 201 mg/dL (65-110); Potassium 3.2 mmol/L (3.4-5.0); Sodium 132 mmol/L (137-145)
--- NOTE | 2023-01-04 15:38 | PM.IMPN ---
Progress Note: A&P Assessment and Plan (1) Septic shock: Code(s): A41.9 - Sepsis, unspecified organism; R65.21 - Severe sepsis with septic shock Status: Acute Assessment and Plan: per ICU note - Patient initially presented with sepsis secondary to urinary tract infection. She had indwelling Sullivan catheter and had UA consistent with UTI Blood culture drawn and patient was started on IV Rocephin Urine cultures growing Klebsiella Blood culture is growing VRE MRSA and Staph epidermis I am wondering whether patient has abdominal source of bacteremia. She is morbidly obese and exam is unreliable. CT abdomen done in 11/08 showed stercoral colitis Antibiotics changed to vancomycin and meropenem (2) Bacteremia: Code(s): R78.81 - Bacteremia Status: Acute Assessment and Plan: See above (3) UTI (urinary tract infection): Code(s): N39.0 - Urinary tract infection, site not specified Status: Acute (4) ORLANDO (acute kidney injury): Code(s): N17.9 - Acute kidney failure, unspecified Status: Acute Assessment and Plan: (5) Atrial fibrillation: Code(s): I48.91 - Unspecified atrial fibrillation Status: Acute (6) Obstructive sleep apnea on CPAP: Code(s): G47.33 - Obstructive sleep apnea (adult) (pediatric) Status: Acute Assessment and Plan: CPAP AT NIGHTTIME (7) Electrolyte abnormality: Code(s): E87.8 - Other disorders of electrolyte and fluid balance, not elsewhere classified Status: Acute (8) Hyponatremia: Code(s): E87.1 - Hypo-osmolality and hyponatremia Status: Acute Assessment and Plan: (9) Chronic respiratory failure with hypoxia, on home oxygen therapy: Code(s): J96.11 - Chronic respiratory failure with hypoxia; Z99.81 - Dependence on supplemental oxygen Status: Acute (10) Sepsis: Code(s): A41.9 - Sepsis, unspecified organism Status: Acute Assessment and Plan: Subjective Date/time seen: 01/04/23 15:38 Interval history: 72-year-old female with past medical history significant for atrial fibrillation, chronic respiratory failure on supplemental oxygen at home, coronary artery disease, diastolic heart failure hypertension, obstructive sleep apnea on CPAP.? Patient was brought via EMS on the field patient was found to have a systolic of 60 with a diastolic of 30 giving a dose of IV push epinephrine on route. Pt was on diltiazem drip for AF now weaned off continue iv fluids or low BPs continue to watch pt in hospital watch kidney function and UO Unfortunately pt got very drowsy and hypotensive rapid response called pt transferred to ICU for hypotension and septic shock Review of Systems Review of Systems: arousable but poor historian Exam Const: General: comfortable, no acute distress, well developed, ill appearing, average body habitus and obese Nutritional Appearance: average body habitus and obese Orientation/consciousness: oriented to person, patient oriented x3, patient obtunded and lethargic Limitations: altered mental status Resp: Effort & Inspection: normal respiratory effort and able to speak in complete sentences Auscultation: clear to auscultation bilaterally Cardio: Jugular venous distension: no JVD Rate: regular rate Rhythm: regular rhythm Heart sounds: S1 normal heart sound present and S2 normal heart sound present Extrem: General: normal to inspection, full ROM, no joint enlargement and no pedal edema Objective Data Vital Signs Vital Signs: Vital Signs - 24 hr 01/03/23 15:58 01/03/23 16:00 01/03/23 16:00 Temperature 36.2 C L Pulse Rate 113 H 88 Respiratory Rate 18 Blood Pressure 121/54 L Pulse Oximetry 100 98 Oxygen Delivery Nasal Cannula Oxygen Flow Rate 2 Fraction of Inspired Oxygen 01/03/23 18:00 01/03/23 20:00 01/03/23 20:23 Temperature 36.4 C Pulse Rate 95 114 H 112 H Respirator
[2023-01-04 15:58] LABS: Magnesium 1.7 mg/dL (1.6-2.3)
[2023-01-04] MEDS: PERFLUTREN LIPID MICROSPHERES 1.5 ML VIAL DILUTED TO 10 ML TOTAL VOLUME IV PUSH (16:45)
--- NOTE | 2023-01-04 16:52 | IVDEFINITY ---
Prior to administration of IV Definity the patient was educated on the risks and benefits of the imaging enhancing agent including potential adverse side effects. The patient verbalized understanding. Allergies were verified. No exclusion criteria were identified and at least one of the following inclusion criteria were met: 1) physician request, 2) patient technically difficult to image (per the [place] [employer] guidelines of two or more segments not discernable within the apical view), or 3) questionable left ventricular function. ?
[2023-01-04] MEDS: KCL 20MEQ/0.9% SOD CHL 1,000 ML 75 ML IV CONT (17:48)
[2023-01-05] VITALS (23 sets, daily range): BP systolic 90–134; BP diastolic 60–82; PULSE 92–114; RESP 16–32; TEMP 35.3–36.4; O2SAT 88–98
[2023-01-05] MEDS: MEROPENEM 1 GM/NS 100 ML 1 GM/100 ML BAG IVPB ×3 (01:13→16:37)
[2023-01-05] MEDS: ALBUMIN HUMAN 25% 25 GM/100 ML 100 ML IVPB ×2 (01:13→06:17)
[2023-01-05] MEDS: HALOPERIDOL LACTATE 5 MG/ML VIAL 2 MG IM (01:15)
[2023-01-05 05:23] LABS: Hematocrit 28.8 % (37.0-47.0); Hemoglobin 9.9 g/dL (12.0-15.0); Mean Corpuscular HGB Conc 34.4 g/dl (32-36); Mean Corpuscular Hemoglobin 29.2 pg (26-34); Mean Platelet Volume 8.6 fl (7.4-10.4); Platelet Count Result 339 k/mm3 (150-375); Red Blood Count 3.39 M/mm3 (4.2-5.4); Red Cell Distribution Width 17.6 % (11.5-14.5); White Blood Count 10.3 K/mm3 (4.5-10.0)
[2023-01-05 05:30] LABS: Alanine Aminotransferase 20 U/L (6-35); Albumin Level 3.1 g/dL (3.5-5.1); Alkaline Phosphatase 101 U/L (38-126); Anion Gap 11 mmol/L (8-16); Aspartate Amino Transferase 32 U/L (14-36); Bilirubin,Total 0.7 mg/dL (0.2-1.3); Blood Urea Nitrogen 17 mg/dL (7-17); Calcium 7.9 mg/dL (8.4-10.2); Carbon Dioxide 17 mmol/L (22-30); Chloride 104 mmol/L (98-107); Estimated CRCL calculation 85 ml/min; Estimated Glomerular Filt Rate > 60; Glucose 152 mg/dL (65-110); Magnesium 2.1 mg/dL (1.6-2.3); Phosphorus 2.8 mg/dL (2.5-4.5); Potassium 3.8 mmol/L (3.4-5.0); Sodium 132 mmol/L (137-145)
[2023-01-05] MEDS: CENTRAL LINE FLUSH 10 ML IV PUSH (06:17)
[2023-01-05] MEDS: HYDROCORTISONE SODIUM SUCCINATE 100 MG/2 ML VIAL IV PUSH ×3 (06:17→21:53)
[2023-01-05] MEDS: FAMOTIDINE 20 MG TABLET PO ×2 (08:30→17:02)
[2023-01-05] MEDS: SODIUM BICARBONATE 8.4% 50 MEQ/50 ML SYRINGE IV PUSH (08:31)
[2023-01-05] MEDS: APIXABAN 5 MG TABLET PO ×2 (08:31→17:02)
[2023-01-05] MEDS: CLOPIDOGREL BISULFATE 75 MG TABLET PO (08:31)
[2023-01-05] MEDS: LINEZOLID 600 MG/300 ML 600 MG/300 ML SOLN 300 MG IVPB ×2 (08:31→21:54)
[2023-01-05] MEDS: MICONAZOLE NITRATE 2% CREAM 30 GM TUBE 1 APPLIC TOPICAL ×2 (08:40→17:02)
[2023-01-05] MEDS: polyethylene glycoL 3350 17 GM POWD.PACK PO (08:41)
--- NOTE | 2023-01-05 09:24 | WPDINTPN ---
Progress Note: A&P Assessment and Plan (1) Septic shock: Code(s): A41.9 - Sepsis, unspecified organism; R65.21 - Severe sepsis with septic shock Status: Acute Assessment and Plan: Patient initially presented with sepsis secondary to urinary tract infection. She had indwelling Sullivan catheter and had UA consistent with UTI 12/31/2022 Blood cultures VRE, MRSA, Staph epidermidis 12/31/2022 Urine cultures growing ESBL Klebsiella (sensitive to imipenem, meropenem only) 01/04/2023 repeat blood cultures pending CT abdomen done in 11/08 showed stercoral colitis Continue linezolid, meropenem (01/04) Lactic acid was 2.1 -procalcitonin 0.1 Levophed and vasopressin are off -currently on Jose Juan-Synephrine only Continue maintenance IV fluids Patient pulled her central line out Continues to have a arterial line left groin Continue stress dose steroids Continue albumin -will give 1 amp of bicarb 01/04: Echocardiogram has been obtained and pending report (2) Bacteremia: Code(s): R78.81 - Bacteremia Status: Acute Assessment and Plan: Continue management as above (3) UTI (urinary tract infection): Code(s): N39.0 - Urinary tract infection, site not specified Status: Acute Assessment and Plan: Patient has indwelling Sullivan catheter and UA was consistent with UTI She is growing ESBL Klebsiella-antibiotics as above (4) [place]O (acute kidney injury): Code(s): N17.9 - Acute kidney failure, unspecified Status: Acute Assessment and Plan: Patient presented with creatinine of 2.10 which is likely secondary to sepsis and septic shock. Creatinine has been improving with IV fluids Monitor urine output electrolytes and creatinine -creatinine down to 0.8 -urine output remains low (5) Atrial fibrillation: Code(s): I48.91 - Unspecified atrial fibrillation Status: Acute Assessment and Plan: Patient currently in AFib with controlled ventricular rate. Continue monitor. May need amiodarone infusion if RVR developed Hold beta-nolvia and calcium channel nolvia Patient is anticoagulated with apixaban (6) Obstructive sleep apnea on CPAP: Code(s): G47.33 - Obstructive sleep apnea (adult) (pediatric) Status: Acute Assessment and Plan: CPAP ordered (7) Electrolyte abnormality: Code(s): E87.8 - Other disorders of electrolyte and fluid balance, not elsewhere classified Status: Acute Assessment and Plan: Potassium and magnesium are within normal limits after being replaced yesterday Plan DVT prophylaxis -apixaban Stress ulcer prophylaxis -Pepcid Nutrition -diet ordered Code Status -DNR. Patient herself does not appear to have capacity. She is from [facility] and does not have any family or POA listed in the chart available. Apparently [facility] is trying to obtain state guardianship for this patient. Unfortunately all the procedures will be done as medical necessity due to lack of consenting adult. Will discuss with care coordination. Patient is DNR which was listed on her code status from the paperwork obtained from [facility].. Total Critical Care Time - 36 minutes Due to a high probability of clinically significant, life threatening deterioration, the patient required my highest level of preparedness to intervene emergently and I personally spent this critical care time directly and personally managing the patient. This critical care time included obtaining a history; examining the patient; pulse oximetry; ordering and review of studies; arranging urgent treatment with development of a management plan; evaluation of patient's response to treatment; frequent reassessment; and discussions with other providers. It was exclusive of separately billable procedures and treating other patients and teaching time. Please see Assessment and Plan section and the rest of the note for further information on patient assessment and treatment
[2023-01-05] MEDS: KCL 20MEQ/0.9% SOD CHL 1,000 ML 75 ML IV CONT (09:37)
--- NOTE | 2023-01-05 11:25 | PCFNICU ---
ICU Rounding Note: Pt current nutrition is Soft and Bite Sized,Level 6 with Mild Thick Liquids Level 2. Last recorded weight is 130.1 kg, up from admit of 118.1 kg. Bowel Motility: +Bm reported 01/04 Labs Reviewed:Glu 152, K 3.1,Hgb 9.9,Hct 28.8 Meds Noted:Potassium Chloride/Sodium Chloride at 75 ml/hr, Plavix. Skin: skin tears. Additional Notes: Patient remains on soft and bite sized, Level 6 with mild thick liquids, Level 2. Intake has been poor. Diet supplements have been added of Ensure Enlive TID (350 kcals and 20 gms protein), patient is consuming 25% of supplements. Code status is DNR. Patient is a resident from [place]. Following daily in ICU rounds. Monitor intakes, weights, labs, supplement tolerance, plan of care every 5 days.
--- NOTE | 2023-01-05 14:39 | PM.IMPN ---
Progress Note: A&P Assessment and Plan (1) Septic shock: Code(s): A41.9 - Sepsis, unspecified organism; R65.21 - Severe sepsis with septic shock Status: Acute Assessment and Plan: per ICU note - Patient initially presented with sepsis secondary to urinary tract infection. She had indwelling Sullivan catheter and had UA consistent with UTI Blood culture drawn and patient was started on IV Rocephin Urine cultures growing Klebsiella Blood culture is growing VRE MRSA and Staph epidermis I am wondering whether patient has abdominal source of bacteremia. She is morbidly obese and exam is unreliable. CT abdomen done in 11/08 showed stercoral colitis Antibiotics changed to meropenem and linezolid await repeat Bc (2) Bacteremia: Code(s): R78.81 - Bacteremia Status: Acute Assessment and Plan: See above (3) UTI (urinary tract infection): Code(s): N39.0 - Urinary tract infection, site not specified Status: Acute Assessment and Plan: Patient has indwelling Sullivan catheter and UA was consistent with UTI She is growing ESBL Klebsiella-antibiotics as above (4) [place] (acute kidney injury): Code(s): N17.9 - Acute kidney failure, unspecified Status: Acute Assessment and Plan: (5) Atrial fibrillation: Code(s): I48.91 - Unspecified atrial fibrillation Status: Acute Assessment and Plan: Patient currently in AFib with controlled ventricular rate. Continue monitor. May need amiodarone infusion if RVR developed Hold beta-nolvia and calcium channel nolvia Patient is anticoagulated with apixaban (6) Obstructive sleep apnea on CPAP: Code(s): G47.33 - Obstructive sleep apnea (adult) (pediatric) Status: Acute Assessment and Plan: CPAP AT NIGHTTIME (7) Electrolyte abnormality: Code(s): E87.8 - Other disorders of electrolyte and fluid balance, not elsewhere classified Status: Acute Assessment and Plan: Potassium and magnesium are within normal limits after being replaced yesterday (8) Hyponatremia: Code(s): E87.1 - Hypo-osmolality and hyponatremia Status: Acute Assessment and Plan: (9) Chronic respiratory failure with hypoxia, on home oxygen therapy: Code(s): J96.11 - Chronic respiratory failure with hypoxia; Z99.81 - Dependence on supplemental oxygen Status: Acute (10) Sepsis: Code(s): A41.9 - Sepsis, unspecified organism Status: Acute Assessment and Plan: Subjective Date/time seen: 01/05/23 14:39 Interval history: 72-year-old female with past medical history significant for atrial fibrillation, chronic respiratory failure on supplemental oxygen at home, coronary artery disease, diastolic heart failure hypertension, obstructive sleep apnea on CPAP.? Patient was brought via EMS on the field patient was found to have a systolic of 60 with a diastolic of 30 giving a dose of IV push epinephrine on route. Pt was on diltiazem drip for AF now weaned off continue iv fluids or low BPs continue to watch pt in hospital Unfortunately pt got very drowsy and hypotensive rapid response called pt transferred to ICU for hypotension and septic shock Pt receiving Bp support and fluids in ICU Pt is DNR status Review of Systems Review of Systems: Much the same Exam Resp: Effort & Inspection: normal respiratory effort and able to speak in complete sentences Auscultation: clear to auscultation bilaterally Cardio: Jugular venous distension: no JVD Rate: regular rate Rhythm: regular rhythm Heart sounds: S1 normal heart sound present and S2 normal heart sound present Neuro: General: oriented to person, patient oriented x3, CN's II-XI intact bilaterally, patient obtunded and Unable to assess gait Cranial nerves: Yes CN's II-XII intact bilaterally and Yes Equal, round and reactive pupils present Cognition (Neuro): abnormal cognition Speech: normal s
[2023-01-05] MEDS: HALOPERIDOL LACTATE 5 MG/ML VIAL 2 MG IV PUSH (21:53)
[2023-01-06] VITALS (29 sets, daily range): BP systolic 78–118; BP diastolic 62–87; PULSE 100–138; RESP 18–29; TEMP 34–36.8; O2SAT 91–98
[2023-01-06] MEDS: OLANZapine 10 MG INJ VIAL 2.5 MG IM (00:36)
[2023-01-06] MEDS: KCL 20MEQ/0.9% SOD CHL 1,000 ML 75 ML IV CONT (00:37)
[2023-01-06] MEDS: MEROPENEM 1 GM/NS 100 ML 1 GM/100 ML BAG IVPB ×2 (01:05→09:09)
[2023-01-06 05:24] LABS: Hematocrit 28.4 % (37.0-47.0); Hemoglobin 9.6 g/dL (12.0-15.0); Mean Corpuscular HGB Conc 33.8 g/dl (32-36); Mean Corpuscular Hemoglobin 28.7 pg (26-34); Mean Platelet Volume 8.9 fl (7.4-10.4); Platelet Count Result 277 k/mm3 (150-375); Red Blood Count 3.34 M/mm3 (4.2-5.4); White Blood Count 11.2 K/mm3 (4.5-10.0)
[2023-01-06 05:33] LABS: Alanine Aminotransferase 21 U/L (6-35); Alkaline Phosphatase 125 U/L (38-126); Anion Gap 8 mmol/L (8-16); Aspartate Amino Transferase 35 U/L (14-36); Bilirubin,Total 0.7 mg/dL (0.2-1.3); Blood Urea Nitrogen 16 mg/dL (7-17); Calcium 8.2 mg/dL (8.4-10.2); Carbon Dioxide 20 mmol/L (22-30); Chloride 106 mmol/L (98-107); Estimated CRCL calculation 86 ml/min; Estimated Glomerular Filt Rate > 60; Glucose 121 mg/dL (65-110); Magnesium 2.1 mg/dL (1.6-2.3); Phosphorus 2.8 mg/dL (2.5-4.5); Potassium 4.1 mmol/L (3.4-5.0); Sodium 134 mmol/L (137-145)
[2023-01-06 05:34] LABS: Lactic Acid Reflex 1.4 mmol/L (0.7-2.0)
[2023-01-06] MEDS: HYDROCORTISONE SODIUM SUCCINATE 100 MG/2 ML VIAL IV PUSH (06:41)
[2023-01-06] MEDS: MICONAZOLE NITRATE 2% CREAM 30 GM TUBE 1 APPLIC TOPICAL ×2 (09:12→16:55)
[2023-01-06] MEDS: ALBUMIN HUMAN 25% 25 GM/100 ML 100 ML IVPB ×4 (09:12→23:15)
--- NOTE | 2023-01-06 09:21 | WPDINTPN ---
Progress Note: A&P Assessment and Plan (1) Septic shock: Code(s): A41.9 - Sepsis, unspecified organism; R65.21 - Severe sepsis with septic shock Status: Acute Assessment and Plan: Patient initially presented with sepsis secondary to urinary tract infection. She had indwelling Sullivan catheter and had UA consistent with UTI 12/31/2022 Blood cultures VRE, MRSA, Staph epidermidis 12/31/2022 Urine cultures growing ESBL Klebsiella (sensitive to imipenem, meropenem only) 01/04/2023 repeat blood cultures : Preliminary results negative x2 CT abdomen done in 11/08 showed stercoral colitis Continue linezolid, meropenem (01/04) Lactic acid has normalized -procalcitonin 0.1 OFF ALL PRESSORS Continue maintenance IV fluids 01/05: Patient pulled her central line out 01/06: Patient pole her arterial line a -wean stress dose steroids -will start albumin x4 doses -continue IV fluids due to anasarca 01/04: Echocardiogram has been obtained and pending report (2) Bacteremia: Code(s): R78.81 - Bacteremia Status: Acute Assessment and Plan: Continue management as above (3) UTI (urinary tract infection): Code(s): N39.0 - Urinary tract infection, site not specified Status: Acute Assessment and Plan: Patient has indwelling Sullivan catheter and UA was consistent with UTI She is growing ESBL Klebsiella-antibiotics as above (4) [place] (acute kidney injury): Code(s): N17.9 - Acute kidney failure, unspecified Status: Acute Assessment and Plan: Patient presented with creatinine of 2.10 which is likely secondary to sepsis and septic shock. Creatinine has been improving with IV fluids Monitor urine output electrolytes and creatinine -creatinine down to 0.8 -urine output is adequate (5) Atrial fibrillation: Code(s): I48.91 - Unspecified atrial fibrillation Status: Acute Assessment and Plan: Patient currently in AFib with controlled ventricular rate. Continue monitor. May need amiodarone infusion if RVR developed Hold beta-nolvia and calcium channel nolvia Patient is anticoagulated with apixaban (6) Obstructive sleep apnea on CPAP: Code(s): G47.33 - Obstructive sleep apnea (adult) (pediatric) Status: Acute Assessment and Plan: CPAP ordered (7) Electrolyte abnormality: Code(s): E87.8 - Other disorders of electrolyte and fluid balance, not elsewhere classified Status: Acute Assessment and Plan: Potassium and magnesium are within normal limits Plan DVT prophylaxis -apixaban Stress ulcer prophylaxis -Pepcid Nutrition -patient confused, not eating at this time Code Status -DNR. Patient herself does not appear to have capacity. [facility] and does not have any family or POA listed in the chart available. Apparently [facility] is trying to obtain state guardianship for this patient. Unfortunately all the procedures will be done as medical necessity due to lack of consenting adult. Will discuss with care coordination. Patient is DNR which was listed on her code status from the paperwork obtained from [facility].. Total Critical Care Time - 33 minutes Due to a high probability of clinically significant, life threatening deterioration, the patient required my highest level of preparedness to intervene emergently and I personally spent this critical care time directly and personally managing the patient. This critical care time included obtaining a history; examining the patient; pulse oximetry; ordering and review of studies; arranging urgent treatment with development of a management plan; evaluation of patient's response to treatment; frequent reassessment; and discussions with other providers. It was exclusive of separately billable procedures and treating other patients and teaching time. Please see Assessment and Plan section and the rest of the note for further information on patient assessment and robert
--- NOTE | 2023-01-06 09:40 | PM.PNCARD ---
Progress Note: A&P Assessment and Plan (1) Atrial fibrillation: Code(s): I48.91 - Unspecified atrial fibrillation Status: Acute Assessment and Plan: Heart rate is reasonably controlled. Obviously holding metoprolol and diltiazem for now because of hypotension/septic shock. Respiratory status appears to be worsening. continue Eliquis 5 mg p.o. b.i.d.. (2) Bacteremia: Code(s): R78.81 - Bacteremia Status: Acute Assessment and Plan: On antibiotics per other teams (3) Septic shock: Code(s): A41.9 - Sepsis, unspecified organism; R65.21 - Severe sepsis with septic shock Status: Acute (4) Electrolyte abnormality: Code(s): E87.8 - Other disorders of electrolyte and fluid balance, not elsewhere classified Status: Acute Assessment and Plan: Potassium is stable Subjective Date/time seen: 01/06/23 09:40 Interval history: 72-year-old female with past medical history significant for atrial fibrillation, chronic respiratory failure on supplemental oxygen at home, coronary artery disease, diastolic heart failure, hypertension, obstructive sleep apnea on CPAP.? Patient was brought via EMS on the field patient was found to have a systolic of 60 with a diastolic of 30 giving a dose of IV push epinephrine on route. Chronic indwelling catheter with dark urine consistent with UTI. Patient to continue be hypotensive and was transferred to the ICU Date of service 01/06/2023: Responsive to painful stimuli but not to verbal. Heart rate around 100-110 Review of Systems Review of Systems: All systems reviewed & are unremarkable except as noted in HPI and below Constitutional: Constitutional: Denies body ache(s) and Denies excessive sweating Eyes: Eyes: Denies blurry vision ENT: Denies epistaxis Cardiovascular: Cardiovascular: Denies chest pain Respiratory: Respiratory: Denies cough Gastrointestinal: Gastrointestinal: Denies abdominal pain Genitourinary: Genitourinary: Denies hematuria Musculoskeletal: Musculoskeletal: Denies myalgias Integumentary/Breasts: Skin/Breast: Reports rash Neurologic: Reports confusion Psychiatric: Psychiatric: Denies anxiety and Reports confusion Endocrine: Endocrine: Denies excessive sweating Hematologic/Lymphatic: Hematologic/Lymphatic: Denies easy bleeding Allergic/Immunologic: Allergic/Immunologic: Denies GI upset with certain foods Exam Narrative: Awake. Appears stated age Const: General: comfortable, no acute distress and confusion Orientation/consciousness: confusion HENMT: Face/Nose/Sinus: Normal nares present Mouth: Yes moist mucous membranes Eyes: Sclera: sclerae normal Neck: Neck: supple Carotids: no bruits Chest: Other: No reproducible chest wall pain to palpation Resp: Effort & Inspection: normal respiratory effort Auscultation: diminished lung sounds Cardio: Rate: tachycardic Rhythm: abnormal rhythm irregularly irregular GI: Inspection: non-distended Auscultation: normal bowel sounds Skin: General skin exam: normal color and erythema Neuro: General: confusion Sensory Exam: normal sensation Extrem: General: edema Psych: Affect: No Anxious affect present Objective Data Vital Signs Vital Signs: Vital Signs - 24 hr 01/05/23 10:00 01/05/23 10:00 01/05/23 10:30 Temperature Pulse Rate 102 H 100 Respiratory Rate 23 H Blood Pressure 109/68 Pulse Oximetry 95 96 Oxygen Delivery Nasal Cannula Oxygen Flow Rate 3 Fraction of Inspired Oxygen 01/05/23 10:35 01/05/23 12:00 01/05/23 12:00 Temperature 35.3 C L Pulse Rate 108 H 108 H Respiratory Rate 25 H Blood Pressure 111/76 Pulse Oximetry 97 91 Oxygen Delivery Face Tent Oxygen Flow Rate 8 Fraction of Inspired Oxygen 35 01/05/23 12:00 01/05/23 13:15 01/05/23 13:17 Temperature Pulse Rate 108 H Respiratory Rate 25 H Blood Pressure Pulse Oximetry 91 88 L 91 Oxygen
[2023-01-06] MEDS: LINEZOLID 600 MG/300 ML 600 MG/300 ML SOLN 300 MG IVPB ×2 (10:37→20:06)
--- NOTE | 2023-01-06 11:54 | PCFNICU ---
ICU Rounding Note: Pt current nutrition is Soft and Bite Sized, Level 6/heart healthy/Mild Thick liquids, Level 2. Nutrition recommendation: Jevity 1.5 at 20 ml/hr advance by 10 ml q 4 hours to goal rate of 50 ml/hr. Last recorded weight is 130.1 kg, up from 118.1 kg on admit. Bowel Motility:Last reported BM 12/30 Labs Reviewed:Glu 121, Na 134, Alb 3.0 Meds Noted:Albumin Skin: skin tears Additional Notes: Patient refusing meals with little to no intake reported x 7 days. Discussed with Fern Cutter regarding nutrition. Tube feeding recommendations via NGT-Jevity 1.5 at 20 ml/hr advance by 10 ml q 4 hours to goal rate of 50 ml/hr. Flush 30 ml q 4 hours. Following daily in ICU rounds. Monitor intakes, weights, labs, TF tolerance, plan of care every Wednesday and Wednesday.
[2023-01-06] MEDS: ERTAPENEM 1 GM/NS 50 ML 1 GM/50 ML BAG IVPB (12:06)
[2023-01-06] MEDS: APIXABAN 5 MG TABLET PO ×2 (12:07→16:54)
[2023-01-06] MEDS: CLOPIDOGREL BISULFATE 75 MG TABLET PO (12:07)
[2023-01-06] MEDS: ACETAMINOPHEN 325 MG TABLET 650 MG PO (14:42)
[2023-01-06] MEDS: FAMOTIDINE 20 MG/2 ML VIAL IV PUSH (20:07)
[2023-01-06] MEDS: HYDROCORTISONE SODIUM SUCCINATE 100 MG/2 ML VIAL 50 MG IV PUSH (20:07)
[2023-01-06] MEDS: AMIODARONE 150 MG/D5W 100 ML 150 MG/100 ML BAG 600 MG IV CONT (21:08)
[2023-01-06] MEDS: ALPRAZolam (*CRX) 0.25 MG TABLET PO (21:14)
[2023-01-06] MEDS: AMIODARONE 360 MG/D5W 200 ML 360 MG/200 ML BAG 33.33 MG IV CONT (21:18)
[2023-01-07] VITALS (24 sets, daily range): BP systolic 75–123; BP diastolic 59–80; PULSE 100–129; RESP 16–27; TEMP 35.8–36.6; O2SAT 93–100
[2023-01-07] MEDS: AMIODARONE 360 MG/D5W 200 ML 360 MG/200 ML BAG 16.67 MG IV CONT (02:30)
[2023-01-07 04:58] LABS: Mean Corpuscular HGB Conc 33.5 g/dl (32-36); Mean Corpuscular Hemoglobin 29.4 pg (26-34); Mean Corpuscular Volume 87.7 fl (80-100); Mean Platelet Volume 9.2 fl (7.4-10.4); Platelet Count Result 215 k/mm3 (150-375); Red Blood Count 2.35 M/mm3 (4.2-5.4); Red Cell Distribution Width 18.5 % (11.5-14.5); White Blood Count 8.5 K/mm3 (4.5-10.0)
[2023-01-07 05:05] LABS: Ammonia < 9 umol/L (9-30); Hematocrit 20.6 % (37.0-47.0); Hemoglobin 6.9 g/dL (12.0-15.0)
[2023-01-07 05:09] LABS: INR 3.5; Partial Thromboplastin Time 49.2 SECONDS (22.3-36.8); Prothrombin Time 37.9 Seconds (11.1-14.7)
[2023-01-07] MEDS: ALPRAZolam (*CRX) 0.25 MG TABLET PO (05:35)
[2023-01-07 05:40] LABS: Lactic Acid Reflex 5.2 mmol/L (0.7-2.0)
[2023-01-07 05:41] LABS: Alanine Aminotransferase 34 U/L (6-35); Albumin Level 3.3 g/dL (3.5-5.1); Alkaline Phosphatase 143 U/L (38-126); Anion Gap 12 mmol/L (8-16); Aspartate Amino Transferase 44 U/L (14-36); Bilirubin,Total 0.5 mg/dL (0.2-1.3); Blood Urea Nitrogen 16 mg/dL (7-17); CRP 1.2 mg/dL (<1.0); Calcium 8.2 mg/dL (8.4-10.2); Carbon Dioxide 17 mmol/L (22-30); Chloride 105 mmol/L (98-107); Estimated CRCL calculation 77 ml/min; Estimated Glomerular Filt Rate > 60; Glucose 134 mg/dL (65-110); Lipase 25 U/L (23-300); Magnesium 2.2 mg/dL (1.6-2.3); Phosphorus 2.2 mg/dL (2.5-4.5); Potassium 3.6 mmol/L (3.4-5.0); Sodium 134 mmol/L (137-145)
[2023-01-07 06:13] LABS: Mean Corpuscular HGB Conc 34.5 g/dl (32-36); Mean Corpuscular Hemoglobin 29.5 pg (26-34); Mean Corpuscular Volume 85.5 fl (80-100); Platelet Count Result 214 k/mm3 (150-375); Red Blood Count 2.27 M/mm3 (4.2-5.4); Red Cell Distribution Width 17.9 % (11.5-14.5); White Blood Count 8.5 K/mm3 (4.5-10.0)
[2023-01-07 06:16] LABS: Hematocrit 19.4 % (37.0-47.0); Hemoglobin 6.7 g/dL (12.0-15.0)
[2023-01-07 06:30] LABS: Lactic Acid Reflex 5.1 mmol/L (0.7-2.0)
[2023-01-07 07:53] LABS: Reflex Lactic Acid Yes or No Add Lactic
[2023-01-07] MEDS: SODIUM BICARBONATE 8.4% 50 MEQ/50 ML SYRINGE IV PUSH (08:34)
[2023-01-07] MEDS: FAMOTIDINE 20 MG/2 ML VIAL IV PUSH ×2 (08:35→20:09)
[2023-01-07] MEDS: HYDROCORTISONE SODIUM SUCCINATE 100 MG/2 ML VIAL 50 MG IV PUSH ×2 (08:35→20:09)
[2023-01-07] MEDS: MICONAZOLE NITRATE 2% CREAM 30 GM TUBE 1 APPLIC TOPICAL ×2 (08:37→19:17)
[2023-01-07] MEDS: polyethylene glycoL 3350 17 GM POWD.PACK PO (08:37)
[2023-01-07] MEDS: POTASSIUM/PHOSPHORUS/SODIUM 1.5 GM PACKET 1 PACKET FEED TUBE (08:38)
[2023-01-07 08:44] LABS: Lactic Acid 5.1 mmol/L (0.7-2.0)
[2023-01-07] MEDS: ERTAPENEM 1 GM/NS 50 ML 1 GM/50 ML BAG IVPB (09:06)
--- NOTE | 2023-01-07 10:36 | PM.PNCARD ---
Progress Note: A&P Assessment and Plan (1) Atrial fibrillation: Code(s): I48.91 - Unspecified atrial fibrillation Status: Acute Assessment and Plan: Heart rate heart rate is increasingly uncontrolled. Obviously holding metoprolol and diltiazem for now because of hypotension/septic shock. Respiratory status appears to be worsening. continue Eliquis 5 mg p.o. b.i.d.. Digoxin 0.25 mg IV times 1 (2) Bacteremia: Code(s): R78.81 - Bacteremia Status: Acute Assessment and Plan: On antibiotics per other teams (3) Septic shock: Code(s): A41.9 - Sepsis, unspecified organism; R65.21 - Severe sepsis with septic shock Status: Acute (4) Electrolyte abnormality: Code(s): E87.8 - Other disorders of electrolyte and fluid balance, not elsewhere classified Status: Acute Assessment and Plan: Potassium is stable Subjective Date/time seen: 01/07/23 10:36 Interval history: 72-year-old female with past medical history significant for atrial fibrillation, chronic respiratory failure on supplemental oxygen at home, coronary artery disease, diastolic heart failure, hypertension, obstructive sleep apnea on CPAP.? Patient was brought via EMS on the field patient was found to have a systolic of 60 with a diastolic of 30 giving a dose of IV push epinephrine on route. Chronic indwelling catheter with dark urine consistent with UTI. Patient to continue be hypotensive and was transferred to the ICU Date of service 01/06/2023: Responsive to painful stimuli but not to verbal. Heart rate around 100-110 Date of service 01/07/2023: A little more responsive today. Heart rate is more elevated also. No chest Review of Systems Review of Systems: All systems reviewed & are unremarkable except as noted in HPI and below Constitutional: Constitutional: Denies body ache(s) and Denies excessive sweating Eyes: Eyes: Denies blurry vision ENT: Denies epistaxis Cardiovascular: Cardiovascular: Denies chest pain Respiratory: Respiratory: Denies cough Gastrointestinal: Gastrointestinal: Denies abdominal pain Genitourinary: Genitourinary: Denies hematuria Musculoskeletal: Musculoskeletal: Denies myalgias Integumentary/Breasts: Skin/Breast: Reports rash Neurologic: Reports confusion Psychiatric: Psychiatric: Denies anxiety and Reports confusion Endocrine: Endocrine: Denies excessive sweating Hematologic/Lymphatic: Hematologic/Lymphatic: Denies easy bleeding Allergic/Immunologic: Allergic/Immunologic: Denies GI upset with certain foods Exam Narrative: Awake. Appears stated age Const: General: comfortable, no acute distress and confusion Orientation/consciousness: confusion HENMT: Face/Nose/Sinus: Normal nares present Mouth: Yes moist mucous membranes Eyes: Sclera: sclerae normal Neck: Neck: supple Carotids: no bruits Chest: Other: No reproducible chest wall pain to palpation Resp: Effort & Inspection: normal respiratory effort Auscultation: diminished lung sounds Cardio: Rate: tachycardic Rhythm: abnormal rhythm irregularly irregular GI: Inspection: non-distended Auscultation: normal bowel sounds Skin: General skin exam: normal color and erythema Neuro: General: confusion Sensory Exam: normal sensation Extrem: General: edema Psych: Affect: No Anxious affect present Objective Data Vital Signs Vital Signs: Vital Signs - 24 hr 01/06/23 12:00 01/06/23 12:00 01/06/23 12:00 Temperature 36.4 C L Pulse Rate 113 H 121 H Respiratory Rate 24 H Blood Pressure 78/62 L Pulse Oximetry 97 97 Oxygen Delivery Face Tent Oxygen Flow Rate 10 Fraction of Inspired Oxygen 50 01/06/23 14:00 01/06/23 11:00 01/06/23 11:30 Temperature 36.7 C 35.6 C L 35.7 C L Pulse Rate 127 H Respiratory Rate 23 H Blood Pressure 91/64 L Pulse Oximetry 97 Oxygen Delivery Oxygen Flow Rate Fraction of Inspired Oxygen 01/06/23
--- NOTE | 2023-01-07 11:20 | WPDINTPN ---
Progress Note: A&P Assessment and Plan (1) Septic shock: Code(s): A41.9 - Sepsis, unspecified organism; R65.21 - Severe sepsis with septic shock Status: Acute Assessment and Plan: Patient initially presented with sepsis secondary to urinary tract infection. She had indwelling Sullivan catheter and had UA consistent with UTI 12/31/2022 Blood cultures VRE, MRSA, Staph epidermidis 12/31/2022 Urine cultures growing ESBL Klebsiella (sensitive to imipenem, meropenem only) 01/04/2023 repeat blood cultures : Preliminary results negative x2 so far CT abdomen done in 11/08 showed stercoral colitis Continue linezolid, meropenem (01/04) Lactic acid increased to 5.1 this morning, could be related to severe anemia, will recheck after blood transfusion 01/07 - CRP 1.2 OFF ALL PRESSORS Continue maintenance IV fluids 01/05: Patient pulled her central line out 01/06: Patient pole her arterial line a -wean stress dose steroids -status post albumin x4 doses -01/06: have discontinued IV fluids due to anasarca 01/04: Echocardiogram: LV EF 50-55%, moderate mitral valve regurg, moderate tricuspid valve regurg. RVSP of 47 mmHg (2) Bacteremia: Code(s): R78.81 - Bacteremia Status: Acute Assessment and Plan: Continue management as above (3) UTI (urinary tract infection): Code(s): N39.0 - Urinary tract infection, site not specified Status: Acute Assessment and Plan: Patient has indwelling Sullivan catheter and UA was consistent with UTI She is growing ESBL Klebsiella-antibiotics as above (4) [place] (acute kidney injury): Code(s): N17.9 - Acute kidney failure, unspecified Status: Acute Assessment and Plan: Patient presented with creatinine of 2.10 which is likely secondary to sepsis and septic shock. Creatinine has been improving with IV fluids -creatinine down to 0.9 -urine output is low -Monitor urine output electrolytes and creatinine (5) Atrial fibrillation: Code(s): I48.91 - Unspecified atrial fibrillation Status: Acute Assessment and Plan: Patient currently in AFib with controlled ventricular rate. Continue monitor. May need amiodarone infusion if RVR developed Hold beta-nolvia and calcium channel nolvia -01/06: Patient is was in AFib RVR with sustained heart rates in the 130s, started on amiodarone bolus and infusion -apixaban and Plavix on hold due to anemia (6) Obstructive sleep apnea on CPAP: Code(s): G47.33 - Obstructive sleep apnea (adult) (pediatric) Status: Acute Assessment and Plan: CPAP ordered (7) Electrolyte abnormality: Code(s): E87.8 - Other disorders of electrolyte and fluid balance, not elsewhere classified Status: Acute Assessment and Plan: Potassium and magnesium are within normal limits (8) Anemia: Code(s): D64.9 - Anemia, unspecified Status: Acute Assessment and Plan: 01/07: Hemoglobin dropped to 6.7 this morning, transfuse 1 unit of packed RBCs -check stool for Hemoccult -check iron panel, folic acid and vitamin B12 -continue famotidine IV q.12 hours (allergy to latex, so cannot give protonix) Plan DVT prophylaxis -hold apixaban and clopidogrel due to severe anemia Stress ulcer prophylaxis -Pepcid Nutrition -continue tube feeds, tolerating Code Status -DNR. Patient herself does not appear to have capacity. She is from custodial and does not have any family or POA listed in the chart available. Apparently custodial is trying to obtain state guardianship for this patient. Unfortunately all the procedures will be done as medical necessity due to lack of consenting adult. Will discuss with care coordination. Patient is DNR which was listed on her code status from the paperwork obtained from custodial.. Total Critical Care Time - 34 minutes Due to a high probability of clinically significant, life threatening deterioration, the patient required my
--- NOTE | 2023-01-07 11:42 | PCFNICU ---
ICU Rounding Note: Pt current nutrition is Jevity 1.5 at 50 ml/hr. Last recorded weight is 132.1 kg, up from 118.1 kg on admit. Bowel Motility:+BM reported 01/07 Labs Reviewed:Glu 134, Na 134, Hgb 6.7 Meds Noted:Miralax, Pepcid Skin: skin tears. Pitting edema 3+ noted Additional Notes: Patient current with NGT tube. Feedings of Jevity 1.5 at 50 ml/hr are being tolerating. Flush 30 ml q 4 hours. Tube feedings providing 1650 kcals/70 gms protein/837 ml water. Agree with diet orders. Following daily in ICU rounds. Monitor intakes, weights, labs, supplement tolerance, plan of care every Wednesday and Wednesday.
[2023-01-07 12:05] LABS: Glucose Point of Care 152 mg/dl (65-105)
[2023-01-07] MEDS: LINEZOLID 600 MG/300 ML 600 MG/300 ML SOLN 300 MG IVPB ×2 (12:23→20:08)
[2023-01-07] MEDS: DIGOXIN INJ 250 MCG/ML 2 ML AMP (*BKC) 125 MCG IV PUSH (12:23)
[2023-01-07 13:09] LABS: Iron 65 ug/dL (37-170)
[2023-01-07 13:19] LABS: Percent Iron Saturation 55 % (20-50)
[2023-01-07] MEDS: AMIODARONE 360 MG/D5W 200 ML 360 MG/200 ML BAG 33.33 MG IV CONT ×2 (13:59→21:47)
[2023-01-07 14:34] LABS: Mean Corpuscular HGB Conc 33.3 g/dl (32-36); Mean Platelet Volume 9.1 fl (7.4-10.4); Platelet Count Result 250 k/mm3 (150-375); Red Blood Count 2.76 M/mm3 (4.2-5.4); Red Cell Distribution Width 17.5 % (11.5-14.5); White Blood Count 9.2 K/mm3 (4.5-10.0)
[2023-01-07] MEDS: LIDOCAINE HCL 1% PF INJ 5 ML VIAL INFILTRATE (15:20)
[2023-01-07] MEDS: hetaSTARCH 6%/NACL 500 ML 250 ML IV CONT (15:59)
[2023-01-07 16:35] LABS: IFOB Positive Control Positive; Immunochemical Fecal Occult Bl Negative (N)
[2023-01-07 18:07] LABS: Glucose Point of Care 143 mg/dl (65-105)
[2023-01-07 18:33] LABS: Folic Acid 3.5 ng/mL (2.76->20)
[2023-01-07] MEDS: NEOMYCIN/POLYMYXIN/BACITRACIN OINTMENT PACKET 1 PACKET (18:35)
[2023-01-07] MEDS: CENTRAL LINE FLUSH 10 ML IV PUSH (20:09)
[2023-01-07] MEDS: FUROSEMIDE INJ 40 MG/4 ML VIAL 20 MG IV PUSH (21:47)
[2023-01-08] VITALS (30 sets, daily range): BP systolic 86–141; BP diastolic 53–105; PULSE 113–138; RESP 15–33; TEMP 36.4–36.6; O2SAT 82–100
[2023-01-08 03:26] LABS: Glucose Point of Care 150 mg/dl (65-105)
[2023-01-08] MEDS: AMIODARONE 360 MG/D5W 200 ML 360 MG/200 ML BAG 33.33 MG IV CONT ×4 (04:43→21:45)
[2023-01-08] MEDS: CENTRAL LINE FLUSH 10 ML IV PUSH ×3 (04:44→22:40)
[2023-01-08 06:26] LABS: Mean Corpuscular HGB Conc 33.5 g/dl (32-36); Mean Corpuscular Hemoglobin 28.8 pg (26-34); Mean Platelet Volume 9.2 fl (7.4-10.4); Platelet Count Result 202 k/mm3 (150-375); Red Blood Count 2.29 M/mm3 (4.2-5.4); White Blood Count 8.4 K/mm3 (4.5-10.0)
[2023-01-08 06:28] LABS: Hematocrit 19.7 % (37.0-47.0)
[2023-01-08 06:29] LABS: Hemoglobin 6.6 g/dL (12.0-15.0)
[2023-01-08 06:35] LABS: Alanine Aminotransferase 26 U/L (6-35); Albumin Level 2.4 g/dL (3.5-5.1); Alkaline Phosphatase 262 U/L (38-126); Anion Gap 6 mmol/L (8-16); Aspartate Amino Transferase 66 U/L (14-36); Bilirubin,Total 0.5 mg/dL (0.2-1.3); Blood Urea Nitrogen 18 mg/dL (7-17); Calcium 7.6 mg/dL (8.4-10.2); Carbon Dioxide 24 mmol/L (22-30); Chloride 104 mmol/L (98-107); Estimated CRCL calculation 71 ml/min; Estimated Glomerular Filt Rate 55; Glucose 131 mg/dL (65-110); Magnesium 1.9 mg/dL (1.6-2.3); Phosphorus 2.3 mg/dL (2.5-4.5); Potassium 3.4 mmol/L (3.4-5.0); Sodium 134 mmol/L (137-145)
[2023-01-08 06:36] LABS: Lactic Acid Reflex 2.6 mmol/L (0.7-2.0)
[2023-01-08] MEDS: POTASSIUM PHOS/SODIUM PHOS 250 MG TABLET FEED TUBE (08:46)
[2023-01-08] MEDS: polyethylene glycoL 3350 17 GM POWD.PACK PO (08:47)
[2023-01-08] MEDS: ERTAPENEM 1 GM/NS 50 ML 1 GM/50 ML BAG IVPB (08:47)
[2023-01-08] MEDS: HYDROCORTISONE SODIUM SUCCINATE 100 MG/2 ML VIAL 50 MG IV PUSH (08:47)
[2023-01-08] MEDS: LINEZOLID 600 MG/300 ML 600 MG/300 ML SOLN 300 MG IVPB ×2 (08:47→20:08)
[2023-01-08] MEDS: MICONAZOLE NITRATE 2% CREAM 30 GM TUBE 1 APPLIC TOPICAL ×2 (08:47→16:03)
[2023-01-08] MEDS: FAMOTIDINE 20 MG/2 ML VIAL IV PUSH ×2 (08:47→20:08)
[2023-01-08 09:13] LABS: Prothrombin Time 24.1 Seconds (11.1-14.7)
[2023-01-08 09:14] LABS: Partial Thromboplastin Time 43.8 SECONDS (22.3-36.8)
[2023-01-08 09:19] LABS: Mean Platelet Volume 9.4 fl (7.4-10.4); Platelet Count Result 200 k/mm3 (150-375)
[2023-01-08 09:20] LABS: Fibrinogen 72 mg/dl (215-510)
[2023-01-08 09:23] LABS: Reflex Lactic Acid Yes or No Add Lactic
[2023-01-08 09:30] LABS: D Dimer 0.32 ug/mL (<0.48)
[2023-01-08 10:01] LABS: Lactic Acid 2.5 mmol/L (0.7-2.0)
[2023-01-08 11:45] LABS: Glucose Point of Care 126 mg/dl (65-105)
--- NOTE | 2023-01-08 12:05 | PCNFU ---
Nutrition Follow-Up Complete: Severe protein calorie malnutrition related to loss of appetite, refusal of PO intake as evidenced by alf report of minimal PO intake at least 2 1/2 weeks, weight loss 10%/1 month. Goal: Improve PO intake to 50% meals and supplements Maintain weight Not meeting goal. Pt current nutrition is Jevity 1.5 at 50 ml/hr. Last recorded weight is 134.5 kg, up from 118.1 kg-due to fluid retention. Bowel Motility:No Bm reported at this time. Labs Reviewed:Glu 131, Hct 19.9,Hgb 6.6 Meds Noted:Miralax, Prednisone. Skin: skin tear Additional Notes: Patient remains on tube feedings of Jevity 1.5 at 50 ml/hr and tolerating. Tube feedings providing-1650 kcals/70 gms protein/837 ml water. Flush 30 ml q 4 hours. Agree with diet orders at this time. Unsure of discharge plan at this time. Monitor intakes, weights, labs, supplement tolerance, plan of care every Wednesday and Wednesday.
[2023-01-08] MEDS: DIGOXIN INJ 250 MCG/ML 2 ML AMP (*BKC) 125 MCG IV PUSH (12:54)
[2023-01-08 16:16] LABS: Hematocrit 24.7 % (37.0-47.0); Hemoglobin 8.3 g/dL (12.0-15.0)
[2023-01-08 16:32] LABS: Lactic Acid Reflex 2.7 mmol/L (0.7-2.0)
--- NOTE | 2023-01-08 17:20 | PDONCCN ---
HPI - Date of Consult Date/Time: 01/08/23 17:20 Requesting Physician: Héctor Waters MD Primary Care Provider: Remy Chappell MD - Consult Narrative Reason for consult: Normocytic anemia Narrative: Lauren Lambert is a 72 year old female with history of atrial fibrillation coronary artery disease, hypertension, sleep apnea on CPAP came into the hospital brought in by EMS after found to be hypotensive. CT chest abdomen and pelvis showed small pleural effusion with bilateral atelectasis and colitis with diffuse anasarca. Labs on admission showed hemoglobin of 12.5 now declined to 6.6. WBC was elevated on admission but normal now. Other labs showed normal serum iron of 65 with elevated iron saturation. Vitamin B12 was low normal at 924 and creatinine was normal. Patient developed septic shock and the blood culture showed VRE and MRSA. She was started on pressors for septic shock. Her renal insufficiency resolved. She received 2 units of packed red blood cells so far. Apparently there was no bleeding. She is diffusely edematous and currently on CPAP. She was also found to have atrial fibrillation. States started on amiodarone and Eliquis. Review of Systems - Review of Systems All systems reviewed & are unremarkable except as noted in HPI and bel - Neurologic Reports confusion PMFSH Medical History: Medical History (Last Reviewed 01/04/23 @ 10:37 by Jesus Nolan MD) Arthritis Atrial fibrillation Status post cardiac ablation. Chronic respiratory failure with hypoxia, on home oxygen therapy Coronary artery disease Deep venous thrombosis Diastolic congestive heart failure Hyperlipidemia Hypertension Myocardial infarction Patient reports history of [place], no stents Obstructive sleep apnea on CPAP Surgical History: Surgical History (Last Reviewed 01/04/23 @ 10:37 by Jesus Nolan MD) History of cardiac radiofrequency ablation History of tonsillectomy Family History: Family History (Last Reviewed 01/04/23 @ 10:37 by Jesus Nolan MD) Father Malignant neoplasm of prostate Acute myocardial infarction Mother Uterine cancer Acute myocardial infarction Sibling Uterine cancer - Social History Social History: Social History (Last Reviewed 01/04/23 @ 10:37 by Jesus Nolan MD) Alcohol Use: Alcohol intake: never Substance Use: Substance use: never Substance use type: does not use Others: Spiritual care concerns: No Smoking Status: Smoking status: Never smoker Second hand tobacco smoke exposure: No Social Determinants of Health: Has the Lack of Transportation Kept You From Medical Appointments or From Getting Medications?: No Within the Past 12 Months, Were You Worried Whether Your Food Would Run Out Before You Got Money to Buy More?: Never True What is Your Housing Situation Today?: I Have Housing Are You Worried That in the Next 2 Months, You May Not Have Your Own Housing to Live In?: No Do You Have Trouble Paying Your Heating Or Electricity Bill?: No Do You Have Trouble Paying For Medicines?: No Are You Currently Unemployed and Looking for Work?: No Highest Level of Education Completed: Master's Degree or Higher Do You Have Trouble With Childcare or the Care of a Family Member?: No Exam - Vital Signs Vital Signs - 24 hr 01/07/23 18:00 01/07/23 18:00 01/07/23 20:00 Temperature 36.4 C 36.5 C Pulse Rate 126 H 115 H 117 H Respiratory Rate 22 H 22 H Blood Pressure 96/64 L 105/64 Pulse Oximetry 95 100 Oxygen Delivery Oxygen Flow Rate Fraction of Inspired Oxygen 01/07/23 21:47 01/07/23 20:00 01/07/23 20:00 Temperature Pulse Rate 127 H 124 H Respiratory Rate Blood Pressure 118/79 Pulse Oximetry 95 Oxygen Delivery Face Tent Oxygen Flow Rate 10 Fraction of Inspired Oxygen 60 01/07/23 22:00 01/07/23 22:00 01/08/23 00:00 Temperature 36.6 C 36.4 C
[2023-01-08 18:19] LABS: Glucose Point of Care 153 mg/dl (65-105)
[2023-01-08 18:41] LABS: Lactate Dehydrogenase 311 U/L (120-246)
[2023-01-09] VITALS (7 sets, daily range): BP systolic 90–121; BP diastolic 55–80; PULSE 124–143; RESP 27–40; TEMP 36.3–36.8; O2SAT 96–100
[2023-01-09 00:37] LABS: Glucose Point of Care 130 mg/dl (65-105)
[2023-01-09] MEDS: AMIODARONE 360 MG/D5W 200 ML 360 MG/200 ML BAG 33.33 MG IV CONT (03:50)
[2023-01-09] MEDS: AMIODARONE 150 MG/D5W 100 ML 150 MG/100 ML BAG 600 MG IV CONT (04:27)
[2023-01-09 06:44] LABS: Basophils Absolute Auto 0.1 K/mm3 (0.0-0.1); Basophils Percent Auto 0.3 % (0.2-1.2); Eosinophils Percent Auto 0.1 % (0-4.4); Hematocrit 31.7 % (37.0-47.0); Hemoglobin 10.8 g/dL (12.0-15.0); Immature Granulocyte Absolute 0.23 K/mm3 (0.00-0.031); Immature Granulocyte Percent A 1.5 % (0-0.5); Lymphocytes Absolute Auto 1.45 K/mm3 (0.9-3.2); Lymphocytes Percent Auto 9.3 % (18.3-44.2); Mean Corpuscular HGB Conc 34.1 g/dl (32-36); Mean Corpuscular Hemoglobin 29.4 pg (26-34); Mean Corpuscular Volume 86.4 fl (80-100); Mean Platelet Volume 9.2 fl (7.4-10.4); Monocytes Absolute Auto 0.9 K/mm3 (0.1-0.6); Monocytes Percent Auto 5.4 % (2.6-8.5); Neutrophils Absolute Auto 13.1 K/mm3 (1.3-6.7); Neutrophils Percent Auto 83.4 % (45.5-73.1); Nucleated Red Blood Cells Absolute Auto 0.3 K/mm3 (0.0-0.012); Nucleated Red Blood Cells Perc 1.9 % (0.0-0.2); Platelet Count Result 262 k/mm3 (150-375); Red Blood Count 3.67 M/mm3 (4.2-5.4); Red Cell Distribution Width 18.2 % (11.5-14.5); White Blood Count 15.7 K/mm3 (4.5-10.0)
[2023-01-09 06:53] LABS: INR 1.5; Prothrombin Time 19.5 Seconds (11.1-14.7)
[2023-01-09 06:54] LABS: Lactic Acid Reflex 2.9 mmol/L (0.7-2.0)
[2023-01-09 06:54] LABS: Alanine Aminotransferase 27 U/L (6-35); Albumin Level 2.4 g/dL (3.5-5.1); Alkaline Phosphatase 360 U/L (38-126); Anion Gap 8 mmol/L (8-16); Aspartate Amino Transferase 61 U/L (14-36); Bilirubin,Total 0.7 mg/dL (0.2-1.3); Blood Urea Nitrogen 23 mg/dL (7-17); Calcium 7.7 mg/dL (8.4-10.2); Carbon Dioxide 23 mmol/L (22-30); Chloride 103 mmol/L (98-107); Estimated CRCL calculation 65 ml/min; Estimated Glomerular Filt Rate 49; Glucose 134 mg/dL (65-110); Partial Thromboplastin Time 37.5 SECONDS (22.3-36.8); Phosphorus 2.3 mg/dL (2.5-4.5); Potassium 2.9 mmol/L (3.4-5.0); Sodium 134 mmol/L (137-145)
[2023-01-09] MEDS: CENTRAL LINE FLUSH 10 ML IV PUSH (06:58)
--- NOTE | 2023-01-09 07:41 | WPDINTPN ---
Progress Note: A&P Assessment and Plan (1) Septic shock: Code(s): A41.9 - Sepsis, unspecified organism; R65.21 - Severe sepsis with septic shock Status: Acute Assessment and Plan: Patient initially presented with sepsis secondary to urinary tract infection. She had indwelling Sullivan catheter and had UA consistent with UTI 12/31/2022 Blood cultures VRE, MRSA, Staph epidermidis 12/31/2022 Urine cultures growing ESBL Klebsiella (sensitive to imipenem, meropenem only) 01/04/2023 repeat blood cultures : Preliminary results negative x2 so far CT abdomen done in 11/08 showed stercoral colitis Continue linezolid, meropenem (01/04) Lactic acid increased to 5.1 this morning, could be related to severe anemia, will recheck after blood transfusion 01/07 - CRP 1.2 OFF ALL PRESSORS Off fluids 01/05: Patient pulled her central line out 01/06: Patient pole her arterial line a 01/07: Blank line inserted -wean stress dose steroids -status post albumin x4 doses -01/06: have discontinued IV fluids due to anasarca 01/04: Echocardiogram: LV EF 50-55%, moderate mitral valve regurg, moderate tricuspid valve regurg. RVSP of 47 mmHg (2) Bacteremia: Code(s): R78.81 - Bacteremia Status: Acute Assessment and Plan: Continue management as above (3) UTI (urinary tract infection): Code(s): N39.0 - Urinary tract infection, site not specified Status: Acute Assessment and Plan: Patient has indwelling Sullivan catheter and UA was consistent with UTI She is growing ESBL Klebsiella-antibiotics as above (4) [place] (acute kidney injury): Code(s): N17.9 - Acute kidney failure, unspecified Status: Acute Assessment and Plan: Patient presented with creatinine of 2.10 which is likely secondary to sepsis and septic shock. Creatinine has been improving with IV fluids -creatinine down to 1.00 -urine output is low -Monitor urine output electrolytes and creatinine (5) Atrial fibrillation: Code(s): I48.91 - Unspecified atrial fibrillation Status: Acute Assessment and Plan: Patient currently in AFib with controlled ventricular rate. Continue monitor. May need amiodarone infusion if RVR developed Hold beta-nolvia and calcium channel nolvia -01/06: Patient is was in AFib RVR with sustained heart rates in the 130s, started on amiodarone bolus and infusion -apixaban and Plavix on hold due to anemia -patient is on amiodarone infusion at 1 mg/min, -also on digoxin per Cardiology (6) Obstructive sleep apnea on CPAP: Code(s): G47.33 - Obstructive sleep apnea (adult) (pediatric) Status: Acute Assessment and Plan: CPAP ordered (7) Electrolyte abnormality: Code(s): E87.8 - Other disorders of electrolyte and fluid balance, not elsewhere classified Status: Acute Assessment and Plan: Potassium and magnesium are within normal limits (8) Anemia: Code(s): D64.9 - Anemia, unspecified Status: Acute Assessment and Plan: 01/07: Hemoglobin dropped to 6.7 this morning, transfuse 1 unit of packed RBCs -check stool for negative -check iron panel, anemia of chronic disease -folic acid and vitamin B12 within normal limits -continue famotidine IV q.12 hours (allergy to latex, so cannot give protonix) 01/08/2023: Hemoglobin dropped to 6.6, status post 1 unit of packed RBCs -fibrinogen level was also low, patient was given 1 unit of cryoprecipitate Plan DVT prophylaxis -hold apixaban and clopidogrel due to severe anemia Stress ulcer prophylaxis -Pepcid Nutrition -continue tube feeds, tolerating Code Status -DNR. Patient herself does not appear to have capacity. She is from long term and does not have any family or POA listed in the chart available. Apparently long term is trying to obtain state guardianship for this patient. Unfortunately all the procedures will be done as medical necessity due to lack of consenting adult.
--- NOTE | 2023-01-09 07:47 | WPDINTPN ---
Progress Note: A&P Assessment and Plan (1) Septic shock: Code(s): A41.9 - Sepsis, unspecified organism; R65.21 - Severe sepsis with septic shock Status: Acute Assessment and Plan: Patient initially presented with sepsis secondary to urinary tract infection. She had indwelling Sullivan catheter and had UA consistent with UTI 12/31/2022 Blood cultures VRE, MRSA, Staph epidermidis 12/31/2022 Urine cultures growing ESBL Klebsiella (sensitive to imipenem, meropenem only) 01/04/2023 repeat blood cultures : Preliminary results negative x2 so far CT abdomen done in 11/08 showed stercoral colitis Continue linezolid, meropenem (01/04) Lactic acid increased to 5.1 this morning, could be related to severe anemia, will recheck after blood transfusion 01/07 - CRP 1.2 OFF ALL PRESSORS Off fluids 01/05: Patient pulled her central line out 01/06: Patient pole her arterial line a 01/07: Blank line inserted -wean stress dose steroids -status post albumin x4 doses -01/06: have discontinued IV fluids due to anasarca 01/04: Echocardiogram: LV EF 50-55%, moderate mitral valve regurg, moderate tricuspid valve regurg. RVSP of 47 mmHg (2) Bacteremia: Code(s): R78.81 - Bacteremia Status: Acute Assessment and Plan: Continue management as above (3) UTI (urinary tract infection): Code(s): N39.0 - Urinary tract infection, site not specified Status: Acute Assessment and Plan: Patient has indwelling Sullivan catheter and UA was consistent with UTI She is growing ESBL Klebsiella-antibiotics as above (4) [place] (acute kidney injury): Code(s): N17.9 - Acute kidney failure, unspecified Status: Acute Assessment and Plan: Patient presented with creatinine of 2.10 which is likely secondary to sepsis and septic shock. Creatinine has been improving with IV fluids -creatinine down to 1.00 -urine output is low -Monitor urine output electrolytes and creatinine (5) Atrial fibrillation: Code(s): I48.91 - Unspecified atrial fibrillation Status: Acute Assessment and Plan: Patient currently in AFib with controlled ventricular rate. Continue monitor. May need amiodarone infusion if RVR developed Hold beta-nolvia and calcium channel nolvia -01/06: Patient is was in AFib RVR with sustained heart rates in the 130s, started on amiodarone bolus and infusion -apixaban and Plavix on hold due to anemia -patient is on amiodarone infusion at 1 mg/min, -also on digoxin per Cardiology (6) Obstructive sleep apnea on CPAP: Code(s): G47.33 - Obstructive sleep apnea (adult) (pediatric) Status: Acute Assessment and Plan: CPAP ordered (7) Electrolyte abnormality: Code(s): E87.8 - Other disorders of electrolyte and fluid balance, not elsewhere classified Status: Acute Assessment and Plan: Potassium and magnesium are within normal limits (8) Anemia: Code(s): D64.9 - Anemia, unspecified Status: Acute Assessment and Plan: 01/07: Hemoglobin dropped to 6.7 this morning, transfuse 1 unit of packed RBCs -check stool for negative -check iron panel, anemia of chronic disease -folic acid and vitamin B12 within normal limits -continue famotidine IV q.12 hours (allergy to latex, so cannot give protonix) 01/08/2023: Hemoglobin dropped to 6.6, status post 1 unit of packed RBCs -fibrinogen level was also low, patient was given 1 unit of cryoprecipitate Plan DVT prophylaxis -hold apixaban and clopidogrel due to severe anemia Stress ulcer prophylaxis -Pepcid Nutrition -continue tube feeds, tolerating Patient went into asystole and peacefully Code Status -DNR. Patient herself does not appear to have capacity. She is from custodial and does not have any family or POA listed in the chart available. Apparently custodial is trying to obtain state guardianship for this patient. Unfortunately all the procedures will be d
--- NOTE | 2023-01-09 08:07 | PC.NURSE ---
Patient had a bowel movement, so nursing staff went in to get her cleaned up. Before turning, patient's heart rate was 133 and BP was 102/74. Upon turning, gastric contents started coming out of the patient's mouth and patient started agonally breathing. Patient was immediately suctioned and NG was hooked up to Low intermittent suction. Patient's heart rate was now in the 60's and we were unable to obtain an SPO2 sat. Once gastric contents were all removed, patient was turned onto her back. Patient was dusky and we were unable to find a pulse. Patient is a DNR, so no resuscitative measures were initiated. Dr. Maki was already at bedside and used a doppler and stethoscope to confirm these findings. Time of was called by Dr. Maki at 0767 01/09/23. Hospitalist and patient's long term were both notified.
[2023-01-09 09:42] LABS: Reflex Lactic Acid Yes or No Add Lactic
[2023-01-13 06:57] LABS: Methylmalonic Acid 288 nmol/L (87-318)
[2023-01-13 17:37] LABS: Soluble Transferrin Receptor 0.59 mg/L (0.76-1.76)
== END 2023-01-09 07:28 | disposition expired | DRG 871 ==
LOC: ANHED 19:39 → ANHIMU 21:22 → ANHICU 01-04 02:13
PROVIDERS: Family Medicine; Internal Medicine; Internal Medicine Hematology & Oncology; Admitting Provider Hospitalist; Emergency Provider Emergency Medicine; PCP Hospitalist; Visit Provider Internal Medicine
DX: A41.81 Sepsis due to Enterococcus (principal); R65.21 Severe sepsis with septic shock; N39.0 Urinary tract infection, site not specified; T83.511A Infection and inflammatory reaction due to indwelling urethral catheter, initial encounter; N17.9 Acute kidney failure, unspecified; E87.1 Hypo-osmolality and hyponatremia; J96.11 Chronic respiratory failure with hypoxia; I50.32 Chronic diastolic (congestive) heart failure; Z16.12 Extended spectrum beta lactamase (ESBL) resistance; Z16.21 Resistance to vancomycin; A41.02 Sepsis due to Methicillin resistant Staphylococcus aureus; K52.89 Other specified noninfective gastroenteritis and colitis; I11.0 Hypertensive heart disease with heart failure; I48.0 Paroxysmal atrial fibrillation; I25.10 Atherosclerotic heart disease of native coronary artery without angina pectoris; B95.62 Methicillin resistant Staphylococcus aureus infection as the cause of diseases classified elsewhere; B96.1 Klebsiella pneumoniae [K. pneumoniae] as the cause of diseases classified elsewhere; E78.5 Hyperlipidemia, unspecified; E66.01 Morbid (severe) obesity due to excess calories; M19.90 Unspecified osteoarthritis, unspecified site; R60.1 Generalized edema; G47.33 Obstructive sleep apnea (adult) (pediatric); Z66 Do not resuscitate; I25.2 Old myocardial infarction; Z79.01 Long term (current) use of anticoagulants; Z79.02 Long term (current) use of antithrombotics/antiplatelets; Z86.718 Personal history of other venous thrombosis and embolism; Z74.01 Bed confinement status; Z99.81 Dependence on supplemental oxygen; Z68.35 Body mass index [BMI] 35.0-35.9, adult
CPT/HCPCS: 36415; 36430; 36569; 36600; 70450; 71045; 71250; 74176; 80048; 80053; 81001; 82140; 82274; 82607; 82746; 82805; 82948; 83540; 83550; 83605; 83615; 83690; 83735; 83921; 84100; 84145; 84238; 85014; 85018; 85025; 85027; 85049; 85380; 85384; 85610; 85730; 86140; 86850; 86880; 86900; 86901; 86923; 87040; 87077; 87086; 87088; 87186; 93005; 93306; 96361; 96365; 96366; 96367; 96368; 96375; 96376; 99285; A9270; C1751; C8929; G0378; J0282; J0612; J0696; J1160; J1335; J1630; J1720; J1940; J2020; J2185; J2250; J2371; J2405; J3370; J3475; J3480; J7030; J7040; J7050; J7060; P9012; P9016; P9045; P9047; Q9957